=== PATIENT | male | born 1985 | race Caucasian/White ===

== ENCOUNTER 2017-09-03 20:33 | Inpatient (IN) | payer MEDICAID ==
[~2017-09-03] VITALS: Ht 182.9 cm; Wt 83.9 kg
[~2017-09-03 20:33] MED LIST: CARV6.25 PO; LEVO50TA4 PO; WARF-22 PO
[2017-09-03 23:47] VITALS: BP 115/79; PULSE 70; RESP 18; TEMP 98.2; O2SAT 96
--- NOTE | 2017-09-03 23:56 | HHI.HP ---
[facility] No Primary Care Physician Admission Diagnosis Diagnoses: Chief Complaint: chest pain Travel History International Travel<30 Days: No Contact w/Intl Traveler <30 Da: No History of Present Illness 32 y/o male with a history of CHF, AICD, aortic and mitral valve replacement on anticoagulation presented to the ED with chest pain. Patient states his pain is midsternal intermittent, tight, pressure like, 8/10, with no radiation, with associated nausea and shortness of breath, morphine is helping, walking makes it worse. Patient states since he has been nauseated and he has not been eating and drinking well inferiorly that he would vomit. The patient has recently moved back to [place] and is currently in the process of getting set up with a PCP locally. He does state that he has compliant with all his heart meds including Coumadin. He denies any fever or chills at home. Patient states last time he used IV drugs was 5 years ago. Review of Systems Except as stated in HPI: all other systems reviewed are Neg Past Family Social History Past Medical History CHF IVDA quit 5 years ago Hypothyroidism s/p thyroidectomy Endocarditis Past Surgical History AICD AVR 2011 MVR 2016 Cholecystectomy Thyroidectomy. Eye surgery as an infant Reported Medications Reported Meds & Active Scripts Active Reported Coreg (Carvedilol) 6.25 Mg Tab 6.25 Mg PO BID Levothyroxine (Levothyroxine Sodium) 50 Mcg Tab 50 Mcg PO DAILY Warfarin 10 Mg Tab 10 Mg PO HS Allergies: Coded Allergies: gentamicin (Verified Allergy, Severe, Itching, 09/03/17) ketorolac (Verified Allergy, Severe, Hotflash, 09/03/17) linezolid (Verified Allergy, Severe, Itching, 09/03/17) vancomycin (Verified Allergy, Severe, Itching, 09/03/17) Active Ordered Medications Current Medications Medications (Trade) Dose Ordered Sig/Baudilio Route Start Time Stop Time Status Last Admin (NS Flush) 2 ml UNSCH PRN IV FLUSH 09/04/17 00:00 (NS Flush) 2 ml BID IV FLUSH 09/04/17 09:00 (Zofran Inj) 4 mg Q6H PRN IVP 09/04/17 00:00 (Heparin Inj) 5,000 units Q8H SQ 09/04/17 00:00 (Narcan Inj) 0.4 mg UNSCH PRN IV PUSH 09/04/17 00:00 Family History Mom: Liver failure, ETOH Social History Tobacco use: 1/2 PPD Alcohol use: Illicit drug use: Physical Exam Vital Signs Vital Signs Date Time Temp Pulse Resp B/P (MAP) Pulse Ox O2 Delivery O2 Flow Rate FiO2 09/03/17 23:47 98.2 70 18 115/79 (91) 96 Physical Exam GENERAL: This is a well-nourished, well-developed patient, in no apparent distress. SKIN: No rashes, ecchymoses or lesions. Cool and dry. HEAD: Atraumatic. Normocephalic. EYES: Pupils equal round and reactive. Extraocular motions intact. ENT: Nose without bleeding, purulent drainage or septal hematoma. Airway patent. NECK: Trachea midline. No JVD or lymphadenopathy. CARDIOVASCULAR: Regular rate and rhythm. Systolic 3/6 aortic murmer noted. RESPIRATORY: Clear to auscultation. Breath sounds equal bilaterally. No wheezes , rales, or rhonchi. GASTROINTESTINAL: Abdomen soft, non-tender, nondistended. No guarding. MUSCULOSKELETAL: Extremities without clubbing, cyanosis, or edema. No joint tenderness, effusion, or edema noted. No calf tenderness. NEUROLOGICAL: Awake and alert. Motor and sensory grossly within normal limits. Normal speech. Caprini VTE Risk Assessment Caprini VTE Risk Assessment: No/Low Risk (score <= 1) Caprini Risk Assessment Model Point Value = 1 Point Value = 2 Point Value = 3 Point Value = 5 Age 41-60 Minor surgery BMI > 25 kg/m2 Swollen legs Varicose veins or History of unexplained or recurrent spontaneous Oral contraceptives or hormone replacement Sepsis (< 1 month) Serious lung disease, including pneumonia (< 1 month) Abnormal pulmonary function Acute myocardial infarction Congestive heart failure (< 1 month) History of inflammatory bowel disease Medical patient at bed rest Age 61-74 Arthroscopic surgery Major open surgery (> 45 min) Laparoscopic surgery (> 45 min) Malignancy Confined to bed (> 72 hours) Immobilizing plaster cast Central venous access Age >= 75 History of VTE Family history of VTE Factor V Leiden Prothrombin [id number] Lupus anticoagulant Anticardiolipin antibodies Elevated serum homocysteine Heparin-induced thrombocytopenia Other congenital or acquired thrombophilia Stroke (< 1 month) Elective arthroplasty Hip, pelvis, or leg fracture Acute spinal cord injury (< 1 month) Prophylaxis Regimen Total Risk Factor Score Risk Level Prophylaxis Regimen 0-1 Low Early ambulation 2 Moderate Order ONE of the following: *Sequential Compression Device (SCD) *Heparin 5000 units SQ BID 3-4 Higher Order ONE of the following medications: *Heparin 5000 units SQ TID *Enoxaparin/Lovenox 40 mg SQ daily (WT < 150 kg, CrCl > 30 mL/min) *Enoxaparin/Lovenox 30 mg SQ daily (WT < 150 kg, CrCl > 10-29 mL/min) *Enoxaparin/Lovenox 30 mg SQ BID (WT < 150 kg, CrCl > 30 mL/min) AND/OR *Sequential Compression Device (SCD) 5 or more Highest Order ONE of the following medications: *Heparin 5000 units SQ TID (Preferred with Epidurals) *Enoxaparin/Lovenox 40 mg SQ daily (WT < 150 kg, CrCl > 30 mL/min) *Enoxaparin/Lovenox 30 mg SQ daily (WT < 150 kg, CrCl > 10-29 mL/min) *Enoxaparin/Lovenox 30 mg SQ BID (WT < 150 kg, CrCl > 30 mL/min) AND *Sequential Compression Device (SCD) Assessment and Plan Problem List: (1) Chest pain ICD Code: R07.9 - Chest pain, unspecified Status: Acute (2) Subtherapeutic international normalized ratio (INR) ICD Code: R79.1 - Abnormal coagulation profile Status: Acute (3) CHF (congestive heart failure) ICD Code: I50.9 - Heart failure, unspecified Status: Chronic (4) Acute kidney injury ICD Code: N17.9 - Acute kidney failure, unspecified Status: Acute (5) Transaminitis ICD Code: R74.0 - Nonspecific elevation of levels of transaminase and lactic acid dehydrogenase [LDH] Status: Acute Assessment and Plan 32 y/o male with a history of CHF, AICD, aortic and mitral valve replacement on anticoagulation presented to the ED with chest pain. Chest pain atypical rule out ACS Troponin 0.02-->.04, EKG reviewed and shows paced rhythm, d-dimer elevated 3.53 -Serial troponins and EKGs -Monitor telemetry -VQ scan ordered urgent to rule out PE, patient is currently not tachycardic , only short of breath with walking, will hold on heparin drip due to low probability of PE -Blood cultures ordered to rule out endocarditis, since patient has history -Morphine IV for chest pain -2d echo ordered Subtherapeutic INR, INR 1.7 -Lovenox therapeutic dose given, Coumadin restarted -Pharmacy to dose Coumadin -INR in a.m. LASHONDA, creatinine, suspect due to dehydration 1.5 unknown baseline, patient denies kidney disease -NS bolus 500 mL given due to CHF history -Creatinine in a.m. -Avoid nephrotoxins -Consider nephrology consult if creatinine does not improve Transaminitis, suspect due to dehydration, no abdominal pain noted AST 733, ALT 736 -Liver ultrasound ordered -Trend LFTs -Consider gastroenterology consult if LFTs do not improve CHF, chronic, BNP 787 -Watch for fluid overload -Continue home Coreg DVT prophylaxis: Coumadin Discussed Condition With Patient and RN Problem Qualifiers (1) Chest pain: Qualified Codes: R07.1 - Chest pain on breathing (2) CHF (congestive heart failure): Qualified Codes: I50.22 - Chronic systolic (congestive) heart failure Katharina Richardson Sep 03, 2017 23:56
[2017-09-04] VITALS (7 sets, daily range): BP systolic 93–118; BP diastolic 63–90; PULSE 68–72; RESP 16–20; TEMP 97.1–98; O2SAT 95–100
[2017-09-04] MEDS ORDERED: NALOXONE HCL 0.4 MG/ML AMP IV PUSH PRN
[2017-09-04] MEDS ORDERED: HEPARIN SODIUM - SQ 10,000 UNITS/ML VIAL SQ SCH
[2017-09-04] MEDS ORDERED: SODIUM CHLORID 0.9% 500 ML INJ 500 ML IV ONE (00:15)
[2017-09-04] MEDS ORDERED: ENOXAPARIN SODIUM 80 MG/0.8 ML SYRINGE SQ ONE (00:15)
[2017-09-04 01:18] LABS: TROPONIN I 0.04 NG/ML (0.02-0.05)
[2017-09-04] MEDS: MORPHINE SULFATE 2 MG/ML SYRINGE IV PUSH PRN ×6 (01:27→20:55)
[2017-09-04] MEDS: LEVOTHYROXINE SODIUM 50 MCG TAB PO SCH (06:24)
--- NOTE | 2017-09-04 08:02 | HHI.PR ---
Subjective Remarks in no acute distress. still with on and off chest pain. no sob or dizziness. Objective Vitals Vital Signs Date Time Temp Pulse Resp B/P (MAP) Pulse Ox O2 Delivery O2 Flow Rate FiO2 09/04/17 03:37 98.0 68 18 110/70 (83) 95 09/04/17 01:35 21 09/03/17 23:47 98.2 70 18 115/79 (91) 96 Objective Remarks GENERAL: This is a well-nourished, well-developed patient, in no apparent distress. CARDIOVASCULAR: Regular rate and regular rhythm without murmurs, gallops, or rubs. RESPIRATORY: Clear to auscultation. Breath sounds equal bilaterally. No wheezes , rales, or rhonchi. GASTROINTESTINAL: Abdomen soft, non-tender, nondistended. Normal, active bowel sounds MUSCULOSKELETAL: Extremities without clubbing, cyanosis, or edema. NEURO: Alert & Oriented x4 to person, place, time, situation. Moves all ext x4 Medications and IVs Inpatient Medications Carvedilol (Coreg) 6.25 mg BID PO ; Start 09/04/17 at 09:00 Enoxaparin Sodium (Lovenox Inj) 80 mg ONCE ONCE SQ Last administered on at 01:27; Start 09/04/17 at 00:15; Stop 09/04/17 at 00:16; Status DC Heparin Sodium (Porcine) (Heparin Inj) 5,000 units Q8H SQ ; Start 09/04/17 at 00 :00; Stop 09/04/17 at 00:10; Status DC Levothyroxine Sodium (Synthroid) 50 mcg DAILY@0700 PO Last administered on 09/04at 06:24; Start 09/04/17 at 07:00 Morphine Sulfate (Morphine Inj) 2 mg Q3H PRN IV PUSH chest pain Last administered on 09/04/17at 06:25; Start 09/04/17 at 00:00 Naloxone HCl (Narcan Inj) 0.4 mg UNSCH PRN IV PUSH SEE LABEL COMMENTS; Start at 00:00 Ondansetron HCl (Zofran Inj) 4 mg Q6H PRN IVP NAUSEA OR VOMITING; Start at 00:00 Pharmacy Profile Note 0 ml @ 0 mls/hr UNSCH OTHER ; Start 09/04/17 at 01:00 Sodium Chloride 500 ml @ 500 mls/hr BOLUS ONCE IV Last administered on at 01:26; Start 09/04/17 at 00:15; Stop 09/04/17 at 01:14; Status DC Sodium Chloride (NS Flush) 2 ml BID IV FLUSH ; Start 09/04/17 at 09:00 Warfarin Sodium (Coumadin) 10 mg DAILY@1600 PO ; Start 09/04/17 at 16:00 A/P Problem List: (1) Chest pain ICD Code: R07.9 - Chest pain, unspecified Status: Acute (2) Subtherapeutic international normalized ratio (INR) ICD Code: R79.1 - Abnormal coagulation profile Status: Acute (3) CHF (congestive heart failure) ICD Code: I50.9 - Heart failure, unspecified Status: Chronic (4) Acute kidney injury ICD Code: N17.9 - Acute kidney failure, unspecified Status: Acute (5) Transaminitis ICD Code: R74.0 - Nonspecific elevation of levels of transaminase and lactic acid dehydrogenase [LDH] Status: Acute Assessment and Plan A/P Chest pain s/p aortic/mitral valve replacement Troponinnegative, EKG reviewed and shows paced rhythm, d-dimer elevated 3.53 -Monitor telemetry -VQ scan ordered urgent to rule out PE, patient is currently not tachycardic , only short of breath with walking, will hold on heparin drip due to low probability of PE -Blood cultures ordered to rule out endocarditis, since patient has history -Morphine IV for chest pain -2d echo ordered -consult cardiology Subtherapeutic INR, INR 1.7 -Lovenox therapeutic dose given, Coumadin restarted -Pharmacy to dose Coumadin -INR in a.m. renal insufficiency with unknown baseline, patient denies kidney disease -NS bolus 500 mL given due to CHF history -Creatinine in a.m. -Avoid nephrotoxins -Consider nephrology consult if creatinine does not improve Transaminitis, suspect due to dehydration, no abdominal pain noted AST 733, ALT 736 -Liver ultrasound ordered -check hepatitis panel -Trend LFTs -Consider gastroenterology consult if LFTs do not improve CHF, chronic, BNP 787 -Watch for fluid overload -Continue home Coreg DVT prophylaxis: Coumadin Problem Qualifiers (1) Chest pain: Qualified Codes: R07.1 - Chest pain on breathing (2) CHF (congestive heart failure): Qualified Codes: I50.22 - Chronic systolic (congestive) heart failure Tulio Aceves MD Sep 04, 2017 08:02
[2017-09-04] MEDS ORDERED: PNEUMOCOCCAL POLYVALENT INJ 25 MCG/0.5 ML SYR IM ONE (09:00)
[2017-09-04] MEDS ORDERED: INFLUENZA VIRUS VACCINE (QUADRIVALENT) 0.5 ML SYR IM ONE (09:00)
[2017-09-04] MEDS: SODIUM CHLORIDE 0.9% FLUSH 10 ML FLUSH IV FLUSH SCH ×2 (09:01→20:51)
[2017-09-04] MEDS: CARVEDILOL 6.25 MG TAB PO SCH ×2 (09:01→20:54)
[2017-09-04 09:04] LABS: AUTOMATED NEUTROPHIL # 6.5 TH/MM3 (1.8-7.7); BASOPHIL # 0.1 TH/MM3 (0-0.2); BASOPHIL % 0.9 % (0.0-2.0); EOSINOPHIL % 0.1 % (0.0-4.0); HEMATOCRIT 37.1 % (39.0-51.0); HEMOGLOBIN 11.8 GM/DL (13.0-17.0); LYMPH % 11.1 % (9.0-44.0); LYMPHOCYTE # 0.9 TH/MM3 (1.0-4.8); MEAN CELL VOLUME 78.6 FL (80.0-100.0); MEAN CORPUSCULAR HEMOGLOBIN 25.1 PG (27.0-34.0); MEAN CORPUSCULAR HGB CONC 31.9 % (32.0-36.0); MONO % 9.8 % (0.0-8.0); MONOCYTE # 0.8 TH/MM3 (0-0.9); NEUT % 78.1 % (16.0-70.0); PLATELET COUNT 210 TH/MM3 (150-450); RED BLOOD COUNT 4.72 MIL/MM3 (4.50-5.90); RED CELL DISTRIBUTION WIDTH 17.4 % (11.6-17.2); WHITE BLOOD COUNT 8.4 TH/MM3 (4.0-11.0)
[2017-09-04 09:10] LABS: INTERNATIONAL NORMALIZED RATIO 1.6 RATIO; PROTHROMBIN TIME - PATIENT 16.1 SEC (9.8-11.6)
[2017-09-04 09:14] LABS: ALBUMIN 2.7 GM/DL (3.4-5.0); AST (GOT) 508 U/L (15-37); BICARBONATE 27.7 MEQ/L (21.0-32.0); BLOOD UREA NITROGEN 20 MG/DL (7-18); CALCIUM 7.9 MG/DL (8.5-10.1); CHLORIDE 106 MEQ/L (98-107); CREATININE 1.41 MG/DL (0.60-1.30); GLOMERULAR FILTRATION RATE 58 ML/MIN (>89); GLUCOSE,RANDOM 64 MG/DL (74-106); SODIUM (NA) 139 MEQ/L (136-145)
[2017-09-04 09:15] LABS: ALT (GPT) 654 U/L (12-78)
[2017-09-04 09:18] LABS: ALKALINE PHOSPHATASE 108 U/L (45-117); TOTAL BILIRUBIN ADULT 0.7 MG/DL (0.2-1.0); TOTAL PROTEIN 6.3 GM/DL (6.4-8.2)
[2017-09-04 09:20] LABS: TROPONIN I 0.03 NG/ML (0.02-0.05)
--- NOTE | 2017-09-04 10:58 | RADRPT ---
EXAM DATE/TIME: 09/04/2017 09:30 [facility] COMPARISON: CHEST SINGLE AP, September 03, 2017, 19:48. INDICATIONS : Short of breath and chest pain for 1 day. DOSE: 8.1 mCi Tc99m MAA IV 1.1 mCi Tc99m DTPA aerosol MEDICAL HISTORY : Congestive hearrt failure. Smoker. SURGICAL HISTORY : Thyroidectomy. Pacemaker. ENCOUNTER: Initial ACUITY: 1 day PAIN SCALE: 8/10 LOCATION: Bilateral chest TECHNIQUE: Following five minutes of tidal breathing of DTPA aerosol, planar images of the lungs were performed in eight projections. The patient was then injected with MAA, and eight-view perfusion scan was perf ormed. FINDINGS: There is inhomogeneous aerosol deposition. Perfusion is better than ventilation. The there are no defects on the right compared patient defect is present on the left. CONCLUSION: Low probability for pulmonary embolism. Reginald Sharma MD FACR on September 04, 2017 at 10:54 Board Certified Radiologist. This report was verified electronically.
--- NOTE | 2017-09-04 12:04 | RADRPT ---
EXAM DATE/TIME: 09/04/2017 10:57 [facility] COMPARISON: No previous studies available for comparison. INDICATIONS : Increased lab values. MEDICAL HISTORY : Congestive heart failure. Anticoagulant therapy, warfarin. Chest pain. SURGICAL HISTORY : Thyroidectomy. Cholecystectomy. Mitral valve surgery. ENCOUNTER: Initial ACUITY: 2 weeks PAIN SCORE: 4/10 LOCATION: Bilateral upper quadrant MEASUREMENTS: LIVER: 16.0 cm length COMMON DUCT: 3 mm RIGHT KIDNEY: 10.0 x 4.7 x 4.8 cm SPLEEN: 12.6 cm length FINDINGS: LIVER: Normal echotexture without focal lesion or ductal dilatation. COMMON DUCT: No intraluminal mass or stone visualized. GALLBLADDER: Contains no stones, demonstrates no wall thickening or pericholecystic fluid. PANCREAS: The visualized portions are within normal limits. RIGHT KIDNEY: No hydronephrosis, stone or mass. SPLEEN: No focal lesion. Bilateral small pleural effusions. CONCLUSION: 1. Bilateral small pleural effusions. 2. Otherwise negative ultrasound of the liver. Reginald Sharma MD FACR on September 04, 2017 at 12:01 Board Certified Radiologist. This report was verified electronically.
--- NOTE | 2017-09-04 13:19 | HHI.DCPOC ---
Discharge Care Plan Diagnosis: (1) Elevated d-dimer (2) CHF (congestive heart failure) (3) Chest pain Your Health Problems Are: Chest Pain Goals to Promote Your Health * To prevent worsening of your condition and complications * To maintain your health at the optimal level Directions to Meet Your Goals Take your medications as prescribed Follow your dietary instruction Follow activity as directed Keep your appointments as scheduled Take your immunizations and boosters as scheduled If your symptoms worsen call your PCP, if no PCP go to Urgent Care Center or Emergency Room Smoking is Dangerous to Your Health. Avoid second hand smoke Call the 24-hour hour crisis hotline for domestic abuse at Dante Palmer Sep 04, 2017 13:19
--- NOTE | 2017-09-04 13:28 | ECHRPT ---
Indication: CHEST PAIN CONCLUSIONS Moderately dilated left ventricle. Mild concentric left ventricular hypertrophy. The left ventricular systolic function is severely reduced with an estimated ejection fraction less than 20%. Normally functioning mechanical mitral valve prosthesis. The aortic valve prosthesis is normal to two-dimensional, color flow and Doppler interrogation. Multiple mobile densities seen and are most consistent with papillary muscles. Endocarditis can not be excluded. Trivial pulmonary valve regurgitation. BP: / HR: Rhythm: MEASUREMENTS (Male / Female) Normal Values Technical Quality: 2D ECHO LV Diastolic Diameter PLAX 6.6 cm 4.2 - 5.9 / 3.9 - 5.3 cm LV Systolic Diameter PLAX 6.3 cm IVS Diastolic Thickness 1.4 cm 0.6 - 1.0 / 0.6 - 0.9 cm LVPW Diastolic Thickness 1.1 cm 0.6 - 1.0 / 0.6 - 0.9 cm LV Relative Wall Thickness 0.4 RV Internal Dim ED PLAX 2.2 cm LA Systolic Diameter LX 4.2 cm 3.0 - 4.0 / 2.7 - 3.8 cm DOPPLER AV Peak Velocity 284.0 cm/s AV Peak Gradient 32.3 mmHg MV Peak Velocity 171.0 cm/s MV Peak Gradient 11.7 mmHg MV Mean Velocity 91.7 cm/s MV Mean Gradient 4.0 mmHg Mitral E Point Velocity 163.0 cm/s Mitral A Point Velocity 64.2 cm/s Mitral E to A Ratio 2.5 TR Peak Velocity 318.0 cm/s TR Peak Gradient 40.4 mmHg FINDINGS LEFT VENTRICLE Moderately dilated left ventricle. Mild concentric left ventricular hypertrophy. The left ventricular systolic function is severely reduced with an estimated ejection fraction less than 20%. Multiple mobile densities seen and are most consistent with papillary muscles. Endocarditis can not be excluded. RIGHT VENTRICLE Normal right ventricular size and systolic function. LEFT ATRIUM The left atrial size is normal. RIGHT ATRIUM The right atrial size is normal. ATRIAL SEPTUM Normal atrial septal thickness without atrial level shunting by limited color doppler interrogation. AORTA The aortic root and proximal ascending aorta are normal in size on limited imaging. MITRAL VALVE Normally functioning mechanical mitral valve prosthesis. AORTIC VALVE The aortic valve prosthesis is normal to two-dimensional, color flow and Doppler interrogation. The valve appears shggy. TRICUSPID VALVE Structurally normal tricuspid valve. No tricuspid valve stenosis or regurgitation. PULMONARY VALVE Trivial pulmonary valve regurgitation. VESSELS The inferior vena cava is normal in size. PERICARDIUM No pericardial effusion. Liz Scar Noe MD, FACC (Electronically Signed) Final Date:04 September 2017 13:27
--- NOTE | 2017-09-04 14:11 | MB ---
cc: Liz Liu MD DATE: 09/04/2017 REASON FOR CONSULTATION: Chest pain. HISTORY OF PRESENT ILLNESS: Mr. Chapman is a 32-year-old man who does have a history of endocarditis with an aortic valve replacement in 2011 and subsequent mitral valve replacement in 2016. He has a nonischemic cardiomyopathy with an EF of 15-20%, per the patient. He did have subsequent ICD placement. He notes that at his catheterization a couple years ago that there was no significant coronary disease. He reports that last summer, he had good exercise capacity and was able to cut 6 or 7 yards with his father. Now, he has difficulty with prolonged ambulation across the house. He notes that when he gets up to walk a moderate distance that he has cramps essentially all over in his legs, abdomen, and chest in addition to some shortness of breath. He reports that he has moved from [place] and essentially has not had any followup INRs in 3 months. PAST MEDICAL HISTORY: Significant for IV drug use with a subsequent AVR and MVR that are mechanical, CHF, hypothyroidism, endocarditis. PAST SURGICAL HISTORY: Includes the ICD, AVR, MVR, cholecystectomy, thyroidectomy. ALLERGIES: GENTAMICIN, KETOROLAC, , VANCOMYCIN. REPORTED OUTPATIENT MEDICATIONS: Include Coreg 6.25 b.i.d., levothyroxine 50 mcg a day and Coumadin 10 mg a day. FAMILY HISTORY: Positive for alcohol. SOCIAL HISTORY: The patient smokes 1/2 pack a day and denies any drug use in the last several years. PHYSICAL EXAMINATION: VITAL SIGNS: 98.0, 70, 16, 104/74. GENERAL: He is a thin man who is in no apparent distress. NECK: Free from JVD. LUNGS: Bilaterally clear to auscultation. CARDIOVASCULAR: He has a mechanical S2. ABDOMEN: Soft. EXTREMITIES: Free from edema. LABORATORY DATA: Significant for creatinine of 1.4. His AST is 508 and ALT is 654. His serial troponins are 0.04/0.04/0.03. The INR is 1.6 and D-dimer is 3.53. DIAGNOSTIC DATA: V/Q scan was low probability for pulmonary embolism. Liver ultrasound was remarkable only for small bilateral pleural effusions. Echocardiogram shows an EF less than 20%. The LV was fairly dilated and globally hypokinetic. There were mobile densities within the LV that were most consistent with a papillary muscles; however, endocarditis cannot be excluded on the basis of these images. IMPRESSIONS: 1. Chest pain. The patient has ruled out with serial enzymes. He reports a heart catheterization just 2 years or so ago that had normal coronaries. At this point, I do not feel any further ischemia workup is indicated. His description is really more of a global cramping up with mild to moderate activities. I suspect that this is more related to his poor left ventricular function, which is around 15%. Ideally, this young man would be considered for a transplant; however, I do not believe he is realistically a viable candidate at this time as he has had 2 open heart procedures and is essentially noncompliant with his medications. This could be revisited later if he is able to establish with a local senior applications architect. 2. Nonischemic cardiomyopathy - as above. The patient is on a beta bouchra. Angiotensin-converting enzymes inhibitor is felt relatively contraindicated with his elevated creatinine. 3. Elevated liver function tests. It is not clear if this is secondary to hepatic congestion or alcohol versus other. 4. History of heart failure. The patient actually appears really well compensated today. I would continue his present medications. 5. History of endocarditis. I do not see any overt signs of endocarditis. He is afebrile and has a normal white count. It is not unreasonable for him to be discharged home once his INR is therapeutic from a CV perspective. The patient was counseled to quit smoking. MD FILIBERTO Stinson/JOSE EDUARDO , 01:47 PM , 02:10 PM
[2017-09-04] MEDS: ENOXAPARIN SODIUM 80 MG/0.8 ML SYRINGE SQ SCH (14:12)
[2017-09-04] MEDS ORDERED: WARFARIN SOD 10 MG TAB PO SCH (16:00)
--- NOTE | 2017-09-04 16:12 | EKG ---
Date Performed: 09/04/2017 Time Performed: 02:01:45 PTAGE: 32 years EKG: AV paced ABNORMAL RHYTHM ECG Since PREVIOUS TRACING , no significant change noted PREVIOUS TRACIN09/03/2017 19.33.56 DOCTOR: Liz Liu Interpretating Date/Time 09/04/2017 16:11:07
--- NOTE | 2017-09-04 16:12 | EKG ---
Date Performed: 09/04/2017 Time Performed: 06:10:30 PTAGE: 32 years EKG: Ventricular paced ABNORMAL RHYTHM ECG Since PREVIOUS TRACING , no significant change noted PREVIOUS TRACIN09/04/2017 02.01 DOCTOR: Liz Liu Interpretating Date/Time 09/04/2017 16:11:28
[2017-09-05] VITALS (8 sets, daily range): BP systolic 108–125; BP diastolic 65–76; PULSE 56–95; RESP 16–18; TEMP 97.8–99.2; O2SAT 94–100
[2017-09-05] MEDS: MORPHINE SULFATE 2 MG/ML SYRINGE IV PUSH PRN ×6 (00:29→20:30)
[2017-09-05] MEDS: ENOXAPARIN SODIUM 80 MG/0.8 ML SYRINGE SQ SCH (03:42)
[2017-09-05] MEDS: LEVOTHYROXINE SODIUM 50 MCG TAB PO SCH (07:31)
[2017-09-05 07:38] LABS: ALBUMIN 2.5 GM/DL (3.4-5.0); ALT (GPT) 632 U/L (12-78); AST (GOT) 378 U/L (15-37); BICARBONATE 23.9 MEQ/L (21.0-32.0); BLOOD UREA NITROGEN 14 MG/DL (7-18); CALCIUM 7.9 MG/DL (8.5-10.1); CHLORIDE 107 MEQ/L (98-107); CREATININE 1.07 MG/DL (0.60-1.30); GLOMERULAR FILTRATION RATE 80 ML/MIN (>89); GLUCOSE,RANDOM 83 MG/DL (74-106); SODIUM (NA) 138 MEQ/L (136-145)
[2017-09-05 07:39] LABS: ALKALINE PHOSPHATASE 83 U/L (45-117); TOTAL BILIRUBIN ADULT 0.5 MG/DL (0.2-1.0); TOTAL PROTEIN 5.9 GM/DL (6.4-8.2)
[2017-09-05 08:05] LABS: INTERNATIONAL NORMALIZED RATIO 2.4 RATIO; PROTHROMBIN TIME - PATIENT 24.1 SEC (9.8-11.6)
[2017-09-05] MEDS: CARVEDILOL 6.25 MG TAB PO SCH ×2 (09:10→20:24)
[2017-09-05] MEDS: SODIUM CHLORIDE 0.9% FLUSH 10 ML FLUSH IV FLUSH SCH ×2 (09:11→20:24)
--- NOTE | 2017-09-05 13:13 | PD.CONS ---
History of Present Illness Service Infectious disease Consult Requested By Dr Aceves Reason for Consult Evaluate patient with (+) BC Primary Care Physician No Primary Care Physician Diagnoses: History of Present Illness Patient seen and examined. Records reviewed. Patient is a 32-year-old male, presented to the hospital for evaluation of generalized malaise, feeling cold and clammy, and experiencing chest pain, as well as dyspnea on exertion. His history is significant for 2 episodes of endocarditis. One was in 2011, and he underwent aortic valve replacement at that time. During that. He was actively using IV drugs. Then in 2014, while he was in [facility], he was apparently hospitalized in [facility] and was diagnosed to have endocarditis and underwent mitral valve replacement. Patient states that both valves are mechanical valves. Patient states the last time he used IV drug was about 5 years ago. More recently he has been having problem with multiple symptoms. He was having ALMEIDA, and some palpitations and pain. He initially presented at [facility] , and at that time he was also having some fevers. He was told that he had positive blood cultures, but he signed out AGAINST MEDICAL ADVICE for personal reasons. Patient stated that his symptoms got better, but the symptoms started back up again. He has been having more problem with dyspnea on exertion and has been having limitation in his mobility. He really did not document any fever recently, but he was having cold and clammy episodes. Denies any other respiratory complaint as far as cough or congestion. Has not had any GI or any urinary complaints. He initially presented in [facility], and from there he was transferred here at the [facility]. 2 blood cultures done on this admission are now reported as growing gram- positive cocci in pairs and chains. Infectious disease consultation has been requested to evaluate the patient and assist with management. Review of Systems Constitutional: COMPLAINS OF: Chills, Night Sweats Eyes: DENIES: Eye pain Ears, nose, mouth, throat: DENIES: Nasal discharge, Oral lesions, Throat pain, Ear Pain, Sinus Pain Respiratory: COMPLAINS OF: Shortness of breath, DENIES: Cough Cardiovascular: COMPLAINS OF: Chest pain, Dyspnea on Exertion, DENIES: Lower Extremity Edema Gastrointestinal: DENIES: Abdominal pain, Diarrhea, Nausea, Vomiting, Difficulty Swallowing Genitourinary: DENIES: Urgency, Hematuria, Dysuria Musculoskeletal: COMPLAINS OF: Muscle aches, DENIES: Joint pain, Joint Swelling , Back pain Integumentary: DENIES: Pruritus, Rash Hematologic/lymphatic: DENIES: Lymphadenopathy Neurologic: DENIES: Headache, Localized weakness Psychiatric: DENIES: Hallucinations Past Family Social History Allergies: Coded Allergies: gentamicin (Verified Allergy, Severe, Itching, 09/03/17) ketorolac (Verified Allergy, Severe, Hotflash, 09/03/17) linezolid (Verified Allergy, Severe, Itching, 09/03/17) vancomycin (Verified Adverse Reaction, Severe, Itching, 09/05/17) gets hot and itchy, 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 Eye surgery as an infant Active Ordered Medications Current Medications Medications (Trade) Dose Ordered Sig/Baudilio Route Start Time Stop Time Status Last Admin (NS Flush) 2 ml UNSCH PRN IV FLUSH 09/04/17 00:00 (NS Flush) 2 ml BID IV FLUSH 09/04/17 09:00 09/05/17 09:11 (Zofran Inj) 4 mg Q6H PRN IVP 09/04/17 00:00 (Narcan Inj) 0.4 mg UNSCH PRN IV PUSH 09/04/17 00:00 (Morphine Inj) 2 mg Q3H PRN IV PUSH 09/04/17 00:00 09/05/17 11:29 (Coreg) 6.25 mg BID PO 09/04/17 09:00 09/05/17 09:10 (Synthroid) 50 mcg DAILY@0700 PO 09/04/17 07:00 09/05/17 07:31 (Coumadin) 10 mg DAILY@1600 PO 09/04/17 16:00 Future Hold 09/04/17 14:08 Pharmacy Profile Note 0 ml @ 0 mls/hr UNSCH OTHER 09/04/17 01:00 Family History Liver disease and alcoholism Social History Tobacco use: 1/2 PPD Alcohol use: Denies Illicit drug use: History IV drug use, last use was 5 years ago Physical Exam Vital Signs Vital Signs Date Time Temp Pulse Resp B/P (MAP) Pulse Ox O2 Delivery O2 Flow Rate FiO2 09/05/17 11:18 99.0 77 16 108/65 (79) 99 09/05/17 07:48 20 09/05/17 07:08 99.0 78 16 125/75 (92) 100 09/05/17 03:58 98.5 76 18 117/76 (90) 100 09/05/17 01:04 97.8 95 18 120/76 (91) 94 09/04/17 20:55 97.1 72 20 118/90 (99) 97 09/04/17 15:32 97.9 69 16 98/66 (77) 98 Physical Exam GENERAL: Patient is a well-nourished, well-developed male, awake and alert, not in respiratory distress. SKIN: Cool and dry. No generalized rash, no ecchymoses and no evidence of embolic lesions. HEAD: Atraumatic. Normocephalic. No temporal wasting, or tenderness. EYES: [place] conjunctiva. No petechia or hemorrhage. Pupils equal, round and reactive to light. Extraocular movements full and intact. No scleral icterus. No injection or drainage. EARS, NOSE AND THROAT: Nose without bleeding or purulent nasal discharge. No sinus tenderness. Mucous membranes pink and moist. No oral lesions noted. No exudate. No oral thrush. NECK: Trachea midline. Supple and not tender, no meningeal signs CARDIOVASCULAR: Regular rate and rhythm. No murmurs, rubs or gallops heard. (+ ) mechanical valve sound. AICD looks ok RESPIRATORY: Clear to auscultation. Breath sounds equal bilaterally. No rales , wheezing or rhonchi ABDOMEN: Soft, non-tender, nondistended. Bowel sounds present and normoactive. No guarding. No rebound. No organomegaly. EXTREMITIES: No clubbing, cyanosis, or edema. No joint effusion, has good ROM. No calf tenderness. Well perfused and warm. NEUROLOGICAL: Awake and alert. Cranial nerves grossly intact. Motor grossly within normal limits. PSYCHIATRIC: Normal affect, calm and cooperative. LINE: No evidence of infection Laboratory Laboratory Tests Test 09/05/17 06:29 09/05/17 11:52 Prothrombin Time 24.1 Prothromb Time International Ratio 2.4 Blood Urea Nitrogen 14 Creatinine 1.07 Random Glucose 83 Total Protein 5.9 Albumin 2.5 Calcium Level 7.9 Alkaline Phosphatase 83 Aspartate Amino Transf (AST/SGOT) 378 Alanine Aminotransferase (ALT/SGPT) 632 Total Bilirubin 0.5 Sodium Level 138 Potassium Level 4.2 Chloride Level 107 Carbon Dioxide Level 23.9 Anion Gap 7 Estimat Glomerular Filtration Rate 80 Total Creatine Kinase 33 Erythrocyte Sedimentation Rate 14 Date/Time Source Procedure Growth Status 09/04/17 00:20 Blood Peripheral Aerobic Blood Culture - Preliminary Gram Positive Cocci Resulted 09/04/17 00:20 Anaerobic Blood Culture - Preliminary Gram Positive Cocci Resulted Result Diagram: 09/04/17 0831 09/05/17 0629 Imaging RADIOLOGY STUDIES/FILMS REVIEWED Lung Scan-VQ Nuclear Medicine 09/04/17 0000 Signed Impressions: Service Date/Time: Monday, September 04, 2017 09:30 - CONCLUSION: Low probability for pulmonary embolism. Reginald Sharma MD FACR Liver Ultrasound 09/04/17 0000 Signed Impressions: Service Date/Time: Monday, September 04, 2017 10:57 - CONCLUSION: 1. Bilateral small pleural effusions. 2. Otherwise negative ultrasound of the liver. 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
--- NOTE | 2017-09-05 13:26 | HHI.PR ---
Subjective Remarks in no acute distress. has on and off chest pain. afebrile. Objective Vitals Vital Signs Date Time Temp Pulse Resp B/P (MAP) Pulse Ox O2 Delivery O2 Flow Rate FiO2 09/05/17 11:18 99.0 77 16 108/65 (79) 99 09/05/17 07:48 20 09/05/17 07:08 99.0 78 16 125/75 (92) 100 09/05/17 03:58 98.5 76 18 117/76 (90) 100 09/05/17 01:04 97.8 95 18 120/76 (91) 94 09/04/17 20:55 97.1 72 20 118/90 (99) 97 09/04/17 15:32 97.9 69 16 98/66 (77) 98 I/O 09/04/17 09/04/17 09/04/17 09/05/17 09/05/17 09/05/17 06:59 14:59 22:59 06:59 14:59 22:59 Intake Total 500 ml Balance 500 ml Intake IV Total 500 ml Result Diagram: 09/04/17 0831 09/05/17 0629 Imaging Last Impressions Lung Scan-VQ Nuclear Medicine 09/04/17 0000 Signed Impressions: Service Date/Time: Monday, September 04, 2017 09:30 - CONCLUSION: Low probability for pulmonary embolism. Reginald Sharma MD FACR Liver Ultrasound 09/04/17 0000 Signed Impressions: Service Date/Time: Monday, September 04, 2017 10:57 - CONCLUSION: 1. Bilateral small pleural effusions. 2. Otherwise negative ultrasound of the liver. Reginald Sharma MD FACR Objective Remarks GENERAL: This is a well-nourished, well-developed patient, in no apparent distress. CARDIOVASCULAR: Regular rate and regular rhythm without murmurs, gallops, or rubs. RESPIRATORY: Clear to auscultation. Breath sounds equal bilaterally. No wheezes , rales, or rhonchi. GASTROINTESTINAL: Abdomen soft, non-tender, nondistended. Normal, active bowel sounds MUSCULOSKELETAL: Extremities without clubbing, cyanosis, or edema. NEURO: Alert & Oriented x4 to person, place, time, situation. Moves all ext x4 Medications and IVs Inpatient Medications Ampicillin Sodium/ Sulbactam Sodium 3 gm/Sodium Chloride 100 ml @ 200 mls/hr Q6H IV ; Start 09/05/17 at 12:45; Status UNV Carvedilol (Coreg) 6.25 mg BID PO Last administered on 09/05/17at 09:10; Start 09/04/17 at 09:00 Diphenhydramine HCl (Benadryl) 50 mg ONCE ONCE PO ; Start 09/05/17 at 12:45; Stop 09/05/17 at 12:46; Status UNV Enoxaparin Sodium (Lovenox Inj) 80 mg Q12H SQ Last administered on 09/05/17at 03 :42; Start 09/04/17 at 14:00; Stop 09/05/17 at 09:13; Status DC Heparin Sodium (Porcine) (Heparin Inj) 5,000 units Q8H SQ ; Start 09/04/17 at 00 :00; Stop 09/04/17 at 00:10; Status DC Levothyroxine Sodium (Synthroid) 50 mcg DAILY@0700 PO Last administered on 09/05at 07:31; Start 09/04/17 at 07:00 Morphine Sulfate (Morphine Inj) 2 mg Q3H PRN IV PUSH chest pain Last administered on 09/05/17at 11:29; Start 09/04/17 at 00:00 Naloxone HCl (Narcan Inj) 0.4 mg UNSCH PRN IV PUSH SEE LABEL COMMENTS; Start at 00:00 Ondansetron HCl (Zofran Inj) 4 mg Q6H PRN IVP NAUSEA OR VOMITING; Start at 00:00 Pharmacy Profile Note 0 ml @ 0 mls/hr UNSCH OTHER ; Start 09/05/17 at 12:45; Status UNV Sodium Chloride 500 ml @ 500 mls/hr BOLUS ONCE IV Last administered on at 01:26; Start 09/04/17 at 00:15; Stop 09/04/17 at 01:14; Status DC Sodium Chloride (NS Flush) 2 ml BID IV FLUSH Last administered on 09/05/17at 09: 11; Start 09/04/17 at 09:00 Vancomycin HCl 1250 mg/Sodium Chloride 262.5 ml @ 262.5 mls/ hr ONCE ONCE IV ; Start 09/05/17 at 12:45; Stop 09/05/17 at 13:44; Status UNV Warfarin Sodium (Coumadin) 10 mg DAILY@1600 PO Last administered on 09/04/17at 14:08; Start 09/04/17 at 16:00; Status Future Hold A/P Problem List: (1) Chest pain ICD Code: R07.9 - Chest pain, unspecified Status: Acute (2) Subtherapeutic international normalized ratio (INR) ICD Code: R79.1 - Abnormal coagulation profile Status: Acute (3) CHF (congestive heart failure) ICD Code: I50.9 - Heart failure, unspecified Status: Chronic (4) Acute kidney injury ICD Code: N17.9 - Acute kidney failure, unspecified Status: Acute (5) Transaminitis ICD Code: R74.0 - Nonspecific elevation of levels of transaminase and lactic acid dehydrogenase [LDH] Status: Acute Assessment and Plan A/P Chest pain history of endocarditis- s/p aortic/mitral valve replacement cardiomyopathy Troponin negative -Monitor telemetry -VQ scan with low-probability for PE. -Blood cultures with gram-positive cocci -continue with pain control. -echo with EF < 20% -continue Coreg and Coumadin- will dc subq lovenox. -PT/INR monitoring. -will add CARMINE if renal function stable. -cardiology consult appreciated. -started on Vancomycin and Unsayn. - consulted ID. renal insufficiency with unknown baseline, patient denies kidney disease -improved. -Avoid nephrotoxins -will monitor. Transaminitis, suspect due to dehydration, no abdominal pain noted- trending down. Hepatitis C -Liver ultrasound with small bilateral pleural effusions- but otherwise negative. -Trend LFTs DVT prophylaxis: Coumadin. d/w . Problem Qualifiers (1) Chest pain: Qualified Codes: R07.1 - Chest pain on breathing (2) CHF (congestive heart failure): Qualified Codes: I50.22 - Chronic systolic (congestive) heart failure Tulio Aceves MD Sep 05, 2017 13:26
[2017-09-05] MEDS ORDERED: diphenhydrAMINE HCL 50 MG CAP PO SCH (13:30)
[2017-09-05] MEDS ORDERED: Vancomycin Consult Pharmacy 1 EA OTHER SCH (14:30)
[2017-09-05] MEDS: AMPICILLIN-SULBACTAM INJ 3 GM in SODIUM CHLORIDE 0.9% INJ 100 ML IV SCH ×2 (14:52→20:23)
[2017-09-05] MEDS ORDERED: VANCOMYCIN INJ 1,250 MG in SODIUM CHLOR 0.9% 250 ML INJ 250 ML IV SCH (15:00)
[2017-09-05] MEDS: diphenhydrAMINE HCL 50 MG CAP PO PRN (16:46)
[2017-09-05] MEDS: VANCOMYCIN INJ 1,250 MG in SODIUM CHLOR 0.9% 250 ML INJ 250 ML IV SCH (17:28)
[2017-09-06] VITALS (8 sets, daily range): BP systolic 95–120; BP diastolic 67–87; PULSE 70–77; RESP 16–20; TEMP 98–98.5; O2SAT 97–100
[2017-09-06] MEDS: MORPHINE SULFATE 2 MG/ML SYRINGE IV PUSH PRN ×6 (01:27→22:27)
[2017-09-06] MEDS: AMPICILLIN-SULBACTAM INJ 3 GM in SODIUM CHLORIDE 0.9% INJ 100 ML IV SCH ×3 (03:00→15:00)
[2017-09-06] MEDS: diphenhydrAMINE HCL 50 MG CAP PO PRN (03:34)
[2017-09-06] MEDS: VANCOMYCIN INJ 1,250 MG in SODIUM CHLOR 0.9% 250 ML INJ 250 ML IV SCH (04:23)
[2017-09-06] MEDS: LEVOTHYROXINE SODIUM 50 MCG TAB PO SCH (06:34)
[2017-09-06 07:10] LABS: INTERNATIONAL NORMALIZED RATIO 1.8 RATIO; PROTHROMBIN TIME - PATIENT 18.5 SEC (9.8-11.6)
[2017-09-06 07:35] LABS: ALBUMIN 2.5 GM/DL (3.4-5.0); ALT (GPT) 507 U/L (12-78); AST (GOT) 208 U/L (15-37); BICARBONATE 23.6 MEQ/L (21.0-32.0); BLOOD UREA NITROGEN 12 MG/DL (7-18); CALCIUM 8.1 MG/DL (8.5-10.1); CHLORIDE 110 MEQ/L (98-107); CREATININE 1.06 MG/DL (0.60-1.30); GLOMERULAR FILTRATION RATE 80 ML/MIN (>89); GLUCOSE,RANDOM 77 MG/DL (74-106); SODIUM (NA) 141 MEQ/L (136-145)
[2017-09-06 07:38] LABS: ALKALINE PHOSPHATASE 81 U/L (45-117); TOTAL BILIRUBIN ADULT 0.5 MG/DL (0.2-1.0)
[2017-09-06] MEDS: CARVEDILOL 6.25 MG TAB PO SCH (08:56)
[2017-09-06] MEDS: SODIUM CHLORIDE 0.9% FLUSH 10 ML FLUSH IV FLUSH SCH (08:57)
--- NOTE | 2017-09-06 09:18 | HHI.PR ---
Subjective Remarks in no acute distress. chest pain is better. no fever. Objective Vitals Vital Signs Date Time Temp Pulse Resp B/P (MAP) Pulse Ox O2 Delivery O2 Flow Rate FiO2 09/06/17 07:32 98.5 77 16 109/68 (82) 97 09/06/17 03:56 70 18 120/87 (98) 98 09/06/17 01:30 98.5 73 20 112/72 (85) 97 09/05/17 21:47 99.2 84 18 115/74 (88) 99 09/05/17 21:26 85 09/05/17 14:56 98.7 77 18 110/73 (85) 99 09/05/17 14:52 20 09/05/17 11:18 99.0 77 16 108/65 (79) 99 I/O 09/05/17 09/05/17 09/05/17 09/06/17 09/06/17 09/06/17 07:00 15:00 23:00 07:00 15:00 23:00 Output Total 900 ml Balance -900 ml Output Urine Total 900 ml Result Diagram: 09/04/17 0831 09/06/17 0556 Imaging Last Impressions Lung Scan-VQ Nuclear Medicine 09/04/17 0000 Signed Impressions: Service Date/Time: Monday, September 04, 2017 09:30 - CONCLUSION: Low probability for pulmonary embolism. Reginald Sharma MD FACR Liver Ultrasound 09/04/17 0000 Signed Impressions: Service Date/Time: Monday, September 04, 2017 10:57 - CONCLUSION: 1. Bilateral small pleural effusions. 2. Otherwise negative ultrasound of the liver. Reginald Sharma MD FACR Objective Remarks GENERAL: This is a well-nourished, well-developed patient, in no apparent distress. CARDIOVASCULAR: Regular rate and regular rhythm without murmurs, gallops, or rubs. RESPIRATORY: Clear to auscultation. Breath sounds equal bilaterally. No wheezes , rales, or rhonchi. GASTROINTESTINAL: Abdomen soft, non-tender, nondistended. Normal, active bowel sounds MUSCULOSKELETAL: Extremities without clubbing, cyanosis, or edema. NEURO: Alert & Oriented x4 to person, place, time, situation. Moves all ext x4 Medications and IVs Inpatient Medications Ampicillin Sodium/ Sulbactam Sodium 3 gm/Sodium Chloride 100 ml @ 200 mls/hr Q6H IV Last administered on 09/06/17at 08:57; Start 09/05/17 at 15:00 Carvedilol (Coreg) 6.25 mg BID PO Last administered on 09/06/17at 08:56; Start 09/04/17 at 09:00 Diphenhydramine HCl (Benadryl) 50 mg UNSCH PRN PO premedicate IV Vanco Last administered on 09/06/17at 03:34; Start 09/05/17 at 15:30 Enoxaparin Sodium (Lovenox Inj) 80 mg Q12H SQ Last administered on 09/05/17at 03 :42; Start 09/04/17 at 14:00; Stop 09/05/17 at 09:13; Status DC Heparin Sodium (Porcine) (Heparin Inj) 5,000 units Q8H SQ ; Start 09/04/17 at 00 :00; Stop 09/04/17 at 00:10; Status DC Levothyroxine Sodium (Synthroid) 50 mcg DAILY@0700 PO Last administered on 09/06at 06:34; Start 09/04/17 at 07:00 Miscellaneous Information SPECIFIC LAB TO BE DRAWN:VANCO TROUGH DATE TO... ONCE ONCE .XX ; Start 09/07/17 at 03:45; Stop 09/07/17 at 03:46 Morphine Sulfate (Morphine Inj) 2 mg Q3H PRN IV PUSH chest pain Last administered on 09/06/17at 06:34; Start 09/04/17 at 00:00 Naloxone HCl (Narcan Inj) 0.4 mg UNSCH PRN IV PUSH SEE LABEL COMMENTS; Start at 00:00 Ondansetron HCl (Zofran Inj) 4 mg Q6H PRN IVP NAUSEA OR VOMITING; Start at 00:00 Pharmacy Profile Note 0 ml @ 0 mls/hr UNSCH OTHER ; Start 09/05/17 at 14:30 Sodium Chloride 500 ml @ 500 mls/hr BOLUS ONCE IV Last administered on at 01:26; Start 09/04/17 at 00:15; Stop 09/04/17 at 01:14; Status DC Sodium Chloride (NS Flush) 2 ml BID IV FLUSH Last administered on 09/06/17at 08: 57; Start 09/04/17 at 09:00 Vancomycin HCl 1250 mg/Sodium Chloride 262.5 ml @ 131.25 mls/ hr Q12H IV Last administered on 09/06/17at 04:23; Start 09/05/17 at 16:00 Warfarin Sodium (Coumadin) 9 mg DAILY@1600 PO ; Start 09/06/17 at 16:00 A/P Problem List: (1) Chest pain ICD Code: R07.9 - Chest pain, unspecified Status: Acute (2) Subtherapeutic international normalized ratio (INR) ICD Code: R79.1 - Abnormal coagulation profile Status: Acute (3) CHF (congestive heart failure) ICD Code: I50.9 - Heart failure, unspecified Status: Chronic (4) Acute kidney injury ICD Code: N17.9 - Acute kidney failure, unspecified Status: Acute (5) Transaminitis ICD Code: R74.0 - Nonspecific elevation of levels of transaminase and lactic acid dehydrogenase [LDH] Status: Acute Assessment and Plan A/P Chest pain history of endocarditis- s/p aortic/mitral valve replacement cardiomyopathy Troponin negative -Monitor telemetry -VQ scan with low-probability for PE. -initial Blood cultures with gram-positive cocci- will follow the repeated blood cultures. -continue with pain control. -echo with EF < 20% -continue Coreg and Coumadin- will dc subq lovenox. -PT/INR monitoring. -will add CARMINE if renal function stable. -cardiology consult appreciated. -started on Vancomycin and Unsayn. - ID consult appreciated. - will consider EARLEEN renal insufficiency with unknown baseline, patient denies kidney disease -improved. -Avoid nephrotoxins -will monitor. Transaminitis, suspect due to dehydration, no abdominal pain noted- trending down. Hepatitis C -Liver ultrasound with small bilateral pleural effusions- but otherwise negative. -f/u as outpatient DVT prophylaxis: Coumadin. Discharge Planning w/u in progress. not ready for discharge. Problem Qualifiers (1) Chest pain: Qualified Codes: R07.1 - Chest pain on breathing (2) CHF (congestive heart failure): Qualified Codes: I50.22 - Chronic systolic (congestive) heart failure Tulio Aceves MD Sep 06, 2017 09:18
[2017-09-06] MEDS ORDERED: CHLORHEXIDINE GLUCONATE 2 % 1 PACK (2 CLOTHS) TOPICAL PRN (15:00)
[2017-09-06] MEDS ORDERED: POVIDONE IODINE 5% (ANTISEPSIS KIT) 4 APPLICATIONS EACH NARE PRN (15:00)
[2017-09-06] MEDS ORDERED: SODIUM CHLORID 0.9% 500 ML IV PRN (15:00)
[2017-09-06] MEDS ORDERED: INSULIN HUMAN REGULAR 1,000 UNITS/10 ML VIAL SQ PRN (15:00)
[2017-09-06] MEDS ORDERED: LACTATED RINGER'S 1000 ML IV PRN (15:00)
[2017-09-06] MEDS ORDERED: METOPROLOL TARTRATE 25 MG TAB PO PRN (15:00)
--- NOTE | 2017-09-06 15:01 | HHI.IDPN ---
Subjective Subjective Remarks Patient is a 32-year-old male, presented to the hospital for evaluation of generalized malaise, feeling cold and clammy, and experiencing chest pain, as well as dyspnea on exertion. His history is significant for 2 episodes of endocarditis. One was in 2011, and he underwent aortic valve replacement at that time. During that. He was actively using IV drugs. Then in 2014, while he was in intermediate, he was apparently hospitalized in [facility] and was diagnosed to have endocarditis and underwent mitral valve replacement. Patient states that both valves are mechanical valves. Patient states the last time he used IV drug was about 5 years ago. More recently he has been having problem with multiple symptoms. He was having ALMEIDA, and some palpitations and pain. He initially presented at [facility] , and at that time he was also having some fevers. He was told that he had positive blood cultures, but he signed out AGAINST MEDICAL ADVICE for personal reasons. Patient stated that his symptoms got better, but the symptoms started back up again. He has been having more problem with dyspnea on exertion and has been having limitation in his mobility. He really did not document any fever recently, but he was having cold and clammy episodes. Denies any other respiratory complaint as far as cough or congestion. Has not had any GI or any urinary complaints. He initially presented in [facility], and from there he was transferred here at the [facility]. 2 blood cultures done on this admission are now reported as growing gram- positive cocci in pairs and chains. Infectious disease consultation has been requested to evaluate the patient and assist with management. Notes reviewed D/W Dr Ketan Ridley ok Feels better All BC with GPC pairs and chains, 2 ID as Enterococcus faecalis Patient told me he had Enterococcus fro [facility] EARLENE ordered No abdominal pain LFT elevated Liver US ok Antibiotics Vancomycin Unasyn Current Medications Medications (Trade) Dose Ordered Sig/Baudilio Route Start Time Stop Time Status Last Admin (NS Flush) 2 ml UNSCH PRN IV FLUSH 09/04/17 00:00 (NS Flush) 2 ml BID IV FLUSH 09/04/17 09:00 09/06/17 08:57 (Zofran Inj) 4 mg Q6H PRN IVP 09/04/17 00:00 (Narcan Inj) 0.4 mg UNSCH PRN IV PUSH 09/04/17 00:00 (Morphine Inj) 2 mg Q3H PRN IV PUSH 09/04/17 00:00 09/06/17 13:59 (Coreg) 6.25 mg BID PO 09/04/17 09:00 09/06/17 08:56 (Synthroid) 50 mcg DAILY@0700 PO 09/04/17 07:00 09/06/17 06:34 Pharmacy Profile Note 0 ml @ 0 mls/hr UNSCH OTHER 09/05/17 14:30 Ampicillin Sodium/ Sulbactam Sodium 3 gm/Sodium Chloride 100 ml @ 200 mls/hr Q6H IV 09/05/17 15:00 09/06/17 08:57 (Benadryl) 50 mg UNSCH PRN PO 09/05/17 15:30 09/06/17 03:34 Vancomycin HCl 1250 mg/Sodium Chloride 262.5 ml @ 131.25 mls/ hr Q12H IV 09/05/17 16:00 09/06/17 04:23 Miscellaneous Information SPECIFIC LAB TO BE DRAWN:VANCO TROUGH DATE TO... ONCE ONCE .XX 09/07/17 03:45 09/07/17 03:46 (Coumadin) 9 mg DAILY@1600 PO 09/06/17 16:00 Future Hold Pharmacy Profile Note 0 ml @ 0 mls/hr UNSCH OTHER 09/06/17 09:15 Lines Line with no evidence of infection Past Medical History CHF IVDA quit 5 years ago Hypothyroidism s/p thyroidectomy Endocarditis Past Surgical History AICD 2012, nonischemic cardiomyopathy AVR 2012 MVR 2015 Cholecystectomy Thyroidectomy. 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 Vital Signs Date Time Temp Pulse Resp B/P (MAP) Pulse Ox O2 Delivery O2 Flow Rate FiO2 09/06/17 11:26 98.4 75 16 95/67 (76) 97 09/06/17 10:39 20 09/06/17 07:32 98.5 77 16 109/68 (82) 97 09/06/17 03:56 70 18 120/87 (98) 98 09/06/17 01:30 98.5 73 20 112/72 (85) 97 09/05/17 21:47 99.2 84 18 115/74 (88) 99 09/05/17 21:26 85 09/06/17 09/06/17 09/07/17 15:00 23:00 07:00 Output Total 900 ml Balance -900 ml Output Urine Total 900 ml . Laboratory Tests Test 09/05/17 11:52 Erythrocyte Sedimentation Rate 14 mm/hr Laboratory Tests Test 09/05/17 06:29 09/06/17 05:56 Blood Urea Nitrogen 14 MG/DL 12 MG/DL Creatinine 1.07 MG/DL 1.06 MG/DL Random Glucose 83 MG/DL 77 MG/DL Total Protein 5.9 GM/DL 6.0 GM/DL Albumin 2.5 GM/DL 2.5 GM/DL Calcium Level 7.9 MG/DL 8.1 MG/DL Alkaline Phosphatase 83 U/L 81 U/L Aspartate Amino Transf (AST/SGOT) 378 U/L 208 U/L Alanine Aminotransferase (ALT/SGPT) 632 U/L 507 U/L Total Bilirubin 0.5 MG/DL 0.5 MG/DL Sodium Level 138 MEQ/L 141 MEQ/L Potassium Level 4.2 MEQ/L 3.9 MEQ/L Chloride Level 107 MEQ/L 110 MEQ/L Carbon Dioxide Level 23.9 MEQ/L 23.6 MEQ/L Anion Gap 7 MEQ/L 7 MEQ/L Estimat Glomerular Filtration Rate 80 ML/MIN 80 ML/MIN Total Creatine Kinase 33 U/L Microbiology Date/Time Source Procedure Growth Status 09/06/17 05:56 Blood Peripheral Aerobic Blood Culture Pending Received 09/06/17 05:56 Blood Peripheral Anaerobic Blood Culture Pending Received 09/05/17 14:49 Blood Peripheral Aerobic Blood Culture - Preliminary Gram Positive Cocci Resulted 09/05/17 14:49 Anaerobic Blood Culture - Preliminary Gram Positive Cocci Resulted 09/05/17 14:40 Blood Peripheral Aerobic Blood Culture - Preliminary Gram Positive Cocci Resulted 09/05/17 14:40 Anaerobic Blood Culture - Preliminary Gram Positive Cocci Resulted 09/04/17 00:20 Blood Peripheral Aerobic Blood Culture - Final Enterococcus Faecalis Complete 09/04/17 00:20 Anaerobic Blood Culture - Final Enterococcus Faecalis Complete 09/04/17 00:15 Blood Peripheral Aerobic Blood Culture - Preliminary Enterococcus Faecalis Resulted 09/04/17 00:15 Anaerobic Blood Culture - Final Enterococcus Faecalis Resulted Imaging Last Impressions Lung Scan-VQ Nuclear Medicine 09/04/17 0000 Signed Impressions: Service Date/Time: Monday, September 04, 2017 09:30 - CONCLUSION: Low probability for pulmonary embolism. Reginald Sharma MD FACR Liver Ultrasound 09/04/17 0000 Signed Impressions: Service Date/Time: Monday, September 04, 2017 10:57 - CONCLUSION: 1. Bilateral small pleural effusions. 2. Otherwise negative ultrasound of the liver. Reginald Sharma MD FACR Physical Exam GENERAL: awake and alert, not in respiratory distress. SKIN: Cool and dry. No generalized rash, no ecchymoses and no evidence of embolic lesions. HEAD: Atraumatic. Normocephalic. No temporal wasting, or tenderness. EYES: Byers conjunctiva. No petechia or hemorrhage. Pupils equal, round and reactive to light. EOM full and intact. No scleral icterus. No injection or drainage. EARS, NOSE AND THROAT: Nose without bleeding or purulent nasal discharge. No sinus tenderness. Mucous membranes pink and moist. NECK: Trachea midline. Supple and not tender, no meningeal signs CARDIOVASCULAR: Regular rate and rhythm. No murmurs, rubs or gallops heard. (+ ) mechanical valve sound. AICD looks ok RESPIRATORY: Clear to auscultation. Breath sounds equal bilaterally. No rales , wheezing or rhonchi ABDOMEN: Soft, non-tender, nondistended. Bowel sounds present and normoactive. No guarding. No rebound. No organomegaly. EXTREMITIES: No clubbing, cyanosis, or edema. No joint effusion, has good ROM. No calf tenderness. Well perfused and warm. NEUROLOGICAL: Awake and alert. Cranial nerves grossly intact. Motor grossly within normal limits. PSYCHIATRIC: Normal affect, calm and cooperative. LINE: No evidence of infection Assessment & Plan Remarks IMPRESSION (+) BC with Enterococcus, very worrisome for endocarditis - has MVR, AVR, and has AICD - echo with shaggy AV - denies recent IVDU, last use 5 years ago Hx endocarditis one in 2011, S/P MVR (Admitted to IVDU at that time), second on in 2014, [facility], S/P AVR Non-ischemic cardiomyopathy - has ICD, ?pacer placed 2012 Prob red man syndrome reaction to IV Vanco Abnormal LFTs RECOMMENDATION Stop IV Vanco IV Unasyn for now For EARLENE Repeat BC to document clearing Follow LFT Follow BC and adjust Abx Needs to get records from other hospital Monitor progress Very difficult case - he has 2 valves AVR and MVR plus AICD Alejandra Santos MD Sep 06, 2017 15:01
--- NOTE | 2017-09-06 15:52 | MB ---
cc: Bari Montanez MD DATE: 09/06/2017 HISTORY OF PRESENT ILLNESS: This 32-year-old white male with a history of aortic and mitral valve replacement and ICD placement for nonischemic cardiomyopathy, presented for evaluation for fevers, chills, generalized malaise, chest pain and shortness of breath. He has previous history of 2 episodes of endocarditis. He underwent aortic valve replacement using a mechanical valve in 2011. He was using IV drugs. He was in senior living in 2014 and he was hospitalized in [facility] where he was diagnosed with endocarditis and underwent mechanical mitral valve replacement. His 2 blood cultures are positive for gram-positive cocci. PAST MEDICAL HISTORY: Positive for aortic replacement in 2011 for endocarditis, mitral valve replacement in 2014, ICD placement for nonischemic cardiomyopathy in 2012, history of congestive heart failure. IV drug use, the last 5 years ago and hypothyroidism status post thyroidectomy. PAST SURGICAL HISTORY: Cholecystectomy, thyroidectomy, eye surgery. MEDICATIONS: Include: 1. Coreg. 2. Synthroid. 3. Coumadin. ALLERGIES: GENTAMICIN, KETOROLAC, LINEZOLID AND VANCOMYCIN. SOCIAL HISTORY: The patient smokes half pack a day. He does not drink alcohol. He uses cocaine; last IV drug use per patient was 5 years ago. FAMILY HISTORY: Negative for heart disease. REVIEW OF SYSTEMS: Otherwise negative. PHYSICAL EXAMINATION: VITAL SIGNS: Blood pressure 95/67, pulse 75 and regular. HEENT: Negative. NECK: 2+ carotid strokes. No bruits. LUNGS: Clear. HEART: Irregular with a 2/6 systolic murmur. [place]ette aortic and mitral valve clicks and no gallop. ABDOMEN: Soft. No bruits. EXTREMITIES: Without edema. 2+ distal pulses. NEUROLOGIC: Grossly nonfocal. SKIN: With multiple continuous red rash. EKG was reviewed and showed AV pacing. LABORATORY DATA: Hemoglobin 11.8, potassium 3.9, creatinine 1.1. AST 208, ALT 507. Blood cultures positive for Enterococcus faecalis. Echocardiogram showed ejection fraction 20%. Normally functioning mechanical mitral prosthesis. Multiple mobile densities, normally functioning aortic valve prosthesis, mild left ventricular hypertrophy with moderate left ventricular enlargement. DIAGNOSES: 1. Bacteremia (Enterococcus). 2. History of endocarditis. 3. Status post aortic valve replacement, status post mitral valve replacement. 4. Nonischemic cardiomyopathy. 5. History of implantable cardioverter defibrillator placement. 6. Abnormal liver function tests. 7. History of intravenous drug use. 8. Cocaine use. 9. Smoking. DISPOSITION: Mr. Chapman was seen by ID and transesophageal echocardiogram was requested. We will proceed with EARLENE later today. He was started on IV antibiotics. Recommend to continue current program. MD PHILOMENA Rivers/JOSE EDUARDO , 03:18 PM , 03:51 PM MTDMehdi
--- NOTE | 2017-09-06 16:57 | CF ---
cc: Bari Montanez MD, Otakar MD DATE: 09/06/2017 INDICATION: Bacteremia, history of aortic valve replacement, history of mitral valve replacement, history of implantable cardioverter defibrillator placement, cardiomyopathy, evaluation for endocarditis PROCEDURE PERFORMED: Transesophageal echocardiogram. DESCRIPTION OF PROCEDURE: After the patient was sedated by Anesthesia, transesophageal probe was placed without difficulties. Tomographic images were obtained. Left ventricular function was severely decreased with estimated ejection fraction of 20%, severe global hypokinesis. There was evidence of left ventricle enlargement. Aortic valve prosthesis was visualized. There was evidence of multiple mobile vegetations on the aortic valve. There was no evidence of aortic stenosis or regurgitation. The mitral valve prosthesis was visualized. There was no evidence of mitral stenosis or significant regurgitation. There was evidence of mild to moderate tricuspid regurgitation. Right-sided leads were thickened. There were multiple small mobile densities attached to the leads suggestive of vegetations. DIAGNOSES: 1. Prosthetic aortic valve vegetations. 2. Normal function of mitral valve prosthesis. 3. Mild to moderate tricuspid regurgitation. 4. Possible implantable cardioverter defibrillator lead vegetations. 5. No evidence of [id number] shunt. 6. Severe left ventricular systolic dysfunction. IMPRESSION: Aortic valve endocarditis. MD PHILOMENA Rivers/ , 04:39 PM , 04:55 PM MTDMehdi
[2017-09-07] VITALS (11 sets, daily range): BP systolic 98–132; BP diastolic 67–93; PULSE 69–83; RESP 16–20; TEMP 97.5–98.5; O2SAT 97–100
[2017-09-07] MEDS: SODIUM CHLORIDE 0.9% FLUSH 10 ML FLUSH IV FLUSH SCH ×3 (01:21→20:46)
[2017-09-07] MEDS: CARVEDILOL 6.25 MG TAB PO SCH ×3 (01:21→23:04)
--- NOTE | 2017-09-07 01:28 | RADRPT ---
EXAM DATE/TIME: 09/07/2017 01:11 [place] COMPARISON: No previous studies available for comparison. INDICATIONS : Congestion. MEDICAL HISTORY : Congestive heart failure. Smoker SURGICAL HISTORY : Thyroidectomy. Pacemaker, Mitrial valve surgery ENCOUNTER: Subsequent ACUITY: 1 day PAIN SCORE: 0/10 LOCATION: Bilateral chest FINDINGS: Mild consolidation and small effusion developing at the right lung base. No pneumothorax. Left lung r emains reasonably clear. Heart size stable, upper limits of normal. Median sternotomy and valve replacement changes are again noted. There is a cardiac pacer/defibrillator. CONCLUSION: Mild right base consolidation and pleural effusion developing. Vj Momin MD on September 07, 2017 at 1:26 Board Certified Radiologist. This report was verified electronically.
[2017-09-07] MEDS: AMPICILLIN-SULBACTAM INJ 3 GM in SODIUM CHLORIDE 0.9% INJ 100 ML IV SCH ×3 (01:38→12:21)
[2017-09-07] MEDS ORDERED: PHARMACY ORDERED LAB ONE (03:45)
[2017-09-07] MEDS: MORPHINE SULFATE 2 MG/ML SYRINGE IV PUSH PRN ×4 (05:21→20:46)
[2017-09-07 05:35] LABS: INTERNATIONAL NORMALIZED RATIO 1.4 RATIO; PROTHROMBIN TIME - PATIENT 14.2 SEC (9.8-11.6)
[2017-09-07 05:49] LABS: ALBUMIN 2.8 GM/DL (3.4-5.0); DIRECT BILIRUBIN ADULT 0.2 MG/DL (0.0-0.2)
[2017-09-07 05:51] LABS: INDIRECT BILIRUBIN 0.3 MG/DL (0.0-0.8); TOTAL BILIRUBIN ADULT 0.5 MG/DL (0.2-1.0); TOTAL PROTEIN 6.6 GM/DL (6.4-8.2)
[2017-09-07] MEDS: LEVOTHYROXINE SODIUM 50 MCG TAB PO SCH (06:29)
--- NOTE | 2017-09-07 09:05 | HHI.PR ---
Subjective Remarks in no acute distress. has on and off chest pain. has some cough with yellowish sputum. no fever. Objective Vitals Vital Signs Date Time Temp Pulse Resp B/P (MAP) Pulse Ox O2 Delivery O2 Flow Rate FiO2 09/07/17 07:08 98.1 83 18 132/84 (100) 100 09/07/17 05:13 98.1 74 16 118/93 (101) 100 09/07/17 04:06 70 09/07/17 01:03 82 18 109/68 (82) 100 09/07/17 00:59 97.5 72 20 98/68 (78) 100 09/07/17 00:04 69 09/06/17 20:43 70 09/06/17 19:37 98.2 70 18 119/75 (90) 100 09/06/17 17:43 20 09/06/17 17:00 98.0 70 20 115/84 (94) 09/06/17 11:26 98.4 75 16 95/67 (76) 97 I/O 09/06/17 09/06/17 09/06/17 09/07/17 09/07/17 09/07/17 07:00 15:00 23:00 07:00 15:00 23:00 Intake Total 2000 ml Output Total 900 ml 1200 ml Balance -900 ml 2000 ml -1200 ml Intake Oral 800 ml IV Total 1200 ml Output Urine Total 900 ml 1200 ml Result Diagram: 09/04/17 0831 09/06/17 0556 Imaging Last Impressions Chest X-Ray 09/07/17 0000 Signed Impressions: Service Date/Time: Thursday, September 07, 2017 01:11 - CONCLUSION: Mild right base consolidation and pleural effusion developing. Vj Momin MD Lung Scan-V Nuclear Medicine 09/04/17 0000 Signed Impressions: Service Date/Time: Monday, September 04, 2017 09:30 - CONCLUSION: Low probability for pulmonary embolism. Reginald Sharma MD FACR Liver Ultrasound 09/04/17 0000 Signed Impressions: Service Date/Time: Monday, September 04, 2017 10:57 - CONCLUSION: 1. Bilateral small pleural effusions. 2. Otherwise negative ultrasound of the liver. Reginald Sharma MD FACR Objective Remarks GENERAL: This is a well-nourished, well-developed patient, in no apparent distress. CARDIOVASCULAR: Regular rate and regular rhythm without murmurs, gallops, or rubs. RESPIRATORY: Clear to auscultation. Breath sounds equal bilaterally. No wheezes , rales, or rhonchi. GASTROINTESTINAL: Abdomen soft, non-tender, nondistended. Normal, active bowel sounds MUSCULOSKELETAL: Extremities without clubbing, cyanosis, or edema. NEURO: Alert & Oriented x4 to person, place, time, situation. Moves all ext x4 Procedures EARLENE Medications and IVs Inpatient Medications Ampicillin Sodium/ Sulbactam Sodium 3 gm/Sodium Chloride 100 ml @ 200 mls/hr Q6HR IV Last administered on 09/07/17at 06:32; Start 09/07/17 at 01:30 Carvedilol (Coreg) 6.25 mg BID PO Last administered on 09/07/17at 08:38; Start 09/04/17 at 09:00 Chlorhexidine Gluconate (Chlorhexidine 2% Cloth) 3 pack LOCATE TECHNICIAN PRN TOPICAL SEE LABEL COMMENTS; Start 09/06/17 at 15:00; Stop 09/09/17 at 14:59 Diphenhydramine HCl (Benadryl) 50 mg UNSCH PRN PO premedicate IV Vanco Last administered on 09/06/17at 03:34; Start 09/05/17 at 15:30 Enoxaparin Sodium (Lovenox Inj) 80 mg Q12H SQ Last administered on 09/05/17at 03 :42; Start 09/04/17 at 14:00; Stop 09/05/17 at 09:13; Status DC Heparin Sodium (Porcine) (Heparin Inj) 5,000 units Q8H SQ ; Start 09/04/17 at 00 :00; Stop 09/04/17 at 00:10; Status DC Insulin Human Regular (NovoLIN R INJ) See Protocol Table ... LOCATE TECHNICIAN PRN SQ SEE PROTOCOL TABLE; Start 09/06/17 at 15:00; Stop 09/09/17 at 14:59 Lactated Ringer's 1,000 ml @ 30 mls/hr Q24H PRN IV SEE LABEL COMMENTS; Start at 15:00; Stop 09/09/17 at 14:59 Levothyroxine Sodium (Synthroid) 50 mcg DAILY@0700 PO Last administered on 09/07at 06:29; Start 09/04/17 at 07:00 Metoprolol Tartrate (Lopressor) 25 mg LOCATE TECHNICIAN PRN PO SEE LABEL COMMENTS; Start 09/06/17 at 15:00; Stop 09/09/17 at 14:59 Morphine Sulfate (Morphine Inj) 2 mg Q3H PRN IV PUSH chest pain Last administered on 09/07/17at 08:45; Start 09/04/17 at 00:00 Naloxone HCl (Narcan Inj) 0.4 mg UNSCH PRN IV PUSH SEE LABEL COMMENTS; Start at 00:00 Ondansetron HCl (Zofran Inj) 4 mg Q6H PRN IVP NAUSEA OR VOMITING; Start at 00:00 Pharmacy Profile Note 0 ml @ 0 mls/hr UNSCH OTHER ; Start 09/06/17 at 09:15 Povidone Iodine (Betadine 5% Antisepsis Kit) 1 applic LOCATE TECHNICIAN PRN EACH NARE SEE LABEL COMMENTS; Start 09/06/17 at 15:00; Stop 09/09/17 at 14:59 Sodium Chloride 500 ml @ 30 mls/hr [id number] PRN IV SEE LABEL COMMENTS; Start at 15:00; Stop 09/09/17 at 14:59 Sodium Chloride (NS Flush) 2 ml BID IV FLUSH Last administered on 09/07/17at 08: 38; Start 09/04/17 at 09:00 Vancomycin HCl 1250 mg/Sodium Chloride 262.5 ml @ 131.25 mls/ hr Q12H IV Last administered on 09/06/17at 04:23; Start 09/05/17 at 16:00; Stop 09/06/17 at 14:56 ; Status DC Warfarin Sodium (Coumadin) 9 mg DAILY@1600 PO ; Start 09/06/17 at 16:00; Status Future Hold A/P Problem List: (1) Chest pain ICD Code: R07.9 - Chest pain, unspecified Status: Acute (2) Subtherapeutic international normalized ratio (INR) ICD Code: R79.1 - Abnormal coagulation profile Status: Acute (3) CHF (congestive heart failure) ICD Code: I50.9 - Heart failure, unspecified Status: Chronic (4) Acute kidney injury ICD Code: N17.9 - Acute kidney failure, unspecified Status: Acute (5) Transaminitis ICD Code: R74.0 - Nonspecific elevation of levels of transaminase and lactic acid dehydrogenase [LDH] Status: Acute Assessment and Plan A/P Chest pain aortic valve endocarditis cardiomyopathy history of endocarditis- s/p aortic/mitral valve replacement -EARLENE with aortic valve vegetation and Possible implantable cardioverter defibrillator vegetations. -Monitor telemetry -VQ scan with low-probability for PE. -initial Blood cultures with enterococcus faecalis- will follow the repeated blood cultures. -continue with pain control. -echo with EF < 20% -continue Coreg and Coumadin- will restart subq lovenox till INR becomes therapeutic. -PT/INR monitoring. -will add CARMINE if renal function stable. -cardiology consult appreciated. -continue Unsayn. - ID following. renal insufficiency with unknown baseline, patient denies kidney disease -improved. -Avoid nephrotoxins -will monitor. Transaminitis, suspect due to dehydration, no abdominal pain noted- trending down. Hepatitis C -Liver ultrasound with small bilateral pleural effusions- but otherwise negative. -will trend the enzymes. -f/u as outpatient DVT prophylaxis: Coumadin. Discharge Planning w/u in progress. not ready for discharge. Problem Qualifiers (1) Chest pain: Qualified Codes: R07.1 - Chest pain on breathing (2) CHF (congestive heart failure): Qualified Codes: I50.22 - Chronic systolic (congestive) heart failure Tulio Aceves MD Sep 07, 2017 09:05
[2017-09-07] MEDS: ENOXAPARIN SODIUM 80 MG/0.8 ML SYRINGE SQ SCH ×2 (12:21→23:04)
[2017-09-07] MEDS: ACETAMINOPHEN/HYDROcodone 325 MG/7.5 MG TAB PO PRN ×3 (12:31→23:46)
--- NOTE | 2017-09-07 13:53 | HHI.IDPN ---
Subjective Subjective Remarks Patient is a 32-year-old male, presented to the hospital for evaluation of generalized malaise, feeling cold and clammy, and experiencing chest pain, as well as dyspnea on exertion. His history is significant for 2 episodes of endocarditis. One was in 2011, and he underwent aortic valve replacement at that time. During that. He was actively using IV drugs. Then in 2014, while he was in skilled nursing, he was apparently hospitalized in [facility] and was diagnosed to have endocarditis and underwent mitral valve replacement. Patient states that both valves are mechanical valves. Patient states the last time he used IV drug was about 5 years ago. More recently he has been having problem with multiple symptoms. He was having ALMEIDA, and some palpitations and pain. He initially presented at [facility] , and at that time he was also having some fevers. He was told that he had positive blood cultures, but he signed out AGAINST MEDICAL ADVICE for personal reasons. Patient stated that his symptoms got better, but the symptoms started back up again. He has been having more problem with dyspnea on exertion and has been having limitation in his mobility. He really did not document any fever recently, but he was having cold and clammy episodes. Denies any other respiratory complaint as far as cough or congestion. Has not had any GI or any urinary complaints. He initially presented in [facility], and from there he was transferred here at the [facility]. 2 blood cultures done on this admission are now reported as growing gram- positive cocci in pairs and chains. Infectious disease consultation has been requested to evaluate the patient and assist with management. Notes reviewed D/W Dr Ketan cervantes All 09/02-09/06 with Enterococcus faecalis Patient told me he had Enterococcus from Fish EARLENE with veg at AVR and possibly in ICD leads No abdominal pain LFT elevated, improving Liver US ok Antibiotics Unasyn Current Medications Medications (Trade) Dose Ordered Sig/Baudilio Route Start Time Stop Time Status Last Admin (NS Flush) 2 ml UNSCH PRN IV FLUSH 09/04/17 00:00 (NS Flush) 2 ml BID IV FLUSH 09/04/17 09:00 09/07/17 08:38 (Zofran Inj) 4 mg Q6H PRN IVP 09/04/17 00:00 (Narcan Inj) 0.4 mg UNSCH PRN IV PUSH 09/04/17 00:00 (Morphine Inj) 2 mg Q3H PRN IV PUSH 09/04/17 00:00 09/07/17 08:45 (Coreg) 6.25 mg BID PO 09/04/17 09:00 09/07/17 08:38 (Synthroid) 50 mcg DAILY@0700 PO 09/04/17 07:00 09/07/17 06:29 (Benadryl) 50 mg UNSCH PRN PO 09/05/17 15:30 09/06/17 03:34 (Coumadin) 9 mg DAILY@1600 PO 09/06/17 16:00 Future hold Pharmacy Profile Note 0 ml @ 0 mls/hr UNSCH OTHER 09/06/17 09:15 Lactated Ringer's 1,000 ml @ 30 mls/hr Q24H PRN IV 09/06/17 15:00 09/09/17 14:59 Sodium Chloride 500 ml @ 30 mls/hr [id number] PRN IV 09/06/17 15:00 09/09/17 14:59 (Lopressor) 25 mg LCAC RADAR OPERATOR/NAVIGATOR PRN PO 09/06/17 15:00 09/09/17 14:59 (Betadine 5% Antisepsis Kit) 1 applic LCAC RADAR OPERATOR/NAVIGATOR PRN EACH NARE 09/06/17 15:00 09/09/17 14:59 (Chlorhexidine 2% Cloth) 3 pack LCAC RADAR OPERATOR/NAVIGATOR PRN TOPICAL 09/06/17 15:00 09/09/17 14:59 (NovoLIN R INJ) See Protocol Table ... LCAC RADAR OPERATOR/NAVIGATOR PRN SQ 09/06/17 15:00 09/09/17 14:59 (Lovenox Inj) 80 mg Q12H SQ 09/07/17 11:00 09/07/17 12:21 ([place] 7.5-325 Mg) 1 tab Q4H PRN PO 09/07/17 09:15 ([place] 7.5-325 Mg) 2 tab Q4HR PRN PO 09/07/17 09:15 09/07/17 12:31 Penicillin G Potassium [id number] units/Sodium Chloride 100 ml @ 100 mls/hr Q4H IV 09/07/17 14:00 Lines Line with no evidence of infection Past Medical History CHF IVDA quit 5 years ago Hypothyroidism s/p thyroidectomy Endocarditis Past Surgical History AICD 2013, nonischemic cardiomyopathy AVR 2012 MVR 2015 Cholecystectomy Thyroidectomy. 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 Vital Signs Date Time Temp Pulse Resp B/P (MAP) Pulse Ox O2 Delivery O2 Flow Rate FiO2 09/07/17 13:38 18 09/07/17 11:28 70 09/07/17 11:22 98.5 82 18 102/68 (79) 100 09/07/17 09:00 18 09/07/17 07:08 98.1 83 18 132/84 (100) 100 09/07/17 05:13 98.1 74 16 118/93 (101) 100 09/07/17 04:06 70 09/07/17 01:03 82 18 109/68 (82) 100 09/07/17 00:59 97.5 72 20 98/68 (78) 100 09/07/17 00:04 69 09/06/17 20:43 70 09/06/17 19:37 98.2 70 18 119/75 (90) 100 09/06/17 17:00 98.0 70 20 115/84 (94) 09/07/17 09/07/17 09/08/17 14:59 22:59 06:59 Intake Total 110 ml Balance 110 ml Intake Oral 10 ml IV Total 100 ml . Laboratory Tests Test 09/06/17 05:56 09/07/17 04:52 Blood Urea Nitrogen 12 MG/DL Creatinine 1.06 MG/DL Random Glucose 77 MG/DL Total Protein 6.0 GM/DL 6.6 GM/DL Albumin 2.5 GM/DL 2.8 GM/DL Calcium Level 8.1 MG/DL Alkaline Phosphatase 81 U/L 77 U/L Aspartate Amino Transf (AST/SGOT) 208 U/L 140 U/L Alanine Aminotransferase (ALT/SGPT) 507 U/L 438 U/L Total Bilirubin 0.5 MG/DL 0.5 MG/DL Sodium Level 141 MEQ/L Potassium Level 3.9 MEQ/L Chloride Level 110 MEQ/L Carbon Dioxide Level 23.6 MEQ/L Anion Gap 7 MEQ/L Estimat Glomerular Filtration Rate 80 ML/MIN Direct Bilirubin 0.2 MG/DL Indirect Bilirubin 0.3 MG/DL Microbiology Date/Time Source Procedure Growth Status 09/07/17 04:52 Blood Peripheral Aerobic Blood Culture Pending Received 09/07/17 04:52 Blood Peripheral Anaerobic Blood Culture Pending Received 09/06/17 05:56 Blood Peripheral Aerobic Blood Culture - Preliminary Gram Positive Cocci Resulted 09/06/17 05:56 Blood Peripheral Anaerobic Blood Culture - Preliminary NO GROWTH IN 1 DAY Resulted 09/05/17 14:49 Blood Peripheral Aerobic Blood Culture - Final Enterococcus Faecalis Complete 09/05/17 14:49 Anaerobic Blood Culture - Final Enterococcus Faecalis Complete 09/05/17 14:40 Blood Peripheral Aerobic Blood Culture - Final Enterococcus Faecalis Complete 09/05/17 14:40 Anaerobic Blood Culture - Final Enterococcus Faecalis Complete Imaging Last Impressions Lung Scan-V Nuclear Medicine 09/04/17 0000 Signed Impressions: Service Date/Time: Monday, September 04, 2017 09:30 - CONCLUSION: Low probability for pulmonary embolism. Reginald Sharma MD FACR Liver Ultrasound 09/04/17 0000 Signed Impressions: Service Date/Time: Monday, September 04, 2017 10:57 - CONCLUSION: 1. Bilateral small pleural effusions. 2. Otherwise negative ultrasound of the liver. Reginald Sharma MD FACR Physical Exam GENERAL: awake and alert, not in respiratory distress. SKIN: Cool and dry. No generalized rash, no ecchymoses and no evidence of embolic lesions. HEAD: Atraumatic. Normocephalic. No temporal wasting, or tenderness. EYES: [place] conjunctiva. No petechia or hemorrhage. Pupils equal, round and reactive to light. EOM full and intact. No scleral icterus. No injection or drainage. EARS, NOSE AND THROAT: Nose without bleeding or purulent nasal discharge. No sinus tenderness. Mucous membranes pink and moist. NECK: Trachea midline. Supple and not tender, no meningeal signs CARDIOVASCULAR: Regular rate and rhythm. No murmurs, rubs or gallops heard. (+ ) mechanical valve sound. AICD looks ok RESPIRATORY: Clear to auscultation. Breath sounds equal bilaterally. No rales , wheezing or rhonchi ABDOMEN: Soft, non-tender, nondistended. Bowel sounds present and normoactive. No guarding. No rebound. No organomegaly. EXTREMITIES: No clubbing, cyanosis, or edema. No joint effusion, has good ROM. No calf tenderness. Well perfused and warm. NEUROLOGICAL: Awake and alert. Cranial nerves grossly intact. Motor grossly within normal limits. PSYCHIATRIC: Normal affect, calm and cooperative. 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
[2017-09-07] MEDS: PENICILLIN G POTASSIUM INJ 3,000,000 UNITS in SODIUM CHLORIDE 0.9% INJ 100 ML IV SCH ×3 (14:45→23:04)
[2017-09-07] MEDS: WARFARIN SOD 3 MG TAB PO SCH (16:17)
--- NOTE | 2017-09-07 17:27 | PD.CARD.PN ---
Subjective Subjective Remarks No CP or SOB, mild fatigue Objective Medications Current Medications Medications (Trade) Dose Ordered Sig/Baudilio Route Start Time Stop Time Status Last Admin (NS Flush) 2 ml UNSCH PRN IV FLUSH 09/04/17 00:00 (NS Flush) 2 ml BID IV FLUSH 09/04/17 09:00 09/07/17 08:38 (Zofran Inj) 4 mg Q6H PRN IVP 09/04/17 00:00 (Narcan Inj) 0.4 mg UNSCH PRN IV PUSH 09/04/17 00:00 (Morphine Inj) 2 mg Q3H PRN IV PUSH 09/04/17 00:00 09/07/17 14:46 (Coreg) 6.25 mg BID PO 09/04/17 09:00 09/07/17 08:38 (Synthroid) 50 mcg DAILY@0700 PO 09/04/17 07:00 09/07/17 06:29 (Benadryl) 50 mg UNSCH PRN PO 09/05/17 15:30 09/06/17 03:34 (Coumadin) 9 mg DAILY@1600 PO 09/06/17 16:00 Future hold 09/07/17 16:17 Pharmacy Profile Note 0 ml @ 0 mls/hr UNSCH OTHER 09/06/17 09:15 Lactated Ringer's 1,000 ml @ 30 mls/hr Q24H PRN IV 09/06/17 15:00 09/09/17 14:59 Sodium Chloride 500 ml @ 30 mls/hr [id number] PRN IV 09/06/17 15:00 09/09/17 14:59 (Lopressor) 25 mg BATTERY CHARGER TESTER PRN PO 09/06/17 15:00 09/09/17 14:59 (Betadine 5% Antisepsis Kit) 1 applic BATTERY CHARGER TESTER PRN EACH NARE 09/06/17 15:00 09/09/17 14:59 (Chlorhexidine 2% Cloth) 3 pack BATTERY CHARGER TESTER PRN TOPICAL 09/06/17 15:00 09/09/17 14:59 (NovoLIN R INJ) See Protocol Table ... BATTERY CHARGER TESTER PRN SQ 09/06/17 15:00 09/09/17 14:59 (Lovenox Inj) 80 mg Q12H SQ 09/07/17 11:00 09/07/17 12:21 ([place] 7.5-325 Mg) 1 tab Q4H PRN PO 09/07/17 09:15 ([place] 7.5-325 Mg) 2 tab Q4HR PRN PO 09/07/17 09:15 09/07/17 12:31 Penicillin G Potassium [id number] units/Sodium Chloride 100 ml @ 100 mls/hr Q4H IV 09/07/17 14:00 09/07/17 14:45 Vital Signs / I&O Vital Signs Date Time Temp Pulse Resp B/P (MAP) Pulse Ox O2 Delivery O2 Flow Rate FiO2 09/07/17 15:05 70 09/07/17 15:02 18 09/07/17 14:29 98.0 76 18 110/67 (81) 97 09/07/17 13:38 18 09/07/17 11:28 70 09/07/17 11:22 98.5 82 18 102/68 (79) 100 09/07/17 07:08 98.1 83 18 132/84 (100) 100 09/07/17 05:13 98.1 74 16 118/93 (101) 100 09/07/17 04:06 70 09/07/17 01:03 82 18 109/68 (82) 100 09/07/17 00:59 97.5 72 20 98/68 (78) 100 09/07/17 00:04 69 09/06/17 20:43 70 09/06/17 19:37 98.2 70 18 119/75 (90) 100 I/O 09/06/17 09/06/17 09/06/17 09/07/17 09/07/17 09/07/17 07:00 15:00 23:00 07:00 15:00 23:00 Intake Total 2000 ml 110 ml Output Total 900 ml 1200 ml Balance -900 ml 2000 ml -1200 ml 110 ml Intake Oral 800 ml 10 ml IV Total 1200 ml 100 ml Output Urine Total 900 ml 1200 ml Physical Exam GENERAL: In NAD SKIN: Warm and dry. HEAD: Normocephalic. EYES: No scleral icterus. No injection or drainage. NECK: Supple, trachea midline. No JVD or lymphadenopathy. CARDIOVASCULAR: Regular rate and rhythm with 1-2/6 syst murmurs, no gallops or rubs, crisp valve clicks RESPIRATORY: Breath sounds equal bilaterally. No accessory muscle use. GASTROINTESTINAL: Abdomen soft, non-tender, nondistended. MUSCULOSKELETAL: No cyanosis, or edema. Laboratory Laboratory Tests Test 09/07/17 04:52 Prothrombin Time 14.2 SEC Prothromb Time International Ratio 1.4 RATIO Total Bilirubin 0.5 MG/DL Direct Bilirubin 0.2 MG/DL Indirect Bilirubin 0.3 MG/DL Aspartate Amino Transf (AST/SGOT) 140 U/L Alanine Aminotransferase (ALT/SGPT) 438 U/L Alkaline Phosphatase 77 U/L Total Protein 6.6 GM/DL Albumin 2.8 GM/DL Imaging Last 24 hours Impressions Chest X-Ray 09/07/17 0000 Signed Impressions: Service Date/Time: Thursday, September 07, 2017 01:11 - CONCLUSION: Mild right base consolidation and pleural effusion developing. jV Momin MD Assessment and Plan Problem List: (1) Aortic valve endocarditis ICD Codes: I35.8 - Other nonrheumatic aortic valve disorders (2) S/P AVR (aortic valve replacement) ICD Codes: Z95.2 - Presence of prosthetic heart valve (3) S/P MVR (mitral valve replacement) ICD Codes: Z95.2 - Presence of prosthetic heart valve (4) ICD (implantable cardioverter-defibrillator) in place ICD Codes: Z95.810 - Presence of automatic (implantable) cardiac defibrillator Assessment and Plan EARLENE with multiple aortic prosthetic valve vegetations. ICD leads also with suspected vegetations. Continue current program as per ID. Difficult situation. Bari Montanez MD Sep 07, 2017 17:27
[2017-09-08] VITALS (9 sets, daily range): BP systolic 105–122; BP diastolic 72–88; PULSE 69–96; RESP 16–18; TEMP 97.2–97.9; O2SAT 93–100
[2017-09-08] MEDS: PENICILLIN G POTASSIUM INJ 3,000,000 UNITS in SODIUM CHLORIDE 0.9% INJ 100 ML IV SCH ×6 (02:22→22:09)
[2017-09-08] MEDS: MORPHINE SULFATE 2 MG/ML SYRINGE IV PUSH PRN ×5 (02:22→21:30)
[2017-09-08] MEDS: LEVOTHYROXINE SODIUM 50 MCG TAB PO SCH (05:52)
[2017-09-08] MEDS: ACETAMINOPHEN/HYDROcodone 325 MG/7.5 MG TAB PO PRN ×5 (05:53→23:49)
[2017-09-08 09:24] LABS: INTERNATIONAL NORMALIZED RATIO 1.3 RATIO; PROTHROMBIN TIME - PATIENT 12.7 SEC (9.8-11.6)
[2017-09-08] MEDS: CARVEDILOL 6.25 MG TAB PO SCH ×2 (10:00→22:09)
[2017-09-08] MEDS: SODIUM CHLORIDE 0.9% FLUSH 10 ML FLUSH IV FLUSH SCH ×2 (10:00→21:00)
[2017-09-08] MEDS: ENOXAPARIN SODIUM 80 MG/0.8 ML SYRINGE SQ SCH ×2 (11:00→22:09)
--- NOTE | 2017-09-08 11:25 | HHI.PR ---
Subjective Remarks in no acute distress. afebrile. on and off chest pain/ tightness. Objective Vitals Vital Signs Date Time Temp Pulse Resp B/P (MAP) Pulse Ox O2 Delivery O2 Flow Rate FiO2 09/08/17 08:25 97.7 70 18 106/77 (87) 98 09/08/17 04:39 97.6 96 16 117/72 (87) 100 09/08/17 01:33 70 09/07/17 22:54 97.8 71 16 107/82 (90) 100 09/07/17 15:05 70 09/07/17 15:02 18 09/07/17 14:29 98.0 76 18 110/67 (81) 97 09/07/17 13:38 18 09/07/17 11:28 70 I/O 09/07/17 09/07/17 09/07/17 09/08/17 09/08/17 09/08/17 07:00 15:00 23:00 07:00 15:00 23:00 Intake Total 110 ml Output Total 1200 ml Balance -1200 ml 110 ml Intake Oral 10 ml IV Total 100 ml Output Urine Total 1200 ml Result Diagram: 09/04/17 0831 09/06/17 0556 Imaging Last Impressions Chest X-Ray 09/07/17 0000 Signed Impressions: Service Date/Time: Thursday, September 07, 2017 01:11 - CONCLUSION: Mild right base consolidation and pleural effusion developing. Vj Momin MD Lung Scan-V Nuclear Medicine 09/04/17 0000 Signed Impressions: Service Date/Time: Monday, September 04, 2017 09:30 - CONCLUSION: Low probability for pulmonary embolism. Reginald Sharma MD FACR Liver Ultrasound 09/04/17 0000 Signed Impressions: Service Date/Time: Monday, September 04, 2017 10:57 - CONCLUSION: 1. Bilateral small pleural effusions. 2. Otherwise negative ultrasound of the liver. Reginald Sharma MD FACR Objective Remarks GENERAL: This is a well-nourished, well-developed patient, in no apparent distress. CARDIOVASCULAR: Regular rate and regular rhythm without murmurs, gallops, or rubs. RESPIRATORY: Clear to auscultation. Breath sounds equal bilaterally. No wheezes , rales, or rhonchi. GASTROINTESTINAL: Abdomen soft, non-tender, nondistended. Normal, active bowel sounds MUSCULOSKELETAL: Extremities without clubbing, cyanosis, or edema. NEURO: Alert & Oriented x4 to person, place, time, situation. Moves all ext x4 Procedures EARLENE Medications and IVs Inpatient Medications Acetaminophen/ Hydrocodone Bitart ([place] 7.5-325 Mg) 2 tab Q4HR PRN PO PAIN 6- 10 Last administered on 09/08/17at 10:01; Start 09/07/17 at 09:15 Ampicillin Sodium/ Sulbactam Sodium 3 gm/Sodium Chloride 100 ml @ 200 mls/hr Q6HR IV Last administered on 09/07/17at 12:21; Start 09/07/17 at 01:30; Stop at 12:30; Status DC Carvedilol (Coreg) 6.25 mg BID PO Last administered on 09/08/17at 10:00; Start 09/04/17 at 09:00 Chlorhexidine Gluconate (Chlorhexidine 2% Cloth) 3 pack MUSIC WRITER PRN TOPICAL SEE LABEL COMMENTS; Start 09/06/17 at 15:00; Stop 09/09/17 at 14:59 Diphenhydramine HCl (Benadryl) 50 mg UNSCH PRN PO premedicate IV Vanco Last administered on 09/06/17at 03:34; Start 09/05/17 at 15:30 Enoxaparin Sodium (Lovenox Inj) 80 mg Q12H SQ Last administered on 09/07/17at 23 :04; Start 09/07/17 at 11:00 Heparin Sodium (Porcine) (Heparin Inj) 5,000 units Q8H SQ ; Start 09/04/17 at 00 :00; Stop 09/04/17 at 00:10; Status DC Insulin Human Regular (NovoLIN R INJ) See Protocol Table ... MUSIC WRITER PRN SQ SEE PROTOCOL TABLE; Start 09/06/17 at 15:00; Stop 09/09/17 at 14:59 Lactated Ringer's 1,000 ml @ 30 mls/hr Q24H PRN IV SEE LABEL COMMENTS; Start at 15:00; Stop 09/09/17 at 14:59 Levothyroxine Sodium (Synthroid) 50 mcg DAILY@0700 PO Last administered on 09/08at 05:52; Start 09/04/17 at 07:00 Metoprolol Tartrate (Lopressor) 25 mg MUSIC WRITER PRN PO SEE LABEL COMMENTS; Start 09/06/17 at 15:00; Stop 09/09/17 at 14:59 Morphine Sulfate (Morphine Inj) 2 mg Q3H PRN IV PUSH BREAKTHROUGH PAIN Last administered on 09/08/17at 07:50; Start 09/04/17 at 00:00 Naloxone HCl (Narcan Inj) 0.4 mg UNSCH PRN IV PUSH SEE LABEL COMMENTS; Start at 00:00 Ondansetron HCl (Zofran Inj) 4 mg Q6H PRN IVP NAUSEA OR VOMITING; Start at 00:00 Penicillin G Potassium [id number] units/Sodium Chloride 100 ml @ 100 mls/hr Q4H IV Last administered on 09/08/17at 10:01; Start 09/07/17 at 14:00 Pharmacy Profile Note 0 ml @ 0 mls/hr UNSCH OTHER ; Start 09/06/17 at 09:15 Povidone Iodine (Betadine 5% Antisepsis Kit) 1 applic MUSIC WRITER PRN EACH NARE SEE LABEL COMMENTS; Start 09/06/17 at 15:00; Stop 09/09/17 at 14:59 Sodium Chloride 500 ml @ 30 mls/hr [id number] PRN IV SEE LABEL COMMENTS; Start at 15:00; Stop 09/09/17 at 14:59 Sodium Chloride (NS Flush) 2 ml BID IV FLUSH Last administered on 09/08/17at 10: 00; Start 09/04/17 at 09:00 Vancomycin HCl 1250 mg/Sodium Chloride 262.5 ml @ 131.25 mls/ hr Q12H IV Last administered on 09/06/17at 04:23; Start 09/05/17 at 16:00; Stop 09/06/17 at 14:56 ; Status DC Warfarin Sodium (Coumadin) 1 mg ONCE ONCE PO ; Start 09/08/17 at 16:00; Stop at 16:01 A/P Problem List: (1) Chest pain ICD Code: R07.9 - Chest pain, unspecified Status: Acute (2) Subtherapeutic international normalized ratio (INR) ICD Code: R79.1 - Abnormal coagulation profile Status: Acute (3) CHF (congestive heart failure) ICD Code: I50.9 - Heart failure, unspecified Status: Chronic (4) Acute kidney injury ICD Code: N17.9 - Acute kidney failure, unspecified Status: Acute (5) Transaminitis ICD Code: R74.0 - Nonspecific elevation of levels of transaminase and lactic acid dehydrogenase [LDH] Status: Acute Assessment and Plan A/P Chest pain aortic valve endocarditis with possible ICD vegetations cardiomyopathy history of endocarditis- s/p aortic/mitral valve replacement -EARLENE with aortic valve vegetation and Possible implantable cardioverter defibrillator vegetations. -Monitor telemetry -VQ scan with low-probability for PE. -initial Blood cultures with enterococcus faecalis- will follow the repeated blood cultures. -continue with pain control. -echo with EF < 20% -continue Coreg and Coumadin- continue subq lovenox till INR becomes therapeutic. -PT/INR monitoring. -will add CARMINE if renal function stable and BP allows. -started on penicillin G - ID and cardiology following. -CT surgery consulted. renal insufficiency with unknown baseline, patient denies kidney disease -improved. -Avoid nephrotoxins -will monitor. Transaminitis, suspect due to dehydration, no abdominal pain noted- trending down. Hepatitis C -Liver ultrasound with small bilateral pleural effusions- but otherwise negative. -f/u as outpatient DVT prophylaxis: Coumadin/subq Lovenox. Discharge Planning w/u in progress. not ready for discharge. Problem Qualifiers (1) Chest pain: Qualified Codes: R07.1 - Chest pain on breathing (2) CHF (congestive heart failure): Qualified Codes: I50.22 - Chronic systolic (congestive) heart failure Tulio Aceves MD Sep 08, 2017 11:25
--- NOTE | 2017-09-08 12:58 | PD.CARD.PN ---
Subjective Subjective Remarks No CP or SOB, weak Objective Medications Current Medications Medications (Trade) Dose Ordered Sig/Baudilio Route Start Time Stop Time Status Last Admin (NS Flush) 2 ml UNSCH PRN IV FLUSH 09/04/17 00:00 (NS Flush) 2 ml BID IV FLUSH 09/04/17 09:00 09/08/17 10:00 (Zofran Inj) 4 mg Q6H PRN IVP 09/04/17 00:00 (Narcan Inj) 0.4 mg UNSCH PRN IV PUSH 09/04/17 00:00 (Morphine Inj) 2 mg Q3H PRN IV PUSH 09/04/17 00:00 09/08/17 11:32 (Coreg) 6.25 mg BID PO 09/04/17 09:00 09/08/17 10:00 (Synthroid) 50 mcg DAILY@0700 PO 09/04/17 07:00 09/08/17 05:52 (Benadryl) 50 mg UNSCH PRN PO 09/05/17 15:30 09/06/17 03:34 (Coumadin) 9 mg DAILY@1600 PO 09/06/17 16:00 Future hold 09/07/17 16:17 Pharmacy Profile Note 0 ml @ 0 mls/hr UNSCH OTHER 09/06/17 09:15 Lactated Ringer's 1,000 ml @ 30 mls/hr Q24H PRN IV 09/06/17 15:00 09/09/17 14:59 Sodium Chloride 500 ml @ 30 mls/hr [id number] PRN IV 09/06/17 15:00 09/09/17 14:59 (Lopressor) 25 mg ENGINEERING TECHNICAL WRITER PRN PO 09/06/17 15:00 09/09/17 14:59 (Betadine 5% Antisepsis Kit) 1 applic ENGINEERING TECHNICAL WRITER PRN EACH NARE 09/06/17 15:00 09/09/17 14:59 (Chlorhexidine 2% Cloth) 3 pack ENGINEERING TECHNICAL WRITER PRN TOPICAL 09/06/17 15:00 09/09/17 14:59 (NovoLIN R INJ) See Protocol Table ... ENGINEERING TECHNICAL WRITER PRN SQ 09/06/17 15:00 09/09/17 14:59 (Lovenox Inj) 80 mg Q12H SQ 09/07/17 11:00 09/07/17 23:04 ([place] 7.5-325 Mg) 1 tab Q4H PRN PO 09/07/17 09:15 ([place] 7.5-325 Mg) 2 tab Q4HR PRN PO 09/07/17 09:15 09/08/17 10:01 Penicillin G Potassium [id number] units/Sodium Chloride 100 ml @ 100 mls/hr Q4H IV 09/07/17 14:00 09/08/17 10:01 (Coumadin) 1 mg ONCE ONCE PO 09/08/17 16:00 09/08/17 16:01 Vital Signs / I&O Vital Signs Date Time Temp Pulse Resp B/P (MAP) Pulse Ox O2 Delivery O2 Flow Rate FiO2 09/08/17 12:03 97.6 71 16 107/77 (87) 100 09/08/17 09:55 70 09/08/17 08:25 97.7 70 18 106/77 (87) 98 09/08/17 04:39 97.6 96 16 117/72 (87) 100 09/08/17 01:33 70 09/07/17 22:54 97.8 71 16 107/82 (90) 100 09/07/17 15:05 70 09/07/17 15:02 18 09/07/17 14:29 98.0 76 18 110/67 (81) 97 09/07/17 13:38 18 I/O 09/07/17 09/07/17 09/07/17 09/08/17 09/08/17 09/08/17 07:00 15:00 23:00 07:00 15:00 23:00 Intake Total 110 ml Output Total 1200 ml Balance -1200 ml 110 ml Intake Oral 10 ml IV Total 100 ml Output Urine Total 1200 ml Physical Exam GENERAL: In NAD SKIN: Warm and dry. HEAD: Normocephalic. EYES: No scleral icterus. No injection or drainage. NECK: Supple, trachea midline. No JVD or lymphadenopathy. CARDIOVASCULAR: Regular rate and rhythm with 1-2/6 syst murmurs, no gallops or rubs, crisp valve clicks RESPIRATORY: Breath sounds equal bilaterally. No accessory muscle use. GASTROINTESTINAL: Abdomen soft, non-tender, nondistended. MUSCULOSKELETAL: No cyanosis, or edema. Laboratory Laboratory Tests Test 09/08/17 08:52 Prothrombin Time 12.7 SEC Prothromb Time International Ratio 1.3 RATIO Assessment and Plan Problem List: (1) Aortic valve endocarditis ICD Codes: I35.8 - Other nonrheumatic aortic valve disorders (2) S/P AVR (aortic valve replacement) ICD Codes: Z95.2 - Presence of prosthetic heart valve (3) S/P MVR (mitral valve replacement) ICD Codes: Z95.2 - Presence of prosthetic heart valve (4) ICD (implantable cardioverter-defibrillator) in place ICD Codes: Z95.810 - Presence of automatic (implantable) cardiac defibrillator Assessment and Plan Diagnosed with endocarditis of aortic valve mechanical prosthesis and ICD leads. EARLENE with multiple aortic prosthetic valve vegetations. ICD leads also with suspected vegetations. Continue antibiotics. Continue management as per ID. Increase activity, PT. Bari Montanez MD Sep 08, 2017 12:58
--- NOTE | 2017-09-08 14:29 | HHI.IDPN ---
Subjective Subjective Remarks Patient is a 32-year-old male, presented to the hospital for evaluation of generalized malaise, feeling cold and clammy, and experiencing chest pain, as well as dyspnea on exertion. His history is significant for 2 episodes of endocarditis. One was in 2011, and he underwent aortic valve replacement at that time. During that. He was actively using IV drugs. Then in 2014, while he was in [facility], he was apparently hospitalized in [facility] and was diagnosed to have endocarditis and underwent mitral valve replacement. Patient states that both valves are mechanical valves. Patient states the last time he used IV drug was about 5 years ago. More recently he has been having problem with multiple symptoms. He was having ALMEIDA, and some palpitations and pain. He initially presented at [facility] , and at that time he was also having some fevers. He was told that he had positive blood cultures, but he signed out AGAINST MEDICAL ADVICE for personal reasons. Patient stated that his symptoms got better, but the symptoms started back up again. He has been having more problem with dyspnea on exertion and has been having limitation in his mobility. He really did not document any fever recently, but he was having cold and clammy episodes. Denies any other respiratory complaint as far as cough or congestion. Has not had any GI or any urinary complaints. He initially presented in [facility], and from there he was transferred here at the [facility]. 2 blood cultures done on this admission are now reported as growing gram- positive cocci in pairs and chains. Infectious disease consultation has been requested to evaluate the patient and assist with management. Notes reviewed Temps ok Still with chest pain more so at night No new (+) BC All BC 09/02-09/06 with Enterococcus faecalis Patient told me he had Enterococcus from Fish EARLENE with veg at AVR and possibly in ICD leads No abdominal pain LFT elevated, improving Liver US ok Antibiotics Penicillin Current Medications Medications (Trade) Dose Ordered Sig/Baudilio Route Start Time Stop Time Status Last Admin (NS Flush) 2 ml UNSCH PRN IV FLUSH 09/04/17 00:00 (NS Flush) 2 ml BID IV FLUSH 09/04/17 09:00 09/08/17 10:00 (Zofran Inj) 4 mg Q6H PRN IVP 09/04/17 00:00 (Narcan Inj) 0.4 mg UNSCH PRN IV PUSH 09/04/17 00:00 (Morphine Inj) 2 mg Q3H PRN IV PUSH 09/04/17 00:00 09/08/17 11:32 (Coreg) 6.25 mg BID PO 09/04/17 09:00 09/08/17 10:00 (Synthroid) 50 mcg DAILY@0700 PO 09/04/17 07:00 09/08/17 05:52 (Benadryl) 50 mg UNSCH PRN PO 09/05/17 15:30 09/06/17 03:34 (Coumadin) 9 mg DAILY@1600 PO 09/06/17 16:00 Future hold 09/07/17 16:17 Pharmacy Profile Note 0 ml @ 0 mls/hr UNSCH OTHER 09/06/17 09:15 Lactated Ringer's 1,000 ml @ 30 mls/hr Q24H PRN IV 09/06/17 15:00 09/09/17 14:59 Sodium Chloride 500 ml @ 30 mls/hr [id number] PRN IV 09/06/17 15:00 09/09/17 14:59 (Lopressor) 25 mg INSTRUMENT REPAIR SUPERVISOR PRN PO 09/06/17 15:00 09/09/17 14:59 (Betadine 5% Antisepsis Kit) 1 applic INSTRUMENT REPAIR SUPERVISOR PRN EACH NARE 09/06/17 15:00 09/09/17 14:59 (Chlorhexidine 2% Cloth) 3 pack INSTRUMENT REPAIR SUPERVISOR PRN TOPICAL 09/06/17 15:00 09/09/17 14:59 (NovoLIN R INJ) See Protocol Table ... INSTRUMENT REPAIR SUPERVISOR PRN SQ 09/06/17 15:00 09/09/17 14:59 (Lovenox Inj) 80 mg Q12H SQ 09/07/17 11:00 09/07/17 23:04 (Carlton 7.5-325 Mg) 1 tab Q4H PRN PO 09/07/17 09:15 (Carlton 7.5-325 Mg) 2 tab Q4HR PRN PO 09/07/17 09:15 09/08/17 10:01 Penicillin G Potassium [id number] units/Sodium Chloride 100 ml @ 100 mls/hr Q4H IV 09/07/17 14:00 09/08/17 10:01 (Coumadin) 1 mg ONCE ONCE PO 09/08/17 16:00 09/08/17 16:01 Lines Line with no evidence of infection Past Medical History CHF IVDA quit 5 years ago Hypothyroidism s/p thyroidectomy Endocarditis Past Surgical History AICD 2012, nonischemic cardiomyopathy AVR 2012 MVR 2015 Cholecystectomy Thyroidectomy. 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 Vital Signs Date Time Temp Pulse Resp B/P (MAP) Pulse Ox O2 Delivery O2 Flow Rate FiO2 09/08/17 12:03 97.6 71 16 107/77 (87) 100 09/08/17 09:55 70 09/08/17 08:25 97.7 70 18 106/77 (87) 98 09/08/17 04:39 97.6 96 16 117/72 (87) 100 09/08/17 01:33 70 09/07/17 22:54 97.8 71 16 107/82 (90) 100 09/07/17 15:05 70 09/07/17 15:02 18 09/07/17 14:29 98.0 76 18 110/67 (81) 97 . Laboratory Tests Test 09/07/17 04:52 Total Bilirubin 0.5 MG/DL Direct Bilirubin 0.2 MG/DL Indirect Bilirubin 0.3 MG/DL Aspartate Amino Transf (AST/SGOT) 140 U/L Alanine Aminotransferase (ALT/SGPT) 438 U/L Alkaline Phosphatase 77 U/L Total Protein 6.6 GM/DL Albumin 2.8 GM/DL Microbiology Date/Time Source Procedure Growth Status 09/07/17 04:52 Blood Peripheral Aerobic Blood Culture - Preliminary NO GROWTH IN 1 DAY Resulted 09/07/17 04:52 Blood Peripheral Anaerobic Blood Culture - Preliminary NO GROWTH IN 1 DAY Resulted 09/06/17 05:56 Blood Peripheral Aerobic Blood Culture - Final Enterococcus Faecalis Resulted 09/06/17 05:56 Blood Peripheral Anaerobic Blood Culture - Preliminary NO GROWTH IN 2 DAYS Resulted 09/05/17 14:49 Blood Peripheral Aerobic Blood Culture - Final Enterococcus Faecalis Complete 09/05/17 14:49 Anaerobic Blood Culture - Final Enterococcus Faecalis Complete 09/05/17 14:40 Blood Peripheral Aerobic Blood Culture - Final Enterococcus Faecalis Complete 09/05/17 14:40 Anaerobic Blood Culture - Final Enterococcus Faecalis Complete Imaging Last Impressions Lung Scan-VQ Nuclear Medicine 09/04/17 0000 Signed Impressions: Service Date/Time: Monday, September 04, 2017 09:30 - CONCLUSION: Low probability for pulmonary embolism. Reginald Sharma MD FACR Liver Ultrasound 09/04/17 0000 Signed Impressions: Service Date/Time: Monday, September 04, 2017 10:57 - CONCLUSION: 1. Bilateral small pleural effusions. 2. Otherwise negative ultrasound of the liver. Reginald Sharma MD FACR Physical Exam GENERAL: awake and alert, not in respiratory distress. SKIN: Cool and dry. No generalized rash, no ecchymoses and no evidence of embolic lesions. HEAD: Atraumatic. Normocephalic. No temporal wasting, or tenderness. EYES: Tol[place] conjunctiva. No petechia or hemorrhage. Pupils equal, round and reactive to light. EOM full and intact. No scleral icterus. No injection or drainage. EARS, NOSE AND THROAT: Nose without bleeding or purulent nasal discharge. No sinus tenderness. Mucous membranes pink and moist. NECK: Trachea midline. Supple and not tender, no meningeal signs CARDIOVASCULAR: Regular rate and rhythm. No murmurs, rubs or gallops heard. (+ ) mechanical valve sound. AICD looks ok RESPIRATORY: Clear to auscultation. Breath sounds equal bilaterally. No rales , wheezing or rhonchi ABDOMEN: Soft, non-tender, nondistended. Bowel sounds present and normoactive. No guarding. No rebound. No organomegaly. EXTREMITIES: No clubbing, cyanosis, or edema. No joint effusion, has good ROM. No calf tenderness. Well perfused and warm. NEUROLOGICAL: Awake and alert. Cranial nerves grossly intact. Motor grossly within normal limits. PSYCHIATRIC: Normal affect, calm and cooperative. LINE: No evidence of infection Assessment & Plan Remarks IMPRESSION (+) BC with Enterococcus, has vegetation in AVR and possibly in ICD leads - has MVR, AVR, and has AICD - denies recent IVDU, last use 5 years ago Hx endocarditis one in 2011, S/P MVR (Admitted to IVDU at that time), second on in 2014, he was in assisted at that time, S/P AVR Non-ischemic cardiomyopathy - has ICD, ?pacer placed 2012 Prob red man syndrome reaction to IV Vanco Abnormal LFTs RECOMMENDATION IV PCN Repeat BC to document clearing Follow LFT Await cardiothoracic surgery Monitor progress Very difficult case - he has 2 valves AVR and MVR plus AICD Explained plan to the patient Alejandra Santos MD Sep 08, 2017 14:29
[2017-09-08] MEDS ORDERED: WARFARIN SOD 1 MG TAB PO ONE (16:00)
--- NOTE | 2017-09-08 17:16 | MB ---
cc: Joan Barbosa DATE: 09/08/2017 HISTORY OF PRESENT ILLNESS: A 32-year-old male transferred from [facility] with shortness of breath, lower extremity edema, history of nonischemic cardiomyopathy with EF of 15-20%. Per the patient; however, he underwent an echo on the , which showed an EF of 20%. He has history of aortic and mitral valve replacement. The aortic valve prosthesis was normal. The mitral valve had a normally functioning mechanical mitral valve prosthetic; however, in the left ventricle, there was some mobile density seen and most consistent with papillary muscles. The patient also has a history of an AICD, which has not been checked for quite some time. He has also been on Coumadin, but has not had an INR recently as an outpatient. He just recently moved in with his ex- and children and was scheduled to followup with [facility] in the [place] area. We were consulted due to endocarditis. Per EARLENE, there was some prosthetic aortic valve vegetation, normal functioning of the mitral valve prosthesis, mild to moderate tricuspid regurgitation, possible implantable cardioverter-defibrillator vegetation. PAST MEDICAL HISTORY: History of IV drug use. He states the last time was about 5 years ago. Hypothyroidism. Ischemic cardiomyopathy. PAST SURGICAL HISTORY: Include AICD, aortic valve replacement in 2011 at [facility] secondary to endocarditis, mitral valve replacement secondary to endocarditis again. This was in [facility] at that time he was incarcerated. ALLERGIES: INCLUDE GENTAMICIN, TORADOL, ZYVOX, VANCOMYCIN. HOME MEDICATIONS: Include: 1. Coumadin. 2. Coreg. 3. Levothyroxine. FAMILY HISTORY: Noncontributory. SOCIAL HISTORY: Smokes half a pack per day. Denies any recent drug use in the last 3-5 years. REVIEW OF SYSTEMS: As above in HPI. Other 12 systems unremarkable. PHYSICAL EXAMINATION: VITAL SIGNS: Blood pressure 110/70, heart rate of 70, afebrile. GENERAL: The patient is awake, alert, somewhat ill-appearing. HEENT: Pupils equal and reactive. Oral mucosa is slightly dry. NECK: Supple. No JVD. CARDIOVASCULAR: Sounds S1, mechanical S2. LUNGS: Diminished in the bases, otherwise clear to auscultation. EXTREMITIES: No cyanosis, clubbing or edema. SKIN: He has multiple tattoos to his chest. His median sternotomy is well healed and well approximated. DIAGNOSTIC STUDIES: Lab work shows hemoglobin of 11, hematocrit of 37, white cell count of 8.4, platelet count of 210. Sodium 141, potassium 3.9, BUN of 12, creatinine 1.06, AST 140, ALT 438. INR of 1.3. Hepatitis C is positive. Micro shows positive blood cultures of Enterococcus faecalis aerobic and anaerobic bottles. The aerobic still continues to be positive from 09/06/2017. The 09/07 anaerobic and aerobic is negative. IMPRESSION: The patient admitted with shortness of breath, fatigue, history of nonischemic cardiomyopathy, status post aortic valve replacement, mitral valve replacement secondary to endocarditis and now transesophageal echocardiogram has vegetation in aortic valve replacement, possible implantable cardioverter-defibrillator leads noted to recent drug use. I spoke with Dr. Montanez and at this time, would recommend continuation of his antibiotic therapy. No surgical intervention at present. Further plan per Dr. Nicole. Joan Barbosa [facility] MD KAILASH Hernandez/STEPHANIE , 04:38 PM , 05:15 PM GEOFF
[2017-09-08] MEDS: WARFARIN SOD 3 MG TAB PO SCH (17:40)
[2017-09-09] VITALS (10 sets, daily range): BP systolic 107–147; BP diastolic 61–70; PULSE 70–81; RESP 17–18; TEMP 97.2–97.8; O2SAT 98–100
[2017-09-09] MEDS: MORPHINE SULFATE 2 MG/ML SYRINGE IV PUSH PRN ×6 (01:35→22:00)
[2017-09-09] MEDS: PENICILLIN G POTASSIUM INJ 3,000,000 UNITS in SODIUM CHLORIDE 0.9% INJ 100 ML IV SCH ×3 (02:05→10:11)
[2017-09-09] MEDS: ACETAMINOPHEN/HYDROcodone 325 MG/7.5 MG TAB PO PRN ×3 (03:27→17:48)
[2017-09-09] MEDS: LEVOTHYROXINE SODIUM 50 MCG TAB PO SCH (06:18)
[2017-09-09] MEDS: CARVEDILOL 6.25 MG TAB PO SCH ×2 (08:20→22:01)
[2017-09-09] MEDS: SODIUM CHLORIDE 0.9% FLUSH 10 ML FLUSH IV FLUSH SCH ×2 (08:20→22:01)
--- NOTE | 2017-09-09 08:46 | HHI.PR ---
Subjective Remarks This is a pleasant 32 y/o Male who hurd two episodes of Endocarditis, status post Aortic Valve replacement, this in 2011 when He was actively using IV drugs. Then in 2014, while he was in assisted, he was apparently hospitalized in [facility] and was diagnosed to have endocarditis and underwent mitral valve replacement. Patient states that both valves are mechanical valves. Patient states the last time he used IV drug was about 5 years ago. More recently he has been having problem with multiple symptoms. He was having ALMEIDA, and some palpitations and pain. He initially presented at [facility], and at that time he was also having some fevers. He was told that he had positive blood cultures, but he signed out AGAINST MEDICAL ADVICE for personal reasons. 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 no nausea, vomit or diarrhea. Objective Vital Signs Date Time Temp Pulse Resp B/P (MAP) Pulse Ox O2 Delivery O2 Flow Rate FiO2 09/09/17 04:09 81 09/09/17 04:00 97.4 70 18 121/67 (85) 98 09/09/17 00:05 70 09/08/17 23:23 97.2 75 18 122/88 (99) 100 09/08/17 22:14 18 09/08/17 22:14 18 09/08/17 20:14 97.9 69 16 110/76 (87) 93 09/08/17 15:38 97.8 71 18 105/72 (83) 100 09/08/17 15:10 70 09/08/17 12:03 97.6 71 16 107/77 (87) 100 09/08/17 09:55 70 I/O 09/08/17 09/08/17 09/08/17 09/09/17 09/09/17 09/09/17 07:00 15:00 23:00 07:00 15:00 23:00 Intake Total 200 ml 120 ml Balance 200 ml 120 ml Intake Oral 200 ml 120 ml # Voids 2 # Bowel Movements 0 Result Diagram: 09/06/17 0556 Imaging Last Impressions Chest X-Ray 09/07/17 0000 Signed Impressions: Service Date/Time: Thursday, September 07, 2017 01:11 - CONCLUSION: Mild right base consolidation and pleural effusion developing. Vj Momin MD Lung Scan-V Nuclear Medicine 09/04/17 0000 Signed Impressions: Service Date/Time: Monday, September 04, 2017 09:30 - CONCLUSION: Low probability for pulmonary embolism. Reginald Sharma MD FACR Liver Ultrasound 09/04/17 0000 Signed Impressions: Service Date/Time: Monday, September 04, 2017 10:57 - CONCLUSION: 1. Bilateral small pleural effusions. 2. Otherwise negative ultrasound of the liver. Reginald Sharma MD FACR Procedures EARLENE Other Results Laboratory Tests Test 09/04/17 08:31 09/04/17 11:09 09/05/17 06:29 09/05/17 11:52 White Blood Count 8.4 TH/MM3 Red Blood Count 4.72 MIL/MM3 Hemoglobin 11.8 GM/DL Hematocrit 37.1 % Mean Corpuscular Volume 78.6 FL Mean Corpuscular Hemoglobin 25.1 PG Mean Corpuscular Hemoglobin Concent 31.9 % Red Cell Distribution Width 17.4 % Platelet Count 210 TH/MM3 Mean Platelet Volume 8.0 FL Neutrophils (%) (Auto) 78.1 % Lymphocytes (%) (Auto) 11.1 % Monocytes (%) (Auto) 9.8 % Eosinophils (%) (Auto) 0.1 % Basophils (%) (Auto) 0.9 % Neutrophils # (Auto) 6.5 TH/MM3 Lymphocytes # (Auto) 0.9 TH/MM3 Monocytes # (Auto) 0.8 TH/MM3 Eosinophils # (Auto) 0.0 TH/MM3 Basophils # (Auto) 0.1 TH/MM3 CBC Comment DIFF FINAL Differential Comment Troponin I 0.03 NG/ML Hepatitis A IgM Antibody NONREACTIVE Hepatitis B Surface Antigen NONREACTIVE Hepatitis B Core IgM Antibody NONREACTIVE Hepatitis C IgG Antibody REACTIVE Total Creatine Kinase 33 U/L Erythrocyte Sedimentation Rate 14 mm/hr Test 09/06/17 05:56 09/07/17 04:52 09/08/17 08:52 Blood Urea Nitrogen 12 MG/DL Creatinine 1.06 MG/DL Random Glucose 77 MG/DL Total Protein 6.0 GM/DL 6.6 GM/DL Albumin 2.5 GM/DL 2.8 GM/DL Calcium Level 8.1 MG/DL Alkaline Phosphatase 81 U/L 77 U/L Aspartate Amino Transf (AST/SGOT) 208 U/L 140 U/L Alanine Aminotransferase (ALT/SGPT) 507 U/L 438 U/L Total Bilirubin 0.5 MG/DL 0.5 MG/DL Sodium Level 141 MEQ/L Potassium Level 3.9 MEQ/L Chloride Level 110 MEQ/L Carbon Dioxide Level 23.6 MEQ/L Anion Gap 7 MEQ/L Estimat Glomerular Filtration Rate 80 ML/MIN Direct Bilirubin 0.2 MG/DL Indirect Bilirubin 0.3 MG/DL Prothrombin Time 12.7 SEC Prothromb Time International Ratio 1.3 RATIO Objective Remarks GENERAL: This is a well-nourished, well-developed patient, in no apparent distress. CARDIOVASCULAR: Regular rate and regular rhythm without murmurs, gallops, or rubs. RESPIRATORY: Clear to auscultation. Breath sounds equal bilaterally. No wheezes , rales, or rhonchi. GASTROINTESTINAL: Abdomen soft, non-tender, nondistended. Normal, active bowel sounds MUSCULOSKELETAL: Extremities without clubbing, cyanosis, or edema. NEURO: Alert & Oriented x4 to person, place, time, situation. Moves all ext x4 Medications and IVs Current Medications Medications (Trade) Dose Ordered Sig/Baudilio Route Start Time Stop Time Status Last Admin (NS Flush) 2 ml UNSCH PRN IV FLUSH 09/04/17 00:00 (NS Flush) 2 ml BID IV FLUSH 09/04/17 09:00 09/09/17 08:20 (Zofran Inj) 4 mg Q6H PRN IVP 09/04/17 00:00 (Narcan Inj) 0.4 mg UNSCH PRN IV PUSH 09/04/17 00:00 (Morphine Inj) 2 mg Q3H PRN IV PUSH 09/04/17 00:00 09/09/17 08:20 (Coreg) 6.25 mg BID PO 09/04/17 09:00 09/09/17 08:20 (Synthroid) 50 mcg DAILY@0700 PO 09/04/17 07:00 09/09/17 06:18 (Benadryl) 50 mg UNSCH PRN PO 09/05/17 15:30 09/06/17 03:34 (Coumadin) 9 mg DAILY@1600 PO 09/06/17 16:00 Future hold 09/08/17 17:40 Pharmacy Profile Note 0 ml @ 0 mls/hr UNSCH OTHER 09/06/17 09:15 Lactated Ringer's 1,000 ml @ 30 mls/hr Q24H PRN IV 09/06/17 15:00 09/09/17 14:59 Sodium Chloride 500 ml @ 30 mls/hr [id number] PRN IV 09/06/17 15:00 09/09/17 14:59 (Lopressor) 25 mg EMPLOYEE BENEFITS INSURANCE AGENT PRN PO 09/06/17 15:00 09/09/17 14:59 (Betadine 5% Antisepsis Kit) 1 applic EMPLOYEE BENEFITS INSURANCE AGENT PRN EACH NARE 09/06/17 15:00 09/09/17 14:59 (Chlorhexidine 2% Cloth) 3 pack EMPLOYEE BENEFITS INSURANCE AGENT PRN TOPICAL 09/06/17 15:00 09/09/17 14:59 (NovoLIN R INJ) See Protocol Table ... EMPLOYEE BENEFITS INSURANCE AGENT PRN SQ 09/06/17 15:00 09/09/17 14:59 (Lovenox Inj) 80 mg Q12H SQ 09/07/17 11:00 09/08/17 22:09 (Buckeye 7.5-325 Mg) 1 tab Q4H PRN PO 09/07/17 09:15 (B[place]key[place] 7.5-325 Mg) 2 tab Q4HR PRN PO 09/07/17 09:15 09/09/17 03:27 Penicillin G Potassium [id number] units/Sodium Chloride 100 ml @ 100 mls/hr Q4H IV 09/07/17 14:00 09/09/17 06:18 A/P Assessment and Plan (1) Chest pain ICD Code: R07.9 - Chest pain, unspecified Status: Acute (2) Subtherapeutic international normalized ratio (INR) ICD Code: R79.1 - Abnormal coagulation profile Status: Acute (3) CHF (congestive heart failure) ICD Code: I50.9 - Heart failure, unspecified Status: Chronic (4) Acute kidney injury ICD Code: N17.9 - Acute kidney failure, unspecified Status: Acute (5) Transaminitis ICD Code: R74.0 - Nonspecific elevation of levels of transaminase and lactic acid dehydrogenase [LDH] Status: Acute Chest pain aortic valve endocarditis with possible ICD vegetations on Ceftriaxone and Ampicillin IV as per ID specialist. cardiomyopathy history of endocarditis- s/p aortic/mitral valve replacement -EARLENE with aortic valve vegetation and Possible implantable cardioverter defibrillator vegetations. -Monitor telemetry -VQ scan with low-probability for PE. -initial Blood cultures with enterococcus faecalis- will follow the repeated blood cultures. -continue with pain control. -echo with EF < 20% -continue Coreg and Coumadin- continue subq lovenox till INR becomes therapeutic. -PT/INR monitoring. -will add CARMINE if renal function stable and BP allows. -started on penicillin G - ID and cardiology following. -CT surgery no surgical intervantion. renal insufficiency with unknown baseline, patient denies kidney disease -improved. Transaminitis, suspect due to dehydration, no abdominal pain noted- trending down. Hepatitis C -Liver ultrasound with small bilateral pleural effusions- but otherwise negative. -f/u as outpatient DVT prophylaxis: Coumadin/subq Lovenox. Discharge Planning Once cleared by specialists. Peter Madrid MD Sep 09, 2017 08:46
[2017-09-09] MEDS: ONDANSETRON HCL 4 MG/2 ML VIAL IVP PRN (09:04)
[2017-09-09] MEDS: ENOXAPARIN SODIUM 80 MG/0.8 ML SYRINGE SQ SCH ×2 (10:11→22:23)
[2017-09-09 10:19] LABS: AUTOMATED NEUTROPHIL # 6.6 TH/MM3 (1.8-7.7); BASOPHIL % 0.5 % (0.0-2.0); EOSINOPHIL % 0.3 % (0.0-4.0); HEMATOCRIT 34.7 % (39.0-51.0); HEMOGLOBIN 10.8 GM/DL (13.0-17.0); LYMPH % 11.6 % (9.0-44.0); LYMPHOCYTE # 0.9 TH/MM3 (1.0-4.8); MEAN CORPUSCULAR HEMOGLOBIN 24.7 PG (27.0-34.0); MEAN CORPUSCULAR HGB CONC 31.2 % (32.0-36.0); MEAN PLATELET VOLUME 7.9 FL (7.0-11.0); MONO % 5.3 % (0.0-8.0); MONOCYTE # 0.4 TH/MM3 (0-0.9); NEUT % 82.3 % (16.0-70.0); PLATELET COUNT 241 TH/MM3 (150-450); RED BLOOD COUNT 4.39 MIL/MM3 (4.50-5.90)
[2017-09-09 10:25] LABS: INTERNATIONAL NORMALIZED RATIO 1.7 RATIO; PROTHROMBIN TIME - PATIENT 17.2 SEC (9.8-11.6)
[2017-09-09 10:50] LABS: ALKALINE PHOSPHATASE 78 U/L (45-117); ALT (GPT) 317 U/L (12-78); AST (GOT) 94 U/L (15-37); BICARBONATE 31.5 MEQ/L (21.0-32.0); BLOOD UREA NITROGEN 17 MG/DL (7-18); CALCIUM 8.8 MG/DL (8.5-10.1); CHLORIDE 102 MEQ/L (98-107); CREATININE 1.35 MG/DL (0.60-1.30); GLOMERULAR FILTRATION RATE 61 ML/MIN (>89); GLUCOSE,RANDOM 89 MG/DL (74-106); SODIUM (NA) 136 MEQ/L (136-145); TOTAL BILIRUBIN ADULT 0.3 MG/DL (0.2-1.0); TOTAL PROTEIN 7.2 GM/DL (6.4-8.2)
--- NOTE | 2017-09-09 13:57 | HHI.IDPN ---
Subjective Subjective Remarks Patient is a 32-year-old male, presented to the hospital for evaluation of generalized malaise, feeling cold and clammy, and experiencing chest pain, as well as dyspnea on exertion. His history is significant for 2 episodes of endocarditis. One was in 2011, and he underwent aortic valve replacement at that time. During that. He was actively using IV drugs. Then in 2014, while he was in longterm, he was apparently hospitalized in [facility] and was diagnosed to have endocarditis and underwent mitral valve replacement. Patient states that both valves are mechanical valves. Patient states the last time he used IV drug was about 5 years ago. More recently he has been having problem with multiple symptoms. He was having ALMEIDA, and some palpitations and pain. He initially presented at [facility] , and at that time he was also having some fevers. He was told that he had positive blood cultures, but he signed out AGAINST MEDICAL ADVICE for personal reasons. Patient stated that his symptoms got better, but the symptoms started back up again. He has been having more problem with dyspnea on exertion and has been having limitation in his mobility. He really did not document any fever recently, but he was having cold and clammy episodes. Denies any other respiratory complaint as far as cough or congestion. Has not had any GI or any urinary complaints. He initially presented in [facility], and from there he was transferred here at the [facility] hospital. 2 blood cultures done on this admission are now reported as growing gram- positive cocci in pairs and chains. Infectious disease consultation has been requested to evaluate the patient and assist with management. Notes reviewed Temps ok No new complaints Still with chest pain more so at night No new (+) BC All BC 09/02-09/06 with Enterococcus faecalis BC 09/07 and 09/08 negative EARLENE with veg at AVR and possibly in ICD leads No abdominal pain LFT improving Liver US ok Records from [facility] not available Records from [facility] reviewed: Patient had bioprosthesis AVR 2011. Per records he was incarcerated soon after discharge and was still incarcerated and admitted at [facility] Jul- July. He underwent re-do AVR and MVR with mechanical valves July 25, 2014 Antibiotics Penicillin Current Medications Medications (Trade) Dose Ordered Sig/Baudilio Route Start Time Stop Time Status Last Admin (NS Flush) 2 ml UNSCH PRN IV FLUSH 4/15/18 00:00 (NS Flush) 2 ml BID IV FLUSH 09/04/17 09:00 09/09/17 08:20 (Zofran Inj) 4 mg Q6H PRN IVP 09/04/17 00:00 09/09/17 09:04 (Narcan Inj) 0.4 mg UNSCH PRN IV PUSH 09/04/17 00:00 (Morphine Inj) 2 mg Q3H PRN IV PUSH 09/04/17 00:00 09/09/17 12:13 (Coreg) 6.25 mg BID PO 09/04/17 09:00 09/09/17 08:20 (Synthroid) 50 mcg DAILY@0700 PO 09/04/17 07:00 09/09/17 06:18 (Benadryl) 50 mg UNSCH PRN PO 09/05/17 15:30 09/06/17 03:34 (Coumadin) 9 mg DAILY@1600 PO 09/06/17 16:00 Future hold 09/08/17 17:40 Pharmacy Profile Note 0 ml @ 0 mls/hr UNSCH OTHER 09/06/17 09:15 Lactated Ringer's 1,000 ml @ 30 mls/hr Q24H PRN IV 09/06/17 15:00 09/09/17 14:59 Sodium Chloride 500 ml @ 30 mls/hr [id number] PRN IV 09/06/17 15:00 09/09/17 14:59 (Lopressor) 25 mg CLIENT CUSTOMER MANAGER PRN PO 09/06/17 15:00 09/09/17 14:59 (Betadine 5% Antisepsis Kit) 1 applic CLIENT CUSTOMER MANAGER PRN EACH NARE 09/06/17 15:00 09/09/17 14:59 (Chlorhexidine 2% Cloth) 3 pack CLIENT CUSTOMER MANAGER PRN TOPICAL 09/06/17 15:00 09/09/17 14:59 (NovoLIN R INJ) See Protocol Table ... CLIENT CUSTOMER MANAGER PRN SQ 09/06/17 15:00 09/09/17 14:59 (Lovenox Inj) 80 mg Q12H SQ 09/07/17 11:00 09/09/17 10:11 ([place] 7.5-325 Mg) 1 tab Q4H PRN PO 09/07/17 09:15 ([place] 7.5-325 Mg) 2 tab Q4HR PRN PO 09/07/17 09:15 09/09/17 10:11 Penicillin G Potassium [id number] units/Sodium Chloride 100 ml @ 100 mls/hr Q4H IV 09/07/17 14:00 09/09/17 10:11 Lines Line with no evidence of infection Past Medical History CHF IVDA quit 5 years ago Hypothyroidism s/p thyroidectomy Endocarditis Past Surgical History AICD 2013, nonischemic cardiomyopathy AVR 2012 MVR 2015 Cholecystectomy Thyroidectomy. 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 Vital Signs Date Time Temp Pulse Resp B/P (MAP) Pulse Ox O2 Delivery O2 Flow Rate FiO2 09/09/17 12:09 97.6 79 18 107/70 (82) 98 09/09/17 08:09 97.8 71 17 116/61 (79) 100 09/09/17 08:00 70 09/09/17 04:09 81 09/09/17 04:00 97.4 70 18 121/67 (85) 98 09/09/17 00:05 70 09/08/17 23:23 97.2 75 18 122/88 (99) 100 09/08/17 22:14 18 09/08/17 22:14 18 09/08/17 20:14 97.9 69 16 110/76 (87) 93 09/08/17 15:38 97.8 71 18 105/72 (83) 100 09/08/17 15:10 70 . Laboratory Tests Test 09/09/17 10:00 White Blood Count 8.0 TH/MM3 Red Blood Count 4.39 MIL/MM3 Hemoglobin 10.8 GM/DL Hematocrit 34.7 % Mean Corpuscular Volume 79.0 FL Mean Corpuscular Hemoglobin 24.7 PG Mean Corpuscular Hemoglobin Concent 31.2 % Red Cell Distribution Width 17.0 % Platelet Count 241 TH/MM3 Mean Platelet Volume 7.9 FL Neutrophils (%) (Auto) 82.3 % Lymphocytes (%) (Auto) 11.6 % Monocytes (%) (Auto) 5.3 % Eosinophils (%) (Auto) 0.3 % Basophils (%) (Auto) 0.5 % Neutrophils # (Auto) 6.6 TH/MM3 Lymphocytes # (Auto) 0.9 TH/MM3 Monocytes # (Auto) 0.4 TH/MM3 Eosinophils # (Auto) 0.0 TH/MM3 Basophils # (Auto) 0.0 TH/MM3 CBC Comment DIFF FINAL Differential Comment Laboratory Tests Test 09/09/17 10:00 Blood Urea Nitrogen 17 MG/DL Creatinine 1.35 MG/DL Random Glucose 89 MG/DL Total Protein 7.2 GM/DL Albumin 3.0 GM/DL Calcium Level 8.8 MG/DL Alkaline Phosphatase 78 U/L Aspartate Amino Transf (AST/SGOT) 94 U/L Alanine Aminotransferase (ALT/SGPT) 317 U/L Total Bilirubin 0.3 MG/DL Sodium Level 136 MEQ/L Potassium Level 5.2 MEQ/L Chloride Level 102 MEQ/L Carbon Dioxide Level 31.5 MEQ/L Anion Gap 3 MEQ/L Estimat Glomerular Filtration Rate 61 ML/MIN Microbiology Date/Time Source Procedure Growth Status 09/08/17 14:36 Blood Peripheral Aerobic Blood Culture - Preliminary NO GROWTH IN 1 DAY Resulted 09/08/17 14:36 Blood Peripheral Anaerobic Blood Culture - Preliminary NO GROWTH IN 1 DAY Resulted 09/07/17 04:52 Blood Peripheral Aerobic Blood Culture - Preliminary NO GROWTH IN 2 DAYS Resulted 09/07/17 04:52 Blood Peripheral Anaerobic Blood Culture - Preliminary NO GROWTH IN 2 DAYS Resulted Imaging Chest X-Ray 09/07/17 0000 Signed Impressions: Service Date/Time: Thursday, September 07, 2017 01:11 - CONCLUSION: Mild right base consolidation and pleural effusion developing. Vj Momin MD Lung Scan-V Nuclear Medicine 09/04/17 0000 Signed Impressions: Service Date/Time: Monday, September 04, 2017 09:30 - CONCLUSION: Low probability for pulmonary embolism. Reginald Sharma MD FACR Liver Ultrasound 09/04/17 0000 Signed Impressions: Service Date/Time: Monday, September 04, 2017 10:57 - CONCLUSION: 1. Bilateral small pleural effusions. 2. Otherwise negative ultrasound of the liver. Reginald Sharma MD FACR Physical Exam GENERAL: awake and alert, not in respiratory distress. SKIN: Cool and dry. No generalized rash, no ecchymoses and no evidence of embolic lesions. HEAD: Atraumatic. Normocephalic. No temporal wasting, or tenderness. EYES: [place] conjunctiva. No petechia or hemorrhage. Pupils equal, round and reactive to light. EOM full and intact. No scleral icterus. No injection or drainage. EARS, NOSE AND THROAT: Nose without bleeding or purulent nasal discharge. No sinus tenderness. Mucous membranes pink and moist. NECK: Trachea midline. Supple and not tender, no meningeal signs CARDIOVASCULAR: Regular rate and rhythm. No murmurs, rubs or gallops heard. (+ ) mechanical valve sound. AICD looks ok RESPIRATORY: Clear to auscultation. Breath sounds equal bilaterally. No rales , wheezing or rhonchi ABDOMEN: Soft, non-tender, nondistended. Bowel sounds present and normoactive. No guarding. No rebound. No organomegaly. EXTREMITIES: No clubbing, cyanosis, or edema. No joint effusion, has good ROM. No calf tenderness. Well perfused and warm. NEUROLOGICAL: Grossly non-focal PSYCHIATRIC: Normal affect, calm and cooperative. LINE: No evidence of infection Assessment & Plan Remarks IMPRESSION (+) BC with Enterococcus faecalis, has vegetation in AVR and possibly in ICD leads - has MVR, AVR, and has AICD - denies recent IVDU, last use 5 years ago Hx endocarditis one in 2011, S/P MVR (Admitted to IVDU at that time), second on in 2014, he was in shelter at that time, S/P AVR Non-ischemic cardiomyopathy - has ICD, ?pacer placed 2012 Prob red man syndrome reaction to IV Vanco Abnormal LFTs RECOMMENDATION IV Amp and Rocephin - has synergy Repeat BC to document clearing Follow LFT CTS evaluation noted - no surgical intervention at this time Success for curing this infection very low with medical treatment alone and if no surgical intervention done - will D/W CTS Monitor progress Very difficult case - he has 2 valves AVR and MVR plus AICD Alejandra Santos MD Sep 09, 2017 13:57
[2017-09-09] MEDS: AMPICILLIN INJ 2,000 MG in SODIUM CHLORIDE 0.9% INJ 100 ML IV SCH ×3 (15:50→22:01)
[2017-09-09] MEDS: WARFARIN SOD 3 MG TAB PO SCH (15:51)
--- NOTE | 2017-09-09 16:02 | PD.CARD.PN ---
Subjective Subjective Remarks No CP or SOB, weak and tired Objective Medications Current Medications Medications (Trade) Dose Ordered Sig/Baudilio Route Start Time Stop Time Status Last Admin (NS Flush) 2 ml UNSCH PRN IV FLUSH 09/04/17 00:00 (NS Flush) 2 ml BID IV FLUSH 09/04/17 09:00 09/09/17 08:20 (Zofran Inj) 4 mg Q6H PRN IVP 09/04/17 00:00 09/09/17 09:04 (Narcan Inj) 0.4 mg UNSCH PRN IV PUSH 09/04/17 00:00 (Morphine Inj) 2 mg Q3H PRN IV PUSH 09/04/17 00:00 09/09/17 15:51 (Coreg) 6.25 mg BID PO 09/04/17 09:00 09/09/17 08:20 (Synthroid) 50 mcg DAILY@0700 PO 09/04/17 07:00 09/09/17 06:18 (Benadryl) 50 mg UNSCH PRN PO 09/05/17 15:30 09/06/17 03:34 (Coumadin) 9 mg DAILY@1600 PO 09/06/17 16:00 Future hold 09/09/17 15:51 Pharmacy Profile Note 0 ml @ 0 mls/hr UNSCH OTHER 09/06/17 09:15 (Lovenox Inj) 80 mg Q12H SQ 09/07/17 11:00 09/09/17 10:11 ([place] 7.5-325 Mg) 1 tab Q4H PRN PO 09/07/17 09:15 ([place] 7.5-325 Mg) 2 tab Q4HR PRN PO 09/07/17 09:15 09/09/17 10:11 Ampicillin Sodium 2000 mg/Sodium Chloride 100 ml @ 400 mls/hr Q4H IV 09/09/17 14:00 09/09/17 15:50 Ceftriaxone Sodium 2000 mg/ Sodium Chloride 100 ml @ 200 mls/hr Q24H IV 09/09/17 15:00 Vital Signs / I&O Vital Signs Date Time Temp Pulse Resp B/P (MAP) Pulse Ox O2 Delivery O2 Flow Rate FiO2 09/09/17 12:09 97.6 79 18 107/70 (82) 98 09/09/17 08:09 97.8 71 17 116/61 (79) 100 09/09/17 08:00 70 09/09/17 04:09 81 09/09/17 04:00 97.4 70 18 121/67 (85) 98 09/09/17 00:05 70 09/08/17 23:23 97.2 75 18 122/88 (99) 100 09/08/17 22:14 18 09/08/17 22:14 18 09/08/17 20:14 97.9 69 16 110/76 (87) 93 I/O 09/08/17 09/08/17 09/08/17 09/09/17 09/09/17 09/09/17 07:00 15:00 23:00 07:00 15:00 23:00 Intake Total 200 ml 120 ml Balance 200 ml 120 ml Intake Oral 200 ml 120 ml # Voids 2 # Bowel Movements 0 Physical Exam GENERAL: In NAD SKIN: Warm and dry. HEAD: Normocephalic. EYES: No scleral icterus. No injection or drainage. NECK: Supple, trachea midline. No JVD or lymphadenopathy. CARDIOVASCULAR: Regular rate and rhythm with 1-2/6 syst murmurs, no gallops or rubs, crisp valve clicks RESPIRATORY: Breath sounds equal bilaterally. No accessory muscle use. GASTROINTESTINAL: Abdomen soft, non-tender, nondistended. MUSCULOSKELETAL: No cyanosis, or edema. Laboratory Laboratory Tests Test 09/09/17 10:00 White Blood Count 8.0 TH/MM3 Red Blood Count 4.39 MIL/MM3 Hemoglobin 10.8 GM/DL Hematocrit 34.7 % Mean Corpuscular Volume 79.0 FL Mean Corpuscular Hemoglobin 24.7 PG Mean Corpuscular Hemoglobin Concent 31.2 % Red Cell Distribution Width 17.0 % Platelet Count 241 TH/MM3 Mean Platelet Volume 7.9 FL Neutrophils (%) (Auto) 82.3 % Lymphocytes (%) (Auto) 11.6 % Monocytes (%) (Auto) 5.3 % Eosinophils (%) (Auto) 0.3 % Basophils (%) (Auto) 0.5 % Neutrophils # (Auto) 6.6 TH/MM3 Lymphocytes # (Auto) 0.9 TH/MM3 Monocytes # (Auto) 0.4 TH/MM3 Eosinophils # (Auto) 0.0 TH/MM3 Basophils # (Auto) 0.0 TH/MM3 CBC Comment DIFF FINAL Differential Comment Prothrombin Time 17.2 SEC Prothromb Time International Ratio 1.7 RATIO Blood Urea Nitrogen 17 MG/DL Creatinine 1.35 MG/DL Random Glucose 89 MG/DL Total Protein 7.2 GM/DL Albumin 3.0 GM/DL Calcium Level 8.8 MG/DL Alkaline Phosphatase 78 U/L Aspartate Amino Transf (AST/SGOT) 94 U/L Alanine Aminotransferase (ALT/SGPT) 317 U/L Total Bilirubin 0.3 MG/DL Sodium Level 136 MEQ/L Potassium Level 5.2 MEQ/L Chloride Level 102 MEQ/L Carbon Dioxide Level 31.5 MEQ/L Anion Gap 3 MEQ/L Estimat Glomerular Filtration Rate 61 ML/MIN Assessment and Plan Problem List: (1) Aortic valve endocarditis ICD Codes: I35.8 - Other nonrheumatic aortic valve disorders (2) S/P AVR (aortic valve replacement) ICD Codes: Z95.2 - Presence of prosthetic heart valve (3) S/P MVR (mitral valve replacement) ICD Codes: Z95.2 - Presence of prosthetic heart valve (4) ICD (implantable cardioverter-defibrillator) in place ICD Codes: Z95.810 - Presence of automatic (implantable) cardiac defibrillator Assessment and Plan No new cardiac tissues. Diagnosed with endocarditis of aortic valve mechanical prosthesis and ICD leads; EARLENE showed multiple vegetations. Continue prolonged course of antibiotics as per ID. Increase activity, PT. Bari Montanez MD Sep 09, 2017 16:02
[2017-09-09] MEDS: cefTRIAXone INJ 2,000 MG in SODIUM CHLORIDE 0.9% INJ 100 ML IV SCH (16:28)
[2017-09-10] VITALS (8 sets, daily range): BP systolic 104–119; BP diastolic 55–70; PULSE 69–74; RESP 16–20; TEMP 97.2–98.7; O2SAT 100
[2017-09-10] MEDS: ACETAMINOPHEN/HYDROcodone 325 MG/7.5 MG TAB PO PRN ×5 (01:42→22:36)
[2017-09-10] MEDS: AMPICILLIN INJ 2,000 MG in SODIUM CHLORIDE 0.9% INJ 100 ML IV SCH ×6 (01:42→20:32)
[2017-09-10] MEDS: MORPHINE SULFATE 2 MG/ML SYRINGE IV PUSH PRN ×5 (02:44→20:33)
[2017-09-10] MEDS: LEVOTHYROXINE SODIUM 50 MCG TAB PO SCH (06:27)
[2017-09-10] MEDS: CARVEDILOL 6.25 MG TAB PO SCH ×2 (08:49→20:32)
[2017-09-10] MEDS: SODIUM CHLORIDE 0.9% FLUSH 10 ML FLUSH IV FLUSH SCH ×2 (08:51→20:33)
[2017-09-10] MEDS: ONDANSETRON HCL 4 MG/2 ML VIAL IVP PRN ×2 (09:34→17:41)
[2017-09-10 09:50] LABS: INTERNATIONAL NORMALIZED RATIO 2.5 RATIO; PROTHROMBIN TIME - PATIENT 25.4 SEC (9.8-11.6)
--- NOTE | 2017-09-10 10:15 | HHI.PR ---
Subjective Remarks This is a pleasant 32 y/o Male who hurd two episodes of Endocarditis, status post Aortic Valve replacement, this in 2011 when He was actively using IV drugs. Then in 2014, while he was in [facility], he was apparently hospitalized in [facility] and was diagnosed to have endocarditis and underwent mitral valve replacement. Patient states that both valves are mechanical valves. Patient states the last time he used IV drug was about 5 years ago. More recently he has been having problem with multiple symptoms. He was having ALMEIDA, and some palpitations and pain. He initially presented at [facility], and at that time he was also having some fevers. He was told that he had positive blood cultures, but he signed out AGAINST MEDICAL ADVICE for personal reasons. 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 09/10: Stable no nausea, vomit or diarrhea, asking for Narcotics for pain medicine, he is walking in the aisle, no other complaint. Objective Vital Signs Date Time Temp Pulse Resp B/P (MAP) Pulse Ox O2 Delivery O2 Flow Rate FiO2 09/10/17 08:00 70 09/10/17 04:00 97.6 74 16 104/59 (74) 100 09/10/17 04:00 70 09/10/17 00:00 97.2 72 16 113/70 (84) 100 09/10/17 00:00 70 09/09/17 20:30 72 09/09/17 20:00 97.2 70 17 147/68 (94) 100 09/09/17 16:09 97.6 70 18 110/66 (81) 100 09/09/17 16:00 70 09/09/17 12:09 97.6 79 18 107/70 (82) 98 I/O 09/09/17 09/09/17 09/09/17 09/10/17 09/10/17 09/10/17 07:00 15:00 23:00 07:00 15:00 23:00 Intake Total 120 ml 600 ml 1800 ml Balance 120 ml 600 ml 1800 ml Intake Oral 120 ml 600 ml 1800 ml # Voids 2 5 6 # Bowel Movements 0 2 1 Result Diagram: 09/09/17 1000 09/09/17 1000 Imaging Last Impressions Chest X-Ray 09/07/17 0000 Signed Impressions: Service Date/Time: Thursday, September 07, 2017 01:11 - CONCLUSION: Mild right base consolidation and pleural effusion developing. Vj Momin MD Lung Scan-VQ Nuclear Medicine 09/04/17 0000 Signed Impressions: Service Date/Time: Monday, September 04, 2017 09:30 - CONCLUSION: Low probability for pulmonary embolism. Reginald Sharma MD FACR Liver Ultrasound 09/04/17 0000 Signed Impressions: Service Date/Time: Monday, September 04, 2017 10:57 - CONCLUSION: 1. Bilateral small pleural effusions. 2. Otherwise negative ultrasound of the liver. Reginald Sharma MD FACR Procedures EARLENE Other Results Laboratory Tests Test 09/04/17 08:31 09/04/17 11:09 09/05/17 06:29 09/05/17 11:52 Troponin I 0.03 NG/ML Hepatitis A IgM Antibody NONREACTIVE Hepatitis B Surface Antigen NONREACTIVE Hepatitis B Core IgM Antibody NONREACTIVE Hepatitis C IgG Antibody REACTIVE Total Creatine Kinase 33 U/L Erythrocyte Sedimentation Rate 14 mm/hr Test 09/07/17 04:52 09/09/17 10:00 09/10/17 08:51 Direct Bilirubin 0.2 MG/DL Indirect Bilirubin 0.3 MG/DL White Blood Count 8.0 TH/MM3 Red Blood Count 4.39 MIL/MM3 Hemoglobin 10.8 GM/DL Hematocrit 34.7 % Mean Corpuscular Volume 79.0 FL Mean Corpuscular Hemoglobin 24.7 PG Mean Corpuscular Hemoglobin Concent 31.2 % Red Cell Distribution Width 17.0 % Platelet Count 241 TH/MM3 Mean Platelet Volume 7.9 FL Neutrophils (%) (Auto) 82.3 % Lymphocytes (%) (Auto) 11.6 % Monocytes (%) (Auto) 5.3 % Eosinophils (%) (Auto) 0.3 % Basophils (%) (Auto) 0.5 % Neutrophils # (Auto) 6.6 TH/MM3 Lymphocytes # (Auto) 0.9 TH/MM3 Monocytes # (Auto) 0.4 TH/MM3 Eosinophils # (Auto) 0.0 TH/MM3 Basophils # (Auto) 0.0 TH/MM3 CBC Comment DIFF FINAL Differential Comment Blood Urea Nitrogen 17 MG/DL Creatinine 1.35 MG/DL Random Glucose 89 MG/DL Total Protein 7.2 GM/DL Albumin 3.0 GM/DL Calcium Level 8.8 MG/DL Alkaline Phosphatase 78 U/L Aspartate Amino Transf (AST/SGOT) 94 U/L Alanine Aminotransferase (ALT/SGPT) 317 U/L Total Bilirubin 0.3 MG/DL Sodium Level 136 MEQ/L Potassium Level 5.2 MEQ/L Chloride Level 102 MEQ/L Carbon Dioxide Level 31.5 MEQ/L Anion Gap 3 MEQ/L Estimat Glomerular Filtration Rate 61 ML/MIN Prothrombin Time 25.4 SEC Prothromb Time International Ratio 2.5 RATIO Objective Remarks GENERAL: This is a well-nourished, well-developed patient, in no apparent distress. CARDIOVASCULAR: Regular rate and regular rhythm without murmurs, gallops, or rubs. RESPIRATORY: Clear to auscultation. Breath sounds equal bilaterally. No wheezes , rales, or rhonchi. GASTROINTESTINAL: Abdomen soft, non-tender, nondistended. Normal, active bowel sounds MUSCULOSKELETAL: Extremities without clubbing, cyanosis, or edema. NEURO: Alert & Oriented x4 to person, place, time, situation. Moves all ext x4 Medications and IVs Current Medications Medications (Trade) Dose Ordered Sig/Baudilio Route Start Time Stop Time Status Last Admin (NS Flush) 2 ml UNSCH PRN IV FLUSH 09/04/17 00:00 (NS Flush) 2 ml BID IV FLUSH 09/04/17 09:00 09/10/17 08:51 (Zofran Inj) 4 mg Q6H PRN IVP 09/04/17 00:00 09/10/17 09:34 (Narcan Inj) 0.4 mg UNSCH PRN IV PUSH 09/04/17 00:00 (Morphine Inj) 2 mg Q3H PRN IV PUSH 09/04/17 00:00 09/10/17 08:51 (Coreg) 6.25 mg BID PO 09/04/17 09:00 09/10/17 08:49 (Synthroid) 50 mcg DAILY@0700 PO 09/04/17 07:00 09/10/17 06:27 (Benadryl) 50 mg UNSCH PRN PO 09/05/17 15:30 09/06/17 03:34 (Coumadin) 9 mg DAILY@1600 PO 09/06/17 16:00 Future hold 09/09/17 15:51 Pharmacy Profile Note 0 ml @ 0 mls/hr UNSCH OTHER 09/06/17 09:15 (Lovenox Inj) 80 mg Q12H SQ 09/07/17 11:00 09/09/17 22:23 ([place] 7.5-325 Mg) 1 tab Q4H PRN PO 09/07/17 09:15 ([place] 7.5-325 Mg) 2 tab Q4HR PRN PO 09/07/17 09:15 09/10/17 06:26 Ampicillin Sodium 2000 mg/Sodium Chloride 100 ml @ 400 mls/hr Q4H IV 09/09/17 14:00 09/10/17 08:53 Ceftriaxone Sodium 2000 mg/ Sodium Chloride 100 ml @ 200 mls/hr Q24H IV 09/09/17 15:00 09/09/17 16:28 A/P Assessment and Plan (1) Chest pain ICD Code: R07.9 - Chest pain, unspecified Status: Acute (2) Subtherapeutic international normalized ratio (INR) ICD Code: R79.1 - Abnormal coagulation profile Status: Acute (3) CHF (congestive heart failure) ICD Code: I50.9 - Heart failure, unspecified Status: Chronic (4) Acute kidney injury ICD Code: N17.9 - Acute kidney failure, unspecified Status: Acute (5) Transaminitis ICD Code: R74.0 - Nonspecific elevation of levels of transaminase and lactic acid dehydrogenase [LDH] Status: Acute Chest pain aortic valve endocarditis with possible ICD vegetations on Ceftriaxone and Ampicillin IV as per ID specialist. cardiomyopathy history of endocarditis- s/p aortic/mitral valve replacement -EARLENE with aortic valve vegetation and Possible implantable cardioverter defibrillator vegetations. -Monitor telemetry -VQ scan with low-probability for PE. -initial Blood cultures with enterococcus faecalis- will follow the repeated blood cultures. -continue with pain control. -echo with EF < 20% -continue Coreg and Coumadin- continue subq lovenox till INR becomes therapeutic. -PT/INR monitoring. -will add CARMINE if renal function stable and BP allows. -started on penicillin G - ID and cardiology following. -CT surgery no surgical intervantion. renal insufficiency with unknown baseline, patient denies kidney disease -improved. Transaminitis, suspect due to dehydration, no abdominal pain noted- trending down. Hepatitis C -Liver ultrasound with small bilateral pleural effusions- but otherwise negative. -f/u as outpatient DVT prophylaxis: Coumadin/subq Lovenox. Seen in his bedroom and discussed with nurse Miss Farley. Discussed with patient. Discharge Planning Once cleared by specialists. Peter Madrid MD Sep 10, 2017 10:15
[2017-09-10] MEDS: ENOXAPARIN SODIUM 80 MG/0.8 ML SYRINGE SQ SCH ×2 (11:15→22:37)
[2017-09-10] MEDS: cefTRIAXone INJ 2,000 MG in SODIUM CHLORIDE 0.9% INJ 100 ML IV SCH (14:01)
[2017-09-10] MEDS ORDERED: WARFARIN SOD 7.5 MG TAB PO SCH (16:00)
[2017-09-11] VITALS (9 sets, daily range): BP systolic 100–137; BP diastolic 57–86; PULSE 70–105; RESP 15–20; TEMP 97.1–98.8; O2SAT 96–100
[2017-09-11] MEDS: MORPHINE SULFATE 2 MG/ML SYRINGE IV PUSH PRN ×6 (00:47→22:20)
[2017-09-11] MEDS: SODIUM CHLORIDE 0.9% FLUSH 10 ML FLUSH IV FLUSH PRN ×3 (00:48→22:21)
[2017-09-11] MEDS: ACETAMINOPHEN/HYDROcodone 325 MG/7.5 MG TAB PO PRN ×6 (02:37→19:59)
[2017-09-11] MEDS: AMPICILLIN INJ 2,000 MG in SODIUM CHLORIDE 0.9% INJ 100 ML IV SCH ×6 (02:38→22:21)
[2017-09-11] MEDS: LEVOTHYROXINE SODIUM 50 MCG TAB PO SCH (06:38)
[2017-09-11 07:24] LABS: PROTHROMBIN TIME - PATIENT 40.1 SEC (9.8-11.6)
[2017-09-11] MEDS: SODIUM CHLORIDE 0.9% FLUSH 10 ML FLUSH IV FLUSH SCH ×2 (08:04→19:57)
[2017-09-11] MEDS: CARVEDILOL 6.25 MG TAB PO SCH ×2 (08:04→22:21)
--- NOTE | 2017-09-11 08:54 | HHI.PR ---
Subjective Remarks This is a pleasant 32 y/o Male who hurd two episodes of Endocarditis, status post Aortic Valve replacement, this in 2011 when He was actively using IV drugs. Then in 2014, while he was in retirement, he was apparently hospitalized in [facility] and was diagnosed to have endocarditis and underwent mitral valve replacement. Patient states that both valves are mechanical valves. Patient states the last time he used IV drug was about 5 years ago. More recently he has been having problem with multiple symptoms. He was having ALMEIDA, and some palpitations and pain. He initially presented at [facility], and at that time he was also having some fevers. He was told that he had positive blood cultures, but he signed out AGAINST MEDICAL ADVICE for personal reasons. 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 09/10: Stable asking for Narcotics for pain medicine, he is walking in the aisle , no other complaint. 09/11: No changes to anterior assessment, No nausea, vomit or diarrhea. Objective Vital Signs Date Time Temp Pulse Resp B/P (MAP) Pulse Ox O2 Delivery O2 Flow Rate FiO2 09/11/17 04:00 97.7 71 20 128/86 (100) 96 09/11/17 03:42 70 09/11/17 00:00 98.0 70 20 102/67 (79) 97 09/10/17 23:42 70 09/10/17 20:00 98.7 70 20 107/63 (78) 100 09/10/17 19:42 72 09/10/17 16:00 70 09/10/17 16:00 98.0 72 17 112/67 (82) 100 09/10/17 12:00 98.1 69 18 107/68 (81) 100 09/10/17 12:00 70 I/O 09/10/17 09/10/17 09/10/17 09/11/17 09/11/17 09/11/17 06:59 14:59 22:59 06:59 14:59 22:59 Intake Total 1800 ml 240 ml 580 ml Balance 1800 ml 240 ml 580 ml Intake Oral 1800 ml 240 ml 580 ml # Voids 6 1 3 # Bowel Movements 1 Result Diagram: 09/09/17 1000 09/11/17 0642 Imaging Last Impressions Chest X-Ray 09/07/17 0000 Signed Impressions: Service Date/Time: Thursday, September 07, 2017 01:11 - CONCLUSION: Mild right base consolidation and pleural effusion developing. Vj Momin MD Lung Scan-V Nuclear Medicine 09/04/17 0000 Signed Impressions: Service Date/Time: Monday, September 04, 2017 09:30 - CONCLUSION: Low probability for pulmonary embolism. Reginald Sharma MD FACR Liver Ultrasound 09/04/17 0000 Signed Impressions: Service Date/Time: Monday, September 04, 2017 10:57 - CONCLUSION: 1. Bilateral small pleural effusions. 2. Otherwise negative ultrasound of the liver. Reginald Sharma MD FACR Procedures EARLENE Other Results Laboratory Tests Test 09/04/17 08:31 09/04/17 11:09 09/05/17 06:29 09/05/17 11:52 Troponin I 0.03 NG/ML Hepatitis A IgM Antibody NONREACTIVE Hepatitis B Surface Antigen NONREACTIVE Hepatitis B Core IgM Antibody NONREACTIVE Hepatitis C IgG Antibody REACTIVE Total Creatine Kinase 33 U/L Erythrocyte Sedimentation Rate 14 mm/hr Test 09/07/17 04:52 09/09/17 10:00 09/11/17 06:42 Direct Bilirubin 0.2 MG/DL Indirect Bilirubin 0.3 MG/DL White Blood Count 8.0 TH/MM3 Red Blood Count 4.39 MIL/MM3 Hemoglobin 10.8 GM/DL Hematocrit 34.7 % Mean Corpuscular Volume 79.0 FL Mean Corpuscular Hemoglobin 24.7 PG Mean Corpuscular Hemoglobin Concent 31.2 % Red Cell Distribution Width 17.0 % Platelet Count 241 TH/MM3 Mean Platelet Volume 7.9 FL Neutrophils (%) (Auto) 82.3 % Lymphocytes (%) (Auto) 11.6 % Monocytes (%) (Auto) 5.3 % Eosinophils (%) (Auto) 0.3 % Basophils (%) (Auto) 0.5 % Neutrophils # (Auto) 6.6 TH/MM3 Lymphocytes # (Auto) 0.9 TH/MM3 Monocytes # (Auto) 0.4 TH/MM3 Eosinophils # (Auto) 0.0 TH/MM3 Basophils # (Auto) 0.0 TH/MM3 CBC Comment DIFF FINAL Differential Comment Blood Urea Nitrogen 17 MG/DL Creatinine 1.35 MG/DL Random Glucose 89 MG/DL Total Protein 7.2 GM/DL Albumin 3.0 GM/DL Calcium Level 8.8 MG/DL Alkaline Phosphatase 78 U/L Aspartate Amino Transf (AST/SGOT) 94 U/L Alanine Aminotransferase (ALT/SGPT) 317 U/L Total Bilirubin 0.3 MG/DL Sodium Level 136 MEQ/L Potassium Level 5.2 MEQ/L 4.3 MEQ/L Chloride Level 102 MEQ/L Carbon Dioxide Level 31.5 MEQ/L Anion Gap 3 MEQ/L Estimat Glomerular Filtration Rate 61 ML/MIN Prothrombin Time 40.1 SEC Prothromb Time International Ratio 4.0 RATIO Objective Remarks GENERAL: This is a well-nourished, well-developed patient, in no apparent distress. CARDIOVASCULAR: Regular rate and regular rhythm without murmurs, gallops, or rubs. RESPIRATORY: Clear to auscultation. Breath sounds equal bilaterally. No wheezes , rales, or rhonchi. GASTROINTESTINAL: Abdomen soft, non-tender, nondistended. Normal, active bowel sounds MUSCULOSKELETAL: Extremities without clubbing, cyanosis, or edema. NEURO: Alert & Oriented x4 to person, place, time, situation. Moves all ext x4 Medications and IVs Current Medications Medications (Trade) Dose Ordered Sig/Baudilio Route Start Time Stop Time Status Last Admin (NS Flush) 2 ml UNSCH PRN IV FLUSH 09/04/17 00:00 09/11/17 04:53 (NS Flush) 2 ml BID IV FLUSH 09/04/17 09:00 09/11/17 08:04 (Zofran Inj) 4 mg Q6H PRN IVP 09/04/17 00:00 09/10/17 17:41 (Narcan Inj) 0.4 mg UNSCH PRN IV PUSH 09/04/17 00:00 (Morphine Inj) 2 mg Q3H PRN IV PUSH 09/04/17 00:00 09/11/17 08:44 (Coreg) 6.25 mg BID PO 09/04/17 09:00 09/11/17 08:04 (Synthroid) 50 mcg DAILY@0700 PO 09/04/17 07:00 09/11/17 06:38 (Benadryl) 50 mg UNSCH PRN PO 09/05/17 15:30 09/06/17 03:34 Pharmacy Profile Note 0 ml @ 0 mls/hr UNSCH OTHER 09/06/17 09:15 (Lovenox Inj) 80 mg Q12H SQ 09/07/17 11:00 09/10/17 22:37 ([place] 7.5-325 Mg) 1 tab Q4H PRN PO 09/07/17 09:15 09/10/17 11:14 ([place] 7.5-325 Mg) 2 tab Q4HR PRN PO 09/07/17 09:15 09/11/17 06:39 Ampicillin Sodium 2000 mg/Sodium Chloride 100 ml @ 400 mls/hr Q4H IV 09/09/17 14:00 09/11/17 06:40 Ceftriaxone Sodium 2000 mg/ Sodium Chloride 100 ml @ 200 mls/hr Q24H IV 09/09/17 15:00 09/10/17 14:01 (Coumadin) 7.5 mg DAILY@1600 PO 09/10/17 16:00 Future Hold 09/10/17 15:49 A/P Assessment and Plan (1) Chest pain ICD Code: R07.9 - Chest pain, unspecified Status: Acute (2) Subtherapeutic international normalized ratio (INR) ICD Code: R79.1 - Abnormal coagulation profile Status: Acute (3) CHF (congestive heart failure) ICD Code: I50.9 - Heart failure, unspecified Status: Chronic (4) Acute kidney injury ICD Code: N17.9 - Acute kidney failure, unspecified Status: Acute (5) Transaminitis ICD Code: R74.0 - Nonspecific elevation of levels of transaminase and lactic acid dehydrogenase [LDH] Status: Acute Chest pain aortic valve endocarditis with possible ICD vegetations on Ceftriaxone and Ampicillin IV as per ID specialist. cardiomyopathy history of endocarditis- s/p aortic/mitral valve replacement -EARLENE with aortic valve vegetation and Possible implantable cardioverter defibrillator vegetations. -Monitor telemetry -VQ scan with low-probability for PE. -initial Blood cultures with enterococcus faecalis- will follow the repeated blood cultures. -continue with pain control. -echo with EF < 20% -continue Coreg and Coumadin- continue subq lovenox till INR becomes therapeutic. -PT/INR monitoring. -will add CARMINE if renal function stable and BP allows. -started on penicillin G - ID and cardiology following. -CT surgery no surgical intervention. renal insufficiency with unknown baseline, patient denies kidney disease -improved. Transaminitis, suspect due to dehydration, no abdominal pain noted- trending down. Hepatitis C -Liver ultrasound with small bilateral pleural effusions- but otherwise negative. -f/u as outpatient DVT prophylaxis: Coumadin/subq Lovenox. Seen in his bedroom and discussed with nurse Miss Farley. Discussed with patient. Discharge Planning Once cleared by specialists. Peter Madrid MD Sep 11, 2017 08:54
[2017-09-11] MEDS: ENOXAPARIN SODIUM 80 MG/0.8 ML SYRINGE SQ SCH ×2 (10:21→22:20)
[2017-09-11] MEDS: ONDANSETRON HCL 4 MG/2 ML VIAL IVP PRN (12:46)
[2017-09-11] MEDS: cefTRIAXone INJ 2,000 MG in SODIUM CHLORIDE 0.9% INJ 100 ML IV SCH (14:28)
[2017-09-11] MEDS ORDERED: LACTULOSE SYRUP 20 GM/30 ML CUP PO PRN (15:30)
[2017-09-11] MEDS: DOCUSATE SODIUM 50 MG/SENNA 8.6 MG TAB PO PRN (17:03)
[2017-09-12] VITALS (11 sets, daily range): BP systolic 104–125; BP diastolic 62–96; PULSE 69–102; RESP 16–20; TEMP 97.3–97.9; O2SAT 99–100
[2017-09-12] MEDS: ACETAMINOPHEN/HYDROcodone 325 MG/7.5 MG TAB PO PRN ×5 (00:10→18:24)
[2017-09-12] MEDS: MORPHINE SULFATE 2 MG/ML SYRINGE IV PUSH PRN ×5 (02:16→21:32)
[2017-09-12] MEDS: AMPICILLIN INJ 2,000 MG in SODIUM CHLORIDE 0.9% INJ 100 ML IV SCH ×6 (02:16→21:33)
[2017-09-12] MEDS: SODIUM CHLORIDE 0.9% FLUSH 10 ML FLUSH IV FLUSH PRN (02:17)
[2017-09-12] MEDS: LEVOTHYROXINE SODIUM 50 MCG TAB PO SCH (06:15)
[2017-09-12 07:23] LABS: PROTHROMBIN TIME - PATIENT 40.5 SEC (9.8-11.6)
[2017-09-12 07:42] LABS: ALBUMIN 2.8 GM/DL (3.4-5.0); DIRECT BILIRUBIN ADULT 0.1 MG/DL (0.0-0.2)
[2017-09-12 07:44] LABS: INDIRECT BILIRUBIN 0.1 MG/DL (0.0-0.8); TOTAL BILIRUBIN ADULT 0.2 MG/DL (0.2-1.0); TOTAL PROTEIN 6.7 GM/DL (6.4-8.2)
[2017-09-12] MEDS: CARVEDILOL 6.25 MG TAB PO SCH ×2 (08:48→21:32)
[2017-09-12] MEDS: SODIUM CHLORIDE 0.9% FLUSH 10 ML FLUSH IV FLUSH SCH ×2 (08:57→21:32)
[2017-09-12] MEDS: ENOXAPARIN SODIUM 80 MG/0.8 ML SYRINGE SQ SCH (10:18)
--- NOTE | 2017-09-12 11:27 | HHI.PR ---
Subjective Remarks This is a pleasant 32 y/o Male who hurd two episodes of Endocarditis, status post Aortic Valve replacement, this in 2011 when He was actively using IV drugs. 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 Patient states that both valves are mechanical valves. Patient states the last time he used IV drug was about 5 years ago. More recently he has been having problem with multiple symptoms. He was having ALMEIDA, and some palpitations and pain. He initially presented at [facility], and at that time he was also having some fevers. He was told that he had positive blood cultures, but he signed out AGAINST MEDICAL ADVICE for personal reasons. 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 09/10: Stable asking for Narcotics for pain medicine, he is walking in the aisle , no other complaint. 09/11: No changes to anterior assessment. No complaint. 09/12: Stable in his bedroom, eating his breakfast asking for medicine for his GERD, start PPIs. no nausea, vomit or diarrhea. Objective Vital Signs Date Time Temp Pulse Resp B/P (MAP) Pulse Ox O2 Delivery O2 Flow Rate FiO2 09/12/17 08:09 97.7 70 18 118/84 (95) 100 09/12/17 04:00 97.9 73 20 125/62 (83) 99 09/12/17 03:41 70 09/12/17 00:00 97.8 70 20 112/69 (83) 100 09/11/17 23:42 70 09/11/17 20:00 98.8 78 20 121/65 (83) 100 09/11/17 19:43 73 09/11/17 16:00 70 09/11/17 16:00 97.1 70 15 100/76 (84) 100 09/11/17 12:00 97.5 70 16 111/63 (79) 100 09/11/17 12:00 70 I/O 4/2209/11/17 09/11/17 09/12/17 09/12/17 09/12/17 07:00 15:00 23:00 07:00 15:00 23:00 Intake Total 580 ml 300 ml 1500 ml 800 ml 100 ml Balance 580 ml 300 ml 1500 ml 800 ml 100 ml Intake Oral 580 ml 1400 ml 800 ml IV Total 300 ml 100 ml 100 ml # Voids 3 5 4 # Bowel Movements 2 Result Diagram: 09/09/17 1000 09/11/17 0642 Imaging Last Impressions Chest X-Ray 09/07/17 0000 Signed Impressions: Service Date/Time: Thursday, September 07, 2017 01:11 - CONCLUSION: Mild right base consolidation and pleural effusion developing. Vj Momin MD Lung Scan-V Nuclear Medicine 09/04/17 0000 Signed Impressions: Service Date/Time: Monday, September 04, 2017 09:30 - CONCLUSION: Low probability for pulmonary embolism. Reignald Sharma MD FACR Liver Ultrasound 09/04/17 0000 Signed Impressions: Service Date/Time: Monday, September 04, 2017 10:57 - CONCLUSION: 1. Bilateral small pleural effusions. 2. Otherwise negative ultrasound of the liver. Reginald Sharma MD FACR Procedures EARLENE Other Results Laboratory Tests Test 09/04/17 08:31 09/04/17 11:09 09/05/17 06:29 09/05/17 11:52 Troponin I 0.03 NG/ML Hepatitis A IgM Antibody NONREACTIVE Hepatitis B Surface Antigen NONREACTIVE Hepatitis B Core IgM Antibody NONREACTIVE Hepatitis C IgG Antibody REACTIVE Total Creatine Kinase 33 U/L Erythrocyte Sedimentation Rate 14 mm/hr Test 09/09/17 10:00 09/11/17 06:42 09/12/17 06:00 White Blood Count 8.0 TH/MM3 Red Blood Count 4.39 MIL/MM3 Hemoglobin 10.8 GM/DL Hematocrit 34.7 % Mean Corpuscular Volume 79.0 FL Mean Corpuscular Hemoglobin 24.7 PG Mean Corpuscular Hemoglobin Concent 31.2 % Red Cell Distribution Width 17.0 % Platelet Count 241 TH/MM3 Mean Platelet Volume 7.9 FL Neutrophils (%) (Auto) 82.3 % Lymphocytes (%) (Auto) 11.6 % Monocytes (%) (Auto) 5.3 % Eosinophils (%) (Auto) 0.3 % Basophils (%) (Auto) 0.5 % Neutrophils # (Auto) 6.6 TH/MM3 Lymphocytes # (Auto) 0.9 TH/MM3 Monocytes # (Auto) 0.4 TH/MM3 Eosinophils # (Auto) 0.0 TH/MM3 Basophils # (Auto) 0.0 TH/MM3 CBC Comment DIFF FINAL Differential Comment Blood Urea Nitrogen 17 MG/DL Creatinine 1.35 MG/DL Random Glucose 89 MG/DL Total Protein 7.2 GM/DL 6.7 GM/DL Albumin 3.0 GM/DL 2.8 GM/DL Calcium Level 8.8 MG/DL Alkaline Phosphatase 78 U/L 71 U/L Aspartate Amino Transf (AST/SGOT) 94 U/L 65 U/L Alanine Aminotransferase (ALT/SGPT) 317 U/L 180 U/L Total Bilirubin 0.3 MG/DL 0.2 MG/DL Sodium Level 136 MEQ/L Potassium Level 5.2 MEQ/L 4.3 MEQ/L Chloride Level 102 MEQ/L Carbon Dioxide Level 31.5 MEQ/L Anion Gap 3 MEQ/L Estimat Glomerular Filtration Rate 61 ML/MIN Prothrombin Time 40.5 SEC Prothromb Time International Ratio 4.0 RATIO Direct Bilirubin 0.1 MG/DL Indirect Bilirubin 0.1 MG/DL Objective Remarks GENERAL: This is a well-nourished, well-developed patient, in no apparent distress. CARDIOVASCULAR: Regular rate and regular rhythm without murmurs, gallops, or rubs. RESPIRATORY: Clear to auscultation. Breath sounds equal bilaterally. No wheezes , rales, or rhonchi. GASTROINTESTINAL: Abdomen soft, non-tender, nondistended. Normal, active bowel sounds MUSCULOSKELETAL: Extremities without clubbing, cyanosis, or edema. NEURO: Alert & Oriented x4 to person, place, time, situation. Moves all ext x4 Medications and IVs Current Medications Medications (Trade) Dose Ordered Sig/Baudilio Route Start Time Stop Time Status Last Admin (NS Flush) 2 ml UNSCH PRN IV FLUSH 09/04/17 00:00 09/12/17 02:17 (NS Flush) 2 ml BID IV FLUSH 09/04/17 09:00 09/12/17 08:57 (Zofran Inj) 4 mg Q6H PRN IVP 09/04/17 00:00 09/11/17 12:46 (Narcan Inj) 0.4 mg UNSCH PRN IV PUSH 09/04/17 00:00 (Morphine Inj) 2 mg Q3H PRN IV PUSH 09/04/17 00:00 09/12/17 10:52 (Coreg) 6.25 mg BID PO 09/04/17 09:00 09/12/17 08:48 (Synthroid) 50 mcg DAILY@0700 PO 09/04/17 07:00 09/12/17 06:15 (Benadryl) 50 mg UNSCH PRN PO 09/05/17 15:30 09/06/17 03:34 Pharmacy Profile Note 0 ml @ 0 mls/hr UNSCH OTHER 09/06/17 09:15 (Lovenox Inj) 80 mg Q12H SQ 09/07/17 11:00 09/11/17 22:20 ([place] 7.5-325 Mg) 1 tab Q4H PRN PO 09/07/17 09:15 09/11/17 10:30 ([place] 7.5-325 Mg) 2 tab Q4HR PRN PO 09/07/17 09:15 09/12/17 08:48 Ampicillin Sodium 2000 mg/Sodium Chloride 100 ml @ 400 mls/hr Q4H IV 09/09/17 14:00 09/12/17 10:15 Ceftriaxone Sodium 2000 mg/ Sodium Chloride 100 ml @ 200 mls/hr Q24H IV 09/09/17 15:00 09/11/17 14:28 (Coumadin) 7.5 mg DAILY@1600 PO 09/10/17 16:00 Future Hold 09/10/17 15:49 (Lactulose Liq) 30 ml DAILY PRN PO 09/11/17 15:30 (Noemy-Colace) 2 tab Q12H PRN PO 09/11/17 15:30 09/11/17 17:03 A/P Assessment and Plan (1) Chest pain ICD Code: R07.9 - Chest pain, unspecified Status: Acute (2) Subtherapeutic international normalized ratio (INR) ICD Code: R79.1 - Abnormal coagulation profile Status: Acute (3) CHF (congestive heart failure) ICD Code: I50.9 - Heart failure, unspecified Status: Chronic (4) Acute kidney injury ICD Code: N17.9 - Acute kidney failure, unspecified Status: Acute (5) Transaminitis ICD Code: R74.0 - Nonspecific elevation of levels of transaminase and lactic acid dehydrogenase [LDH] Status: Acute Chest pain aortic valve endocarditis with possible ICD vegetations on Ceftriaxone and Ampicillin IV as per ID specialist. cardiomyopathy history of endocarditis- s/p aortic/mitral valve replacement -EARLENE with aortic valve vegetation and Possible implantable cardioverter defibrillator vegetations. -Monitor telemetry -VQ scan with low-probability for PE. -initial Blood cultures with enterococcus faecalis- will follow the repeated blood cultures. -continue with pain control. -echo with EF < 20% -continue Coreg and Coumadin- continue subcutaneous Lovenox till INR becomes therapeutic. today discussed with facilities specialist, He has INR in 4 for the last two days and called my attention about Lovenox was discontinued appreciated. -PT/INR monitoring. -will add CARMINE if renal function stable and BP allows. -started on penicillin G - ID and cardiology following. -CT surgery no surgical intervention. renal insufficiency with unknown baseline, patient denies kidney disease -improved. Transaminitis, suspect due to dehydration, no abdominal pain noted- trending down. Hepatitis C -Liver ultrasound with small bilateral pleural effusions- but otherwise negative. -f/u as outpatient GERD started on PPIs. DVT prophylaxis: Coumadin/subq Lovenox. Seen in his bedroom and discussed with nurse Miss De Souza. Discharge Planning Once cleared by specialists. Peter Madrid MD Sep 12, 2017 11:27
[2017-09-12] MEDS: PANTOPRAZOLE SOD 40 MG DELAYED RELEASE TAB PO SCH (14:23)
--- NOTE | 2017-09-12 15:29 | HHI.IDPN ---
Subjective Subjective Remarks Patient is a 32-year-old male, presented to the hospital for evaluation of generalized malaise, feeling cold and clammy, and experiencing chest pain, as well as dyspnea on exertion. His history is significant for 2 episodes of endocarditis. One was in 2011, and he underwent aortic valve replacement at that time. During that. He was actively using IV drugs. Then in 2014, while he was in residential, he was apparently hospitalized in [facility] and was diagnosed to have endocarditis and underwent mitral valve replacement. Patient states that both valves are mechanical valves. Patient states the last time he used IV drug was about 5 years ago. More recently he has been having problem with multiple symptoms. He was having ALMEIDA, and some palpitations and pain. He initially presented at [facility] , and at that time he was also having some fevers. He was told that he had positive blood cultures, but he signed out AGAINST MEDICAL ADVICE for personal reasons. Patient stated that his symptoms got better, but the symptoms started back up again. He has been having more problem with dyspnea on exertion and has been having limitation in his mobility. He really did not document any fever recently, but he was having cold and clammy episodes. Denies any other respiratory complaint as far as cough or congestion. Has not had any GI or any urinary complaints. He initially presented in [facility], and from there he was transferred here at the [facility]. 2 blood cultures done on this admission are now reported as growing gram- positive cocci in pairs and chains. Infectious disease consultation has been requested to evaluate the patient and assist with management. Records from [facility] still not available Records from [facility] reviewed: Patient had bioprosthesis AVR 2011. Per records he was incarcerated soon after discharge and was still incarcerated and admitted at [facility] Jul- July. He underwent re-do AVR and MVR with mechanical valves July 25, 2014 Notes reviewed Temps ok No new complaints No new (+) BC All BC 09/02-09/06 with Enterococcus faecalis BC 09/07 and 09/08 negative EARLENE with veg at AVR and possibly in ICD leads Last BMP creat 1.35 Antibiotics Ampicillin Rocephin Current Medications Medications (Trade) Dose Ordered Sig/Baudilio Route Start Time Stop Time Status Last Admin (NS Flush) 2 ml UNSCH PRN IV FLUSH 09/04/17 00:00 (NS Flush) 2 ml BID IV FLUSH 09/04/17 09:00 09/09/17 08:20 (Zofran Inj) 4 mg Q6H PRN IVP 09/04/17 00:00 09/09/17 09:04 (Narcan Inj) 0.4 mg UNSCH PRN IV PUSH 09/04/17 00:00 (Morphine Inj) 2 mg Q3H PRN IV PUSH 09/04/17 00:00 09/09/17 12:13 (Coreg) 6.25 mg BID PO 09/04/17 09:00 09/09/17 08:20 (Synthroid) 50 mcg DAILY@0700 PO 09/04/17 07:00 09/09/17 06:18 (Benadryl) 50 mg UNSCH PRN PO 09/05/17 15:30 09/06/17 03:34 (Coumadin) 9 mg DAILY@1600 PO 09/06/17 16:00 Future hold 09/08/17 17:40 Pharmacy Profile Note 0 ml @ 0 mls/hr UNSCH OTHER 09/06/17 09:15 Lactated Ringer's 1,000 ml @ 30 mls/hr Q24H PRN IV 09/06/17 15:00 09/09/17 14:59 Sodium Chloride 500 ml @ 30 mls/hr [id number] PRN IV 09/06/17 15:00 09/09/17 14:59 (Lopressor) 25 mg [place]ER PRN PO 09/06/17 15:00 09/09/17 14:59 (Betadine 5% Antisepsis Kit) 1 applic [place]ER PRN EACH NARE 09/06/17 15:00 09/09/17 14:59 (Chlorhexidine 2% Cloth) 3 pack [place] PRN TOPICAL 09/06/17 15:00 09/09/17 14:59 (NovoLIN R INJ) See Protocol Table ... [place]ER PRN SQ 09/06/17 15:00 09/09/17 14:59 (Lovenox Inj) 80 mg Q12H SQ 09/07/17 11:00 09/09/17 10:11 ([place] 7.5-325 Mg) 1 tab Q4H PRN PO 09/07/17 09:15 ([place] 7.5-325 Mg) 2 tab Q4HR PRN PO 09/07/17 09:15 09/09/17 10:11 Penicillin G Potassium [id number] units/Sodium Chloride 100 ml @ 100 mls/hr Q4H IV 09/07/17 14:00 09/09/17 10:11 Lines Line with no evidence of infection Past Medical History CHF IVDA quit 5 years ago Hypothyroidism s/p thyroidectomy Endocarditis Past Surgical History AICD 2012, nonischemic cardiomyopathy AVR 2012 MVR 2015 Cholecystectomy Thyroidectomy. 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 Vital Signs Date Time Temp Pulse Resp B/P (MAP) Pulse Ox O2 Delivery O2 Flow Rate FiO2 09/12/17 12:23 97.3 71 17 123/69 (87) 100 09/12/17 08:13 70 09/12/17 08:09 97.7 70 18 118/84 (95) 100 09/12/17 04:00 97.9 73 20 125/62 (83) 99 09/12/17 03:41 70 09/12/17 00:00 97.8 70 20 112/69 (83) 100 09/11/17 23:42 70 09/11/17 20:00 98.8 78 20 121/65 (83) 100 09/11/17 19:43 73 09/11/17 16:00 70 09/11/17 16:00 97.1 70 15 100/76 (84) 100 09/12/17 09/12/17 09/13/17 14:59 22:59 06:59 Intake Total 100 ml Balance 100 ml IV Total 100 ml . Laboratory Tests Test 09/11/17 06:42 09/12/17 06:00 Potassium Level 4.3 MEQ/L Total Bilirubin 0.2 MG/DL Direct Bilirubin 0.1 MG/DL Indirect Bilirubin 0.1 MG/DL Aspartate Amino Transf (AST/SGOT) 65 U/L Alanine Aminotransferase (ALT/SGPT) 180 U/L Alkaline Phosphatase 71 U/L Total Protein 6.7 GM/DL Albumin 2.8 GM/DL Imaging Chest X-Ray 09/07/17 0000 Signed Impressions: Service Date/Time: Thursday, September 07, 2017 01:11 - CONCLUSION: Mild right base consolidation and pleural effusion developing. Vj Momin MD Lung Scan-VQ Nuclear Medicine 09/04/17 0000 Signed Impressions: Service Date/Time: Monday, September 04, 2017 09:30 - CONCLUSION: Low probability for pulmonary embolism. Reginald Sharma MD FACR Liver Ultrasound 09/04/17 0000 Signed Impressions: Service Date/Time: Monday, September 04, 2017 10:57 - CONCLUSION: 1. Bilateral small pleural effusions. 2. Otherwise negative ultrasound of the liver. Reginald Sharma MD FACR Physical Exam GENERAL: awake and alert, not in respiratory distress. SKIN: Cool and dry. No generalized rash, no ecchymoses and no evidence of embolic lesions. HEAD: Atraumatic. Normocephalic. No temporal wasting, or tenderness. EYES: [place] conjunctiva. No petechia or hemorrhage. Pupils equal, round and reactive to light. EOM full and intact. No scleral icterus. No injection or drainage. EARS, NOSE AND THROAT: Nose without bleeding or purulent nasal discharge. No sinus tenderness. Mucous membranes pink and moist. NECK: Trachea midline. Supple and not tender, no meningeal signs CARDIOVASCULAR: Regular rate and rhythm. No murmurs, rubs or gallops heard. (+ ) mechanical valve sound. AICD looks ok RESPIRATORY: Clear to auscultation. Breath sounds equal bilaterally. No rales , wheezing or rhonchi ABDOMEN: Soft, non-tender, nondistended. Bowel sounds present and normoactive. No guarding. No rebound. No organomegaly. EXTREMITIES: No clubbing, cyanosis, or edema. No joint effusion, has good ROM. No calf tenderness. Well perfused and warm. NEUROLOGICAL: Grossly non-focal PSYCHIATRIC: Normal affect, calm and cooperative. 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 If surgery can not be done here, ?transfer to another facility His redo-AVR and MVR done at [facility] in 2014 Monitor progress Success for curing this infection very low with medical treatment alone and if no surgical intervention done Very difficult case - he has 2 valves AVR and MVR plus AICD ADDENDUM: D/W CTS Dr Jason Nicole Patient has had 2 open heart surgery and his EF is only 20% He is a very poor surgical candidate per CTS and cardiology Will Rx medically and he will need chronic suppression Abx Explained to patient Alejandra Santos MD Sep 12, 2017 15:29
[2017-09-12] MEDS: cefTRIAXone INJ 2,000 MG in SODIUM CHLORIDE 0.9% INJ 100 ML IV SCH (15:44)
[2017-09-12 16:01] LABS: CALCIUM 8.3 MG/DL (8.5-10.1); CREATININE 1.17 MG/DL (0.60-1.30)
[2017-09-13] VITALS (7 sets, daily range): BP systolic 103–121; BP diastolic 57–88; PULSE 70–76; RESP 16–20; TEMP 97.3–98.1; O2SAT 92–100
[2017-09-13] MEDS: ACETAMINOPHEN/HYDROcodone 325 MG/7.5 MG TAB PO PRN ×5 (00:24→22:52)
[2017-09-13] MEDS: AMPICILLIN INJ 2,000 MG in SODIUM CHLORIDE 0.9% INJ 100 ML IV SCH ×6 (00:25→20:31)
[2017-09-13 02:29] LABS: INTERNATIONAL NORMALIZED RATIO 2.4 RATIO; PROTHROMBIN TIME - PATIENT 24.4 SEC (9.8-11.6)
[2017-09-13] MEDS: MORPHINE SULFATE 2 MG/ML SYRINGE IV PUSH PRN ×5 (03:15→20:31)
[2017-09-13] MEDS: LEVOTHYROXINE SODIUM 50 MCG TAB PO SCH (06:39)
[2017-09-13] MEDS: PANTOPRAZOLE SOD 40 MG DELAYED RELEASE TAB PO SCH (08:59)
[2017-09-13] MEDS: CARVEDILOL 6.25 MG TAB PO SCH ×2 (08:59→20:31)
[2017-09-13] MEDS: SODIUM CHLORIDE 0.9% FLUSH 10 ML FLUSH IV FLUSH SCH ×2 (09:00→20:31)
--- NOTE | 2017-09-13 12:52 | HHI.PR ---
Subjective Remarks denies any chest pain, no diarrhea "slight" short of breath Objective Vitals Vital Signs Date Time Temp Pulse Resp B/P (MAP) Pulse Ox O2 Delivery O2 Flow Rate FiO2 09/13/17 08:00 97.4 71 20 121/88 (99) 100 09/13/17 08:00 Nasal Cannula 2.00 09/13/17 04:00 Room Air 09/13/17 04:00 70 09/13/17 03:55 97.9 76 16 103/57 (72) 96 09/13/17 01:30 96 Nasal Cannula 1.00 09/13/17 00:00 Room Air 09/13/17 00:00 70 09/12/17 23:30 97.3 102 16 118/96 (103) 100 09/12/17 20:10 97.8 81 16 104/64 (77) 100 09/12/17 20:00 70 09/12/17 20:00 Room Air 09/12/17 16:09 97.5 69 17 117/70 (86) 100 09/12/17 15:43 79 I/O 09/12/17 09/12/17 09/12/17 09/13/17 09/13/17 09/13/17 07:00 15:00 23:00 07:00 15:00 23:00 Intake Total 800 ml 200 ml 1020 ml 580 ml Balance 800 ml 200 ml 1020 ml 580 ml Intake Oral 800 ml 720 ml 480 ml IV Total 200 ml 300 ml 100 ml # Voids 4 3 4 # Bowel Movements 0 0 Result Diagram: 09/09/17 1000 09/12/17 0600 Imaging Last Impressions Chest X-Ray 09/07/17 0000 Signed Impressions: Service Date/Time: Thursday, September 07, 2017 01:11 - CONCLUSION: Mild right base consolidation and pleural effusion developing. Vj Momin MD Lung Scan-V Nuclear Medicine 09/04/17 0000 Signed Impressions: Service Date/Time: Monday, September 04, 2017 09:30 - CONCLUSION: Low probability for pulmonary embolism. Reginald Sharma MD FACR Liver Ultrasound 09/04/17 0000 Signed Impressions: Service Date/Time: Monday, September 04, 2017 10:57 - CONCLUSION: 1. Bilateral small pleural effusions. 2. Otherwise negative ultrasound of the liver. Reginald Sharma MD FACR Objective Remarks awake and alert, anicteric no wheezes, decreased breath sounds,few basal rales regular rhythm abdomen sof,t nontender extremities no edema Procedures EARLENE A/P Problem List: (1) Chest pain ICD Code: R07.9 - Chest pain, unspecified Status: Acute (2) Subtherapeutic international normalized ratio (INR) ICD Code: R79.1 - Abnormal coagulation profile Status: Acute (3) CHF (congestive heart failure) ICD Code: I50.9 - Heart failure, unspecified Status: Chronic (4) Acute kidney injury ICD Code: N17.9 - Acute kidney failure, unspecified Status: Acute (5) Transaminitis ICD Code: R74.0 - Nonspecific elevation of levels of transaminase and lactic acid dehydrogenase [LDH] Status: Acute Assessment and Plan 32 years old male Chest pain aortic valve endocarditis with possible ICD vegetations on Ceftriaxone and Ampicillin IV as per ID specialist. Severe cardiomyopathy EF < 20% - in mild CHF history of endocarditis- s/p aortic/mitral valve replacement -EARLENE with aortic valve vegetation and Possible implantable cardioverter defibrillator vegetations. -Monitor telemetry -VQ scan with low-probability for PE. -initial Blood cultures with enterococcus faecalis- will follow the repeated blood cultures. -continue with pain control. -echo with EF < 20% -continue Coreg and Coumadin- INR in am -PT/INR monitoring. -will add CARMINE if renal function stable and BP allows. - ID and cardiology following. -CT surgery no surgical intervention. Lasix 20 mg IV daily renal insufficiency with unknown baseline, patient denies kidney disease -improved. monitor - started on diuretics Lasix Transaminitis, suspect due to dehydration, no abdominal pain noted- trending down. Hepatitis C -Liver ultrasound with small bilateral pleural effusions- but otherwise negative. -f/u as outpatient GERD started on PPIs. DVT prophylaxis:on coumadin Problem Qualifiers (1) Chest pain: Qualified Codes: R07.1 - Chest pain on breathing (2) CHF (congestive heart failure): Qualified Codes: I50.22 - Chronic systolic (congestive) heart failure Toy Cerna MD Sep 13, 2017 12:52
[2017-09-13] MEDS: FUROSEMIDE 20 MG/2 ML VIAL IV PUSH SCH (13:32)
[2017-09-13] MEDS: cefTRIAXone INJ 2,000 MG in SODIUM CHLORIDE 0.9% INJ 100 ML IV SCH (16:00)
[2017-09-13] MEDS: WARFARIN SOD 6 MG TAB PO SCH (16:01)
[2017-09-14] VITALS (7 sets, daily range): BP systolic 114–125; BP diastolic 60–73; PULSE 69–90; RESP 18–20; TEMP 97.3–98.1; O2SAT 98–100
[2017-09-14] MEDS: AMPICILLIN INJ 2,000 MG in SODIUM CHLORIDE 0.9% INJ 100 ML IV SCH ×6 (01:44→22:01)
[2017-09-14] MEDS: MORPHINE SULFATE 2 MG/ML SYRINGE IV PUSH PRN ×4 (01:45→18:15)
[2017-09-14] MEDS: ACETAMINOPHEN/HYDROcodone 325 MG/7.5 MG TAB PO PRN ×4 (04:49→22:02)
[2017-09-14] MEDS: DOCUSATE SODIUM 50 MG/SENNA 8.6 MG TAB PO PRN ×2 (04:53→09:11)
[2017-09-14] MEDS: LEVOTHYROXINE SODIUM 50 MCG TAB PO SCH (05:30)
[2017-09-14 08:01] LABS: INTERNATIONAL NORMALIZED RATIO 1.8 RATIO
[2017-09-14 08:21] LABS: BICARBONATE 25.9 MEQ/L (21.0-32.0); CALCIUM 8.5 MG/DL (8.5-10.1); CREATININE 1.16 MG/DL (0.60-1.30)
[2017-09-14] MEDS: FUROSEMIDE 20 MG/2 ML VIAL IV PUSH SCH (09:11)
[2017-09-14] MEDS: PANTOPRAZOLE SOD 40 MG DELAYED RELEASE TAB PO SCH (09:11)
[2017-09-14] MEDS: CARVEDILOL 6.25 MG TAB PO SCH ×2 (09:11→22:02)
[2017-09-14] MEDS: SODIUM CHLORIDE 0.9% FLUSH 10 ML FLUSH IV FLUSH SCH ×2 (09:11→22:01)
--- NOTE | 2017-09-14 13:50 | HHI.PR ---
Subjective Remarks looks more comfortable, now up and ambulating on exam still with basal rales leg swelling - decreased Objective Vitals Vital Signs Date Time Temp Pulse Resp B/P (MAP) Pulse Ox O2 Delivery O2 Flow Rate FiO2 09/14/17 08:00 97.9 70 20 117/73 (88) 100 09/14/17 08:00 74 09/14/17 07:47 Room Air 09/14/17 04:00 97.4 70 18 125/70 (88) 100 09/14/17 04:00 Room Air 09/14/17 04:00 70 09/14/17 00:00 97.3 71 18 118/69 (85) 100 09/14/17 00:00 Room Air 09/14/17 00:00 70 09/13/17 20:00 70 09/13/17 20:00 Room Air 09/13/17 20:00 97.7 70 18 117/81 (93) 100 09/13/17 16:00 97.3 70 20 104/69 (81) 100 09/13/17 16:00 70 I/O 09/13/17 09/13/17 09/13/17 09/14/17 09/14/17 09/14/17 07:00 15:00 23:00 07:00 15:00 23:00 Intake Total 580 ml 940 ml 340 ml Balance 580 ml 940 ml 340 ml Intake Oral 480 ml 840 ml 240 ml IV Total 100 ml 100 ml 100 ml # Voids 4 7 3 # Bowel Movements 0 2 1 Result Diagram: 09/14/17 0635 Imaging Last Impressions Chest X-Ray 09/07/17 0000 Signed Impressions: Service Date/Time: Thursday, September 07, 2017 01:11 - CONCLUSION: Mild right base consolidation and pleural effusion developing. Vj Momin MD Lung Scan-V Nuclear Medicine 09/04/17 0000 Signed Impressions: Service Date/Time: Monday, September 04, 2017 09:30 - CONCLUSION: Low probability for pulmonary embolism. Reginald Sharma MD FACR Liver Ultrasound 09/04/17 0000 Signed Impressions: Service Date/Time: Monday, September 04, 2017 10:57 - CONCLUSION: 1. Bilateral small pleural effusions. 2. Otherwise negative ultrasound of the liver. Reginald Sharma MD FACR Objective Remarks awake and alert, anicteric no wheezes, decreased breath sounds,+ few basal rales regular rhythm abdomen sof,t nontender extremities - trace pretibial edema Procedures EARLENE A/P Problem List: (1) Chest pain ICD Code: R07.9 - Chest pain, unspecified Status: Acute (2) Subtherapeutic international normalized ratio (INR) ICD Code: R79.1 - Abnormal coagulation profile Status: Acute (3) CHF (congestive heart failure) ICD Code: I50.9 - Heart failure, unspecified Status: Chronic (4) Acute kidney injury ICD Code: N17.9 - Acute kidney failure, unspecified Status: Acute (5) Transaminitis ICD Code: R74.0 - Nonspecific elevation of levels of transaminase and lactic acid dehydrogenase [LDH] Status: Acute Assessment and Plan 32 years old male Chest pain aortic valve endocarditis with possible ICD vegetations on Ceftriaxone and Ampicillin IV as per ID specialist. Severe cardiomyopathy EF < 20% - in mild CHF history of endocarditis- s/p aortic/mitral valve replacement -EARLENE with aortic valve vegetation and Possible implantable cardioverter defibrillator vegetations. -Monitor telemetry -VQ scan with low-probability for PE. -initial Blood cultures with enterococcus faecalis- will follow the repeated blood cultures. -continue with pain control. -echo with EF < 20% -continue Coreg and Coumadin- INR in am -PT/INR monitoring. -will add CARMINE if renal function stable and BP allows. - ID and cardiology following. -CT surgery no surgical intervention. Lasix 20 mg change to po 20 mg bid -add Lisinopril 2.5 mg po daily renal insufficiency with unknown baseline, patient denies kidney disease -improved. monitor - started on diuretics Lasix monitor on Lasix + addition of CARMINE Transaminitis, suspect due to dehydration, no abdominal pain noted- trending down. Hepatitis C -Liver ultrasound with small bilateral pleural effusions- but otherwise negative. -f/u as outpatient GERD started on PPIs. DVT prophylaxis:on coumadin Problem Qualifiers (1) Chest pain: Qualified Codes: R07.1 - Chest pain on breathing (2) CHF (congestive heart failure): Qualified Codes: I50.22 - Chronic systolic (congestive) heart failure Toy Cerna MD Sep 14, 2017 13:50
[2017-09-14] MEDS: WARFARIN SOD 6 MG TAB PO SCH (15:08)
[2017-09-14] MEDS: cefTRIAXone INJ 2,000 MG in SODIUM CHLORIDE 0.9% INJ 100 ML IV SCH (15:52)
[2017-09-14] MEDS ORDERED: WARFARIN SOD 2 MG TAB PO ONE (16:00)
[2017-09-14] MEDS: ONDANSETRON HCL 4 MG/2 ML VIAL IVP PRN (18:15)
[2017-09-14] MEDS: FUROSEMIDE 20 MG TAB PO SCH (18:15)
[2017-09-15] VITALS (9 sets, daily range): BP systolic 98–122; BP diastolic 56–69; PULSE 68–75; RESP 16–18; TEMP 97.3–97.9; O2SAT 96–100
[2017-09-15] MEDS: MORPHINE SULFATE 2 MG/ML SYRINGE IV PUSH PRN ×5 (00:17→21:12)
[2017-09-15] MEDS: DOCUSATE SODIUM 50 MG/SENNA 8.6 MG TAB PO PRN (00:17)
[2017-09-15] MEDS: ACETAMINOPHEN/HYDROcodone 325 MG/7.5 MG TAB PO PRN ×5 (02:46→23:25)
[2017-09-15] MEDS: AMPICILLIN INJ 2,000 MG in SODIUM CHLORIDE 0.9% INJ 100 ML IV SCH ×6 (02:47→21:12)
[2017-09-15 06:07] LABS: INTERNATIONAL NORMALIZED RATIO 1.9 RATIO; PROTHROMBIN TIME - PATIENT 19.6 SEC (9.8-11.6)
[2017-09-15] MEDS: LEVOTHYROXINE SODIUM 50 MCG TAB PO SCH (06:52)
[2017-09-15] MEDS: SODIUM CHLORIDE 0.9% FLUSH 10 ML FLUSH IV FLUSH SCH ×2 (09:00→21:13)
--- NOTE | 2017-09-15 09:32 | HHI.PR ---
Subjective Remarks afebrile stil subjectively feels short of breath with ambulation some ankel swelling Objective Vitals Vital Signs Date Time Temp Pulse Resp B/P (MAP) Pulse Ox O2 Delivery O2 Flow Rate FiO2 09/15/17 04:00 97.6 70 18 122/67 (85) 96 09/15/17 04:00 70 09/15/17 00:22 18 09/15/17 00:00 70 09/15/17 00:00 97.8 70 18 98/63 (75) 100 09/14/17 23:02 18 09/14/17 20:22 90 09/14/17 20:00 98.1 70 18 114/67 (83) 100 09/14/17 16:00 70 09/14/17 16:00 98.0 72 20 114/60 (78) 98 09/14/17 12:00 70 09/14/17 12:00 98.0 69 20 118/73 (88) 100 I/O 09/14/17 09/14/17 09/14/17 09/15/17 09/15/17 09/15/17 07:00 15:00 23:00 07:00 15:00 23:00 Intake Total 340 ml 720 ml Balance 340 ml 720 ml Intake Oral 240 ml 720 ml IV Total 100 ml # Voids 3 7 # Bowel Movements 1 2 Result Diagram: 09/14/17 0635 Imaging Last Impressions Chest X-Ray 09/07/17 0000 Signed Impressions: Service Date/Time: Thursday, September 07, 2017 01:11 - CONCLUSION: Mild right base consolidation and pleural effusion developing. Vj Momin MD Lung Scan- Nuclear Medicine 09/04/17 0000 Signed Impressions: Service Date/Time: Monday, September 04, 2017 09:30 - CONCLUSION: Low probability for pulmonary embolism. Reginald Sharma MD FACR Liver Ultrasound 09/04/17 0000 Signed Impressions: Service Date/Time: Monday, September 04, 2017 10:57 - CONCLUSION: 1. Bilateral small pleural effusions. 2. Otherwise negative ultrasound of the liver. Reginald Sharma MD FACR Objective Remarks awake and alert, anicteric no wheezes, decreased breath sounds,+ few basal rales regular rhythm abdomen soft nontender extremities -- no calf swelling or tenderness, + bilateral ankle swelling Procedures EARLENE A/P Problem List: (1) Chest pain ICD Code: R07.9 - Chest pain, unspecified Status: Acute (2) Subtherapeutic international normalized ratio (INR) ICD Code: R79.1 - Abnormal coagulation profile Status: Acute (3) CHF (congestive heart failure) ICD Code: I50.9 - Heart failure, unspecified Status: Chronic (4) Acute kidney injury ICD Code: N17.9 - Acute kidney failure, unspecified Status: Acute (5) Transaminitis ICD Code: R74.0 - Nonspecific elevation of levels of transaminase and lactic acid dehydrogenase [LDH] Status: Acute Assessment and Plan 32 years old male Chest pain aortic valve endocarditis with possible ICD vegetations on Ceftriaxone and Ampicillin IV as per ID specialist. Severe cardiomyopathy EF < 20% - in mild CHF history of endocarditis- s/p aortic/mitral valve replacement -EARLENE with aortic valve vegetation and Possible implantable cardioverter defibrillator vegetations. -Monitor telemetry -VQ scan with low-probability for PE. -initial Blood cultures with enterococcus faecalis- - repeat blood cultures negative -continue with pain control. -echo with EF < 20% -continue Coreg and Coumadin- INR in am -PT/INR monitoring. Lisinopril 2. 5 mg daily -started 09/14- BP tolerating - ID and cardiology following. -CT surgery no surgical intervention. Lasix 20 mg change to po 20 mg bid on aldactone renal insufficiency with unknown baseline, patient denies kidney disease -improved. monitor on Lasix + addition of CARMINE Transaminitis, suspect due to dehydration, no abdominal pain noted- trending down. Hepatitis C -Liver ultrasound with small bilateral pleural effusions- but otherwise negative. -f/u as outpatient GERD started on PPIs. DVT prophylaxis:on coumadin Problem Qualifiers (1) Chest pain: Qualified Codes: R07.1 - Chest pain on breathing (2) CHF (congestive heart failure): Qualified Codes: I50.22 - Chronic systolic (congestive) heart failure Toy Cerna MD Sep 15, 2017 09:32
[2017-09-15] MEDS: ENALAPRIL MALEATE 2.5 MG TAB PO SCH (09:39)
[2017-09-15] MEDS: CARVEDILOL 6.25 MG TAB PO SCH ×2 (09:40→21:12)
[2017-09-15] MEDS: PANTOPRAZOLE SOD 40 MG DELAYED RELEASE TAB PO SCH (09:40)
[2017-09-15] MEDS: FUROSEMIDE 20 MG TAB PO SCH ×2 (09:40→17:22)
[2017-09-15] MEDS: ONDANSETRON HCL 4 MG/2 ML VIAL IVP PRN (09:42)
--- NOTE | 2017-09-15 12:08 | HHI.FF ---
cc: Zahraa King MD, Dr Infusion Therapy Location of Infusion Therapy: Home [facility] IV Infusion Order Patient Information Patient Weight 86.1 kg Diagnosis: Diagnosis Endocarditis AVR and ICD leads, Enterococcus faecalis Coded Allergies: gentamicin (Verified Allergy, Severe, Itching, 09/03/17) ketorolac (Verified Allergy, Severe, Hotflash, 09/03/17) linezolid (Verified Allergy, Severe, Itching, 09/03/17) vancomycin (Verified Adverse Reaction, Severe, Itching, 09/05/17) gets hot and itchy, likely sterling syndrome Administer Medication Penicillin G Potassium 20 million units IV q 24 hours Stop Treatment: October 18, 2017 Administer Medication Ceftriaxone 2 grams IV q 24 hours Stop Treatment: October 18, 2017 Administer Medication PCN VK 500 po TID to start October 19, 2017, indefinitely Additional Information Venous access: PICC Line Additional Instructions [x] Peripheral flush and dressing changes per protocol [x] Implanted port and central online education manager: * Implanted port: 10 ml Normal Saline followed by 5 ml Heparin 100 units/ml Heparin flush after each use and monthly to maintain. [] May leave port accessed during therapy. [] May leave peripheral site accessed for duration of therapy. [x] If patient has SOB or respiratory distress, check oxygen saturation. If less than 90% or clinical signs of respiratory distress, administer oxygen at 2 L/min. via nasal cannula and notify physician. [x] Anaphylaxis/Reaction orders: * Stop infusion. * Keep IV line open with saline flush. * Notify physician. * Monitor vital signs every 15 minutes until symptoms resolve. * Check Oxygen saturation; Oxygen at 2 L/min. via nasal cannula if less than 90% or clinical signs of respiratory distress. * Administer diphenhydramine (Benadryl) 25 mg IV STAT, (unless patient has received as pre-med). May repeat once, if necessary. * Solu-Cortef 250 mg IVP over 30-60 seconds, use 100 mg vials for each dissolution. * Epinephrine (1mg/1 ml) 0.3 mg subcutaneously or IVP now with any signs of respiratory distress. * Check with physician for new additional pre-med orders if patient is re- challenged or re-treated. [x] May remove PICC line when treatment complete, after confirming with Physician. [x] If the patient is admitted to the hospital, the ED, or transferred via [facility] , complete transfer form including medication reconciliation order sheet. Laboratory Tests Weekly Labs: CBC w/diff, Creatinine, LFT's (Hepatic function test) (Labs every Tuesday - copy to me and to Dr King) Additional Information Please refer patient to Dr King for ID follow-up Alejandra Santos MD Sep 15, 2017 12:08
--- NOTE | 2017-09-15 12:13 | HHI.IDPN ---
Subjective Subjective Remarks Patient is a 32-year-old male, presented to the hospital for evaluation of generalized malaise, feeling cold and clammy, and experiencing chest pain, as well as dyspnea on exertion. His history is significant for 2 episodes of endocarditis. One was in 2011, and he underwent aortic valve replacement at that time. During that. He was actively using IV drugs. Then in 2014, while he was in custodial, he was apparently hospitalized in [facility] and was diagnosed to have endocarditis and underwent mitral valve replacement. Patient states that both valves are mechanical valves. Patient states the last time he used IV drug was about 5 years ago. More recently he has been having problem with multiple symptoms. He was having ALMEIDA, and some palpitations and pain. He initially presented at [facility] , and at that time he was also having some fevers. He was told that he had positive blood cultures, but he signed out AGAINST MEDICAL ADVICE for personal reasons. Patient stated that his symptoms got better, but the symptoms started back up again. He has been having more problem with dyspnea on exertion and has been having limitation in his mobility. He really did not document any fever recently, but he was having cold and clammy episodes. Denies any other respiratory complaint as far as cough or congestion. Has not had any GI or any urinary complaints. He initially presented in [facility], and from there he was transferred here at the [facility]. 2 blood cultures done on this admission are now reported as growing gram- positive cocci in pairs and chains. Infectious disease consultation has been requested to evaluate the patient and assist with management. Records from [facility] still not available Records from [facility] reviewed: Patient had bioprosthesis AVR 2011. Per records he was incarcerated soon after discharge and was still incarcerated and admitted at [facility] Jul- July. He underwent re-do AVR and MVR with mechanical valves July 25, 2014 Notes reviewed Temps ok No new complaints Still with SOB No new (+) BC All BC 09/02-09/06 with Enterococcus faecalis BC 09/07 and 09/08 negative EARLENE with veg at AVR and possibly in ICD leads Last BMP creat 1.35 Antibiotics Ampicillin Rocephin Current Medications Medications (Trade) Dose Ordered Sig/Baudilio Route Start Time Stop Time Status Last Admin (NS Flush) 2 ml UNSCH PRN IV FLUSH 09/04/17 00:00 09/12/17 02:17 (NS Flush) 2 ml BID IV FLUSH 09/04/17 09:00 09/15/17 09:00 (Zofran Inj) 4 mg Q6H PRN IVP 09/04/17 00:00 09/15/17 09:42 (Narcan Inj) 0.4 mg UNSCH PRN IV PUSH 09/04/17 00:00 (Morphine Inj) 2 mg Q3H PRN IV PUSH 09/04/17 00:00 09/15/17 09:39 (Coreg) 6.25 mg BID PO 09/04/17 09:00 09/15/17 09:40 (Synthroid) 50 mcg DAILY@0700 PO 09/04/17 07:00 09/15/17 06:52 (Benadryl) 50 mg UNSCH PRN PO 09/05/17 15:30 09/06/17 03:34 Pharmacy Profile Note 0 ml @ 0 mls/hr UNSCH OTHER 09/06/17 09:15 ([place] 7.5-325 Mg) 1 tab Q4H PRN PO 09/07/17 09:15 09/11/17 10:30 ([place] 7.5-325 Mg) 2 tab Q4HR PRN PO 09/07/17 09:15 09/15/17 06:53 Ampicillin Sodium 2000 mg/Sodium Chloride 100 ml @ 400 mls/hr Q4H IV 09/09/17 14:00 09/15/17 09:40 Ceftriaxone Sodium 2000 mg/ Sodium Chloride 100 ml @ 200 mls/hr Q24H IV 09/09/17 15:00 09/14/17 15:52 (Lactulose Liq) 30 ml DAILY PRN PO 09/11/17 15:30 (Noemy-Colace) 2 tab Q12H PRN PO 09/11/17 15:30 09/15/17 00:17 (Protonix) 40 mg DAILY PO 09/12/17 11:30 09/15/17 09:40 (Coumadin) 6 mg DAILY@1600 PO 09/13/17 16:00 09/14/17 15:08 (Lasix) 20 mg BID@,18 PO 09/14/17 18:00 09/15/17 09:40 (Vasotec) 2.5 mg DAILY PO 09/15/17 09:00 09/15/17 09:39 (Coumadin) 2 mg ONCE@1600 ONCE PO 09/15/17 16:00 09/15/17 16:01 Lines Line with no evidence of infection Past Medical History CHF IVDA quit 5 years ago Hypothyroidism s/p thyroidectomy Endocarditis Past Surgical History AICD 2012, nonischemic cardiomyopathy AVR 2012 MVR 2015 Cholecystectomy Thyroidectomy. 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 Vital Signs Date Time Temp Pulse Resp B/P (MAP) Pulse Ox O2 Delivery O2 Flow Rate FiO2 09/15/17 08:00 97.9 70 18 112/56 (74) 96 09/15/17 08:00 70 09/15/17 04:00 97.6 70 18 122/67 (85) 96 09/15/17 04:00 70 09/15/17 00:22 18 09/15/17 00:00 70 09/15/17 00:00 97.8 70 18 98/63 (75) 100 09/14/17 23:02 18 09/14/17 20:22 90 09/14/17 20:00 98.1 70 18 114/67 (83) 100 09/14/17 16:00 70 09/14/17 16:00 98.0 72 20 114/60 (78) 98 . Laboratory Tests Test 09/14/17 06:35 Blood Urea Nitrogen 19 MG/DL Creatinine 1.16 MG/DL Random Glucose 68 MG/DL Calcium Level 8.5 MG/DL Sodium Level 140 MEQ/L Potassium Level 4.2 MEQ/L Chloride Level 106 MEQ/L Carbon Dioxide Level 25.9 MEQ/L Anion Gap 8 MEQ/L Estimat Glomerular Filtration Rate 73 ML/MIN Microbiology Date/Time Source Procedure Growth Status 09/13/17 01:30 Sputum Expectorated Sputum Gram Stain - Final Complete 09/13/17 01:30 Sputum Expectorated Sputum Sputum Culture - Final MODERATE GROWTH NORMAL RESPIRATORY BABATUNDE Complete Imaging Chest X-Ray 09/07/17 Signed Impressions: Service Date/Time: Thursday, September 07, 2017 01:11 - CONCLUSION: Mild right base consolidation and pleural effusion developing. Vj Momin MD Lung Scan-VQ Nuclear Medicine 09/04/17 Signed Impressions: Service Date/Time: Monday, September 04, 2017 09:30 - CONCLUSION: Low probability for pulmonary embolism. Reginald Sharma MD FACR Liver Ultrasound 09/04/17 Signed Impressions: Service Date/Time: Monday, September 04, 2017 10:57 - CONCLUSION: 1. Bilateral small pleural effusions. 2. Otherwise negative ultrasound of the liver. Reginald Sharma MD FACR Physical Exam GENERAL: awake and alert, not in respiratory distress. SKIN: Cool and dry. No generalized rash, no ecchymoses and no evidence of embolic lesions. HEAD: Atraumatic. Normocephalic. No temporal wasting, or tenderness. EYES: [place] conjunctiva. No petechia or hemorrhage. Pupils equal, round and reactive to light. EOM full and intact. No scleral icterus. No injection or drainage. EARS, NOSE AND THROAT: Nose without bleeding or purulent nasal discharge. No sinus tenderness. Mucous membranes pink and moist. NECK: Trachea midline. Supple and not tender, no meningeal signs CARDIOVASCULAR: Regular rate and rhythm. No murmurs, rubs or gallops heard. (+ ) mechanical valve sound. AICD looks ok RESPIRATORY: Clear to auscultation. Breath sounds equal bilaterally. No rales , wheezing or rhonchi ABDOMEN: Soft, non-tender, nondistended. Bowel sounds present and normoactive. No guarding. No rebound. No organomegaly. EXTREMITIES: No clubbing, cyanosis, or edema. No joint effusion, has good ROM. No calf tenderness. Well perfused and warm. NEUROLOGICAL: Grossly non-focal PSYCHIATRIC: Normal affect, calm and cooperative. 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 to IV Vanco Abnormal LFTs RECOMMENDATION IV Amp and Rocephin - plan 6 weeks IV Abx - then chronic oral suppression Monitor progress Success for curing this infection very low with medical treatment alone and if no surgical intervention done Very difficult case - he has 2 valves AVR and MVR plus AICD PICC CM to arrange for home IV Abx I have filled out the Abx form D/C home ok from ID standpoint when arrangements made Please refer patient to Dr King for ID followup When patient gets D/C he will get IV PCN 20 million units continuous infusion over 24 hours instead of Ampicillin since Ampicillin not stable at room temp for more than 8 hours Alejandra Santos MD Sep 15, 2017 12:12
[2017-09-15] MEDS ORDERED: SODIUM CHLORIDE 0.9% FLUSH 10 ML FLUSH IV FLUSH PRN (15:45)
[2017-09-15] MEDS ORDERED: WARFARIN SOD 2 MG TAB PO ONE (16:00)
[2017-09-15] MEDS: cefTRIAXone INJ 2,000 MG in SODIUM CHLORIDE 0.9% INJ 100 ML IV SCH (16:30)
[2017-09-15] MEDS: WARFARIN SOD 6 MG TAB PO SCH (16:30)
[2017-09-16] VITALS (9 sets, daily range): BP systolic 96–112; BP diastolic 60–70; PULSE 69–79; RESP 16–18; TEMP 97.3–98.2; O2SAT 99–100
[2017-09-16] MEDS: MORPHINE SULFATE 2 MG/ML SYRINGE IV PUSH PRN ×5 (00:22→20:46)
[2017-09-16] MEDS: AMPICILLIN INJ 2,000 MG in SODIUM CHLORIDE 0.9% INJ 100 ML IV SCH ×6 (01:34→22:38)
[2017-09-16] MEDS: ACETAMINOPHEN/HYDROcodone 325 MG/7.5 MG TAB PO PRN ×5 (03:35→22:36)
[2017-09-16] MEDS: LEVOTHYROXINE SODIUM 50 MCG TAB PO SCH (06:12)
[2017-09-16] MEDS: SODIUM CHLORIDE 0.9% FLUSH 10 ML FLUSH IV FLUSH SCH ×3 (09:00→20:46)
[2017-09-16] MEDS: ENALAPRIL MALEATE 2.5 MG TAB PO SCH (09:02)
[2017-09-16] MEDS: CARVEDILOL 6.25 MG TAB PO SCH ×2 (09:02→20:43)
[2017-09-16] MEDS: PANTOPRAZOLE SOD 40 MG DELAYED RELEASE TAB PO SCH (09:02)
[2017-09-16] MEDS: FUROSEMIDE 20 MG TAB PO SCH ×2 (09:02→17:58)
--- NOTE | 2017-09-16 09:37 | HHI.PR ---
Subjective Remarks taking good po no nausea or vomitng + BM weight stable Objective Vitals Vital Signs Date Time Temp Pulse Resp B/P (MAP) Pulse Ox O2 Delivery O2 Flow Rate FiO2 09/16/17 03:43 97.3 69 16 98/68 (78) 99 09/16/17 03:42 70 09/15/17 23:43 74 09/15/17 23:40 97.6 75 16 112/60 (77) 100 09/15/17 21:03 97.8 70 16 103/57 (72) 100 09/15/17 19:47 70 09/15/17 19:30 Room Air 09/15/17 16:00 70 09/15/17 16:00 97.3 68 18 102/69 (80) 100 09/15/17 12:00 70 09/15/17 12:00 97.3 70 18 113/68 (83) 99 I/O 09/15/17 09/15/17 09/15/17 09/16/17 09/16/17 09/16/17 07:00 15:00 23:00 07:00 15:00 23:00 Intake Total 820 ml 1140 ml Balance 820 ml 1140 ml Intake Oral 720 ml 940 ml IV Total 100 ml 200 ml # Voids 6 6 # Bowel Movements 2 1 Result Diagram: 09/14/17 0635 Imaging Last Impressions Chest X-Ray 09/07/17 0000 Signed Impressions: Service Date/Time: Thursday, September 07, 2017 01:11 - CONCLUSION: Mild right base consolidation and pleural effusion developing. Vj Momin MD Lung Scan- Nuclear Medicine 09/04/17 0000 Signed Impressions: Service Date/Time: Monday, September 04, 2017 09:30 - CONCLUSION: Low probability for pulmonary embolism. Reginald Sharma MD FACR Liver Ultrasound 09/04/17 0000 Signed Impressions: Service Date/Time: Monday, September 04, 2017 10:57 - CONCLUSION: 1. Bilateral small pleural effusions. 2. Otherwise negative ultrasound of the liver. Reginald Sharma MD FACR Objective Remarks awake and alert, anicteric no wheezes, decreased breath sounds,+ few basal rales regular rhythm abdomen soft nontender, good bowel sounds, extremities -- no calf swelling or tenderness, + mild bilateral ankle swelling Procedures EARLENE A/P Problem List: (1) Chest pain ICD Code: R07.9 - Chest pain, unspecified Status: Acute (2) Subtherapeutic international normalized ratio (INR) ICD Code: R79.1 - Abnormal coagulation profile Status: Acute (3) CHF (congestive heart failure) ICD Code: I50.9 - Heart failure, unspecified Status: Chronic (4) Acute kidney injury ICD Code: N17.9 - Acute kidney failure, unspecified Status: Acute (5) Transaminitis ICD Code: R74.0 - Nonspecific elevation of levels of transaminase and lactic acid dehydrogenase [LDH] Status: Acute Assessment and Plan 32 years old male Chest pain aortic valve endocarditis with possible ICD vegetations on Ceftriaxone and Ampicillin IV as per ID specialist. Severe cardiomyopathy EF < 20% - history of endocarditis- s/p aortic/mitral valve replacement - on Ceftriaxone and Ampicillin -EARLENE with aortic valve vegetation and Possible implantable cardioverter defibrillator vegetations. -Monitor telemetry -VQ scan with low-probability for PE. -initial Blood cultures with enterococcus faecalis- - repeat blood cultures negative -continue with pain control. -echo with EF < 20% -continue Coreg and Coumadin- -PT/INR monitoring.- therapeutic today Lisinopril 2. 5 mg daily -started 09/14- BP tolerating - ID and cardiology following. -CT surgery no surgical intervention. Lasix 20 mg mg bid renal insufficiency with unknown baseline, patient denies kidney disease -improved. monitor on Lasix + addition of CARMINE Transaminitis, suspect due to dehydration, no abdominal pain noted- trending down. Hepatitis C -Liver ultrasound with small bilateral pleural effusions- but otherwise negative. -f/u as outpatient GERD started on PPIs. DVT prophylaxis:on coumadin Problem Qualifiers (1) Chest pain: Qualified Codes: R07.1 - Chest pain on breathing (2) CHF (congestive heart failure): Qualified Codes: I50.22 - Chronic systolic (congestive) heart failure Toy Cerna MD Sep 16, 2017 09:37
[2017-09-16 09:51] LABS: INTERNATIONAL NORMALIZED RATIO 2.8 RATIO
[2017-09-16] MEDS: ONDANSETRON HCL 4 MG/2 ML VIAL IVP PRN (15:12)
[2017-09-16] MEDS: cefTRIAXone INJ 2,000 MG in SODIUM CHLORIDE 0.9% INJ 100 ML IV SCH (15:13)
[2017-09-17] VITALS (10 sets, daily range): BP systolic 104–108; BP diastolic 56–83; PULSE 67–80; RESP 16–18; TEMP 97.2–98; O2SAT 100
[2017-09-17] MEDS: MORPHINE SULFATE 2 MG/ML SYRINGE IV PUSH PRN ×4 (01:34→19:00)
[2017-09-17] MEDS: AMPICILLIN INJ 2,000 MG in SODIUM CHLORIDE 0.9% INJ 100 ML IV SCH ×6 (01:54→21:31)
[2017-09-17] MEDS: ACETAMINOPHEN/HYDROcodone 325 MG/7.5 MG TAB PO PRN ×2 (04:00→08:47)
[2017-09-17] MEDS: LEVOTHYROXINE SODIUM 50 MCG TAB PO SCH (05:51)
[2017-09-17 07:06] LABS: BICARBONATE 31.4 MEQ/L (21.0-32.0); CALCIUM 8.8 MG/DL (8.5-10.1); CREATININE 1.41 MG/DL (0.60-1.30)
[2017-09-17 07:10] LABS: PROTHROMBIN TIME - PATIENT 30.5 SEC (9.8-11.6)
[2017-09-17] MEDS: PANTOPRAZOLE SOD 40 MG DELAYED RELEASE TAB PO SCH (08:47)
[2017-09-17] MEDS: FUROSEMIDE 20 MG TAB PO SCH ×2 (08:47→17:14)
[2017-09-17] MEDS: ENALAPRIL MALEATE 2.5 MG TAB PO SCH (08:47)
[2017-09-17] MEDS: CARVEDILOL 6.25 MG TAB PO SCH ×2 (08:47→21:31)
[2017-09-17] MEDS: SODIUM CHLORIDE 0.9% FLUSH 10 ML FLUSH IV FLUSH SCH ×3 (08:48→21:31)
[2017-09-17] MEDS ORDERED: ENAL2.5T PO (09:50)
--- NOTE | 2017-09-17 10:03 | HHI.PR ---
Subjective Remarks awake and alert, baseline orthopneic patient up and ambulating mroe around the room- appears comfortable Objective Vitals Vital Signs Date Time Temp Pulse Resp B/P (MAP) Pulse Ox O2 Delivery O2 Flow Rate FiO2 09/17/17 06:02 97.8 70 18 108/58 (75) 100 09/17/17 04:00 Room Air 09/17/17 04:00 80 09/17/17 00:00 70 09/17/17 00:00 Nasal Cannula 2.00 09/16/17 20:40 Nasal Cannula 2.00 09/16/17 20:00 97.5 70 18 103/60 (74) 100 09/16/17 20:00 79 09/16/17 16:09 97.8 72 18 110/66 (81) 100 09/16/17 16:00 70 09/16/17 16:00 Room Air 09/16/17 12:09 97.5 70 18 96/63 (74) 100 09/16/17 12:00 Room Air 09/16/17 12:00 70 I/O 09/16/17 09/16/17 09/16/17 09/17/17 09/17/17 09/17/17 07:00 15:00 23:00 07:00 15:00 23:00 Intake Total 1140 ml 420 ml 420 ml Output Total 600 ml Balance 1140 ml -180 ml 420 ml Intake Oral 940 ml 420 ml 420 ml IV Total 200 ml Output Urine Total 600 ml # Voids 6 3 # Bowel Movements 1 1 Result Diagram: 09/17/17 0555 Imaging Last Impressions Chest X-Ray 09/07/17 0000 Signed Impressions: Service Date/Time: Thursday, September 07, 2017 01:11 - CONCLUSION: Mild right base consolidation and pleural effusion developing. Vj Momin MD Lung Scan-V Nuclear Medicine 09/04/17 0000 Signed Impressions: Service Date/Time: Monday, September 04, 2017 09:30 - CONCLUSION: Low probability for pulmonary embolism. Reginald Sharma MD FACR Liver Ultrasound 09/04/17 0000 Signed Impressions: Service Date/Time: Monday, September 04, 2017 10:57 - CONCLUSION: 1. Bilateral small pleural effusions. 2. Otherwise negative ultrasound of the liver. Reginald Sharma MD FACR Objective Remarks awake and alert, anicteric no wheezes, decreased breath sounds,no rales regular rhythm abdomen soft nontender, good bowel sounds, extremities -- no calf swelling or tenderness, + mild bilateral ankle swelling - improved Procedures EARLENE PICC A/P Problem List: (1) Chest pain ICD Code: R07.9 - Chest pain, unspecified Status: Acute (2) Subtherapeutic international normalized ratio (INR) ICD Code: R79.1 - Abnormal coagulation profile Status: Acute (3) CHF (congestive heart failure) ICD Code: I50.9 - Heart failure, unspecified Status: Chronic (4) Acute kidney injury ICD Code: N17.9 - Acute kidney failure, unspecified Status: Acute (5) Transaminitis ICD Code: R74.0 - Nonspecific elevation of levels of transaminase and lactic acid dehydrogenase [LDH] Status: Acute Assessment and Plan 32 years old male Chest pain aortic valve endocarditis with possible ICD vegetations on Ceftriaxone and Ampicillin IV as per ID specialist. Severe cardiomyopathy EF < 20% - history of endocarditis- s/p aortic/mitral valve replacement - on Ceftriaxone and Ampicillin -EARLENE with aortic valve vegetation and Possible implantable cardioverter defibrillator vegetations. -Monitor telemetry -VQ scan with low-probability for PE. -initial Blood cultures with enterococcus faecalis- - repeat blood cultures negative -continue with pain control. -echo with EF < 20% -continue Coreg and Coumadin- -PT/INR monitoring.- therapeutic today Lisinopril 2. 5 mg daily -started 09/14- BP tolerating - ID and cardiology following. -CT surgery no surgical intervention. Lasix 20 mg mg bid ff INR- on antibiotics renal insufficiency with unknown baseline- non oliguric -improved. monitor on Lasix + addition of CARMINE Transaminitis, suspect due to dehydration, no abdominal pain noted- trending down. Hepatitis C -Liver ultrasound with small bilateral pleural effusions- but otherwise negative. -f/u as outpatient decrease dose of pain meds- d/w him ff LFts in am GERD on PPIs. DVT prophylaxis:on coumadin= [facility] assisting INR 3.0 coumadin dosing per Pharmacy needs to monitor closely Problem Qualifiers (1) Chest pain: Qualified Codes: R07.1 - Chest pain on breathing (2) CHF (congestive heart failure): Qualified Codes: I50.22 - Chronic systolic (congestive) heart failure Toy Cerna MD Sep 17, 2017 10:03
[2017-09-17] MEDS: DOCUSATE SODIUM 50 MG/SENNA 8.6 MG TAB PO PRN (11:15)
[2017-09-17] MEDS ORDERED: ACETAMINOPHEN/HYDROcodone 325 MG/7.5 MG TAB PO PRN (12:00)
[2017-09-17] MEDS: cefTRIAXone INJ 2,000 MG in SODIUM CHLORIDE 0.9% INJ 100 ML IV SCH (14:19)
[2017-09-17] MEDS: ACETAMINOPHEN/HYDROcodone 325 MG/5 MG TAB PO PRN ×2 (15:47→21:31)
[2017-09-18] VITALS: BP 104/56; PULSE 69; PULSE 71; RESP 18; TEMP 97.8; O2SAT 100
[2017-09-18] MEDS: MORPHINE SULFATE 2 MG/ML SYRINGE IV PUSH PRN ×4 (01:13→19:41)
[2017-09-18] MEDS: AMPICILLIN INJ 2,000 MG in SODIUM CHLORIDE 0.9% INJ 100 ML IV SCH ×6 (01:13→21:53)
[2017-09-18] MEDS: ACETAMINOPHEN/HYDROcodone 325 MG/5 MG TAB PO PRN ×4 (03:29→22:12)
[2017-09-18 04:00] VITALS: BP 114/67; PULSE 70; RESP 18; TEMP 97.4; O2SAT 98
[2017-09-18] MEDS: SODIUM CHLORIDE 0.9% FLUSH 10 ML FLUSH IV FLUSH PRN (05:18)
[2017-09-18] MEDS: LEVOTHYROXINE SODIUM 50 MCG TAB PO SCH (05:18)
[2017-09-18 06:41] LABS: AST (GOT) 36 U/L (15-37); BICARBONATE 29.3 MEQ/L (21.0-32.0); BLOOD UREA NITROGEN 19 MG/DL (7-18); CALCIUM 8.5 MG/DL (8.5-10.1); CHLORIDE 104 MEQ/L (98-107); CREATININE 1.35 MG/DL (0.60-1.30); GLOMERULAR FILTRATION RATE 61 ML/MIN (>89); GLUCOSE,RANDOM 88 MG/DL (74-106); SODIUM (NA) 141 MEQ/L (136-145)
[2017-09-18 06:43] LABS: ALT (GPT) 83 U/L (12-78)
[2017-09-18 06:45] LABS: ALKALINE PHOSPHATASE 65 U/L (45-117); TOTAL BILIRUBIN ADULT 0.2 MG/DL (0.2-1.0); TOTAL PROTEIN 6.6 GM/DL (6.4-8.2)
[2017-09-18 06:48] LABS: INTERNATIONAL NORMALIZED RATIO 2.1 RATIO; PROTHROMBIN TIME - PATIENT 21.6 SEC (9.8-11.6)
[2017-09-18 08:00] VITALS: BP 107/64; PULSE 70; PULSE 74; RESP 20; TEMP 97.7; O2SAT 100
[2017-09-18] MEDS: ENALAPRIL MALEATE 2.5 MG TAB PO SCH (08:13)
[2017-09-18] MEDS: PANTOPRAZOLE SOD 40 MG DELAYED RELEASE TAB PO SCH (08:13)
[2017-09-18] MEDS: CARVEDILOL 6.25 MG TAB PO SCH ×2 (08:13→21:53)
[2017-09-18] MEDS: SODIUM CHLORIDE 0.9% FLUSH 10 ML FLUSH IV FLUSH SCH ×3 (08:13→19:42)
[2017-09-18] MEDS: FUROSEMIDE 20 MG TAB PO SCH ×2 (08:13→17:41)
[2017-09-18] MEDS: DOCUSATE SODIUM 50 MG/SENNA 8.6 MG TAB PO PRN (09:26)
--- NOTE | 2017-09-18 09:39 | HHI.PR ---
Subjective Remarks no fever or chills no complains of pain good po, good BM up and ambulating no shortness of breath as tolerated Objective Vitals Vital Signs Date Time Temp Pulse Resp B/P (MAP) Pulse Ox O2 Delivery O2 Flow Rate FiO2 09/18/17 08:00 97.7 70 20 107/64 (78) 100 09/18/17 04:00 97.4 70 18 114/67 (83) 98 09/18/17 04:00 70 09/18/17 04:00 Room Air 09/18/17 00:00 71 09/18/17 00:00 97.8 69 18 104/56 (72) 100 09/18/17 00:00 Room Air 09/17/17 21:30 Room Air 09/17/17 20:00 98.0 67 18 107/56 (73) 100 09/17/17 20:00 75 09/17/17 16:14 Room Air 09/17/17 16:09 97.2 70 16 108/80 (89) 100 09/17/17 16:00 70 09/17/17 12:09 97.3 69 16 107/83 (91) 100 09/17/17 12:00 70 I/O 09/17/17 09/17/17 09/17/17 09/18/17 09/18/17 09/18/17 07:00 15:00 23:00 07:00 15:00 23:00 Intake Total 420 ml 380 ml 680 ml Output Total 600 ml Balance 420 ml -220 ml 680 ml Intake Oral 420 ml 280 ml 480 ml IV Total 100 ml 200 ml Output Urine Total 600 ml # Voids 3 2 # Bowel Movements 1 0 Result Diagram: 09/18/17 0520 Imaging Last Impressions Chest X-Ray 09/07/17 0000 Signed Impressions: Service Date/Time: Thursday, September 07, 2017 01:11 - CONCLUSION: Mild right base consolidation and pleural effusion developing. Vj Momin MD Lung Scan- Nuclear Medicine 09/04/17 0000 Signed Impressions: Service Date/Time: Monday, September 04, 2017 09:30 - CONCLUSION: Low probability for pulmonary embolism. Reginald Sharma MD FACR Liver Ultrasound 09/04/17 0000 Signed Impressions: Service Date/Time: Monday, September 04, 2017 10:57 - CONCLUSION: 1. Bilateral small pleural effusions. 2. Otherwise negative ultrasound of the liver. Reginald Sharma MD FACR Objective Remarks awake and alert, anicteric no wheezes no rales regular rhythm abdomen soft nontender, good bowel sounds, extremities -- no calf swelling or tenderness, trace ankle swelling PICC site- no signs infection Procedures EARLENE PICC A/P Problem List: (1) Chest pain ICD Code: R07.9 - Chest pain, unspecified Status: Acute (2) Subtherapeutic international normalized ratio (INR) ICD Code: R79.1 - Abnormal coagulation profile Status: Acute (3) CHF (congestive heart failure) ICD Code: I50.9 - Heart failure, unspecified Status: Chronic (4) Acute kidney injury ICD Code: N17.9 - Acute kidney failure, unspecified Status: Acute (5) Transaminitis ICD Code: R74.0 - Nonspecific elevation of levels of transaminase and lactic acid dehydrogenase [LDH] Status: Acute Assessment and Plan 32 years old male Chest pain Aortic valve endocarditis with possible ICD vegetations on Ceftriaxone and Ampicillin IV as per ID specialist. Severe cardiomyopathy EF < 20% - history of endocarditis- s/p aortic/mitral valve replacement - on Ceftriaxone and Ampicillin -EARLENE with aortic valve vegetation and Possible implantable cardioverter defibrillator vegetations. -VQ scan with low-probability for PE. -initial Blood cultures with enterococcus faecalis- - repeat blood cultures negative -continue Coreg and Coumadin- -PT/INR monitoring.- therapeutic Lisinopril 2. 5 mg daily -started 09/14- BP tolerating - ID and cardiology following. -CT surgery no surgical intervention. Lasix 20 mg mg bid renal insufficiency with unknown baseline- non oliguric -improved. monitor on Lasix + addition of CARMINE Transaminitis, suspect due to dehydration, no abdominal pain noted- trending down. Hepatitis C -Liver ultrasound with small bilateral pleural effusions- but otherwise negative. -f/u as outpatient decrease dose of pain meds- d/w him ff LFts- trended down- markedly improved GERD on PPIs. DVT prophylaxis:on coumadin= [facility] assisting INR 3.0 coumadin dosing per Pharmacy needs to monitor closely DC planning- per patient- Dad is willing to take him home- in [place]- needs to verify with dad regarding taking him to OP in infusion clinic Problem Qualifiers (1) Chest pain: Qualified Codes: R07.1 - Chest pain on breathing (2) CHF (congestive heart failure): Qualified Codes: I50.22 - Chronic systolic (congestive) heart failure Toy Cerna MD Sep 18, 2017 09:39
[2017-09-18] MEDS: ONDANSETRON HCL 4 MG/2 ML VIAL IVP PRN ×2 (10:31→19:41)
[2017-09-18 12:00] VITALS: BP 93/52; PULSE 70; PULSE 74; RESP 20; TEMP 97.5; O2SAT 100
[2017-09-18] MEDS: cefTRIAXone INJ 2,000 MG in SODIUM CHLORIDE 0.9% INJ 100 ML IV SCH (14:44)
[2017-09-18] MEDS: WARFARIN SOD 5 MG TAB PO SCH (15:05)
[2017-09-18 16:00] VITALS: BP 105/59; PULSE 70; PULSE 83; RESP 20; TEMP 97.8; O2SAT 100
[2017-09-18 20:00] VITALS: BP 111/69; PULSE 70; PULSE 71; RESP 19; TEMP 97.5; O2SAT 96
[2017-09-19] VITALS (9 sets, daily range): BP systolic 98–127; BP diastolic 64–73; PULSE 69–93; RESP 16–19; TEMP 97.6–98.8; O2SAT 97–100
[2017-09-19] MEDS: MORPHINE SULFATE 2 MG/ML SYRINGE IV PUSH PRN ×3 (01:46→13:56)
[2017-09-19] MEDS: AMPICILLIN INJ 2,000 MG in SODIUM CHLORIDE 0.9% INJ 100 ML IV SCH ×6 (01:46→20:55)
[2017-09-19] MEDS: ACETAMINOPHEN/HYDROcodone 325 MG/5 MG TAB PO PRN ×4 (03:59→22:44)
[2017-09-19] MEDS: LEVOTHYROXINE SODIUM 50 MCG TAB PO SCH (05:38)
[2017-09-19] MEDS: SODIUM CHLORIDE 0.9% FLUSH 10 ML FLUSH IV FLUSH PRN (05:39)
[2017-09-19 06:54] LABS: PROTHROMBIN TIME - PATIENT 19.9 SEC (9.8-11.6)
[2017-09-19] MEDS: CARVEDILOL 6.25 MG TAB PO SCH ×2 (07:56→20:55)
[2017-09-19] MEDS: SODIUM CHLORIDE 0.9% FLUSH 10 ML FLUSH IV FLUSH SCH ×3 (07:56→20:57)
[2017-09-19] MEDS: ENALAPRIL MALEATE 2.5 MG TAB PO SCH (07:57)
[2017-09-19] MEDS: PANTOPRAZOLE SOD 40 MG DELAYED RELEASE TAB PO SCH (07:57)
[2017-09-19] MEDS: FUROSEMIDE 20 MG TAB PO SCH ×2 (07:57→16:59)
[2017-09-19] MEDS ORDERED: FURO20TA PO (09:15)
[2017-09-19] MEDS ORDERED: COUM5TAB PO (09:15)
--- NOTE | 2017-09-19 09:23 | HHI.PR ---
Subjective Remarks states feels tired- did not sleep well last night no diarrhea no abdominal pain Objective Vitals Vital Signs Date Time Temp Pulse Resp B/P (MAP) Pulse Ox O2 Delivery O2 Flow Rate FiO2 09/19/17 09:07 Room Air 09/19/17 08:09 97.9 71 17 122/70 (87) 97 09/19/17 04:00 69 09/19/17 04:00 Room Air 09/19/17 04:00 98.8 93 19 113/73 (86) 100 09/19/17 00:00 70 09/19/17 00:00 98.1 72 18 98/64 (75) 100 09/19/17 00:00 Room Air 09/18/17 20:00 97.5 71 19 111/69 (83) 96 09/18/17 20:00 70 09/18/17 19:40 Room Air 09/18/17 16:00 70 09/18/17 16:00 97.8 83 20 105/59 (74) 100 09/18/17 15:08 Room Air 09/18/17 12:00 70 09/18/17 12:00 97.5 74 20 93/52 (66) 100 I/O 09/18/17 09/18/17 09/18/17 09/19/17 09/19/17 09/19/17 07:00 15:00 23:00 07:00 15:00 23:00 Intake Total 680 ml 420 ml Balance 680 ml 420 ml Intake Oral 480 ml 420 ml IV Total 200 ml # Voids 2 4 # Bowel Movements 0 2 Result Diagram: 09/18/17 0520 Imaging Last Impressions Chest X-Ray 09/07/17 0000 Signed Impressions: Service Date/Time: Thursday, September 07, 2017 01:11 - CONCLUSION: Mild right base consolidation and pleural effusion developing. Vj Momin MD Lung Scan-V Nuclear Medicine 09/04/17 0000 Signed Impressions: Service Date/Time: Monday, September 04, 2017 09:30 - CONCLUSION: Low probability for pulmonary embolism. Reginald Sharma MD FACR Liver Ultrasound 09/04/17 0000 Signed Impressions: Service Date/Time: Monday, September 04, 2017 10:57 - CONCLUSION: 1. Bilateral small pleural effusions. 2. Otherwise negative ultrasound of the liver. Reginald Sharma MD FACR Objective Remarks awake and alert, anicteric no wheezes no rales regular rhythm abdomen soft nontender, good bowel sounds, extremities -- no calf swelling or tenderness, no edema PICC site- no signs infection Procedures EARLENE PICC A/P Problem List: (1) Chest pain ICD Code: R07.9 - Chest pain, unspecified Status: Acute (2) Subtherapeutic international normalized ratio (INR) ICD Code: R79.1 - Abnormal coagulation profile Status: Acute (3) CHF (congestive heart failure) ICD Code: I50.9 - Heart failure, unspecified Status: Chronic (4) Acute kidney injury ICD Code: N17.9 - Acute kidney failure, unspecified Status: Acute (5) Transaminitis ICD Code: R74.0 - Nonspecific elevation of levels of transaminase and lactic acid dehydrogenase [LDH] Status: Acute Assessment and Plan 32 years old male Chest pain Aortic valve endocarditis with possible ICD vegetations on Ceftriaxone and Ampicillin IV as per ID specialist. Severe cardiomyopathy EF < 20% - history of endocarditis- s/p aortic/mitral valve replacement - on Ceftriaxone and Ampicillin -EARLENE with aortic valve vegetation and Possible implantable cardioverter defibrillator vegetations. -VQ scan with low-probability for PE. -initial Blood cultures with enterococcus faecalis- - repeat blood cultures negative -continue Coreg and Coumadin- -PT/INR monitoring.- therapeutic Lisinopril 2. 5 mg daily -started 09/14- BP tolerating - ID and cardiology following. -CT surgery no surgical intervention. Lasix 20 mg mg bid renal insufficiency with unknown baseline- non oliguric -improved. monitor on Lasix + addition of CARMINE Transaminitis, suspect due to dehydration, no abdominal pain noted- trending down. Hepatitis C -Liver ultrasound with small bilateral pleural effusions- but otherwise negative. -f/u as outpatient decrease dose of pain meds- d/w him ff LFts- trended down- markedly improved GERD on PPIs. DVT prophylaxis:on coumadin coumadin dosing per Pharmacy needs to monitor closely DC planning- per patient- Dad is willing to take him home- in [place]- needs to verify with dad regarding taking him to OP in infusion clinic 09/19- patient now states and conformed that his dad can't take off work to take him to infusion clinic Problem Qualifiers (1) Chest pain: Qualified Codes: R07.1 - Chest pain on breathing (2) CHF (congestive heart failure): Qualified Codes: I50.22 - Chronic systolic (congestive) heart failure Toy Cerna MD Sep 19, 2017 09:23
[2017-09-19] MEDS: WARFARIN SOD 5 MG TAB PO SCH (15:34)
[2017-09-19] MEDS: cefTRIAXone INJ 2,000 MG in SODIUM CHLORIDE 0.9% INJ 100 ML IV SCH (15:34)
[2017-09-19] MEDS: ONDANSETRON HCL 4 MG/2 ML VIAL IVP PRN (17:20)
[2017-09-19] MEDS: MORPHINE SULFATE 4 MG/ML INJ IV PUSH PRN (20:56)
[2017-09-20] VITALS: BP 93/55; PULSE 80; RESP 16; TEMP 97.8; O2SAT 100
[2017-09-20] MEDS: AMPICILLIN INJ 2,000 MG in SODIUM CHLORIDE 0.9% INJ 100 ML IV SCH ×3 (02:19→08:33)
[2017-09-20] MEDS: MORPHINE SULFATE 4 MG/ML INJ IV PUSH PRN ×2 (02:19→09:05)
[2017-09-20 03:46] VITALS: PULSE 73
[2017-09-20 04:53] VITALS: BP 98/54; PULSE 69; RESP 16; TEMP 97.1; O2SAT 96
[2017-09-20] MEDS: ACETAMINOPHEN/HYDROcodone 325 MG/5 MG TAB PO PRN ×2 (05:00→11:01)
[2017-09-20] MEDS: LEVOTHYROXINE SODIUM 50 MCG TAB PO SCH (05:00)
[2017-09-20 06:40] LABS: PROTHROMBIN TIME - PATIENT 19.8 SEC (9.8-11.6)
[2017-09-20 08:00] VITALS: PULSE 70
[2017-09-20 08:09] VITALS: BP 104/66; PULSE 70; RESP 17; TEMP 97.4; O2SAT 99
[2017-09-20] MEDS: ONDANSETRON HCL 4 MG/2 ML VIAL IVP PRN (08:31)
[2017-09-20] MEDS: SODIUM CHLORIDE 0.9% FLUSH 10 ML FLUSH IV FLUSH SCH ×2 (08:32)
[2017-09-20] MEDS: ENALAPRIL MALEATE 2.5 MG TAB PO SCH (08:33)
[2017-09-20] MEDS: FUROSEMIDE 20 MG TAB PO SCH (08:33)
[2017-09-20] MEDS: CARVEDILOL 6.25 MG TAB PO SCH (08:33)
[2017-09-20] MEDS: PANTOPRAZOLE SOD 40 MG DELAYED RELEASE TAB PO SCH (08:33)
[2017-09-20] MEDS ORDERED: CARV6.25 PO (11:49)
[2017-09-20] MEDS ORDERED: LEVO50TA4 PO (11:49)
--- NOTE | 2017-09-20 11:58 | HHI.DS ---
Discharge Summary Admission Date Sep 05, 2017 at 10:32 Discharge Date: September 20, 2017 Admitting Diagnosis Chest pain (1) Chest pain ICD Code: R07.9 - Chest pain, unspecified Status: Acute (2) Subtherapeutic international normalized ratio (INR) ICD Code: R79.1 - Abnormal coagulation profile Status: Acute (3) CHF (congestive heart failure) ICD Code: I50.9 - Heart failure, unspecified Status: Chronic (4) Acute kidney injury ICD Code: N17.9 - Acute kidney failure, unspecified Status: Acute (5) Transaminitis ICD Code: R74.0 - Nonspecific elevation of levels of transaminase and lactic acid dehydrogenase [LDH] Status: Acute (6) ICD (implantable cardioverter-defibrillator) in place ICD Code: Z95.810 - Presence of automatic (implantable) cardiac defibrillator (7) Aortic valve endocarditis ICD Code: I35.8 - Other nonrheumatic aortic valve disorders Procedures EARLENE PICC Brief History - From Admission 32 y/o male with a history of CHF, AICD, aortic and mitral valve replacement on anticoagulation presented to the ED with chest pain. Patient states his pain is midsternal intermittent, tight, pressure like, 8/10, with no radiation, with associated nausea and shortness of breath, morphine is helping, walking makes it worse. Patient states since he has been nauseated and he has not been eating and drinking well inferiorly that he would vomit. The patient has recently moved back to [place] and is currently in the process of getting set up with a PCP locally. He does state that he has compliant with all his heart meds including Coumadin. He denies any fever or chills at home. Patient states last time he used IV drugs was 5 years ago. CBC/BMP: 09/18/17 0520 Significant Findings Laboratory Tests Test 09/18/17 05:20 09/19/17 05:45 09/20/17 05:50 Prothrombin Time 21.6 SEC (9.8-11.6) 19.9 SEC (9.8-11.6) 19.8 SEC (9.8-11.6) Blood Urea Nitrogen 19 MG/DL (7-18) Creatinine 1.35 MG/DL (0.60-1.30) Albumin 3.0 GM/DL (3.4-5.0) Alanine Aminotransferase (ALT/SGPT) 83 U/L (12-78) Estimat Glomerular Filtration Rate 61 ML/MIN (>89) Imaging Last Impressions Chest X-Ray 09/07/17 0000 Signed Impressions: Service Date/Time: Thursday, September 07, 2017 01:11 - CONCLUSION: Mild right base consolidation and pleural effusion developing. Vj Momin MD Lung Scan-VQ Nuclear Medicine 09/04/17 0000 Signed Impressions: Service Date/Time: Monday, September 04, 2017 09:30 - CONCLUSION: Low probability for pulmonary embolism. Reginald Sharma MD FACR Liver Ultrasound 09/04/17 0000 Signed Impressions: Service Date/Time: Monday, September 04, 2017 10:57 - CONCLUSION: 1. Bilateral small pleural effusions. 2. Otherwise negative ultrasound of the liver. Reginald Sharma MD FACR PE at Discharge awake and alert, anicteric no wheezes no rales regular rhythm abdomen soft nontender, good bowel sounds, extremities -- no calf swelling or tenderness, no edema PICC site- no signs infection Pt update on day of discharge No complaints at this time. States that he has made arrangements to be able to get his antibiotics as outpatient. Wants to go home today. Mild nausea this morning. Hospital Course The patient was admitted for evaluation of chest pain, transaminitis. Echocardiogram showed ejection fraction less than 20%. Cardiology was consulted. Infectious disease consulted for possible endocarditis. Continued on IV antibiotics. Transesophageal echocardiogram showed prosthetic aortic valve vegetations. Cardiothoracic surgery was consulted. Nonoperative treatment was recommended. Recommendations were made by infectious disease for outpatient IV antibiotics. There was difficulty arranging the antibiotics due to transportation issues. Case management assisted with discharge planning and arrangements were made. The patient was felt to be stable for discharge home. He was advised to follow-up with a PCP and cardiology for monitoring of INR. Pt Condition on Discharge: Stable Discharge Disposition: Discharge Home Discharge Time: <= 30 minutes Discharge Instructions DIET: Follow Instructions for: As Tolerated, No Restrictions Activities you can perform: Regular-No Restrictions Follow up Referrals: Cardiology - 2 Weeks with Bari Montanez MD PCP Follow-up - 2-3 Days New Medications: Enalapril (Enalapril) 2.5 Mg Tab 2.5 MG PO DAILY for CMP for 30 Days, #30 TAB Furosemide (Furosemide) 20 Mg Tab 20 MG PO BID@09,18 for CMP for 30 Days, TAB Warfarin (Coumadin) 5 Mg Tab 5 MG PO DAILY@1600 for CMP for 30 Days, TAB Continued Medications: Carvedilol (Coreg) 6.25 Mg Tab 6.25 MG PO BID for Heart, #60 TAB 0 Refills (This prescription has been renewed) Levothyroxine (Levothyroxine) 50 Mcg Tab 50 MCG PO DAILY for Thyroid, #30 TAB 0 Refills (This prescription has been renewed) Discontinued Medications: Warfarin (Warfarin) 10 Mg Tab 10 MG PO HS for Blood Clot Prevention, #30 TAB 0 Refills Leroy Iqbal MD September 20, 2017 11:58
== END 2017-09-20 12:41 | disposition home or self-care (01) | DRG 314 ==
LOC: NEDDLT 22:37 → NEPFCDU 22:47 → OBSVTOIN 09-05 10:32 → NEPFCDU 09-07 09:53 → N04A 09-08 23:25
PROVIDERS: ADMIT Family Medicine; ATTEND Family Medicine
PROC: B24BZZ4 Ultrasonography of Heart with Aorta, Transesophageal (ICD-10-PCS; principal; 2017-09-06)
PROC: 02HV33Z Insertion of Infusion Device into Superior Vena Cava, Percutaneous Approach (ICD-10-PCS; 2017-09-15)
DX: T82.6XXA Infection and inflammatory reaction due to cardiac valve prosthesis, initial encounter (principal); I33.0 Acute and subacute infective endocarditis; N17.9 Acute kidney failure, unspecified; I42.8 Other cardiomyopathies; I50.22 Chronic systolic (congestive) heart failure; B95.2 Enterococcus as the cause of diseases classified elsewhere; E86.0 Dehydration; R79.1 Abnormal coagulation profile; R74.0 Nonspecific elevation of levels of transaminase and lactic acid dehydrogenase [LDH]; E89.0 Postprocedural hypothyroidism; B19.20 Unspecified viral hepatitis C without hepatic coma; I07.1 Rheumatic tricuspid insufficiency; R00.2 Palpitations; F14.90 Cocaine use, unspecified, uncomplicated; F17.210 Nicotine dependence, cigarettes, uncomplicated; L25.3 Unspecified contact dermatitis due to other chemical products; T36.8X5A Adverse effect of other systemic antibiotics, initial encounter; K21.9 Gastro-esophageal reflux disease without esophagitis; R06.09 Other forms of dyspnea; M79.89 Other specified soft tissue disorders; Z95.810 Presence of automatic (implantable) cardiac defibrillator; Z95.2 Presence of prosthetic heart valve; Z79.01 Long term (current) use of anticoagulants; Z90.49 Acquired absence of other specified parts of digestive tract; Z91.14 Patient's other noncompliance with medication regimen
CPT/HCPCS: 36569; 71045; 76705; 76937; 78582; 80048; 80053; 80074; 80076; 82550; 83690; 83735; 83880; 84132; 84484; 85025; 85379; 85610; 85652; 85730; 87040; 87070; 87205; 93005; 93306; 93312; 93320; 93325; 96374; A9540; A9567; J0290; J0295; J0696; J1642; J1650; J1940; J2270; J2405; J2540; J3370; J7040; J7050; Q0163

== ENCOUNTER 2017-10-09 12:38 | Inpatient (IN) | payer MEDICAID ==
[~2017-10-09] VITALS: Ht 182.9 cm; Wt 85.1 kg
[~2017-10-09 12:38] MED LIST changes: +COUM5TAB PO; +ENAL2.5T PO; +FURO20TA PO; -WARF-22 PO
[2017-10-09] MEDS ORDERED: SODIUM CHLORIDE 0.9% FLUSH 10 ML FLUSH IV FLUSH PRN (16:15)
[2017-10-09] MEDS ORDERED: WARFARIN SOD 5 MG TAB PO SCH (17:00)
[2017-10-09] MEDS ORDERED: FUROSEMIDE 20 MG/2 ML VIAL IV PUSH SCH (18:00)
[2017-10-09] MEDS ORDERED: ENOXAPARIN SODIUM 80 MG/0.8 ML SYRINGE SQ SCH (18:00)
[2017-10-09 18:15] VITALS: O2SAT 90
[2017-10-09] MEDS: FUROSEMIDE 20 MG/2 ML VIAL IV PUSH SCH (18:38)
[2017-10-09] MEDS: WARFARIN SOD 5 MG TAB PO SCH (18:39)
[2017-10-09] MEDS: ENOXAPARIN SODIUM 80 MG/0.8 ML SYRINGE SQ SCH (18:39)
[2017-10-09] MEDS ORDERED: LORazepam 2 MG/ML VIAL IV ONE (19:00)
[2017-10-09 20:00] VITALS: BP 101/62; PULSE 74; RESP 16; TEMP 97.4; O2SAT 100
--- NOTE | 2017-10-09 20:58 | EKG ---
Date Performed: 10/09/2017 Time Performed: 20:18:22 PTAGE: 32 years EKG: ELECTRONIC VENTRICULAR PACEMAKER ABNORMAL RHYTHM ECG PREVIOUS TRACING : 09/04/2017 06.10 Compared to previous tracing, atrial pacing is now evident. DOCTOR: Scooter Bundy Interpretating Date/Time 10/09/2017 20:56:34
[2017-10-09] MEDS: CEFEPIME INJ 2,000 MG in SODIUM CHLORIDE 0.9% INJ 100 ML IV SCH (21:39)
[2017-10-09] MEDS: SODIUM CHLORIDE 0.9% FLUSH 10 ML FLUSH IV FLUSH SCH (21:40)
[2017-10-09 21:55] VITALS: PULSE 74
--- NOTE | 2017-10-09 23:01 | HHI.HP ---
HPI Service [facility] Hospitalists . Primary Care Physician Unknown Admission Diagnosis Right lower lobe pneumonia, CHF . Diagnoses: (1) Pneumonia (2) CHF (congestive heart failure) (3) Sepsis (4) Chest pain (5) Acute on chronic renal failure Chief Complaint: shortness of breath, cough, fever Travel History International Travel<30 Days: No Contact w/Intl Traveler <30 Da: No Sepsis Criteria SIRS Criteria (2 or more): RR > 20 or PaCO2 < 32, WBC > 06188, < 4000 or > 10 % bands Sepsis Criteria (SIRS+source): Infect source susp/known Severe Sepsis (+one): Lactate >2 History of Present Illness Mr. Chapman is a 32 y/o former IV drug abuser, endocarditis s/p MVR and AVR with possible ICD lead vegetations, cardiomyopathy with AICD and permanent pacemaker who presented to the emergency room and [facility] complaining of progressive shortness of breath, coughing, and fever. A chest x-ray done in the emergency department in [place] showed slightly worse right lower lobe infiltrate and the patient had been given Lasix 80 mg by EMS for bilateral crackles as well as Solu-Medrol 125 mg and CPAP. CHF was not noted on chest x- ray but his BNP was noted to be elevated above baseline at 1400. He was transferred to [facility] under the hospitalist service for medical management of pneumonia, congestive heart failure, and sepsis. Admission lactic acid was 3.5. The patient is seen in his hospital room. He reports SOB, cough, fever for the past 2 - 3 days with moderate chest tightness, midsternal, radiating to left neck. He reports chills and nausea over the past few days. His symptoms have not been relieved by anything. He reports feeling anxious and having muscle spasms all over. 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 Eye surgery as an infant . Reported Medications Reported Meds & Active Scripts Active Coreg (Carvedilol) 6.25 Mg Tab 6.25 Mg PO BID Levothyroxine (Levothyroxine Sodium) 50 Mcg Tab 50 Mcg PO DAILY Furosemide 20 Mg Tab 20 Mg PO BID@09,18 30 Days Coumadin (Warfarin) 5 Mg Tab 5 Mg PO DAILY@1600 30 Days Enalapril (Enalapril Maleate) 2.5 Mg Tab 2.5 Mg PO DAILY 30 Days . 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 Social History Tobacco use: occasional social smoker for 1 year Alcohol use: 1 - 2 drinks per month Illicit drug use: cocaine 10 days ago, p.o. opiates last week, denies IVDA x 1 year . Physical Exam Vital Signs Vital Signs Date Time Temp Pulse Resp B/P (MAP) Pulse Ox O2 Delivery O2 Flow Rate FiO2 10/09/17 20:00 97.4 74 16 101/62 (75) 100 10/09/17 18:15 90 Venturi Mask 6.00 40 Physical Exam GENERAL: This is a chronically ill-appearing patient, in no apparent distress. SKIN: No rashes. Cool and dry. HEAD: Atraumatic. Normocephalic. EYES: No scleral icterus. No injection or drainage. ENT: Nose without bleeding, purulent drainage. NECK: Trachea midline. No JVD or lymphadenopathy. CARDIOVASCULAR: Regular rate and rhythm without murmurs + s3 gallops. Bilateral ankle edema +1, pitting. RESPIRATORY: Diminished breath sounds right base. No wheezes, rales, or rhonchi. GASTROINTESTINAL: Abdomen soft, non-tender, nondistended. No guarding. MUSCULOSKELETAL: Extremities without clubbing, cyanosis, or edema. No calf tenderness. NEUROLOGICAL: Awake and alert. Motor and sensory grossly within normal limits. Normal speech. . Laboratory Laboratory Tests Test 10/09/17 12:40 10/09/17 13:25 10/09/17 15:38 White Blood Count 14.4 TH/MM3 Red Blood Count 4.70 MIL/MM3 Hemoglobin 11.7 GM/DL Hematocrit 38.7 % Mean Corpuscular Volume 82.3 FL Mean Corpuscular Hemoglobin 24.9 PG Mean Corpuscular Hemoglobin Concent 30.2 % Red Cell Distribution Width 17.5 % Platelet Count 195 TH/MM3 Mean Platelet Volume 11.0 FL Immature Granulocyte % (Auto) 0.4 % Neutrophils (%) (Auto) 89.0 % Lymphocytes (%) (Auto) 5.6 % Monocytes (%) (Auto) 4.0 % Eosinophils (%) (Auto) 0.6 % Basophils (%) (Auto) 0.4 % Immature Granulocyte # (Auto) 0.1 TH/MM3 Neutrophils # (Auto) 12.8 TH/MM3 Lymphocytes # (Auto) 0.8 TH/MM3 Monocytes # (Auto) 0.6 TH/MM3 Eosinophils # (Auto) 0.1 TH/MM3 Basophils # (Auto) 0.1 TH/MM3 CBC Comment DIFF FINAL Differential Comment Prothrombin Time 13.3 SEC Prothromb Time International Ratio 1.3 RATIO Activated Partial Thromboplast Time 23.7 SEC Blood Urea Nitrogen 30 MG/DL Creatinine 1.60 MG/DL Random Glucose 111 MG/DL Total Protein 7.3 GM/DL Albumin 3.4 GM/DL Calcium Level 8.3 MG/DL Alkaline Phosphatase 150 U/L Aspartate Amino Transf (AST/SGOT) 214 U/L Alanine Aminotransferase (ALT/SGPT) 371 U/L Total Bilirubin 0.9 MG/DL Sodium Level 140 MEQ/L Potassium Level 4.4 MEQ/L Chloride Level 105 MEQ/L Carbon Dioxide Level 28.0 MEQ/L Anion Gap 7 MEQ/L Estimat Glomerular Filtration Rate 50 ML/MIN Lactic Acid Level 3.5 mmol/L Troponin I 0.05 NG/ML B-Type Natriuretic Peptide 1400 PG/ML Urine Color STRAW Urine Turbidity CLEAR Urine pH 6.5 Urine Specific [place] LESS/EQUAL 1.005 Urine Protein NEG mg/dL Urine Glucose (UA) NEG mg/dL Urine Ketones NEG mg/dL Urine Occult Blood NEG Urine Nitrite NEG Urine Bilirubin NEG Urine Urobilinogen 0.2 MG/DL Urine Leukocyte Esterase NEG Microscopic Urinalysis Comment CULT NOT INDICATED Imaging Last 24 hours Impressions Chest X-Ray 10/09/17 1241 Signed Impressions: Service Date/Time: Monday, October 09, 2017 12:40 - CONCLUSION: Persistent and slightly enlarged infiltrate lower lateral right lung. MD Bridgette Morales VTE Risk Assessment Bridgette VTE Risk Assessment: Mod/High Risk (score >= 2) Caprini Risk Assessment Model Point Value = 1 Point Value = 2 Point Value = 3 Point Value = 5 Age 41-60 Minor surgery BMI > 25 kg/m2 Swollen legs Varicose veins or History of unexplained or recurrent spontaneous Oral contraceptives or hormone replacement Sepsis (< 1 month) Serious lung disease, including pneumonia (< 1 month) Abnormal pulmonary function Acute myocardial infarction Congestive heart failure (< 1 month) History of inflammatory bowel disease Medical patient at bed rest Age 61-74 Arthroscopic surgery Major open surgery (> 45 min) Laparoscopic surgery (> 45 min) Malignancy Confined to bed (> 72 hours) Immobilizing plaster cast Central venous access Age >= 75 History of VTE Family history of VTE Factor V Leiden Prothrombin [id number] Lupus anticoagulant Anticardiolipin antibodies Elevated serum homocysteine Heparin-induced thrombocytopenia Other congenital or acquired thrombophilia Stroke (< 1 month) Elective arthroplasty Hip, pelvis, or leg fracture Acute spinal cord injury (< 1 month) Prophylaxis Regimen Total Risk Factor Score Risk Level Prophylaxis Regimen 0-1 Low Early ambulation 2 Moderate Order ONE of the following: *Sequential Compression Device (SCD) *Heparin 5000 units SQ BID 3-4 Higher Order ONE of the following medications: *Heparin 5000 units SQ TID *Enoxaparin/Lovenox 40 mg SQ daily (WT < 150 kg, CrCl > 30 mL/min) *Enoxaparin/Lovenox 30 mg SQ daily (WT < 150 kg, CrCl > 10-29 mL/min) *Enoxaparin/Lovenox 30 mg SQ BID (WT < 150 kg, CrCl > 30 mL/min) AND/OR *Sequential Compression Device (SCD) 5 or more Highest Order ONE of the following medications: *Heparin 5000 units SQ TID (Preferred with Epidurals) *Enoxaparin/Lovenox 40 mg SQ daily (WT < 150 kg, CrCl > 30 mL/min) *Enoxaparin/Lovenox 30 mg SQ daily (WT < 150 kg, CrCl > 10-29 mL/min) *Enoxaparin/Lovenox 30 mg SQ BID (WT < 150 kg, CrCl > 30 mL/min) AND *Sequential Compression Device (SCD) Assessment and Plan Assessment and Plan Mr. Chapman is a 32 y/o former IV drug abuser, endocarditis s/p MVR and AVR, cardiomyopathy with AICD and permanent pacemaker who presented to the emergency room and [facility] complaining of progressive shortness of breath, coughing, and fever. A chest x-ray done in the emergency department in [place] showed slightly worse right lower lobe infiltrate and the patient had been given Lasix 80 mg by EMS for bilateral crackles as well as Solu-Medrol 125 mg and CPAP. CHF was not noted on chest x-ray but his BNP was noted to be elevated above baseline at 1400. He was transferred to [facility] under the hospitalist service for medical management of pneumonia, congestive heart failure, and sepsis. Admission lactic acid was 3.5. Pneumonia -Chest x-ray shows persistent and slightly enlarging right lateral lower lobe infiltrate -Antibiotics: Cefepime and azithromycin IV -Supplemental oxygen titrated to maintain oxygen saturation greater than 92% -consult infectious disease - hx of valvular vegetations and poss ICD lead vegetations on EARLENE during august 2017 admission Congestive heart failure -Patient received Lasix 80 mg IV by EMS, BNP was elevated above baseline at 1400 on admission -Lasix 20 mg IV push twice daily with supplemental potassium daily -Consult cardiology -appreciate assistance -Check serial cardiac enzymes and EKGs to rule out ACS -Continuous cardiac telemetry to monitor for arrhythmia -Heart healthy diet Sepsis - WBC elevated at 14.4 wity significant neutrophilia - Lactic acid 3.5 on admission and 1.9 on repeat - continue antibiotics - IVF inadvisable given CHF - will continue to monitor Acute on chronic renal failure -BUN 30, creatinine 1.60, estimated GFR 50 -stable since previous labs 10/06 but all in all worse since labs drawn in August -Monitor BMP -Avoid nephrotoxins DVT prophylaxis -Patient is being given therapeutic Lovenox as well as Coumadin -INR was only 1.3 on admission Discussed Condition With Patient, RN, and Dr. Gaviria Physician Certification 2 Midnight Certification Type: Admission for Inpatient Services Order for Inpatient Services The services are ordered in accordance with Medicare regulations or non- Medicare payer requirements, as applicable. In the case of services not specified as inpatient-only, they are appropriately provided as inpatient services in accordance with the 2-midnight benchmark. Estimated LOS (days): 7 days is the estimated time the patient will need to remain in the hospital, assuming treatment plan goals are met and no additional complications. Post-Hospital Plan: Home Problem Qualifiers (1) CHF (congestive heart failure): (2) Sepsis: Qualified Codes: A40.8 - Other streptococcal sepsis Candi So October 09, 2017 23:01
[2017-10-09 23:07] LABS: TROPONIN I 0.05 NG/ML (0.02-0.05)
[2017-10-10] VITALS (9 sets, daily range): BP systolic 99–125; BP diastolic 60–76; PULSE 70–78; RESP 17–19; TEMP 97.2–98.3; O2SAT 96–99
[2017-10-10] MEDS ORDERED: LORazepam 2 MG/ML VIAL IV PUSH ONE (01:15)
[2017-10-10] MEDS: LEVOTHYROXINE SODIUM 50 MCG TAB PO SCH (05:45)
[2017-10-10] MEDS: ENOXAPARIN SODIUM 80 MG/0.8 ML SYRINGE SQ SCH ×2 (05:45→18:14)
[2017-10-10] MEDS: CEFEPIME INJ 2,000 MG in SODIUM CHLORIDE 0.9% INJ 100 ML IV SCH (05:46)
[2017-10-10 05:50] LABS: TROPONIN I 0.09 NG/ML (0.02-0.05)
--- NOTE | 2017-10-10 09:19 | PD.CONS ---
HPI Service cardiology Consult Requested By Reason for Consult chest pain. CHF Primary Care Physician Unknown History of Present Illness This is a 32 yo WM with history of mechanical AVR, cardiomyopathy (EF 20% based on EARLENE in 09/07) AICD/PPM in place, CKD, former IVDU diagnosed with endocarditis last month and lost to follow up who presents with productive cough, chest pain and SOB x 3 days. He describes feeling L-sided chest pain felt "5/10" at rest that increases with exertion to "7-8/10" with radiation to L jaw. Also with associated dyspnea on exertion. He lives in [place] and had an appointment with his PCP to follow up on recent diagnosis of endocarditis but never made it to that appointment. Upon current admission he was found to be septic with RLL infiltrate present. EKG does not demonstrate concerning ST segment or T wave changes. Troponin elevated 0.05-->0.09. (Raven Leos) Review of Systems Consitutional: DENIES: Fever, Chills, Weight gain, Weight loss Respiratory: DENIES: Cough, Snoring, Wheezing Cardiovascular: DENIES: Palpitations, Syncope, Tachycardia Gastrointestinal: DENIES: Nausea, Vomiting, Change in bowel habits, Reflux, Bloody stools, Melena (Raven Leos) Past Family Social History Allergies: Coded Allergies: gentamicin (Verified Allergy, Severe, Itching, 09/03/17) ketorolac (Verified Allergy, Severe, Hotflash, 09/03/17) linezolid (Verified Allergy, Severe, Itching, 09/03/17) vancomycin (Verified Adverse Reaction, Severe, Itching, 09/05/17) gets hot and itchy, 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 Past Surgical History AICD AVR 2011 MVR 2016 Cholecystectomy Thyroidectomy. Eye surgery as an . Reported Medications Reported Meds & Active Scripts Active Coreg (Carvedilol) 6.25 Mg Tab 6.25 Mg PO BID Levothyroxine (Levothyroxine Sodium) 50 Mcg Tab 50 Mcg PO DAILY Furosemide 20 Mg Tab 20 Mg PO BID@,18 30 Days Coumadin (Warfarin) 5 Mg Tab 5 Mg PO DAILY@1600 30 Days Enalapril (Enalapril Maleate) 2.5 Mg Tab 2.5 Mg PO DAILY 30 Days Active Ordered Medications Current Medications Medications (Trade) Dose Ordered Sig/Baudilio Route Start Time Stop Time Status Last Admin (NS Flush) 2 ml BID IV FLUSH 10/09/17 21:00 10/09/17 21:40 (NS Flush) 2 ml UNSCH PRN IV FLUSH 10/09/17 16:15 (KCl) 20 meq DAILY PO 10/10/17 09:00 Azithromycin 500 mg/Sodium Chloride 250 ml @ 250 mls/hr Q24H IV 10/10/17 13:00 Cefepime HCl 2000 mg/Sodium Chloride 100 ml @ 200 mls/hr Q8H IV 10/09/17 21:00 10/10/17 05:46 (Ecotrin Ec) 81 mg DAILY PO 10/10/17 09:00 (Lasix Inj) 20 mg BID@0900,1800 IV PUSH 10/09/17 18:32 10/09/17 18:38 (Coumadin) 5 mg DAILY@1600 PO 10/09/17 18:33 10/09/17 18:39 (Lovenox Inj) 80 mg Q12H SQ 10/09/17 18:45 10/10/17 05:45 (Coreg) 6.25 mg BID PO 10/10/17 09:00 (Vasotec) 2.5 mg DAILY PO 10/10/17 09:00 (Synthroid) 50 mcg DAILY@0600 PO 10/10/17 06:00 10/10/17 05:45 Family History Paternal grandfather with heart condition Mother with ETOH abuse, from liver failure . 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 opiates last week, denies IVDA x 1 year . (Raven Leos) Physical Exam Vital Signs Vital Signs Date Time Temp Pulse Resp B/P (MAP) Pulse Ox O2 Delivery O2 Flow Rate FiO2 10/10/17 05:53 98 Room Air 10/10/17 04:00 97.3 76 17 103/67 (79) 99 10/10/17 04:00 70 10/10/17 00:00 70 10/10/17 00:00 97.2 78 17 99/60 (73) 99 10/09/17 21:55 74 10/09/17 20:00 97.4 74 16 101/62 (75) 100 10/09/17 19:35 Venturi Mask 6.00 40 10/09/17 18:15 90 Venturi Mask 6.00 40 Physical Exam GENERAL: SKIN: Warm and dry. HEAD: Atraumatic. Normocephalic. EYES: Pupils equal and round. No scleral icterus. No injection or drainage. ENT: No nasal bleeding or discharge. Mucous membranes pink and moist. NECK: Trachea midline. No JVD. CARDIOVASCULAR: Regular rate and rhythm. +systolic murmur II/ LUSB RESPIRATORY: No accessory muscle use. Clear to auscultation. Breath sounds equal bilaterally. GASTROINTESTINAL: Abdomen soft, non-tender, nondistended. MUSCULOSKELETAL: Extremities without clubbing, cyanosis, or edema. No obvious deformities. NEUROLOGICAL: Awake and alert. No obvious cranial nerve deficits.. Normal speech. PSYCHIATRIC: Appropriate mood and affect; insight and judgment normal. Laboratory Laboratory Tests Test 10/09/17 22:24 10/10/17 04:38 Total Creatine Kinase 267 208 Creatine Kinase MB 8.0 6.3 Troponin I 0.05 0.09 (Raven Leos) Assessment and Plan Problem List: (1) CHF (congestive heart failure) ICD Codes: I50.9 - Heart failure, unspecified Status: Chronic (2) Chest pain ICD Codes: R07.9 - Chest pain, unspecified Status: Acute Assessment and Plan 32 yo WM with history of mechanical AVR, cardiomyopathy (EF 20% based on EARLENE in 09/07) AICD/PPM in place, CKD, former IVDU diagnosed with endocarditis last month and lost to follow up who presents with productive cough, chest pain and SOB x 3 days. He describes feeling L-sided chest pain felt "5/10" at rest that increases with exertion to "7-8/10" with radiation to L jaw. Also with associated dyspnea on exertion. He lives in [place] and had an appointment with his PCP to follow up on recent diagnosis of endocarditis but never made it to that appointment. Upon current admission he was found to be septic with RLL infiltrate present. EKG does not demonstrate concerning ST segment or T wave changes. Troponin elevated 0.05-->0.09. CHF- appears well compensated, cont lasix IV, monitor creatinine and I's/O's cont ACEi, bb AVR- mechanical, INR subtherapeutic 1.3, cont lovenox endocarditis- diagnosed 08/2017 of aortic prosthesis and ICD, lost to follow up. cont antibiotics chest pain- monitor troponin trend, consider ischemic workup (Raven Leos) Assessment and Plan --------- FU 2d echo will need to decide ischemic workup given age, less likely obstructive CAD no plans for LHC given risk of embolization plan for lexiscan in am (Naeem Altman MD) Problem Qualifiers (1) CHF (congestive heart failure): Raven Leos October 10, 2017 09:19 Naeem Altman MD October 10, 2017 14:21
[2017-10-10] MEDS: CARVEDILOL 6.25 MG TAB PO SCH ×3 (09:43→21:38)
[2017-10-10] MEDS: ASPIRIN EC 81 MG TABEC PO SCH (09:43)
[2017-10-10] MEDS: FUROSEMIDE 20 MG/2 ML VIAL IV PUSH SCH ×2 (09:43→18:14)
[2017-10-10] MEDS: POTASSIUM CHLORIDE 20 MEQ CONTROLLED RELEASE TAB PO SCH (09:43)
[2017-10-10] MEDS: SODIUM CHLORIDE 0.9% FLUSH 10 ML FLUSH IV FLUSH SCH ×2 (09:44→21:26)
--- NOTE | 2017-10-10 10:19 | HHI.PR ---
Subjective Remarks in no acute distress. has some productive cough. no fever. Objective Vitals Vital Signs Date Time Temp Pulse Resp B/P (MAP) Pulse Ox O2 Delivery O2 Flow Rate FiO2 10/10/17 08:03 98.2 72 18 103/71 (82) 96 10/10/17 05:53 98 Room Air 10/10/17 04:00 97.3 76 17 103/67 (79) 99 10/10/17 04:00 70 10/10/17 00:00 70 10/10/17 00:00 97.2 78 17 99/60 (73) 99 10/09/17 21:55 74 10/09/17 20:00 97.4 74 16 101/62 (75) 100 10/09/17 19:35 Venturi Mask 6.00 40 10/09/17 18:15 90 Venturi Mask 6.00 40 I/O 10/09/17 10/09/17 10/09/17 10/10/17 10/10/17 10/10/17 06:59 14:59 22:59 06:59 14:59 22:59 Intake Total 100 ml 600 ml Output Total 700 ml 2300 ml Balance -600 ml -1700 ml Intake Oral 600 ml IV Total 100 ml Output Urine Total 700 ml 2300 ml # Bowel Movements 0 Objective Remarks GENERAL: This is a well-nourished, well-developed patient, in no apparent distress. CARDIOVASCULAR: Regular rate and regular rhythm with clicky sound in LSB. RESPIRATORY: Clear to auscultation. Breath sounds equal bilaterally. No wheezes , rales, or rhonchi. GASTROINTESTINAL: Abdomen soft, non-tender, nondistended. Normal, active bowel sounds MUSCULOSKELETAL: Extremities without clubbing, cyanosis, or edema. NEURO: Alert & Oriented x4 to person, place, time, situation. Moves all ext x4 Medications and IVs Inpatient Medications Aspirin (Ecotrin Ec) 81 mg DAILY PO Last administered on 10/10/17at 09:43; Start 10/10/17 at 09:00 Azithromycin 500 mg/Sodium Chloride 250 ml @ 250 mls/hr Q24H IV ; Start at 13:00 Carvedilol (Coreg) 6.25 mg BID PO Last administered on 10/10/17at 09:43; Start 10/10/17 at 09:00 Cefepime HCl 2000 mg/Sodium Chloride 100 ml @ 200 mls/hr Q8H IV Last administered on 10/10/17at 05:46; Start 10/09/17 at 21:00 Enalapril Maleate (Vasotec) 2.5 mg DAILY PO ; Start 10/10/17 at 09:00 Enoxaparin Sodium (Lovenox Inj) 80 mg Q12H SQ Last administered on 10/10/17at 05 :45; Start 10/09/17 at 18:45 Furosemide (Lasix Inj) 20 mg BID@0900,1800 IV PUSH Last administered on at 09:43; Start 10/09/17 at 18:32 Levothyroxine Sodium (Synthroid) 50 mcg DAILY@0600 PO Last administered on 10/10at 05:45; Start 10/10/17 at 06:00 Lorazepam (Ativan Inj) 0.5 mg ONCE ONCE IV PUSH Last administered on at 01:25; Start 10/10/17 at 01:15; Stop 10/10/17 at 01:16; Status DC Patient Medication Teaching (Coumadin Booklet) 1 ONCE ONCE OTHER Last administered on 10/09/17at 18:36; Start 10/09/17 at 17:00; Stop 10/09/17 at 17:01 ; Status DC Potassium Chloride (KCl) 20 meq DAILY PO Last administered on 10/10/17at 09:43; Start 10/10/17 at 09:00 Sodium Chloride (NS Flush) 2 ml UNSCH PRN IV FLUSH FLUSH AFTER USING IV ACCESS ; Start 10/09/17 at 16:15 Warfarin Sodium (Coumadin) 5 mg DAILY@1600 PO Last administered on 10/09/17at 18 :39; Start 10/09/17 at 18:33 A/P Problem List: (1) Pneumonia ICD Code: J18.9 - Pneumonia, unspecified organism (2) CHF (congestive heart failure) ICD Code: I50.9 - Heart failure, unspecified Status: Chronic (3) Sepsis ICD Code: A41.9 - Sepsis, unspecified organism (4) Chest pain ICD Code: R07.9 - Chest pain, unspecified Status: Acute (5) Acute on chronic renal failure ICD Code: N17.9 - Acute kidney failure, unspecified; N18.9 - Chronic kidney disease, unspecified Assessment and Plan A/P Pneumonia -Chest x-ray shows persistent and slightly enlarging right lateral lower lobe infiltrate -Antibiotics: Cefepime and azithromycin IV -Supplemental oxygen titrated to maintain oxygen saturation greater than 92% -consulted infectious disease - hx of valvular vegetations and poss ICD lead vegetations on EARLENE during august 2017 admission Congestive heart failure s/p aortic/mitral valve replacement recent admission because of BC with Enterococcus faecalis, has vegetation in AVR and possibly in ICD leads- was discharged on Penicillin G but he says that he wasn't able to get the antibiotics after discharge. -Patient received Lasix 80 mg IV by EMS, BNP was elevated above baseline at 1400 on admission -Lasix 20 mg IV push twice daily with supplemental potassium daily -Consulted cardiology -appreciate assistance -Continuous cardiac telemetry to monitor for arrhythmia -continue Lovenox and Coumadin till INR is therapeutic. -ID consult as noted above. Sepsis - WBC elevated at 14.4 wityh significant neutrophilia - Lactic acid 3.5 on admission and 1.9 on repeat - continue antibiotics - - will continue to monitor Acute on chronic renal failure -BUN 30, creatinine 1.60, estimated GFR 50 -stable since previous labs 10/06 but all in all worse since labs drawn in August -Monitor BMP -Avoid nephrotoxins DVT prophylaxis -Patient is being given therapeutic Lovenox as well as Coumadin -continue to monitor INR Problem Qualifiers (1) CHF (congestive heart failure): (2) Sepsis: Qualified Codes: A40.8 - Other streptococcal sepsis Tulio Aceves MD October 10, 2017 10:19
--- NOTE | 2017-10-10 11:05 | PD.CONS ---
History of Present Illness Service Infectious Disease Consult Requested By Dr Aceves Reason for Consult Evaluate patient with endocarditis Primary Care Physician Unknown Diagnoses: History of Present Illness Patient seen and examined. Records reviewed. 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 Patient was in the hospital from September 05 - September 20, and he was discharged and was set up to get IV antibiotics in the infusion clinic. Patient never showed up for any of his treatment, and apparently his PICC line fell out. He presented this time again with symptoms of shortness of breath, some chest pain, cough and fever in [facility] and from there he was transferred to the main hospital for further management. His chest x-ray showed worsening of his right lower lobe infiltrate. He reports SOB, cough, fever for the past 2 - 3 days with moderate chest tightness, midsternal, radiating to left neck. He reports chills and nausea over the past few days. He denies any vomiting. No abdominal pain or any urinary complaint. His WBC was 14,000. Creatinine 1.6. Infectious disease consultation has been requested to evaluate the patient. Review of Systems Constitutional: COMPLAINS OF: Fever, Chills Eyes: DENIES: Eye pain Ears, nose, mouth, throat: DENIES: Nasal discharge, Oral lesions, Throat pain, Ear Pain, Sinus Pain Respiratory: COMPLAINS OF: Shortness of breath, DENIES: Cough Cardiovascular: COMPLAINS OF: Chest pain, Dyspnea on Exertion, DENIES: Syncope , Lower Extremity Edema Gastrointestinal: COMPLAINS OF: Nausea, DENIES: Abdominal pain, Diarrhea, Vomiting, Difficulty Swallowing Genitourinary: DENIES: Hematuria, Dysuria Musculoskeletal: DENIES: Joint pain, Joint Swelling Integumentary: DENIES: Pruritus, Rash Hematologic/lymphatic: DENIES: Lymphadenopathy Immunologic/allergic: DENIES: Urticaria Neurologic: DENIES: Headache Psychiatric: DENIES: Hallucinations Past Family Social History Allergies: Coded Allergies: gentamicin (Verified Allergy, Severe, Itching, 09/03/17) ketorolac (Verified Allergy, Severe, Hotflash, 09/03/17) linezolid (Verified Allergy, Severe, Itching, 09/03/17) vancomycin (Verified Adverse Reaction, Severe, Itching, 09/05/17) gets hot and itchy, 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 Eye surgery as an Active Ordered Medications Current Medications Medications (Trade) Dose Ordered Sig/Baudilio Route Start Time Stop Time Status Last Admin (NS Flush) 2 ml BID IV FLUSH 10/09/17 21:00 10/10/17 09:44 (NS Flush) 2 ml UNSCH PRN IV FLUSH 10/09/17 16:15 (KCl) 20 meq DAILY PO 10/10/17 09:00 10/10/17 09:43 Azithromycin 500 mg/Sodium Chloride 250 ml @ 250 mls/hr Q24H IV 10/10/17 13:00 Cefepime HCl 2000 mg/Sodium Chloride 100 ml @ 200 mls/hr Q8H IV 10/09/17 21:00 10/10/17 05:46 (Ecotrin Ec) 81 mg DAILY PO 10/10/17 09:00 10/10/17 09:43 (Lasix Inj) 20 mg BID@0900,1800 IV PUSH 10/09/17 18:32 10/10/17 09:43 (Coumadin) 5 mg DAILY@1600 PO 10/09/17 18:33 10/09/17 18:39 (Lovenox Inj) 80 mg Q12H SQ 10/09/17 18:45 10/10/17 05:45 (Coreg) 6.25 mg BID PO 10/10/17 09:00 10/10/17 09:43 (Vasotec) 2.5 mg DAILY PO 10/10/17 09:00 (Synthroid) 50 mcg DAILY@0600 PO 10/10/17 06:00 10/10/17 05:45 Pharmacy Profile Note 0 ml @ 0 mls/hr UNSCH OTHER 10/10/17 10:30 UNV Family History Non-contributory Social History Tobacco use: 1/2 PPD Alcohol use: Denies Illicit drug use: History IV drug use, last use was 5 years ago Physical Exam Vital Signs Vital Signs Date Time Temp Pulse Resp B/P (MAP) Pulse Ox O2 Delivery O2 Flow Rate FiO2 10/10/17 08:03 98.2 72 18 103/71 (82) 96 10/10/17 05:53 98 Room Air 10/10/17 04:00 97.3 76 17 103/67 (79) 99 10/10/17 04:00 70 10/10/17 00:00 70 10/10/17 00:00 97.2 78 17 99/60 (73) 99 10/09/17 21:55 74 10/09/17 20:00 97.4 74 16 101/62 (75) 100 10/09/17 19:35 Venturi Mask 6.00 40 10/09/17 19:35 Venturi Mask 6.00 40 10/09/17 18:15 90 Venturi Mask 6.00 40 10/09/17 18:15 90 Venturi Mask 6.00 40 Physical Exam GENERAL: Patient is a well-nourished, well-developed patient, awake and alert , not in respiratory distress. Hisa cheeks are flushed SKIN: Warm and dry. No generalized rash, no ecchymoses and no evidence of embolic lesions. HEAD: Atraumatic. Normocephalic. No temporal wasting, or tenderness. EYES: Ramsay conjunctiva. No petechia or hemorrhage. Pupils equal, round and reactive to light. Extraocular movements full and intact. No scleral icterus. No injection or drainage. EARS, NOSE AND THROAT: Nose without bleeding or purulent nasal discharge. No sinus tenderness. Mucous membranes pink and moist. No oral lesions noted. No exudate. No oral thrush. NECK: Trachea midline. Supple and not tender, no meningeal signs CARDIOVASCULAR: Regular rate and rhythm. No murmurs, rubs or gallops heard. (+ ) mechanical valve sound. AICH looks unremarkable with no evidence of infection. RESPIRATORY: Clear to auscultation. Breath sounds equal bilaterally. Has some scattered coarse rales. ABDOMEN: Soft, non-tender, nondistended. Bowel sounds present and normoactive. No guarding. No rebound. No organomegaly. EXTREMITIES: No clubbing, cyanosis, or edema.No joint effusion, has good ROM. No calf tenderness. Well perfused and warm. NEUROLOGICAL: Awake and alert. Cranial nerves grossly intact. Motor grossly within normal limits. PSYCHIATRIC: Normal affect, calm and cooperative. LINE: No evidence of infection Laboratory Laboratory Tests Test 10/09/17 22:24 10/10/17 04:38 Total Creatine Kinase 267 208 Creatine Kinase MB 8.0 6.3 Troponin I 0.05 0.09 Imaging Assessment and Plan Assessment and Plan IMPRESSION Enterococcal IE, PVE S/P AVR and veg in ICD lead Known cardiomyopathy, EF 20% S/P AVR and MVR Previous IVDU, states last use 5 years ago, continues to use drugs (Snorts cocaine) Renal insufficiency RECOMMENDATION IV PCN and Rocephin Repeat 2 BC Follow creatinine Patient has been evaluated by CTS - not a good surgical candidate, has had 2 prior open heart surgery, and has low ejection fraction Monitor progress Difficult treatment plan because of his poor compliance to medical treatment I will follow along with you Thank you for this consultation Discussed Condition With D/W Alejnadra Martins MD October 10, 2017 11:05
[2017-10-10 11:21] LABS: INTERNATIONAL NORMALIZED RATIO 1.6 RATIO; PROTHROMBIN TIME - PATIENT 15.7 SEC (9.8-11.6)
[2017-10-10] MEDS: AZITHROMYCIN 250 MG TAB PO SCH (11:45)
[2017-10-10] MEDS: cefTRIAXone INJ 2,000 MG in SODIUM CHLORIDE 0.9% INJ 100 ML IV SCH (11:45)
[2017-10-10] MEDS: ENALAPRIL MALEATE 2.5 MG TAB PO SCH (11:46)
[2017-10-10] MEDS ORDERED: AZITHROMYCIN INJ 500 MG in SODIUM CHLOR 0.9% 250 ML INJ 250 ML IV SCH (13:00)
[2017-10-10] MEDS ORDERED: PENICILLIN G POTASSIUM INJ 3,000,000 UNITS in SODIUM CHLORIDE 0.9% INJ 100 ML IV SCH (14:00)
[2017-10-10] MEDS: WARFARIN SOD 5 MG TAB PO SCH (15:54)
[2017-10-10] MEDS: LORazepam 0.5 MG TAB PO PRN (15:54)
[2017-10-10] MEDS: PENICILLIN G POTASSIUM INJ 3,000,000 UNITS in SODIUM CHLORIDE 0.9% INJ 100 ML IV SCH (21:26)
[2017-10-11] VITALS: BP 105/69; PULSE 75; PULSE 83; RESP 17; TEMP 97.5; O2SAT 97
[2017-10-11] MEDS: PENICILLIN G POTASSIUM INJ 3,000,000 UNITS in SODIUM CHLORIDE 0.9% INJ 100 ML IV SCH ×6 (00:13→21:32)
[2017-10-11] MEDS: LORazepam 0.5 MG TAB PO PRN ×3 (00:13→19:13)
[2017-10-11 04:00] VITALS: BP 109/68; PULSE 78; PULSE 83; RESP 16; TEMP 97.6; O2SAT 95
[2017-10-11] MEDS: LEVOTHYROXINE SODIUM 50 MCG TAB PO SCH (05:19)
[2017-10-11] MEDS: ENOXAPARIN SODIUM 80 MG/0.8 ML SYRINGE SQ SCH ×2 (05:19→17:39)
[2017-10-11 08:00] VITALS: BP 122/74; PULSE 77; PULSE 90; RESP 16; TEMP 97.4; O2SAT 97
[2017-10-11 08:02] LABS: INTERNATIONAL NORMALIZED RATIO 1.9 RATIO; PROTHROMBIN TIME - PATIENT 19.6 SEC (9.8-11.6)
--- NOTE | 2017-10-11 08:23 | PD.CARD.PN ---
Subjective Subjective Remarks chest discomfort improved somewhat and is felt intermittently; has had productive cough overnight. Objective Medications Current Medications Medications (Trade) Dose Ordered Sig/Baudilio Route Start Time Stop Time Status Last Admin (NS Flush) 2 ml BID IV FLUSH 10/09/17 21:00 10/10/17 21:26 (NS Flush) 2 ml UNSCH PRN IV FLUSH 10/09/17 16:15 (KCl) 20 meq DAILY PO 10/10/17 09:00 10/10/17 09:43 (Ecotrin Ec) 81 mg DAILY PO 10/10/17 09:00 10/10/17 09:43 (Lasix Inj) 20 mg BID@0900,1800 IV PUSH 10/09/17 18:32 10/10/17 18:14 (Coumadin) 5 mg DAILY@1600 PO 10/09/17 18:33 10/10/17 15:54 (Lovenox Inj) 80 mg Q12H SQ 10/09/17 18:45 10/11/17 05:19 (Coreg) 6.25 mg BID PO 10/10/17 09:00 10/10/17 21:38 (Vasotec) 2.5 mg DAILY PO 10/10/17 09:00 10/10/17 11:46 (Synthroid) 50 mcg DAILY@0600 PO 10/10/17 06:00 10/11/17 05:19 Pharmacy Profile Note 0 ml @ 0 mls/hr UNSCH OTHER 10/10/17 10:30 Ceftriaxone Sodium 2000 mg/ Sodium Chloride 100 ml @ 200 mls/hr Q24H IV 10/10/17 12:00 10/10/17 11:45 (Zithromax) 500 mg DAILY@1200 PO 10/10/17 12:00 10/10/17 11:45 (Roxicodone) 5 mg Q4H PRN PO 10/10/17 11:15 (Roxicodone) 10 mg Q4H PRN PO 10/10/17 11:15 10/11/17 03:38 (Ativan) 0.5 mg Q8HR PRN PO 10/10/17 15:00 10/11/17 00:13 Penicillin G Potassium [id number] units/Sodium Chloride 100 ml @ 100 mls/hr Q4H IV 10/10/17 20:00 10/11/17 03:38 Vital Signs / I&O Vital Signs Date Time Temp Pulse Resp B/P (MAP) Pulse Ox O2 Delivery O2 Flow Rate FiO2 10/11/17 04:01 Room Air 10/11/17 04:00 83 10/11/17 04:00 97.6 78 16 109/68 (82) 95 10/11/17 00:00 Room Air 10/11/17 00:00 83 10/11/17 00:00 97.5 75 17 105/69 (81) 97 10/10/17 20:00 72 10/10/17 20:00 97.8 76 19 106/76 (86) 98 10/10/17 20:00 Room Air 10/10/17 17:38 98 21 10/10/17 17:00 18 10/10/17 16:03 97.3 78 18 125/68 (87) 98 10/10/17 14:00 70 10/10/17 12:03 98.3 75 18 101/64 (76) 99 10/10/17 11:19 98 I/O 10/10/17 10/10/17 10/10/17 10/11/17 10/11/17 10/11/17 07:00 15:00 23:00 07:00 15:00 23:00 Intake Total 600 ml 940 ml 860 ml Output Total 2300 ml 2600 ml 5 ml Balance -1700 ml -1660 ml 855 ml Intake Oral 600 ml 640 ml 660 ml IV Total 300 ml 200 ml Output Urine Total 2300 ml 2600 ml 5 ml # Bowel Movements 0 1 1 Physical Exam GENERAL: SKIN: Warm and dry. HEAD: Atraumatic. Normocephalic. EYES: Pupils equal and round. No scleral icterus. ENT: No nasal bleeding or discharge. NECK: Trachea midline. No JVD. CARDIOVASCULAR: Regular rate and rhythm. +systolic murmur II/ RESPIRATORY: No accessory muscle use. Bilateral expiratory rhonchi. GASTROINTESTINAL: Abdomen soft, non-tender, nondistended. MUSCULOSKELETAL: Extremities without clubbing, cyanosis, or edema. No obvious deformities. NEUROLOGICAL: Awake and alert. No obvious cranial nerve deficits. Normal speech. PSYCHIATRIC: Appropriate mood and affect; insight and judgment normal. Laboratory Laboratory Tests Test 10/10/17 10:37 10/11/17 06:30 Prothrombin Time 15.7 SEC 19.6 SEC Prothromb Time International Ratio 1.6 RATIO 1.9 RATIO Troponin I 0.08 NG/ML Assessment and Plan Problem List: (1) CHF (congestive heart failure) ICD Codes: I50.9 - Heart failure, unspecified Status: Chronic (2) Chest pain ICD Codes: R07.9 - Chest pain, unspecified Status: Acute Assessment and Plan 32 yo WM with history of mechanical AVR, cardiomyopathy (EF 20% based on EARLENE in 09/07) AICD/PPM in place, CKD, former IVDU diagnosed with endocarditis last month and lost to follow up who presents with productive cough, chest pain and SOB x 3 days. Upon current admission he was found to be septic with RLL infiltrate present. EKG does not demonstrate concerning ST segment or T wave changes. Troponin elevated 0.05-->0.09. CHF- appears well compensated, cont lasix IV, monitor creatinine and I's/O's cont ACEi, bb AVR- mechanical, INR subtherapeutic 1.9, cont lovenox and warfarin endocarditis- diagnosed 08/2017 of aortic prosthesis and ICD, lost to follow up. cont antibiotics chest pain- plan for lexiscan this morning, keep npo Problem Qualifiers (1) CHF (congestive heart failure): Raven Leos October 11, 2017 08:22
[2017-10-11] MEDS: SODIUM CHLORIDE 0.9% FLUSH 10 ML FLUSH IV FLUSH SCH ×2 (09:15→21:33)
[2017-10-11] MEDS: POTASSIUM CHLORIDE 20 MEQ CONTROLLED RELEASE TAB PO SCH (09:15)
[2017-10-11] MEDS: FUROSEMIDE 20 MG/2 ML VIAL IV PUSH SCH ×2 (09:15→17:39)
[2017-10-11] MEDS: CARVEDILOL 6.25 MG TAB PO SCH ×2 (09:16→21:32)
[2017-10-11] MEDS: ASPIRIN EC 81 MG TABEC PO SCH (09:16)
[2017-10-11] MEDS: ENALAPRIL MALEATE 2.5 MG TAB PO SCH (09:16)
[2017-10-11 10:11] LABS: AUTOMATED NEUTROPHIL # 8.8 TH/MM3 (1.8-7.7); BASOPHIL # 0.1 TH/MM3 (0-0.2); BASOPHIL % 0.9 % (0.0-2.0); EOSINOPHIL # 0.2 TH/MM3 (0-0.4); EOSINOPHIL % 1.7 % (0.0-4.0); HEMATOCRIT 34.3 % (39.0-51.0); HEMOGLOBIN 10.8 GM/DL (13.0-17.0); LYMPHOCYTE # 0.9 TH/MM3 (1.0-4.8); MEAN CELL VOLUME 78.3 FL (80.0-100.0); MEAN CORPUSCULAR HEMOGLOBIN 24.7 PG (27.0-34.0); MEAN CORPUSCULAR HGB CONC 31.6 % (32.0-36.0); MONO % 4.4 % (0.0-8.0); MONOCYTE # 0.5 TH/MM3 (0-0.9); PLATELET COUNT 148 TH/MM3 (150-450); RED BLOOD COUNT 4.38 MIL/MM3 (4.50-5.90); RED CELL DISTRIBUTION WIDTH 19.7 % (11.6-17.2); WHITE BLOOD COUNT 10.5 TH/MM3 (4.0-11.0)
[2017-10-11 10:57] LABS: BICARBONATE 27.9 MEQ/L (21.0-32.0); CALCIUM 8.4 MG/DL (8.5-10.1); CREATININE 1.23 MG/DL (0.60-1.30)
--- NOTE | 2017-10-11 11:32 | HHI.PR ---
Subjective Remarks in no acute distress. has on and off chest pain but overall looks more comfortable today. no fever. Objective Vitals Vital Signs Date Time Temp Pulse Resp B/P (MAP) Pulse Ox O2 Delivery O2 Flow Rate FiO2 10/11/17 11:06 21 10/11/17 09:35 Room Air 10/11/17 08:00 97.4 90 16 122/74 (90) 97 10/11/17 08:00 77 10/11/17 04:01 Room Air 10/11/17 04:00 83 10/11/17 04:00 97.6 78 16 109/68 (82) 95 10/11/17 00:00 Room Air 10/11/17 00:00 83 10/11/17 00:00 97.5 75 17 105/69 (81) 97 10/10/17 20:00 72 10/10/17 20:00 97.8 76 19 106/76 (86) 98 10/10/17 20:00 Room Air 10/10/17 17:38 98 21 10/10/17 17:00 18 10/10/17 16:03 97.3 78 18 125/68 (87) 98 10/10/17 14:00 70 10/10/17 12:03 98.3 75 18 101/64 (76) 99 I/O 10/10/17 10/10/17 10/10/17 10/11/17 10/11/17 10/11/17 07:00 15:00 23:00 07:00 15:00 23:00 Intake Total 600 ml 940 ml 860 ml Output Total 2300 ml 2600 ml 5 ml Balance -1700 ml -1660 ml 855 ml Intake Oral 600 ml 640 ml 660 ml IV Total 300 ml 200 ml Output Urine Total 2300 ml 2600 ml 5 ml # Bowel Movements 0 1 1 Result Diagram: 10/11/17 0630 10/11/17 0630 Objective Remarks GENERAL: This is a well-nourished, well-developed patient, in no apparent distress. CARDIOVASCULAR: Regular rate and regular rhythm with clicky sound in LSB. RESPIRATORY: Clear to auscultation. Breath sounds equal bilaterally. No wheezes , rales, or rhonchi. GASTROINTESTINAL: Abdomen soft, non-tender, nondistended. Normal, active bowel sounds MUSCULOSKELETAL: Extremities without clubbing, cyanosis, or edema. NEURO: Alert & Oriented x4 to person, place, time, situation. Moves all ext x4 Medications and IVs Inpatient Medications Aspirin (Ecotrin Ec) 81 mg DAILY PO Last administered on 10/11/17 09:16; Start 10/10/17 at 09:00 Azithromycin (Zithromax) 500 mg DAILY@1200 PO Last administered on 10/10/17at 11 :45; Start 10/10/17 at 12:00 Azithromycin 500 mg/Sodium Chloride 250 ml @ 250 mls/hr Q24H IV ; Start at 13:00; Stop 10/10/17 at 13:00; Status DC Carvedilol (Coreg) 6.25 mg BID PO Last administered on 10/11/17at 09:16; Start 10/10/17 at 09:00 Cefepime HCl 2000 mg/Sodium Chloride 100 ml @ 200 mls/hr Q8H IV Last administered on 10/10/17at 05:46; Start 10/09/17 at 21:00; Stop 10/10/17 at 11:08 ; Status DC Ceftriaxone Sodium 2000 mg/ Sodium Chloride 100 ml @ 200 mls/hr Q24H IV Last administered on 10/10/17at 11:45; Start 10/10/17 at 12:00 Enalapril Maleate (Vasotec) 2.5 mg DAILY PO Last administered on 10/11/17at 09: 16; Start 10/10/17 at 09:00 Enoxaparin Sodium (Lovenox Inj) 80 mg Q12H SQ Last administered on 10/11/17 05 :19; Start 10/09/17 at 18:45 Furosemide (Lasix Inj) 20 mg BID@0900,1800 IV PUSH Last administered on at 09:15; Start 10/09/17 at 18:32 Levothyroxine Sodium (Synthroid) 50 mcg DAILY@0600 PO Last administered on 10/11 05:19; Start 10/10/17 at 06:00 Lorazepam (Ativan Inj) 0.5 mg ONCE ONCE IV PUSH Last administered on at 01:25; Start 10/10/17 at 01:15; Stop 10/10/17 at 01:16; Status DC Lorazepam (Ativan) 0.5 mg Q8HR PRN PO ANXIETY Last administered on 10/11/17at 00 :13; Start 10/10/17 at 15:00 Oxycodone HCl (Roxicodone) 10 mg Q4H PRN PO PAIN SCALE 8 TO 10 Last administered on 10/11/17at 09:16; Start 10/10/17 at 11:15 Patient Medication Teaching (Coumadin Booklet) 1 ONCE ONCE OTHER Last administered on 10/09/17at 18:36; Start 10/09/17 at 17:00; Stop 10/09/17 at 17:01 ; Status DC Penicillin G Potassium [id number] units/Sodium Chloride 100 ml @ 100 mls/hr Q4H IV Last administered on 10/11/17at 09:15; Start 10/10/17 at 20:00 Pharmacy Profile Note 0 ml @ 0 mls/hr UNSCH OTHER ; Start 10/10/17 at 10:30 Potassium Chloride (KCl) 20 meq DAILY PO Last administered on 10/11/17at 09:15; Start 10/10/17 at 09:00 Sodium Chloride (NS Flush) 2 ml UNSCH PRN IV FLUSH FLUSH AFTER USING IV ACCESS ; Start 10/09/17 at 16:15 Warfarin Sodium (Coumadin) 5 mg DAILY@1600 PO Last administered on 10/10/17at 15 :54; Start 10/09/17 at 18:33 A/P Problem List: (1) Pneumonia ICD Code: J18.9 - Pneumonia, unspecified organism (2) CHF (congestive heart failure) ICD Code: I50.9 - Heart failure, unspecified Status: Chronic (3) Sepsis ICD Code: A41.9 - Sepsis, unspecified organism (4) Chest pain ICD Code: R07.9 - Chest pain, unspecified Status: Acute (5) Acute on chronic renal failure ICD Code: N17.9 - Acute kidney failure, unspecified; N18.9 - Chronic kidney disease, unspecified Assessment and Plan A/P Pneumonia -Chest x-ray shows persistent and slightly enlarging right lateral lower lobe infiltrate -Antibiotics:Penicillin G and Rocephin/zithromax- per ID. -Supplemental oxygen titrated to maintain oxygen saturation greater than 92% -consulted infectious disease - hx of valvular vegetations and poss ICD lead vegetations on EARLENE during august 2017 admission Congestive heart failure s/p aortic/mitral valve replacement recent admission because of BC with Enterococcus faecalis, has vegetation in AVR and possibly in ICD leads- was discharged on Penicillin G but he says that he wasn't able to get the antibiotics after discharge. -Patient received Lasix 80 mg IV by EMS, BNP was elevated above baseline at 1400 on admission -Lasix 20 mg IV push twice daily with supplemental potassium daily -Consulted cardiology -appreciate assistance -for stress test today. -Continuous cardiac telemetry to monitor for arrhythmia -continue Lovenox and Coumadin till INR is therapeutic. -ID consult as noted above. Sepsis - WBC elevated at 14.4 wityh significant neutrophilia - Lactic acid 3.5 on admission and 1.9 on repeat - continue antibiotics - - will continue to monitor Acute on chronic renal failure -BUN 30, creatinine 1.60, estimated GFR 50 -stable since previous labs 10/06 but all in all worse since labs drawn in August -Monitor BMP -Avoid nephrotoxins DVT prophylaxis -Patient is being given therapeutic Lovenox as well as Coumadin -continue to monitor INR Problem Qualifiers (1) CHF (congestive heart failure): (2) Sepsis: Qualified Codes: A40.8 - Other streptococcal sepsis Tulio Aceves MD October 11, 2017 11:32
[2017-10-11] MEDS ORDERED: REGADENOSON INJ 0.4 MG/5 ML SYR ONE (14:42)
[2017-10-11 16:35] VITALS: BP 148/81; PULSE 77; RESP 18; TEMP 97.9; O2SAT 94
[2017-10-11] MEDS: AZITHROMYCIN 250 MG TAB PO SCH (16:38)
[2017-10-11] MEDS: WARFARIN SOD 5 MG TAB PO SCH (16:38)
[2017-10-11] MEDS: cefTRIAXone INJ 2,000 MG in SODIUM CHLORIDE 0.9% INJ 100 ML IV SCH (16:38)
--- NOTE | 2017-10-11 16:56 | RADRPT ---
EXAM DATE: 10/11/2017 4:50 PM EDT AGE/SEX: 32 years / Male INDICATIONS:Angina. . Left chest pain with dyspnea. CLINICAL DATA: This is the patient's initial encounter. Patient reports that signs and symptoms have been present for 3 days and indicates a pain score of 7/10. MEDICAL/SURGICAL HISTORY: Congestive heart failure. Myocardial infarction. Smoker. Pacemaker. Cholecystectomy. COMPARISON: No prior [facility] exams available for comparison. DOSE: 26.2 mCi Tc 99m Myoview at stress 8.5 mCi [id number] at rest 0.4 mg Lexiscan STRESS SYMPTOMS: Head estes. EJECTION FRACTION: 8% % TECHNIQUE: The patient underwent pharmacologic stress with infusion of prescribed dose. Continuous ECG tracing was monitored during stress. Gated SPECT imaging was performed after stress and conventi onal SPECT imaging was performed at rest. The examination was performed on a SPECT/CT scanner, both attenuation and non-corrected datasets were reviewed. FINDINGS: Distribution: The maximum perfused segment at stress is in the septal wall. Perfusion Study: The pattern of perfusion at stress is within normal limits. Gated Study: There is prominent global hypokinesis of the entire ventricle. The ejection fraction i s calculated at 8%%. RISK CATEGORY: Low (<1% Annual Motality Rate) CONCLUSION: 1. No evidence to suggest ischemic myocardial changes. 2. Prominent global hypokinesis of the entire left ventricle. 3. Significantly diminished cardiac ejection fraction 8%. 4. The left ventricle appears to be dilated. Electronically signed by: Rey Johnson MD 10/11/2017 4:55 PM EDT
--- NOTE | 2017-10-11 17:03 | EKG ---
Date Performed: 10/10/2017 Time Performed: 04:17:32 PTAGE: 32 years EKG: A-V sequential pacemaker Pacemaker rhythm - no further analysis Abnormal ECG PREVIOUS TRACING : 10/09/2017 20.18 Since the previous tracing, no significant change noted DOCTOR: Wild Arias Interpretating Date/Time 10/11/2017 17:02:53
[2017-10-11 20:00] VITALS: BP 101/75; PULSE 84; RESP 17; TEMP 98.3; O2SAT 99
[2017-10-11 20:04] VITALS: PULSE 77
[2017-10-12] VITALS (11 sets, daily range): BP systolic 103–123; BP diastolic 61–71; PULSE 74–91; RESP 16–18; TEMP 97.3–98.3; O2SAT 96–100
[2017-10-12] MEDS: PENICILLIN G POTASSIUM INJ 3,000,000 UNITS in SODIUM CHLORIDE 0.9% INJ 100 ML IV SCH ×6 (00:53→21:40)
[2017-10-12] MEDS: LORazepam 0.5 MG TAB PO PRN ×3 (04:01→21:39)
[2017-10-12] MEDS: LEVOTHYROXINE SODIUM 50 MCG TAB PO SCH (06:14)
[2017-10-12] MEDS: ENOXAPARIN SODIUM 80 MG/0.8 ML SYRINGE SQ SCH ×2 (06:15→17:35)
[2017-10-12 07:55] LABS: INTERNATIONAL NORMALIZED RATIO 1.7 RATIO; PROTHROMBIN TIME - PATIENT 16.9 SEC (9.8-11.6)
--- NOTE | 2017-10-12 08:00 | PD.CARD.PN ---
Subjective Subjective Remarks chest discomfort improved; continued productive cough. (Raven Leos) Objective Medications Current Medications Medications (Trade) Dose Ordered Sig/Baudilio Route Start Time Stop Time Status Last Admin (NS Flush) 2 ml BID IV FLUSH 10/09/17 21:00 10/11/17 21:33 (NS Flush) 2 ml UNSCH PRN IV FLUSH 10/09/17 16:15 (KCl) 20 meq DAILY PO 10/10/17 09:00 10/11/17 09:15 (Ecotrin Ec) 81 mg DAILY PO 10/10/17 09:00 10/11/17 09:16 (Lasix Inj) 20 mg BID@0900,1800 IV PUSH 10/09/17 18:32 10/11/17 17:39 (Coumadin) 5 mg DAILY@1600 PO 10/09/17 18:33 10/11/17 16:38 (Lovenox Inj) 80 mg Q12H SQ 10/09/17 18:45 10/12/17 06:15 (Coreg) 6.25 mg BID PO 10/10/17 09:00 10/11/17 21:32 (Vasotec) 2.5 mg DAILY PO 10/10/17 09:00 10/11/17 09:16 (Synthroid) 50 mcg DAILY@0600 PO 10/10/17 06:00 10/12/17 06:14 Pharmacy Profile Note 0 ml @ 0 mls/hr UNSCH OTHER 10/10/17 10:30 Ceftriaxone Sodium 2000 mg/ Sodium Chloride 100 ml @ 200 mls/hr Q24H IV 10/10/17 12:00 10/11/17 16:38 (Zithromax) 500 mg DAILY@1200 PO 10/10/17 12:00 10/11/17 16:38 (Roxicodone) 5 mg Q4H PRN PO 10/10/17 11:15 (Roxicodone) 10 mg Q4H PRN PO 10/10/17 11:15 10/12/17 06:14 (Ativan) 0.5 mg Q8HR PRN PO 10/10/17 15:00 10/12/17 04:01 Penicillin G Potassium 6763239 units/Sodium Chloride 100 ml @ 100 mls/hr Q4H IV 10/10/17 20:00 10/12/17 04:01 Vital Signs / I&O Vital Signs Date Time Temp Pulse Resp B/P (MAP) Pulse Ox O2 Delivery O2 Flow Rate FiO2 10/12/17 07:19 18 10/12/17 04:06 75 10/12/17 04:00 98.3 86 18 106/70 (82) 98 10/12/17 00:28 77 10/12/17 00:00 98.0 91 16 105/61 (76) 96 10/11/17 20:04 77 10/11/17 20:00 98.3 84 17 101/75 (84) 99 10/11/17 19:45 Room Air 10/11/17 16:42 Nasal Cannula 2.00 10/11/17 16:35 97.9 77 18 148/81 (103) 94 10/11/17 13:18 94 Nasal Cannula 2.00 10/11/17 11:06 21 10/11/17 09:35 Room Air 10/11/17 08:00 97.4 90 16 122/74 (90) 97 10/11/17 08:00 77 I/O 10/11/17 10/11/17 10/11/17 10/12/17 10/12/17 10/12/17 07:00 15:00 23:00 07:00 15:00 23:00 Intake Total 860 ml 480 ml 420 ml Output Total 5 ml Balance 855 ml 480 ml 420 ml Intake Oral 660 ml 480 ml 420 ml IV Total 200 ml Output Urine Total 5 ml # Voids 3 4 # Bowel Movements 1 1 1 Physical Exam GENERAL: SKIN: Warm and dry. HEAD: Atraumatic. Normocephalic. EYES: Pupils equal and round. No scleral icterus. ENT: No nasal bleeding or discharge. NECK: Trachea midline. No JVD. CARDIOVASCULAR: Regular rate and rhythm. +systolic murmur II/ RESPIRATORY: No accessory muscle use. Bilateral expiratory rhonchi. GASTROINTESTINAL: Abdomen soft, non-tender, nondistended. MUSCULOSKELETAL: Extremities without clubbing, cyanosis, or edema. No obvious deformities. NEUROLOGICAL: Awake and alert. No obvious cranial nerve deficits. Normal speech. PSYCHIATRIC: Appropriate mood and affect; insight and judgment normal. Laboratory Laboratory Tests Test 10/12/17 05:30 Prothrombin Time 16.9 SEC Prothromb Time International Ratio 1.7 RATIO (Raven Leos) Assessment and Plan Problem List: (1) CHF (congestive heart failure) ICD Codes: I50.9 - Heart failure, unspecified Status: Chronic (2) Chest pain ICD Codes: R07.9 - Chest pain, unspecified Status: Acute Assessment and Plan 32 yo WM with history of mechanical AVR, cardiomyopathy (EF 20% based on EARLENE in 09/07) AICD/PPM in place, CKD, former IVDU diagnosed with endocarditis last month and lost to follow up who presents with productive cough, chest pain and SOB. Upon current admission he was found to be septic with RLL infiltrate present. CHF- appears well compensated, cont lasix IV, monitor creatinine and I's/O's cont ACEi, bb AVR- mechanical, INR subtherapeutic 1.9, cont lovenox and warfarin endocarditis- diagnosed 08/2017 of aortic prosthesis and ICD, lost to follow up. cont antibiotics chest pain- lexiscan did not show ischemia, symptoms improving. patient mentions he has not had his ICD/PPM device interrogated or battery life checked in >1 year; will need device checked before discharge. (Raven Leos) Assessment and Plan convert to PO lasix continue guideline directed medical mgt IV antibiotics lexiscan negative will sign off call with questions (Naeem Altman MD) Problem Qualifiers (1) CHF (congestive heart failure): Raven Leos October 12, 2017 08:00 Naeem Altman MD October 12, 2017 13:33
[2017-10-12] MEDS: ASPIRIN EC 81 MG TABEC PO SCH (08:14)
[2017-10-12] MEDS: FUROSEMIDE 20 MG/2 ML VIAL IV PUSH SCH ×2 (08:14→17:35)
[2017-10-12] MEDS: SODIUM CHLORIDE 0.9% FLUSH 10 ML FLUSH IV FLUSH SCH ×2 (08:14→21:40)
[2017-10-12] MEDS: POTASSIUM CHLORIDE 20 MEQ CONTROLLED RELEASE TAB PO SCH (08:15)
[2017-10-12] MEDS: ENALAPRIL MALEATE 2.5 MG TAB PO SCH (08:15)
[2017-10-12] MEDS: CARVEDILOL 6.25 MG TAB PO SCH ×2 (08:15→21:39)
--- NOTE | 2017-10-12 09:17 | HHI.PR ---
Subjective Remarks in no acute distress. however with some exertional dyspnea and on ad off chest pain. no fever. Objective Vitals Vital Signs Date Time Temp Pulse Resp B/P (MAP) Pulse Ox O2 Delivery O2 Flow Rate FiO2 10/12/17 08:34 98 Nasal Cannula 2.00 10/12/17 08:00 97.7 83 18 103/62 (76) 100 10/12/17 07:19 18 10/12/17 04:06 75 10/12/17 04:00 98.3 86 18 106/70 (82) 98 10/12/17 00:28 77 10/12/17 00:00 98.0 91 16 105/61 (76) 96 10/11/17 20:04 77 10/11/17 20:00 98.3 84 17 101/75 (84) 99 10/11/17 19:45 Room Air 10/11/17 16:42 Nasal Cannula 2.00 10/11/17 16:35 97.9 77 18 148/81 (103) 94 10/11/17 13:18 94 Nasal Cannula 2.00 10/11/17 11:06 21 10/11/17 09:35 Room Air I/O 10/11/17 10/11/17 10/11/17 10/12/17 10/12/17 10/12/17 07:00 15:00 23:00 07:00 15:00 23:00 Intake Total 860 ml 480 ml 420 ml Output Total 5 ml Balance 855 ml 480 ml 420 ml Intake Oral 660 ml 480 ml 420 ml IV Total 200 ml Output Urine Total 5 ml # Voids 3 4 # Bowel Movements 1 1 1 Result Diagram: 10/11/17 0630 10/11/17 0630 Imaging Objective Remarks GENERAL: This is a well-nourished, well-developed patient, in no apparent distress. CARDIOVASCULAR: Regular rate and regular rhythm with clicky sound in LSB. RESPIRATORY: Clear to auscultation. Breath sounds equal bilaterally. No wheezes , rales, or rhonchi. GASTROINTESTINAL: Abdomen soft, non-tender, nondistended. Normal, active bowel sounds MUSCULOSKELETAL: Extremities without clubbing, cyanosis, or edema. NEURO: Alert & Oriented x4 to person, place, time, situation. Moves all ext x4 Medications and IVs Inpatient Medications Aspirin (Ecotrin Ec) 81 mg DAILY PO Last administered on 10/12/17 08:14; Start 10/10/17 at 09:00 Azithromycin (Zithromax) 500 mg DAILY@1200 PO Last administered on 10/11/17 16 :38; Start 10/10/17 at 12:00 Azithromycin 500 mg/Sodium Chloride 250 ml @ 250 mls/hr Q24H IV ; Start at 13:00; Stop 10/10/17 at 13:00; Status DC Carvedilol (Coreg) 6.25 mg BID PO Last administered on 10/12/17 08:15; Start 10/10/17 at 09:00 Cefepime HCl 2000 mg/Sodium Chloride 100 ml @ 200 mls/hr Q8H IV Last administered on 10/10/17at 05:46; Start 10/09/17 at 21:00; Stop 10/10/17 at 11:08 ; Status DC Ceftriaxone Sodium 2000 mg/ Sodium Chloride 100 ml @ 200 mls/hr Q24H IV Last administered on 10/11/17at 16:38; Start 10/10/17 at 12:00 Enalapril Maleate (Vasotec) 2.5 mg DAILY PO Last administered on 10/12/17 08: 15; Start 10/10/17 at 09:00 Enoxaparin Sodium (Lovenox Inj) 80 mg Q12H SQ Last administered on 10/12/17 06 :15; Start 10/09/17 at 18:45 Furosemide (Lasix Inj) 20 mg BID@0900,1800 IV PUSH Last administered on 08:14; Start 10/09/17 at 18:32 Levothyroxine Sodium (Synthroid) 50 mcg DAILY@0600 PO Last administered on 10/12 06:14; Start 10/10/17 at 06:00 Lorazepam (Ativan Inj) 0.5 mg ONCE ONCE IV PUSH Last administered on at 01:25; Start 10/10/17 at 01:15; Stop 10/10/17 at 01:16; Status DC Lorazepam (Ativan) 0.5 mg Q8HR PRN PO ANXIETY Last administered on 10/12/17 04 :01; Start 10/10/17 at 15:00 Oxycodone HCl (Roxicodone) 10 mg Q4H PRN PO PAIN SCALE 8 TO 10 Last administered on 10/12/17at 06:14; Start 10/10/17 at 11:15 Patient Medication Teaching (Coumadin Booklet) 1 ONCE ONCE OTHER Last administered on 10/09/17at 18:36; Start 10/09/17 at 17:00; Stop 10/09/17 at 17:01 ; Status DC Penicillin G Potassium [id number] units/Sodium Chloride 100 ml @ 100 mls/hr Q4H IV Last administered on 10/12/17at 08:14; Start 10/10/17 at 20:00 Pharmacy Profile Note 0 ml @ 0 mls/hr UNSCH OTHER ; Start 10/10/17 at 10:30 Potassium Chloride (KCl) 20 meq DAILY PO Last administered on 10/12/17at 08:15; Start 10/10/17 at 09:00 Sodium Chloride (NS Flush) 2 ml UNSCH PRN IV FLUSH FLUSH AFTER USING IV ACCESS ; Start 10/09/17 at 16:15 Warfarin Sodium (Coumadin) 1 mg ONCE@1600 ONCE PO ; Start 10/12/17 at 16:00; Stop 10/12/17 at 16:01 A/P Problem List: (1) Pneumonia ICD Code: J18.9 - Pneumonia, unspecified organism (2) CHF (congestive heart failure) ICD Code: I50.9 - Heart failure, unspecified Status: Chronic (3) Sepsis ICD Code: A41.9 - Sepsis, unspecified organism (4) Chest pain ICD Code: R07.9 - Chest pain, unspecified Status: Acute (5) Acute on chronic renal failure ICD Code: N17.9 - Acute kidney failure, unspecified; N18.9 - Chronic kidney disease, unspecified Assessment and Plan A/P Pneumonia -Chest x-ray shows persistent and slightly enlarging right lateral lower lobe infiltrate -AntibioticsRocephin/zithromax- per ID. -Supplemental oxygen titrated to maintain oxygen saturation greater than 92% -neb treatment -ID consulted. Congestive heart failure s/p aortic/mitral valve replacement recent admission because of BC with Enterococcus faecalis, has vegetation in AVR and possibly in ICD leads- was discharged on Penicillin G but he says that he wasn't able to get the antibiotics after discharge. -started back on penicillin G- per ID. -Lasix 20 mg IV push twice daily with supplemental potassium daily -stress test with no evidence of ischemia -cardiology following. -Continuous cardiac telemetry to monitor for arrhythmia -continue Lovenox and Coumadin till INR is therapeutic. Sepsis - WBC elevated at 14.4 wityh significant neutrophilia - Lactic acid 3.5 on admission and 1.9 on repeat - continue antibiotics - - will continue to monitor Acute on chronic renal failure -BUN 30, creatinine 1.60, estimated GFR 50 -stable since previous labs 10/06 but all in all worse since labs drawn in August -Monitor BMP -Avoid nephrotoxins DVT prophylaxis -Patient is being given therapeutic Lovenox as well as Coumadin -continue to monitor INR Discharge Planning not ready for discharge. Problem Qualifiers (1) CHF (congestive heart failure): (2) Sepsis: Qualified Codes: A40.8 - Other streptococcal sepsis Tulio Aceves MD October 12, 2017 09:17
[2017-10-12] MEDS: RESP: ALBUTEROL 2.5 MG/IPRATROPIUM 0.5 MG NEB (SCH) NEB ×4 (10:00→20:00)
[2017-10-12] MEDS: cefTRIAXone INJ 2,000 MG in SODIUM CHLORIDE 0.9% INJ 100 ML IV SCH (11:26)
[2017-10-12] MEDS: AZITHROMYCIN 250 MG TAB PO SCH (11:26)
[2017-10-12] MEDS: WARFARIN SOD 5 MG TAB PO SCH (15:56)
[2017-10-12] MEDS ORDERED: WARFARIN SOD 1 MG TAB PO ONE (16:00)
[2017-10-12] MEDS: RESP: IPRATROPIUM 0.5 MG/2.5 ML NEB NEB PRN (22:35)
[2017-10-13] VITALS (13 sets, daily range): BP systolic 98–150; BP diastolic 65–74; PULSE 69–82; RESP 16–20; TEMP 97.6–98.3; O2SAT 98–100
[2017-10-13] MEDS: PENICILLIN G POTASSIUM INJ 3,000,000 UNITS in SODIUM CHLORIDE 0.9% INJ 100 ML IV SCH ×6 (01:25→21:34)
[2017-10-13] MEDS: LEVOTHYROXINE SODIUM 50 MCG TAB PO SCH (05:45)
[2017-10-13] MEDS: ENOXAPARIN SODIUM 80 MG/0.8 ML SYRINGE SQ SCH ×2 (05:49→18:51)
[2017-10-13 06:54] LABS: INTERNATIONAL NORMALIZED RATIO 1.7 RATIO; PROTHROMBIN TIME - PATIENT 17.7 SEC (9.8-11.6)
[2017-10-13] MEDS: CARVEDILOL 6.25 MG TAB PO SCH ×2 (08:11→21:33)
[2017-10-13] MEDS: SODIUM CHLORIDE 0.9% FLUSH 10 ML FLUSH IV FLUSH SCH ×2 (08:11→21:34)
[2017-10-13] MEDS: ENALAPRIL MALEATE 2.5 MG TAB PO SCH (08:11)
[2017-10-13] MEDS: POTASSIUM CHLORIDE 20 MEQ CONTROLLED RELEASE TAB PO SCH (08:11)
[2017-10-13] MEDS: FUROSEMIDE 20 MG/2 ML VIAL IV PUSH SCH ×2 (08:11→18:50)
[2017-10-13] MEDS: ASPIRIN EC 81 MG TABEC PO SCH (08:11)
--- NOTE | 2017-10-13 10:37 | HHI.PR ---
Subjective Remarks in no acute distress but still with exertional dyspnea. has some occasional cough. no fever. Objective Vitals Vital Signs Date Time Temp Pulse Resp B/P (MAP) Pulse Ox O2 Delivery O2 Flow Rate FiO2 10/13/17 09:55 Nasal Cannula 2.00 10/13/17 08:00 73 10/13/17 04:07 72 10/13/17 04:00 98.3 75 20 115/68 (84) 100 10/13/17 00:01 82 10/13/17 00:00 98.3 82 18 114/66 (82) 100 10/12/17 20:05 99 10/12/17 20:00 98.2 85 18 116/62 (80) 100 10/12/17 20:00 78 10/12/17 20:00 Nasal Cannula 2.00 10/12/17 17:15 16 10/12/17 16:00 97.3 79 17 103/71 (82) 100 10/12/17 16:00 84 10/12/17 14:33 83 10/12/17 12:00 97.6 74 18 123/67 (85) 100 10/12/17 10:54 16 I/O 10/12/17 10/12/17 10/12/17 10/13/17 10/13/17 10/13/17 07:00 15:00 23:00 07:00 15:00 23:00 Intake Total 420 ml 1200 ml 1200 ml Output Total 2000 ml Balance 420 ml 1200 ml -800 ml Intake Oral 420 ml 1200 ml 1200 ml Output Urine Total 2000 ml # Voids 4 5 # Bowel Movements 1 1 2 Result Diagram: 10/11/17 0630 10/11/17 0630 Imaging Last Impressions Myocardial Perfusion Scan Nuc [facility] 10/11/17 0000 Signed Impressions: CONCLUSION: 1. No evidence to suggest ischemic myocardial changes. 2. Prominent global hypokinesis of the entire left ventricle. 3. Significantly diminished cardiac ejection fraction 8%. 4. The left ventricle appears to be dilated. Objective Remarks GENERAL: This is a well-nourished, well-developed patient, in no apparent distress. CARDIOVASCULAR: Regular rate and regular rhythm with clicky sound in LSB. RESPIRATORY: Clear to auscultation. Breath sounds equal bilaterally. No wheezes , rales, or rhonchi. GASTROINTESTINAL: Abdomen soft, non-tender, nondistended. Normal, active bowel sounds MUSCULOSKELETAL: Extremities without clubbing, cyanosis, or edema. NEURO: Alert & Oriented x4 to person, place, time, situation. Moves all ext x4 Medications and IVs Inpatient Medications Albuterol/ Ipratropium (Duoneb Neb) 1 ampule Q4HR NEB NEB ; Start 10/12/17 at 10:00; Stop 10/12/17 at 20:00; Status DC Aspirin (Ecotrin Ec) 81 mg DAILY PO Last administered on 10/13/17 08:11; Start 10/10/17 at 09:00 Azithromycin (Zithromax) 500 mg DAILY@1200 PO Last administered on 10/12/17 11 :26; Start 10/10/17 at 12:00 Azithromycin 500 mg/Sodium Chloride 250 ml @ 250 mls/hr Q24H IV ; Start at 13:00; Stop 10/10/17 at 13:00; Status DC Carvedilol (Coreg) 6.25 mg BID PO Last administered on 10/13/17at 08:11; Start 10/10/17 at 09:00 Cefepime HCl 2000 mg/Sodium Chloride 100 ml @ 200 mls/hr Q8H IV Last administered on 10/10/17at 05:46; Start 10/09/17 at 21:00; Stop 10/10/17 at 11:08 ; Status DC Ceftriaxone Sodium 2000 mg/ Sodium Chloride 100 ml @ 200 mls/hr Q24H IV Last administered on 10/12/17 11:26; Start 10/10/17 at 12:00 Enalapril Maleate (Vasotec) 2.5 mg DAILY PO Last administered on 10/13/17at 08: 11; Start 10/10/17 at 09:00 Enoxaparin Sodium (Lovenox Inj) 80 mg Q12H SQ Last administered on 10/13/17 05 :49; Start 10/09/17 at 18:45 Furosemide (Lasix Inj) 20 mg BID@0900,1800 IV PUSH Last administered on 08:11; Start 10/09/17 at 18:32 Ipratropium [place] (Atrovent Neb) 0.5 mg Q2HR NEB PRN NEB SHORTNESS OF BREATH Last administered on 10/12/17at 22:35; Start 10/12/17 at 09:15 Levothyroxine Sodium (Synthroid) 50 mcg DAILY@0600 PO Last administered on 10/13at 05:45; Start 10/10/17 at 06:00 Lorazepam (Ativan Inj) 0.5 mg ONCE ONCE IV PUSH Last administered on at 01:25; Start 10/10/17 at 01:15; Stop 10/10/17 at 01:16; Status DC Lorazepam (Ativan) 0.5 mg HS PRN PO INSOMNIA Last administered on 10/12/17at 21: 39; Start 10/12/17 at 18:00 Oxycodone HCl (Roxicodone) 10 mg Q4H PRN PO PAIN SCALE 8 TO 10 Last administered on 10/12/17at 09:54; Start 10/10/17 at 11:15; Status Future Hold Patient Medication Teaching (Coumadin Booklet) 1 ONCE ONCE OTHER Last administered on 10/09/17at 18:36; Start 10/09/17 at 17:00; Stop 10/09/17 at 17:01 ; Status DC Penicillin G Potassium [id number] units/Sodium Chloride 100 ml @ 100 mls/hr Q4H IV Last administered on 10/13/17at 08:12; Start 10/10/17 at 20:00 Pharmacy Profile Note 0 ml @ 0 mls/hr UNSCH OTHER ; Start 10/10/17 at 10:30 Potassium Chloride (KCl) 20 meq DAILY PO Last administered on 10/13/17at 08:11; Start 10/10/17 at 09:00 Sodium Chloride (NS Flush) 2 ml UNSCH PRN IV FLUSH FLUSH AFTER USING IV ACCESS ; Start 10/09/17 at 16:15 Warfarin Sodium (Coumadin) 6 mg DAILY@1600 PO ; Start 10/13/17 at 16:00 A/P Problem List: (1) Pneumonia ICD Code: J18.9 - Pneumonia, unspecified organism (2) CHF (congestive heart failure) ICD Code: I50.9 - Heart failure, unspecified Status: Chronic (3) Sepsis ICD Code: A41.9 - Sepsis, unspecified organism (4) Chest pain ICD Code: R07.9 - Chest pain, unspecified Status: Acute (5) Acute on chronic renal failure ICD Code: N17.9 - Acute kidney failure, unspecified; N18.9 - Chronic kidney disease, unspecified Assessment and Plan A/P Pneumonia -Chest x-ray shows persistent and slightly enlarging right lateral lower lobe infiltrate -Antibiotics;Pencillin G- Rocephin/zithromax- per ID. -Supplemental oxygen titrated to maintain oxygen saturation greater than 92% -neb treatment -ID following. Congestive heart failure s/p aortic/mitral valve replacement recent admission because of BC with Enterococcus faecalis, has vegetation in AVR and possibly in ICD leads- was discharged on Penicillin G but he says that he wasn't able to get the antibiotics after discharge. -started back on penicillin G- per ID. -Lasix 20 mg IV push twice daily with supplemental potassium daily; will switch to po tomorrow. -stress test with no evidence of ischemia -cardiology evaluated and signed off. -Continuous cardiac telemetry to monitor for arrhythmia -continue Lovenox and Coumadin till INR is therapeutic. Sepsis - WBC elevated at 14.4 wityh significant neutrophilia - Lactic acid 3.5 on admission and 1.9 on repeat - continue antibiotics - - will continue to monitor Acute on chronic renal failure -BUN 30, creatinine 1.60, estimated GFR 50 -stable since previous labs 10/06 but all in all worse since labs drawn in August -Monitor BMP -Avoid nephrotoxins DVT prophylaxis -Patient is being given therapeutic Lovenox as well as Coumadin -continue to monitor INR Discharge Planning on IV antibiotics- not ready for discharge. Problem Qualifiers (1) CHF (congestive heart failure): (2) Sepsis: Qualified Codes: A40.8 - Other streptococcal sepsis Tulio Aceves MD October 13, 2017 10:37
[2017-10-13] MEDS: AZITHROMYCIN 250 MG TAB PO SCH (11:30)
--- NOTE | 2017-10-13 11:30 | ECHRPT ---
Indication: sepsis poss. endocarditis CONCLUSIONS The left ventricular systolic function is severely reduced with an estimated ejection fraction less than 20%. Severely dilated left ventricle. Wall thickness is normal. There is global left ventricular dysfunction. A pacemaker wire is noted. No obvious vegetations noted. The right ventriclar size is upper limits of normal. The left atrial size is mildly dilated. There is a pacemaker wire present in the right atrial cavity. The interatrial septum not well visualized. The aortic root and proximal ascending aorta are not well visualized. Normally functioning mechanical mitral valve prosthesis. No obvious vegetationsNormally functioning mechnical mitral valve prosthesis (appears to be slightly undersized although no transvalvular gradient is noted). No obvious vegetations noted. There is moderate tricuspid valve regurgitation. The estimated pulmonary arterial pressure is 50.2 mmHg. Mild pulmonary valve regurgitation. BP: 103 / 62 HR: 83 Rhythm: Sinus MEASUREMENTS (Male / Female) Normal Values Technical Quality:Good 2D ECHO LV Diastolic Diameter PLAX 6.3 cm 4.2 - 5.9 / 3.9 - 5.3 cm LV Systolic Diameter PLAX 6.1 cm IVS Diastolic Thickness 1.1 cm 0.6 - 1.0 / 0.6 - 0.9 cm LVPW Diastolic Thickness 1.1 cm 0.6 - 1.0 / 0.6 - 0.9 cm LV Relative Wall Thickness 0.4 RV Internal Dim ED PLAX 3.2 cm LVOT Diameter 2.0 cm LV Ejection Fraction MOD 4C 7.3 % LV Cardiac Index MOD 4C 727.5 cm/minm LV Ejection Fraction 4C AL 9.8 % LV Cardiac Index 4C AL 1017.9 cm/minm M-MODE Aortic Root Diameter MM 1.9 cm AV Cusp Separation MM 1.8 cm DOPPLER AV Peak Velocity 236.5 cm/s AV Peak Gradient 22.4 mmHg AV Mean Gradient 13.5 mmHg AV Velocity Time Integral 38.3 cm LVOT Peak Velocity 129.0 cm/s LVOT Peak Gradient 6.7 mmHg LVOT Velocity Time Integral 22.9 cm LVOT Cardiac Index 2907.7 cm/minm AV Area Cont Eq vti 1.9 cm AV Area Cont Eq pk 1.7 cm MV Peak Velocity 174.0 cm/s MV Peak Gradient 12.1 mmHg MV Mean Velocity 70.2 cm/s MV Mean Gradient 3.0 mmHg MV Area PHT 4.9 cm Mitral E Point Velocity 132.0 cm/s Mitral A Point Velocity 55.8 cm/s Mitral E to A Ratio 2.4 TR Peak Velocity 317.0 cm/s TR Peak Gradient 40.2 mmHg Right Atrial Pressure 10.0 mmHg Pulmonary Artery Systolic Pressu 50.2 mmHg Right Ventricular Systolic Press 50.2 mmHg PV Peak Velocity 61.1 cm/s PV Peak Gradient 1.5 mmHg FINDINGS LEFT VENTRICLE The left ventricular systolic function is severely reduced with an estimated ejection fraction less than 20%. Severely dilated left ventricle. Wall thickness is normal. There is global left ventricular dysfunction. RIGHT VENTRICLE A pacemaker wire is noted. No obvious vegetations noted. The right ventriclar size is upper limits of normal. LEFT ATRIUM The left atrial size is mildly dilated. RIGHT ATRIUM There is a pacemaker wire present in the right atrial cavity. ATRIAL SEPTUM The interatrial septum not well visualized. Normal atrial septal thickness without atrial level shunting by limited color doppler interrogation. AORTA The aortic root and proximal ascending aorta are not well visualized. The aortic root and proximal ascending aorta are normal in size on limited imaging. MITRAL VALVE Normally functioning mechanical mitral valve prosthesis. No obvious vegetations AORTIC VALVE Normally functioning mechnical mitral valve prosthesis (appears to be slightly undersized although n o transvalvular gradient is noted). No obvious vegetations noted. TRICUSPID VALVE Structurally normal tricuspid valve. There is moderate tricuspid valve regurgitation. The estimated pulmonary arterial pressure is 50.2 mmHg. PULMONARY VALVE Mild pulmonary valve regurgitation. VESSELS The inferior vena cava is normal in size. PERICARDIUM No pericardial effusion. Naeem Altman MD, FACC (Electronically Signed) Final Date:13 Oct 2017 11:29
[2017-10-13] MEDS: cefTRIAXone INJ 2,000 MG in SODIUM CHLORIDE 0.9% INJ 100 ML IV SCH (11:31)
[2017-10-13] MEDS: RESP: IPRATROPIUM 0.5 MG/2.5 ML NEB NEB PRN (13:23)
[2017-10-13] MEDS: WARFARIN SOD 6 MG TAB PO SCH (16:15)
[2017-10-13] MEDS: LORazepam 0.5 MG TAB PO PRN (21:33)
[2017-10-14] VITALS (11 sets, daily range): BP systolic 98–117; BP diastolic 57–80; PULSE 70–100; RESP 16–22; TEMP 97.2–98.4; O2SAT 98–100
[2017-10-14] MEDS: PENICILLIN G POTASSIUM INJ 3,000,000 UNITS in SODIUM CHLORIDE 0.9% INJ 100 ML IV SCH ×8 (04:18→23:48)
[2017-10-14] MEDS: ENOXAPARIN SODIUM 80 MG/0.8 ML SYRINGE SQ SCH ×2 (05:59→16:58)
[2017-10-14] MEDS: LEVOTHYROXINE SODIUM 50 MCG TAB PO SCH (05:59)
[2017-10-14] MEDS: SODIUM CHLORIDE 0.9% FLUSH 10 ML FLUSH IV FLUSH SCH ×2 (08:24→23:50)
[2017-10-14] MEDS: FUROSEMIDE 20 MG/2 ML VIAL IV PUSH SCH ×2 (08:24→16:58)
[2017-10-14] MEDS: CARVEDILOL 6.25 MG TAB PO SCH ×2 (08:24→23:51)
[2017-10-14] MEDS: POTASSIUM CHLORIDE 20 MEQ CONTROLLED RELEASE TAB PO SCH (08:24)
[2017-10-14] MEDS: ENALAPRIL MALEATE 2.5 MG TAB PO SCH (08:24)
[2017-10-14] MEDS: ASPIRIN EC 81 MG TABEC PO SCH (08:25)
--- NOTE | 2017-10-14 08:44 | HHI.PR ---
Subjective Remarks in no acute distress. feels weak. pain seems to be fairly controlled. Objective Vitals Vital Signs Date Time Temp Pulse Resp B/P (MAP) Pulse Ox O2 Delivery O2 Flow Rate FiO2 10/14/17 04:00 98.2 71 16 116/74 (88) 98 10/14/17 03:41 70 10/14/17 00:00 Nasal Cannula 2.00 10/14/17 00:00 97.8 75 22 98/61 (73) 100 10/13/17 23:51 76 10/13/17 20:00 97.8 74 20 150/65 (93) 100 10/13/17 20:00 Nasal Cannula 2.00 10/13/17 19:45 75 10/13/17 16:17 98.0 70 16 98/68 (78) 100 10/13/17 16:00 70 10/13/17 13:20 98 Nasal Cannula 3.00 10/13/17 12:09 97.6 69 17 108/74 (85) 99 10/13/17 12:00 70 10/13/17 09:55 Nasal Cannula 2.00 I/O 10/13/17 10/13/17 10/13/17 10/14/17 10/14/17 10/14/17 07:00 15:00 23:00 07:00 15:00 23:00 Intake Total 1200 ml 720 ml 960 ml Output Total 2000 ml 600 ml Balance -800 ml 120 ml 960 ml Intake Oral 1200 ml 720 ml 960 ml Output Urine Total 2000 ml 600 ml # Voids 2 2 # Bowel Movements 2 2 Result Diagram: 10/11/17 0630 10/11/17 0630 Imaging Last Impressions Myocardial Perfusion Scan Nuc [facility] 10/11/17 0000 Signed Impressions: CONCLUSION: 1. No evidence to suggest ischemic myocardial changes. 2. Prominent global hypokinesis of the entire left ventricle. 3. Significantly diminished cardiac ejection fraction 8%. 4. The left ventricle appears to be dilated. Objective Remarks GENERAL: This is a well-nourished, well-developed patient, in no apparent distress. CARDIOVASCULAR: Regular rate and regular rhythm with clicky sound in LSB. RESPIRATORY: Clear to auscultation. Breath sounds equal bilaterally. No wheezes , rales, or rhonchi. GASTROINTESTINAL: Abdomen soft, non-tender, nondistended. Normal, active bowel sounds MUSCULOSKELETAL: Extremities without clubbing, cyanosis, or edema. NEURO: Alert & Oriented x4 to person, place, time, situation. Moves all ext x4 Medications and IVs Inpatient Medications Albuterol/ Ipratropium (Duoneb Neb) 1 ampule Q4HR NEB NEB ; Start 10/12/17 at 10:00; Stop 10/12/17 at 20:00; Status DC Aspirin (Ecotrin Ec) 81 mg DAILY PO Last administered on 10/14/17at 08:25; Start 10/10/17 at 09:00 Azithromycin (Zithromax) 500 mg DAILY@1200 PO Last administered on 10/13/17 11 :30; Start 10/10/17 at 12:00 Azithromycin 500 mg/Sodium Chloride 250 ml @ 250 mls/hr Q24H IV ; Start at 13:00; Stop 10/10/17 at 13:00; Status DC Carvedilol (Coreg) 6.25 mg BID PO Last administered on 10/14/17at 08:24; Start 10/10/17 at 09:00 Cefepime HCl 2000 mg/Sodium Chloride 100 ml @ 200 mls/hr Q8H IV Last administered on 10/10/17at 05:46; Start 10/09/17 at 21:00; Stop 10/10/17 at 11:08 ; Status DC Ceftriaxone Sodium 2000 mg/ Sodium Chloride 100 ml @ 200 mls/hr Q24H IV Last administered on 10/13/17at 11:31; Start 10/10/17 at 12:00 Enalapril Maleate (Vasotec) 2.5 mg DAILY PO Last administered on 10/14/17at 08: 24; Start 10/10/17 at 09:00 Enoxaparin Sodium (Lovenox Inj) 80 mg Q12H SQ Last administered on 10/14/17at 05 :59; Start 10/09/17 at 18:45 Furosemide (Lasix Inj) 20 mg BID@0900,1800 IV PUSH Last administered on at 08:24; Start 10/09/17 at 18:32 Ipratropium [place] (Atrovent Neb) 0.5 mg Q2HR NEB PRN NEB SHORTNESS OF BREATH Last administered on 10/13/17at 13:23; Start 10/12/17 at 09:15 Levothyroxine Sodium (Synthroid) 50 mcg DAILY@0600 PO Last administered on 10/14at 05:59; Start 10/10/17 at 06:00 Lorazepam (Ativan Inj) 0.5 mg ONCE ONCE IV PUSH Last administered on at 01:25; Start 10/10/17 at 01:15; Stop 10/10/17 at 01:16; Status DC Lorazepam (Ativan) 0.5 mg HS PRN PO INSOMNIA Last administered on 10/13/17at 21: 33; Start 10/12/17 at 18:00 Oxycodone HCl (Roxicodone) 10 mg Q4H PRN PO PAIN SCALE 8 TO 10 Last administered on 10/12/17at 09:54; Start 10/10/17 at 11:15; Status Future Hold Patient Medication Teaching (Coumadin Booklet) 1 ONCE ONCE OTHER Last administered on 10/09/17at 18:36; Start 10/09/17 at 17:00; Stop 10/09/17 at 17:01 ; Status DC Penicillin G Potassium 0161274 units/Sodium Chloride 100 ml @ 100 mls/hr Q4H IV Last administered on 10/14/17at 08:25; Start 10/10/17 at 20:00 Pharmacy Profile Note 0 ml @ 0 mls/hr UNSCH OTHER ; Start 10/10/17 at 10:30 Potassium Chloride (KCl) 20 meq DAILY PO Last administered on 10/14/17at 08:24; Start 10/10/17 at 09:00 Sodium Chloride (NS Flush) 2 ml UNSCH PRN IV FLUSH FLUSH AFTER USING IV ACCESS Last administered on 10/14/17at 04:20; Start 10/09/17 at 16:15 Warfarin Sodium (Coumadin) 6 mg DAILY@1600 PO Last administered on 10/13/17at 16 :15; Start 10/13/17 at 16:00 A/P Problem List: (1) Pneumonia ICD Code: J18.9 - Pneumonia, unspecified organism (2) CHF (congestive heart failure) ICD Code: I50.9 - Heart failure, unspecified Status: Chronic (3) Sepsis ICD Code: A41.9 - Sepsis, unspecified organism (4) Chest pain ICD Code: R07.9 - Chest pain, unspecified Status: Acute (5) Acute on chronic renal failure ICD Code: N17.9 - Acute kidney failure, unspecified; N18.9 - Chronic kidney disease, unspecified Assessment and Plan A/P Pneumonia -Chest x-ray shows persistent and slightly enlarging right lateral lower lobe infiltrate -Antibiotics;Pencillin G- Rocephin/zithromax- per ID. -Supplemental oxygen titrated to maintain oxygen saturation greater than 92% -neb treatment -ID following. Congestive heart failure s/p aortic/mitral valve replacement recent admission because of BC with Enterococcus faecalis, has vegetation in AVR and possibly in ICD leads- was discharged on Penicillin G but he says that he wasn't able to get the antibiotics after discharge. -started back on penicillin G- per ID. -Lasix 20 mg IV push twice daily with supplemental potassium daily; will give one more day of IV and will switch to po tomorrow. -stress test with no evidence of ischemia -cardiology evaluated and signed off. -Continuous cardiac telemetry to monitor for arrhythmia -continue Lovenox and Coumadin till INR is therapeutic. Sepsis - WBC elevated at 14.4 wityh significant neutrophilia - Lactic acid 3.5 on admission and 1.9 on repeat - continue antibiotics - - will continue to monitor CKD -Monitor BMP -Avoid nephrotoxins DVT prophylaxis -Patient is being given therapeutic Lovenox as well as Coumadin -continue to monitor INR poor prognosis- will consult palliative care. d/w . Discharge Planning on IV antibiotics- not ready for discharge. Problem Qualifiers (1) CHF (congestive heart failure): (2) Sepsis: Qualified Codes: A40.8 - Other streptococcal sepsis Tulio Aceves MD October 14, 2017 08:44
[2017-10-14 10:15] LABS: INTERNATIONAL NORMALIZED RATIO 1.7 RATIO; PROTHROMBIN TIME - PATIENT 17.1 SEC (9.8-11.6)
--- NOTE | 2017-10-14 10:39 | HHI.IDPN ---
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 Patient was in the hospital from September 05 - September 20, and he was discharged and was set up to get IV antibiotics in the infusion clinic. Patient never showed up for any of his treatment, and apparently his PICC line fell out. He presented this time again with symptoms of shortness of breath, some chest pain, cough and fever in [facility] and from there he was transferred to the main hospital for further management. His chest x-ray showed worsening of his right lower lobe infiltrate. He reports SOB, cough, fever for the past 2 - 3 days with moderate chest tightness, midsternal, radiating to left neck. He reports chills and nausea over the past few days. He denies any vomiting. No abdominal pain or any urinary complaint. His WBC was 14,000. Creatinine 1.6. Infectious disease consultation has been requested to evaluate the patient. Notes reviewed D/W Dr Aceves Symptoms same No fever BC are negative Creatinine has improved Patient previously evaluated by CTS - not a surgical candidate; has had 2 previous open heart surgery and valve surgery and has very low EF Continues to do drugs, but not IVDU He seems to be maximized on his cardiac meds Patient also was set up for outpatient IV Abx Rx, and never showed up even one time for his Rx Antibiotics PCN Rocephin Current Medications Medications (Trade) Dose Ordered Sig/Baudilio Route Start Time Stop Time Status Last Admin (NS Flush) 2 ml BID IV FLUSH 10/09/17 21:00 10/14/17 08:24 (NS Flush) 2 ml UNSCH PRN IV FLUSH 10/09/17 16:15 10/14/17 04:20 (KCl) 20 meq DAILY PO 10/10/17 09:00 10/14/17 08:24 (Ecotrin Ec) 81 mg DAILY PO 10/10/17 09:00 10/14/17 08:25 (Lasix Inj) 20 mg BID@0900,1800 IV PUSH 10/09/17 18:32 10/14/17 08:24 (Lovenox Inj) 80 mg Q12H SQ 10/09/17 18:45 10/14/17 05:59 (Coreg) 6.25 mg BID PO 10/10/17 09:00 10/14/17 08:24 (Vasotec) 2.5 mg DAILY PO 10/10/17 09:00 10/14/17 08:24 (Synthroid) 50 mcg DAILY@0600 PO 10/10/17 06:00 10/14/17 05:59 Pharmacy Profile Note 0 ml @ 0 mls/hr UNSCH OTHER 10/10/17 10:30 Ceftriaxone Sodium 2000 mg/ Sodium Chloride 100 ml @ 200 mls/hr Q24H IV 10/10/17 12:00 10/13/17 11:31 (Zithromax) 500 mg DAILY@1200 PO 10/10/17 12:00 10/13/17 11:30 (Roxicodone) 5 mg Q4H PRN PO 10/10/17 11:15 10/14/17 04:18 (Roxicodone) 10 mg Q4H PRN PO 10/10/17 11:15 Future Hold 10/12/17 09:54 (Ativan) 0.5 mg Q8HR PRN PO 10/10/17 15:00 Future Hold 10/12/17 11:26 Penicillin G Potassium 1531125 units/Sodium Chloride 100 ml @ 100 mls/hr Q4H IV 10/10/17 20:00 10/14/17 08:25 (Atrovent Neb) 0.5 mg Q2HR NEB PRN NEB 10/12/17 09:15 10/13/17 13:23 (Ativan) 0.5 mg HS PRN PO 10/12/17 18:00 10/13/17 21:33 (Coumadin) 6 mg DAILY@1600 PO 10/13/17 16:00 10/13/17 16:15 Lines PIV Past Medical History CHF Hx IVDU, none in the last 5 years Hypothyroidism Endocarditis Cardiomyopathy Past Surgical History AICD 2012, nonischemic cardiomyopathy AVR 2011 MVR 2015 Cholecystectomy Thyroidectomy. 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 Vital Signs Date Time Temp Pulse Resp B/P (MAP) Pulse Ox O2 Delivery O2 Flow Rate FiO2 10/14/17 09:40 Nasal Cannula 2.00 10/14/17 08:09 97.9 72 17 117/80 (92) 100 10/14/17 08:00 70 10/14/17 04:00 98.2 71 16 116/74 (88) 98 10/14/17 03:41 70 10/14/17 00:00 Nasal Cannula 2.00 10/14/17 00:00 97.8 75 22 98/61 (73) 100 10/13/17 23:51 76 10/13/17 20:00 97.8 74 20 150/65 (93) 100 10/13/17 20:00 Nasal Cannula 2.00 10/13/17 19:45 75 10/13/17 16:17 98.0 70 16 98/68 (78) 100 10/13/17 16:00 70 10/13/17 13:20 98 Nasal Cannula 3.00 10/13/17 12:09 97.6 69 17 108/74 (85) 99 10/13/17 12:00 70 Imaging Last Impressions Myocardial Perfusion Scan Nuc [facility] 10/11/17 0000 Signed Impressions: CONCLUSION: 1. No evidence to suggest ischemic myocardial changes. 2. Prominent global hypokinesis of the entire left ventricle. 3. Significantly diminished cardiac ejection fraction 8%. 4. The left ventricle appears to be dilated. Physical Exam GENERAL: awake and alert, not in respiratory distress. SKIN: Warm and dry. No generalized rash, no ecchymoses and no evidence of embolic lesions. HEAD: Atraumatic. Normocephalic. No temporal wasting, or tenderness. EYES: [place] conjunctiva. No petechia or hemorrhage. Pupils equal, round and reactive to light. Extraocular movements full and intact. No scleral icterus. No injection or drainage. EARS, NOSE AND THROAT: Nose without bleeding or purulent nasal discharge. No sinus tenderness. Mucous membranes pink and moist. No oral lesions noted. NECK: Trachea midline. Supple and not tender, no meningeal signs CARDIOVASCULAR: Regular rate and rhythm. No murmurs, rubs or gallops heard. (+ ) mechanical valve sound. AICH looks unremarkable with no evidence of infection. RESPIRATORY: Clear to auscultation. Breath sounds equal bilaterally. Has some scattered coarse rales. ABDOMEN: Soft, non-tender, nondistended. Bowel sounds present and normoactive. No guarding. No rebound. No organomegaly. EXTREMITIES: No clubbing, cyanosis, or edema.No joint effusion, has good ROM. No calf tenderness. Well perfused and warm. NEUROLOGICAL: Non-focal PSYCHIATRIC: Normal affect, calm and cooperative. LINE: No evidence of infection Assessment & Plan Remarks IMPRESSION Enterococcal IE, PVE S/P AVR and veg in ICD lead Known cardiomyopathy, EF 20% S/P AVR and MVR Previous IVDU, states last use 5 years ago, continues to use drugs (Snorts cocaine) Renal insufficiency RECOMMENDATION IV PCN and Rocephin Patient has been evaluated by CTS - not a good surgical candidate, has had 2 prior open heart surgery, and has low ejection fraction Also his cardiac Rx maximized and he is still symptomatic His prognosis is very poor D/W Dr Aceves - palliative medicine consult Alejandra Santos MD October 14, 2017 10:38
[2017-10-14] MEDS: cefTRIAXone INJ 2,000 MG in SODIUM CHLORIDE 0.9% INJ 100 ML IV SCH (11:19)
[2017-10-14] MEDS: AZITHROMYCIN 250 MG TAB PO SCH (11:19)
--- NOTE | 2017-10-14 14:40 | PD.CONS ---
Consult Service Palliative Care Consult Requested By Dr. Aceves . Primary Care Physician Unknown Reason for Consultation a. To assist with evaluation and management of symptoms including: Pain, shortness of breath, generalized weakness, b. To assist medical decision maker(s) with: better understanding of current medical conditions; weighing benefits/burdens of medical treatment options; making medical treatment decisions. HPI History of Present Illness Mr. 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 Patient was brought to [facility] emergency room via EMS on 10/09/17 complaining of progressive shortness of breath, fever and coughing for 2 days prior to presenting to the ER. En route to the ER, 80 mg furosemide IV push, Solu-Medrol 125 mg IV push and nitroglycerin was administered by EMS due to concern for pulmonary edema. Patient was also put put on CPAP. Patient was diagnosed with endocarditis in August 2017 and was supposed to continue with penicillin G antibiotic therapy of which he did not comply with. ER course: * Vital signs: Temperature 98.1, pulse 89, respirations 18, blood pressure 94/63 , O2 saturation 100% on FIO2 40% on Venturi mask * Laboratory workup revealed WBC 14.4, hemoglobin 11.7, hematocrit 38.7, platelet count 195, potassium 4.4, BUN/creatinine 30/1.60, calcium 8.3, AST 214 , ALT 371, BNP 1400, lactic acid 3.5, total protein 7.3, albumin 3.4 * Blood cultures collected 10/09/17 collected * Chest x-ray done in [place] ER revealed persistent and slightly enlarged infiltrate lower lateral right lung. * EKG showed ventricular paced rhythm at a rate of 82 bpm with no signs of acute ST changes. * Patient was given nitroglycerin again in the ER and aspirin for chest pain * Patient was transferred to [facility] for further evaluation and treatment under the [facility] hospitalist Cardiology Dr. Altman consulted on 10/10/17 for evaluation and management of chest pain and CHF. Myocardial perfusion scan on 10/11/17 showed no evidence of ischemia, prominent global hypokinesis of entire left ventricle, and significantly diminished cardiac ejection fraction 8%. Cardiology recommended to continue guideline directed medical management and IV antibiotics. Infectious disease Dr. Santos consulted for evaluation and management of endocarditis. Palliative care consulted to assist with symptom management and establishing goals of care. Laboratory workup today revealed PT 17.1, INR 1.7. Vital signs stable. Patient seen and examined in his room. Patient is in bed . Patient complaining of chest discomfort especially when he sneezes and nausea. Bedside RN in room medicating patient with Zofran IVP. Patient is alert, oriented to self, place and situation. Patient appears to understand the severity of his illness. Obtained past medical history, psychosocial history and events leading to this hospitalization. Discussed his last hospitalization when he was treated for endocarditis. Patient mentioned that he was not able to follow up with treatment because he has not been able to get a PCP who accepts his medical insurance. Regarding social life, patient admits to a history of IVD use that he quit 5 years ago and occasional cocaine snorting especially when he misses his mother. Last use being around mother`s day time. Discussed concern regarding his medical condition, lifestyle choices and that if he is not compliant with treatment he will from further complications. Patient understands that with his medical condition he has to follow up with a physician. Patient has never completed advance directives but would like to complete a Health care surrogate (HCS) form today. Patient has designated his ex - Tejal Esquivel as his HCS and his father Prudencio Chapman as his alternate HCS. Addressed code status, discussed CPR limitations, complications and benefits given his medical condition. Patient elected full code and all measures possible to keep him alive including intubation if needed. Patient would like assistance with finding a physician to follow up with after discharge from the hospital. Function/Cognitive Trajectory Patient`s last hospitalization was in August, and was seen at [facility] ER October 06, 2017 for chest pain. Patient is independent of all his ADLs at home. He complains of dyspnea with exertion. . Review of Systems Constitutional: COMPLAINS OF: Fever, DENIES: Weight loss, Change in appetite Eyes: DENIES: Eye inflammation Ears, nose, mouth, throat: DENIES: Hearing loss, Nasal discharge Respiratory: COMPLAINS OF: Cough, Wheezing, Shortness of breath Cardiovascular: COMPLAINS OF: Chest pain, Dyspnea on Exertion, DENIES: Palpitations, Lower Extremity Edema Gastrointestinal: COMPLAINS OF: Nausea, DENIES: Abdominal pain, Constipation, Vomiting, Dyspepsia or heartburn, Vomiting blood Genitourinary: DENIES: Urinary incontinence Hematologic/Lymphatics: DENIES: Bruising Neurologic: DENIES: Headache, Localized weakness Psychiatric: DENIES: Confusion, Hallucinations, Agitation Past Family Social History Coded Allergies: gentamicin (Verified Allergy, Severe, Itching, 09/03/17) ketorolac (Verified Allergy, Severe, Hotflash, 09/03/17) linezolid (Verified Allergy, Severe, Itching, 09/03/17) vancomycin (Verified Adverse Reaction, Severe, Itching, 09/05/17) gets hot and itchy, 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 Eye surgery as an infant . Reported Medications Coreg (Carvedilol) 6.25 Mg Tab 6.25 Mg PO BID Levothyroxine (Levothyroxine Sodium) 50 Mcg Tab 50 Mcg PO DAILY Furosemide 20 Mg Tab 20 Mg PO BID@09,18 30 Days Coumadin (Warfarin) 5 Mg Tab 5 Mg PO DAILY@1600 30 Days Enalapril (Enalapril Maleate) 2.5 Mg Tab 2.5 Mg PO DAILY 30 Days . Current Medications Medications (Trade) Dose Ordered Sig/Baudilio Route Start Time Stop Time Status Last Admin (NS Flush) 2 ml BID IV FLUSH 10/09/17 21:00 10/14/17 08:24 (NS Flush) 2 ml UNSCH PRN IV FLUSH 10/09/17 16:15 10/14/17 04:20 (KCl) 20 meq DAILY PO 10/10/17 09:00 10/14/17 08:24 (Ecotrin Ec) 81 mg DAILY PO 10/10/17 09:00 10/14/17 08:25 (Lasix Inj) 20 mg BID@0900,1800 IV PUSH 10/09/17 18:32 10/14/17 08:24 (Lovenox Inj) 80 mg Q12H SQ 10/09/17 18:45 10/14/17 05:59 (Coreg) 6.25 mg BID PO 10/10/17 09:00 10/14/17 08:24 (Vasotec) 2.5 mg DAILY PO 10/10/17 09:00 10/14/17 08:24 (Synthroid) 50 mcg DAILY@0600 PO 10/10/17 06:00 10/14/17 05:59 Pharmacy Profile Note 0 ml @ 0 mls/hr UNSCH OTHER 10/10/17 10:30 Ceftriaxone Sodium 2000 mg/ Sodium Chloride 100 ml @ 200 mls/hr Q24H IV 10/10/17 12:00 10/14/17 11:19 (Zithromax) 500 mg DAILY@1200 PO 10/10/17 12:00 10/14/17 11:19 (Roxicodone) 5 mg Q4H PRN PO 10/10/17 11:15 10/14/17 11:19 (Roxicodone) 10 mg Q4H PRN PO 10/10/17 11:15 Future Hold 10/12/17 09:54 (Ativan) 0.5 mg Q8HR PRN PO 10/10/17 15:00 Future Hold 10/12/17 11:26 Penicillin G Potassium 0020036 units/Sodium Chloride 100 ml @ 100 mls/hr Q4H IV 10/10/17 20:00 10/14/17 11:19 (Atrovent Neb) 0.5 mg Q2HR NEB PRN NEB 10/12/17 09:15 10/13/17 13:23 (Ativan) 0.5 mg HS PRN PO 10/12/17 18:00 10/13/17 21:33 (Coumadin) 6 mg DAILY@1600 PO 10/13/17 16:00 10/13/17 16:15 (Coumadin) 1 mg ONCE ONCE PO 10/14/17 16:00 10/14/17 16:01 Family History Mother from liver failure. History of EtOH abuse Paternal grandfather has had condition . Substance Use Tobacco: Smokes half a pack per day Alcohol:Occasionally drinks beer Prescription med abuse:Denies Illicits: History of IV drug abuse, states last use 5 years ago. Continues to use drugs(snorts cocaine). . Psychosocial History Patient was born in [place], [place]. Patient was once and . He has 2 minor daughters 10 and 13 years old. He recently relocated to [place] and currently lives with his ex- Tejal Banks. 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 He stopped working about 2-3 years ago due to medical problems. Patient`s mother when he was 23 years old. . Spiritual/Cultural Factors No hoahaoism affiliation. . Living Will: Never completed Health Care Surrogate: Copy in medical record Durable Power of Domestic Laundry Worker: Never completed Date completed: 10/14/2017 . Health Care Surrogate(s): Ex-- [facility]- Darren Toure- [phone] Father- Alternate [facility]- Mukund Chapmanr - [phone] . Today's verbally stated goals: Patient hopeful that he gets antibiotic therapy and will be able to be discharged home. . Ethical and Legal Issues None identified at this time . Physical Exam Vital Signs Date Time Temp Pulse Resp B/P (MAP) Pulse Ox O2 Delivery O2 Flow Rate FiO2 10/14/17 12:20 98.4 70 17 106/57 (73) 100 10/14/17 12:00 70 10/14/17 09:40 Nasal Cannula 2.00 10/14/17 08:09 97.9 72 17 117/80 (92) 100 10/14/17 08:00 70 10/14/17 04:00 98.2 71 16 116/74 (88) 98 10/14/17 03:41 70 10/14/17 00:00 Nasal Cannula 2.00 10/14/17 00:00 97.8 75 22 98/61 (73) 100 10/13/17 23:51 76 10/13/17 20:00 97.8 74 20 150/65 (93) 100 10/13/17 20:00 Nasal Cannula 2.00 10/13/17 19:45 75 10/13/17 16:17 98.0 70 16 98/68 (78) 100 10/13/17 16:00 70 Exam CONSTITUTIONAL/GENERAL: This is an adequately nourished patient, in no acute distress. TUBES/LINES/DRAINS:PIV SKIN: No jaundice, rashes, or lesions. Ecchymoses on upper extremities. No wounds seen anteriorly. Skin temperature appropriate. Not diaphoretic. HEAD: Atraumatic. Normocephalic. EYES: Pupils equal and round and reactive. Extraocular motions intact. No scleral icterus. No injection or drainage. Fundi not examined. ENT: Hearing grossly normal. Nose without bleeding or purulent drainage. Throat without visible erythema, exudates, masses, or lesions. NECK: Trachea midline. Supple, nontender. CARDIOVASCULAR: Regular rate and rhythm without murmurs, gallops, or rubs. No JVD. Peripheral pulses symmetric. RESPIRATORY/CHEST: Symmetric, unlabored respirations. Scattered rhonchi to auscultation, no wheezing GASTROINTESTINAL: Abdomen soft, non-tender, nondistended.Bowel sounds present. GENITOURINARY: Without palpable bladder distension. MUSCULOSKELETAL: Extremities without clubbing, cyanosis, or edema. No joint tenderness or effusion noted. No calf tenderness. No mottling or clubbing. NEUROLOGICAL: Awake and alert. Motor and sensory grossly within normal limits. Follows commands. Moves all extremities. PSYCHIATRIC: No obvious anxiety/depression. no apparent hallucinations or other psychotic thought process. Diagnostic Tests Laboratory Laboratory Tests Test 10/12/17 05:30 10/13/17 06:25 10/14/17 08:47 Prothrombin Time 16.9 SEC (9.8-11.6) 17.7 SEC (9.8-11.6) 17.1 SEC (9.8-11.6) Prothromb Time International Ratio 1.7 RATIO 1.7 RATIO 1.7 RATIO Result Diagram: 10/11/17 0630 10/11/17 0630 Imaging Last Impressions Myocardial Perfusion Scan Nuc Med 10/11/17 0000 Signed Impressions: CONCLUSION: 1. No evidence to suggest ischemic myocardial changes. 2. Prominent global hypokinesis of the entire left ventricle. 3. Significantly diminished cardiac ejection fraction 8%. 4. The left ventricle appears to be dilated. Patient/Family Conference Family Conference Location: Bedside Issues Discussed: * Palliative care role, purpose, approach * Additional medical, psychosocial, and spiritual history * Patients general health, functional status, and cognitive changes in the months leading up to the current hospitalization * Patient/family understanding of the current medical problems * Patient/family understanding of prognosis * Patients goals of care as best understood from advance directives and/or conversations and/or values * Current medical treatment options and benefits/burdens of those options * Likely scenarios comparing ongoing aggressive care with a transition to comfort measures only * Questions answered to the best of my ability * Palliative care contact information provided Assessment and Plan Disease Oriented Problem List: (1) Endocarditis (2) Pneumonia (3) Acute on chronic renal failure (4) CHF (congestive heart failure) Symptom Scale: (1) Pain (2) Shortness of breath (3) Generalized weakness Pertinent Non-Medical Issues Psychosocial:Patient was born in [place], [place]. Patient was once and . He has 2 minor daughters 10 and 13 years old. He recently relocated to [place] and currently lives with his ex- Tejal Banks. Patient used to work for a [employer]. He stopped working about 2-3 years ago due to medical problems. Patient`s mother when he was 23 years old. Spiritual:No hoahaoism affiliation. Legal:Completed and signed HCS form today Ethical issues impacting care: None identified at this time. . Important Contacts Ex-- HCS- Darren Toure- [phone] Father- Alternate HCS- Prudencio Chapman - [phone] . Prognosis Mr. 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 Patient was brought to [facility] emergency room via EMS on 10/09/17 complaining of progressive shortness of breath, fever and coughing for 2 days prior to presenting to the ER. Patient was diagnosed with endocarditis in August 2017 and was supposed to continue with penicillin antibiotic therapy for which he did not comply with. Given prior to open heart surgeries, a low ejection fraction and other ongoing multiple comorbidities, patient remains at very high risk for further complications, deterioration and decline especially if he cannot comply with treatment. . Code Status: Full Code Plan PLAN: Legal decision maker:Patient is able to participate in medical decision making. In the event that he is incapacitated , he has designated his ex- Tejal Esquivel as his HCS and his father Prudencio Chapman 89 as his alternate HCS. Goals: Aggressive- Addressed code status, discussed CPR limitations, complications and benefits given his medical condition. Patient elected full code and all measures possible to keep him alive including intubation if needed. Patient would like assistance with finding a physician to follow up with after discharge from the hospital. CODE STATUS: Full Code SYMPTOMS: * Pain: Patient complaining of chest pain and generalized pain. Managed with Roxicodone 5-10 mg q 4 hrs prn. Reports chest discomfort with cough or activity otherwise currently denies pain. No recommendations. * Shortness of breath: Patient has history of CHF. Chest x-ray showed persistent and slightly enlarging right lateral lower lobe infiltrate. On furosemide. Patient on antibiotics for pneumonia and on supplemental oxygen. Duo nebs available as needed.No recommendations. * Generalized weakness: Progressive. Patient has history of CHF and he has an ejection fraction of 20%. Recommending consulting physical therapy. Palliative care will continue to follow the patient during hospital course as condition evolves, to assist patient/decision-maker with understanding of their medical conditions, weighing benefits/burdens of treatment options, for clarification of goals of treatment. Additionally will assist with any symptoms of palliative concern Thank you for the opportunity to participate in the care of Mr. Chapman. Attestation To help prompt me to consider important information that might be impacting today's encounter and assessment, information from prior notes written by myself or my colleagues may have been "brought forward" into today's note. My signature on this note, however, is an attestation that I personally performed the exam, history, and/or decision-making noted today, and, unless otherwise indicated, the interactions with patient, family, and staff as well as the review of records all occurred today. I also attest that the listed assessment and stated plan reflect my best clinical judgment today based on the combination of historical information, prior notes, and today's exam/ interactions. When time spent is documented, it refers only to time spent today by the signer, or if indicated, combined time spent today by collaborating physician/nurse practitioner. Umang Pedraza October 14, 2017 14:40
[2017-10-14] MEDS: WARFARIN SOD 6 MG TAB PO SCH (15:14)
[2017-10-14] MEDS: ONDANSETRON ODT 4 MG TAB PO PRN (15:14)
[2017-10-14] MEDS ORDERED: WARFARIN SOD 1 MG TAB PO ONE (16:00)
[2017-10-14] MEDS: LORazepam 0.5 MG TAB PO PRN (19:10)
[2017-10-15] VITALS (9 sets, daily range): BP systolic 97–118; BP diastolic 64–82; PULSE 70–103; RESP 17–20; TEMP 97.6–98; O2SAT 96–100
[2017-10-15] MEDS: PENICILLIN G POTASSIUM INJ 3,000,000 UNITS in SODIUM CHLORIDE 0.9% INJ 100 ML IV SCH ×6 (03:55→23:13)
[2017-10-15 05:38] LABS: INTERNATIONAL NORMALIZED RATIO 1.6 RATIO; PROTHROMBIN TIME - PATIENT 16.2 SEC (9.8-11.6)
[2017-10-15] MEDS: LEVOTHYROXINE SODIUM 50 MCG TAB PO SCH (06:52)
[2017-10-15] MEDS: ENOXAPARIN SODIUM 80 MG/0.8 ML SYRINGE SQ SCH ×3 (06:53→19:24)
[2017-10-15] MEDS: POTASSIUM CHLORIDE 20 MEQ CONTROLLED RELEASE TAB PO SCH ×2 (08:31→10:20)
[2017-10-15] MEDS: LORazepam 0.5 MG TAB PO PRN ×2 (08:31→23:14)
[2017-10-15] MEDS: ASPIRIN EC 81 MG TABEC PO SCH (08:34)
[2017-10-15] MEDS: SODIUM CHLORIDE 0.9% FLUSH 10 ML FLUSH IV FLUSH SCH ×2 (08:48→21:38)
--- NOTE | 2017-10-15 10:00 | HHI.PR ---
Subjective Remarks in no acute distress. still with some sob. no fever. Objective Vitals Vital Signs Date Time Temp Pulse Resp B/P (MAP) Pulse Ox O2 Delivery O2 Flow Rate FiO2 10/15/17 09:24 98 Nasal Cannula 2.00 10/15/17 04:00 97.6 88 20 113/72 (86) 98 10/15/17 04:00 70 10/15/17 00:00 75 10/15/17 00:00 98.0 74 20 118/82 (94) 97 10/14/17 20:00 74 10/14/17 20:00 98.2 100 20 100/76 (84) 98 10/14/17 20:00 Nasal Cannula 2.00 10/14/17 17:44 100 Nasal Cannula 2.00 10/14/17 16:09 97.2 73 17 104/67 (79) 100 10/14/17 16:00 71 10/14/17 12:20 98.4 70 17 106/57 (73) 100 10/14/17 12:00 70 I/O 10/14/17 10/14/17 10/14/17 10/15/17 10/15/17 10/15/17 07:00 15:00 23:00 07:00 15:00 23:00 Intake Total 960 ml 840 ml Balance 960 ml 840 ml Intake Oral 960 ml 840 ml # Voids 2 4 # Bowel Movements 0 Result Diagram: 10/11/17 0630 10/11/17 0630 Imaging Last Impressions Myocardial Perfusion Scan Nuc Med 10/11/17 0000 Signed Impressions: CONCLUSION: 1. No evidence to suggest ischemic myocardial changes. 2. Prominent global hypokinesis of the entire left ventricle. 3. Significantly diminished cardiac ejection fraction 8%. 4. The left ventricle appears to be dilated. Objective Remarks GENERAL: This is a well-nourished, well-developed patient, in no apparent distress. CARDIOVASCULAR: Regular rate and regular rhythm with clicky sound in LSB. RESPIRATORY: Clear to auscultation. Breath sounds equal bilaterally. No wheezes , rales, or rhonchi. GASTROINTESTINAL: Abdomen soft, non-tender, nondistended. Normal, active bowel sounds MUSCULOSKELETAL: Extremities without clubbing, cyanosis, or edema. NEURO: Alert & Oriented x4 to person, place, time, situation. Moves all ext x4 Medications and IVs Inpatient Medications Albuterol/ Ipratropium (Duoneb Neb) 1 ampule Q4HR NEB NEB ; Start 10/12/17 at 10:00; Stop 10/12/17 at 20:00; Status DC Aspirin (Ecotrin Ec) 81 mg DAILY PO Last administered on 10/15/17at 08:34; Start 10/10/17 at 09:00 Azithromycin (Zithromax) 500 mg DAILY@1200 PO Last administered on 10/14/17at 11 :19; Start 10/10/17 at 12:00 Azithromycin 500 mg/Sodium Chloride 250 ml @ 250 mls/hr Q24H IV ; Start at 13:00; Stop 10/10/17 at 13:00; Status DC Carvedilol (Coreg) 6.25 mg BID PO Last administered on 10/14/17at 23:51; Start 10/10/17 at 09:00 Cefepime HCl 2000 mg/Sodium Chloride 100 ml @ 200 mls/hr Q8H IV Last administered on 10/10/17at 05:46; Start 10/09/17 at 21:00; Stop 10/10/17 at 11:08 ; Status DC Ceftriaxone Sodium 2000 mg/ Sodium Chloride 100 ml @ 200 mls/hr Q24H IV Last administered on 10/14/17at 11:19; Start 10/10/17 at 12:00 Enalapril Maleate (Vasotec) 2.5 mg DAILY PO Last administered on 10/14/17at 08: 24; Start 10/10/17 at 09:00 Enoxaparin Sodium (Lovenox Inj) 80 mg Q12H SQ Last administered on 10/15/17at 06 :53; Start 10/09/17 at 18:45 Furosemide (Lasix Inj) 20 mg BID@0900,1800 IV PUSH Last administered on at 16:58; Start 10/09/17 at 18:32 Ipratropium Page (Atrovent Neb) 0.5 mg Q2HR NEB PRN NEB SHORTNESS OF BREATH Last administered on 10/13/17at 13:23; Start 10/12/17 at 09:15 Levothyroxine Sodium (Synthroid) 50 mcg DAILY@0600 PO Last administered on 10/15at 06:52; Start 10/10/17 at 06:00 Lorazepam (Ativan Inj) 0.5 mg ONCE ONCE IV PUSH Last administered on 01:25; Start 10/10/17 at 01:15; Stop 10/10/17 at 01:16; Status DC Lorazepam (Ativan) 0.5 mg Q12HR PRN PO ANXIETY Last administered on 10/15/17 08:31; Start 10/14/17 at 19:00 Ondansetron HCl (Zofran Odt) 4 mg Q8HR PRN PO NAUSEA Last administered on 10/14 15:14; Start 10/14/17 at 14:45 Oxycodone HCl (Roxicodone) 10 mg Q4H PRN PO PAIN 8-10 Last administered on 10/15 08:32; Start 10/14/17 at 16:00 Patient Medication Teaching (Coumadin Booklet) 1 ONCE ONCE OTHER Last administered on 10/09/17 18:36; Start 10/09/17 at 17:00; Stop 10/09/17 at 17:01 ; Status DC Penicillin G Potassium [id number] units/Sodium Chloride 100 ml @ 100 mls/hr Q4H IV Last administered on 10/15/17at 08:34; Start 10/10/17 at 20:00 Pharmacy Profile Note 0 ml @ 0 mls/hr UNSCH OTHER ; Start 10/10/17 at 10:30 Potassium Chloride (KCl) 20 meq DAILY PO Last administered on 10/15/17at 08:31; Start 10/10/17 at 09:00 Sodium Chloride (NS Flush) 2 ml UNSCH PRN IV FLUSH FLUSH AFTER USING IV ACCESS Last administered on 10/14/17at 04:20; Start 10/09/17 at 16:15 Warfarin Sodium (Coumadin) 1 mg ONCE ONCE PO Last administered on 10/14/17at 15 :14; Start 10/14/17 at 16:00; Stop 10/14/17 at 16:01; Status DC A/P Problem List: (1) Pneumonia ICD Code: J18.9 - Pneumonia, unspecified organism (2) CHF (congestive heart failure) ICD Code: I50.9 - Heart failure, unspecified Status: Chronic (3) Sepsis ICD Code: A41.9 - Sepsis, unspecified organism (4) Chest pain ICD Code: R07.9 - Chest pain, unspecified Status: Acute (5) Acute on chronic renal failure ICD Code: N17.9 - Acute kidney failure, unspecified; N18.9 - Chronic kidney disease, unspecified Assessment and Plan A/P Pneumonia -Chest x-ray shows persistent and slightly enlarging right lateral lower lobe infiltrate -Antibiotics;Pencillin G- Rocephin/zithromax- per ID. -Supplemental oxygen titrated to maintain oxygen saturation greater than 92% -neb treatment -ID following. Congestive heart failure s/p aortic/mitral valve replacement recent admission because of BC with Enterococcus faecalis, has vegetation in AVR and possibly in ICD leads- was discharged on Penicillin G but he says that he wasn't able to get the antibiotics after discharge. -started back on penicillin G- per ID. -Lasix 20 mg IV push twice daily with supplemental potassium daily- continue with IV lasix for now. -stress test with no evidence of ischemia -cardiology evaluated and signed off. -Continuous cardiac telemetry to monitor for arrhythmia -continue Lovenox and Coumadin till INR is therapeutic. Sepsis - WBC elevated at 14.4 wityh significant neutrophilia - Lactic acid 3.5 on admission and 1.9 on repeat - continue antibiotics - - will continue to monitor CKD -Monitor BMP -Avoid nephrotoxins generalized weakness- will consult PT. DVT prophylaxis -Patient is being given therapeutic Lovenox as well as Coumadin -continue to monitor INR overall poor prognosis- consulted palliative care. Discharge Planning on IV antibiotics- not ready for discharge. Problem Qualifiers (1) CHF (congestive heart failure): (2) Sepsis: Qualified Codes: A40.8 - Other streptococcal sepsis Tulio Aceves MD October 15, 2017 10:00
[2017-10-15] MEDS: ENALAPRIL MALEATE 2.5 MG TAB PO SCH (10:20)
[2017-10-15] MEDS: CARVEDILOL 6.25 MG TAB PO SCH ×2 (10:20→21:42)
[2017-10-15] MEDS: FUROSEMIDE 20 MG/2 ML VIAL IV PUSH SCH ×3 (10:21→19:24)
[2017-10-15] MEDS: AZITHROMYCIN 250 MG TAB PO SCH (12:24)
[2017-10-15] MEDS: cefTRIAXone INJ 2,000 MG in SODIUM CHLORIDE 0.9% INJ 100 ML IV SCH (14:20)
[2017-10-15] MEDS: WARFARIN SOD 7.5 MG TAB PO SCH (16:21)
[2017-10-15] MEDS: RESP: IPRATROPIUM 0.5 MG/2.5 ML NEB NEB PRN (18:23)
[2017-10-16] VITALS (8 sets, daily range): BP systolic 99–137; BP diastolic 54–95; PULSE 69–87; RESP 16–20; TEMP 97.2–99.2; O2SAT 91–100
[2017-10-16] MEDS: PENICILLIN G POTASSIUM INJ 3,000,000 UNITS in SODIUM CHLORIDE 0.9% INJ 100 ML IV SCH ×6 (04:09→23:25)
[2017-10-16] MEDS: LEVOTHYROXINE SODIUM 50 MCG TAB PO SCH (06:17)
[2017-10-16] MEDS: LORazepam 0.5 MG TAB PO PRN ×2 (06:18→22:42)
[2017-10-16 07:42] LABS: AUTOMATED NEUTROPHIL # 4.5 TH/MM3 (1.8-7.7); BASOPHIL # 0.1 TH/MM3 (0-0.2); EOSINOPHIL # 0.2 TH/MM3 (0-0.4); EOSINOPHIL % 3.6 % (0.0-4.0); HEMOGLOBIN 8.8 GM/DL (13.0-17.0); LYMPH % 13.7 % (9.0-44.0); LYMPHOCYTE # 0.8 TH/MM3 (1.0-4.8); MEAN CELL VOLUME 78.1 FL (80.0-100.0); MEAN CORPUSCULAR HEMOGLOBIN 25.5 PG (27.0-34.0); MEAN CORPUSCULAR HGB CONC 32.7 % (32.0-36.0); MONO % 8.4 % (0.0-8.0); MONOCYTE # 0.5 TH/MM3 (0-0.9); NEUT % 73.3 % (16.0-70.0); PLATELET COUNT 108 TH/MM3 (150-450); RED BLOOD COUNT 3.46 MIL/MM3 (4.50-5.90); RED CELL DISTRIBUTION WIDTH 18.6 % (11.6-17.2); WHITE BLOOD COUNT 6.1 TH/MM3 (4.0-11.0)
[2017-10-16 07:52] LABS: PROTHROMBIN TIME - PATIENT 20.1 SEC (9.8-11.6)
[2017-10-16] MEDS: SODIUM CHLORIDE 0.9% FLUSH 10 ML FLUSH IV FLUSH SCH ×2 (08:10→20:58)
[2017-10-16] MEDS: ENALAPRIL MALEATE 2.5 MG TAB PO SCH (08:10)
[2017-10-16] MEDS: ASPIRIN EC 81 MG TABEC PO SCH (08:10)
[2017-10-16] MEDS: CARVEDILOL 6.25 MG TAB PO SCH ×2 (08:10→20:58)
[2017-10-16 08:12] LABS: ALT (GPT) 114 U/L (12-78); AST (GOT) 50 U/L (15-37); BICARBONATE 29.9 MEQ/L (21.0-32.0); BLOOD UREA NITROGEN 24 MG/DL (7-18); CALCIUM 7.9 MG/DL (8.5-10.1); CHLORIDE 100 MEQ/L (98-107); CREATININE 1.44 MG/DL (0.60-1.30); GLOMERULAR FILTRATION RATE 56 ML/MIN (>89); GLUCOSE,RANDOM 107 MG/DL (74-106); SODIUM (NA) 138 MEQ/L (136-145)
[2017-10-16 08:14] LABS: ALKALINE PHOSPHATASE 90 U/L (45-117); TOTAL BILIRUBIN ADULT 0.4 MG/DL (0.2-1.0); TOTAL PROTEIN 6.7 GM/DL (6.4-8.2)
--- NOTE | 2017-10-16 10:28 | HHI.PR ---
Subjective Remarks in no acute distress. sob is improving. remains afebrile. Objective Vitals Vital Signs Date Time Temp Pulse Resp B/P (MAP) Pulse Ox O2 Delivery O2 Flow Rate FiO2 10/16/17 08:48 98.2 75 18 107/64 (78) 99 10/16/17 04:00 70 10/16/17 04:00 98.6 80 16 111/74 (86) 98 10/16/17 04:00 Nasal Cannula 2.00 10/16/17 00:00 98.3 80 17 99/76 (84) 100 10/16/17 00:00 Nasal Cannula 2.00 10/16/17 00:00 72 10/15/17 20:00 103 10/15/17 20:00 Nasal Cannula 2.00 10/15/17 18:43 100 Non-Rebreather 15.00 10/15/17 17:47 98 2.00 10/15/17 16:00 97.6 80 17 97/64 (75) 98 10/15/17 12:00 97.7 72 17 101/71 (81) 98 I/O 10/15/17 10/15/17 10/15/17 10/16/17 10/16/17 10/16/17 07:00 15:00 23:00 07:00 15:00 23:00 Intake Total 1000 ml 1200 ml Balance 1000 ml 1200 ml Intake Oral 1000 ml 1200 ml # Voids 5 5 # Bowel Movements 1 Result Diagram: 10/16/17 0703 10/16/17 0703 Imaging Last Impressions Myocardial Perfusion Scan Nuc Med 10/11/17 0000 Signed Impressions: CONCLUSION: 1. No evidence to suggest ischemic myocardial changes. 2. Prominent global hypokinesis of the entire left ventricle. 3. Significantly diminished cardiac ejection fraction 8%. 4. The left ventricle appears to be dilated. Objective Remarks GENERAL: This is a well-nourished, well-developed patient, in no apparent distress. CARDIOVASCULAR: Regular rate and regular rhythm with clicky sound in LSB. RESPIRATORY: Clear to auscultation. Breath sounds equal bilaterally. No wheezes , rales, or rhonchi. GASTROINTESTINAL: Abdomen soft, non-tender, nondistended. Normal, active bowel sounds MUSCULOSKELETAL: Extremities without clubbing, cyanosis, or edema. NEURO: Alert & Oriented x4 to person, place, time, situation. Moves all ext x4 Medications and IVs Inpatient Medications Albuterol/ Ipratropium (Duoneb Neb) 1 ampule Q4HR NEB NEB ; Start 10/12/17 at 10:00; Stop 10/12/17 at 20:00; Status DC Aspirin (Ecotrin Ec) 81 mg DAILY PO Last administered on 10/16/17 08:10; Start 10/10/17 at 09:00 Azithromycin (Zithromax) 500 mg DAILY@1200 PO Last administered on 10/15/17at 12 :24; Start 10/10/17 at 12:00 Azithromycin 500 mg/Sodium Chloride 250 ml @ 250 mls/hr Q24H IV ; Start at 13:00; Stop 10/10/17 at 13:00; Status DC Carvedilol (Coreg) 6.25 mg BID PO Last administered on 10/16/17at 08:10; Start 10/10/17 at 09:00 Cefepime HCl 2000 mg/Sodium Chloride 100 ml @ 200 mls/hr Q8H IV Last administered on 10/10/17at 05:46; Start 10/09/17 at 21:00; Stop 10/10/17 at 11:08 ; Status DC Ceftriaxone Sodium 2000 mg/ Sodium Chloride 100 ml @ 200 mls/hr Q24H IV Last administered on 10/15/17at 14:20; Start 10/10/17 at 12:00 Enalapril Maleate (Vasotec) 2.5 mg DAILY PO Last administered on 10/16/17at 08: 10; Start 10/10/17 at 09:00 Enoxaparin Sodium (Lovenox Inj) 80 mg Q12H SQ Last administered on 10/15/17 19 :24; Start 10/09/17 at 18:45 Furosemide (Lasix Inj) 20 mg BID@0900,1800 IV PUSH Last administered on at 19:24; Start 10/09/17 at 18:32 Ipratropium [place] (Atrovent Neb) 0.5 mg Q2HR NEB PRN NEB SHORTNESS OF BREATH Last administered on 10/15/17at 18:23; Start 10/12/17 at 09:15 Levothyroxine Sodium (Synthroid) 50 mcg DAILY@0600 PO Last administered on 10/16 06:17; Start 10/10/17 at 06:00 Lorazepam (Ativan Inj) 0.5 mg ONCE ONCE IV PUSH Last administered on 01:25; Start 10/10/17 at 01:15; Stop 10/10/17 at 01:16; Status DC Lorazepam (Ativan) 0.5 mg Q12HR PRN PO ANXIETY Last administered on 10/16/17 06:18; Start 10/14/17 at 19:00 Ondansetron HCl (Zofran Odt) 4 mg Q8HR PRN PO NAUSEA Last administered on 10/14 15:14; Start 10/14/17 at 14:45 Oxycodone HCl (Roxicodone) 10 mg Q4H PRN PO PAIN 8-10 Last administered on 10/16 08:10; Start 10/14/17 at 16:00 Patient Medication Teaching (Coumadin Booklet) 1 ONCE ONCE OTHER Last administered on 10/09/17 18:36; Start 10/09/17 at 17:00; Stop 10/09/17 at 17:01 ; Status DC Penicillin G Potassium 0741283 units/Sodium Chloride 100 ml @ 100 mls/hr Q4H IV Last administered on 10/16/17at 09:50; Start 10/10/17 at 20:00 Pharmacy Profile Note 0 ml @ 0 mls/hr UNSCH OTHER ; Start 10/10/17 at 10:30 Potassium Chloride (KCl) 20 meq DAILY PO Last administered on 10/15/17at 10:20; Start 10/10/17 at 09:00 Sodium Chloride (NS Flush) 2 ml UNSCH PRN IV FLUSH FLUSH AFTER USING IV ACCESS Last administered on 10/14/17at 04:20; Start 10/09/17 at 16:15 Warfarin Sodium (Coumadin) 7.5 mg DAILY@1600 PO Last administered on 10/15/17at 16:21; Start 10/15/17 at 16:00 A/P Problem List: (1) Pneumonia ICD Code: J18.9 - Pneumonia, unspecified organism (2) CHF (congestive heart failure) ICD Code: I50.9 - Heart failure, unspecified Status: Chronic (3) Sepsis ICD Code: A41.9 - Sepsis, unspecified organism (4) Chest pain ICD Code: R07.9 - Chest pain, unspecified Status: Acute (5) Acute on chronic renal failure ICD Code: N17.9 - Acute kidney failure, unspecified; N18.9 - Chronic kidney disease, unspecified Assessment and Plan A/P Pneumonia -Chest x-ray shows persistent and slightly enlarging right lateral lower lobe infiltrate -Antibiotics;Pencillin G- Rocephin/zithromax- per ID. -Supplemental oxygen titrated to maintain oxygen saturation greater than 92% -neb treatment -ID following. Congestive heart failure s/p aortic/mitral valve replacement recent admission because of BC with Enterococcus faecalis, has vegetation in AVR and possibly in ICD leads- was discharged on Penicillin G but he says that he wasn't able to get the antibiotics after discharge. -started back on penicillin G- per ID. -Lasix 20 mg IV push twice daily with supplemental potassium daily- will switch to po from tomorrow. continue BB and CARMINE. -stress test with no evidence of ischemia -cardiology evaluated and signed off. -Continuous cardiac telemetry to monitor for arrhythmia -continue Lovenox and Coumadin till INR is therapeutic; will stop Lovenox tomorrow if INR therapeutic. Sepsis - WBC elevated at 14.4 wityh significant neutrophilia - Lactic acid 3.5 on admission and 1.9 on repeat - continue antibiotics - - will continue to monitor CKD -Monitor BMP -Avoid nephrotoxins generalized weakness- consulted PT. DVT prophylaxis -Patient is being given therapeutic Lovenox as well as Coumadin -continue to monitor INR overall poor prognosis- consulted palliative care. Discharge Planning on IV antibiotics- not ready for discharge. Problem Qualifiers (1) CHF (congestive heart failure): (2) Sepsis: Qualified Codes: A40.8 - Other streptococcal sepsis Tulio Aceves MD October 16, 2017 10:28
[2017-10-16] MEDS: AZITHROMYCIN 250 MG TAB PO SCH (12:49)
[2017-10-16] MEDS: cefTRIAXone INJ 2,000 MG in SODIUM CHLORIDE 0.9% INJ 100 ML IV SCH (12:49)
[2017-10-16] MEDS: ONDANSETRON ODT 4 MG TAB PO PRN (15:17)
[2017-10-16] MEDS: WARFARIN SOD 7.5 MG TAB PO SCH (15:18)
[2017-10-16] MEDS: ENOXAPARIN SODIUM 80 MG/0.8 ML SYRINGE SQ SCH (16:56)
[2017-10-16] MEDS: FUROSEMIDE 20 MG/2 ML VIAL IV PUSH SCH (17:00)
[2017-10-17] VITALS: BP 110/69; PULSE 72; PULSE 73; RESP 16; TEMP 98.6; O2SAT 99
[2017-10-17] MEDS: ENOXAPARIN SODIUM 80 MG/0.8 ML SYRINGE SQ SCH (05:08)
[2017-10-17] MEDS: LEVOTHYROXINE SODIUM 50 MCG TAB PO SCH (05:09)
[2017-10-17] MEDS: PENICILLIN G POTASSIUM INJ 3,000,000 UNITS in SODIUM CHLORIDE 0.9% INJ 100 ML IV SCH ×4 (05:09→16:03)
[2017-10-17 05:28] VITALS: BP 119/71; PULSE 70; RESP 14; TEMP 98.1; O2SAT 100
[2017-10-17 07:32] LABS: INTERNATIONAL NORMALIZED RATIO 2.7 RATIO; PROTHROMBIN TIME - PATIENT 27.2 SEC (9.8-11.6)
[2017-10-17 08:08] VITALS: BP 104/78; PULSE 69; RESP 18; TEMP 97.9; O2SAT 100
[2017-10-17] MEDS: ASPIRIN EC 81 MG TABEC PO SCH (08:36)
[2017-10-17] MEDS: ENALAPRIL MALEATE 2.5 MG TAB PO SCH (08:36)
[2017-10-17] MEDS: CARVEDILOL 6.25 MG TAB PO SCH (08:37)
[2017-10-17] MEDS: POTASSIUM CHLORIDE 20 MEQ CONTROLLED RELEASE TAB PO SCH (08:37)
[2017-10-17] MEDS: SODIUM CHLORIDE 0.9% FLUSH 10 ML FLUSH IV FLUSH SCH (08:37)
[2017-10-17] MEDS ORDERED: FUROSEMIDE 40 MG TAB PO SCH (09:00)
[2017-10-17 09:16] VITALS: O2SAT 99
[2017-10-17] MEDS: ONDANSETRON ODT 4 MG TAB PO PRN (09:21)
--- NOTE | 2017-10-17 09:55 | HHI.PR ---
Subjective Remarks ill-looking- on oxygen via [place] no fever. still with exertional dyspnea and on and off chest pain. says that he's feeling weak. Objective Vitals Vital Signs Date Time Temp Pulse Resp B/P (MAP) Pulse Ox O2 Delivery O2 Flow Rate FiO2 10/17/17 09:16 99 Nasal Cannula 2.00 10/17/17 05:28 70 10/17/17 05:28 Nasal Cannula 2.00 10/17/17 05:28 98.1 70 14 119/71 (87) 100 10/17/17 00:00 98.6 73 16 110/69 (83) 99 10/17/17 00:00 72 10/17/17 00:00 Nasal Cannula 2.00 10/16/17 20:26 Nasal Cannula 2.00 10/16/17 20:00 75 10/16/17 20:00 Nasal Cannula 2.00 10/16/17 20:00 99.0 83 16 111/70 (84) 98 10/16/17 17:21 93 Nasal Cannula 2.00 10/16/17 16:48 99.2 87 18 137/74 (95) 91 10/16/17 15:05 98.3 69 16 126/95 (105) 94 10/16/17 12:00 97.2 69 20 102/54 (70) 94 I/O 10/16/17 10/16/17 10/16/17 10/17/17 10/17/17 10/17/17 07:00 15:00 23:00 07:00 15:00 23:00 Intake Total 1200 ml 720 ml 480 ml Output Total 600 ml 600 ml Balance 1200 ml 120 ml -120 ml Intake Oral 1200 ml 720 ml 480 ml Output Urine Total 600 ml 600 ml # Voids 5 2 Result Diagram: 10/16/17 0703 10/16/17 0703 Imaging Last Impressions Myocardial Perfusion Scan Nuc Med 10/11/17 0000 Signed Impressions: CONCLUSION: 1. No evidence to suggest ischemic myocardial changes. 2. Prominent global hypokinesis of the entire left ventricle. 3. Significantly diminished cardiac ejection fraction 8%. 4. The left ventricle appears to be dilated. Objective Remarks GENERAL: This is a well-nourished, well-developed patient, in no apparent distress. CARDIOVASCULAR: Regular rate and regular rhythm with clicky sound in LSB. RESPIRATORY: Clear to auscultation. Breath sounds equal bilaterally. No wheezes , rales, or rhonchi. GASTROINTESTINAL: Abdomen soft, non-tender, nondistended. Normal, active bowel sounds MUSCULOSKELETAL: Extremities without clubbing, cyanosis, or edema. NEURO: Alert & Oriented x4 to person, place, time, situation. Moves all ext x4 Medications and IVs Inpatient Medications Albuterol/ Ipratropium (Duoneb Neb) 1 ampule Q4HR NEB NEB ; Start 10/12/17 at 10:00; Stop 10/12/17 at 20:00; Status DC Aspirin (Ecotrin Ec) 81 mg DAILY PO Last administered on 10/17/17at 08:36; Start 10/10/17 at 09:00 Azithromycin (Zithromax) 500 mg DAILY@1200 PO Last administered on 10/16/17at 12 :49; Start 10/10/17 at 12:00 Azithromycin 500 mg/Sodium Chloride 250 ml @ 250 mls/hr Q24H IV ; Start at 13:00; Stop 10/10/17 at 13:00; Status DC Carvedilol (Coreg) 6.25 mg BID PO Last administered on 10/17/17at 08:37; Start 10/10/17 at 09:00 Cefepime HCl 2000 mg/Sodium Chloride 100 ml @ 200 mls/hr Q8H IV Last administered on 10/10/17at 05:46; Start 10/09/17 at 21:00; Stop 10/10/17 at 11:08 ; Status DC Ceftriaxone Sodium 2000 mg/ Sodium Chloride 100 ml @ 200 mls/hr Q24H IV Last administered on 10/16/17at 12:49; Start 10/10/17 at 12:00 Enalapril Maleate (Vasotec) 2.5 mg DAILY PO Last administered on 10/17/17at 08: 36; Start 10/10/17 at 09:00 Enoxaparin Sodium (Lovenox Inj) 80 mg Q12H SQ Last administered on 10/17/17at 05 :08; Start 10/09/17 at 18:45 Furosemide (Lasix Inj) 20 mg BID@0900,1800 IV PUSH Last administered on at 17:00; Start 10/09/17 at 18:32; Stop 10/16/17 at 20:00; Status DC Furosemide (Lasix) 40 mg DAILY PO ; Start 10/17/17 at 09:00 Ipratropium [place] (Atrovent Neb) 0.5 mg Q2HR NEB PRN NEB SHORTNESS OF BREATH Last administered on 10/15/17 18:23; Start 10/12/17 at 09:15 Levothyroxine Sodium (Synthroid) 50 mcg DAILY@0600 PO Last administered on 10/17 05:09; Start 10/10/17 at 06:00 Lorazepam (Ativan Inj) 0.5 mg ONCE ONCE IV PUSH Last administered on 01:25; Start 10/10/17 at 01:15; Stop 10/10/17 at 01:16; Status DC Lorazepam (Ativan) 0.5 mg Q12HR PRN PO ANXIETY Last administered on 10/16/17 22:42; Start 10/14/17 at 19:00 Ondansetron HCl (Zofran Odt) 4 mg Q8HR PRN PO NAUSEA Last administered on 10/17 09:21; Start 10/14/17 at 14:45 Oxycodone HCl (Roxicodone) 10 mg Q4H PRN PO PAIN 8-10 Last administered on 10/17 09:27; Start 10/14/17 at 16:00 Patient Medication Teaching (Coumadin Booklet) 1 ONCE ONCE OTHER Last administered on 10/09/17 18:36; Start 10/09/17 at 17:00; Stop 10/09/17 at 17:01 ; Status DC Penicillin G Potassium [id number] units/Sodium Chloride 100 ml @ 100 mls/hr Q4H IV Last administered on 10/17/17 08:36; Start 10/10/17 at 20:00 Pharmacy Profile Note 0 ml @ 0 mls/hr UNSCH OTHER ; Start 10/10/17 at 10:30 Potassium Chloride (KCl) 20 meq DAILY PO Last administered on 10/17/17at 08:37; Start 10/10/17 at 09:00 Sodium Chloride (NS Flush) 2 ml UNSCH PRN IV FLUSH FLUSH AFTER USING IV ACCESS Last administered on 10/14/17at 04:20; Start 10/09/17 at 16:15 Warfarin Sodium (Coumadin) 7.5 mg DAILY@1600 PO Last administered on 10/16/17at 15:18; Start 10/15/17 at 16:00 A/P Problem List: (1) Pneumonia ICD Code: J18.9 - Pneumonia, unspecified organism (2) CHF (congestive heart failure) ICD Code: I50.9 - Heart failure, unspecified Status: Chronic (3) Sepsis ICD Code: A41.9 - Sepsis, unspecified organism (4) Chest pain ICD Code: R07.9 - Chest pain, unspecified Status: Acute (5) Acute on chronic renal failure ICD Code: N17.9 - Acute kidney failure, unspecified; N18.9 - Chronic kidney disease, unspecified Assessment and Plan A/P Pneumonia -Chest x-ray shows persistent and slightly enlarging right lateral lower lobe infiltrate -Antibiotics;Pencillin G- Rocephin- per ID. -Supplemental oxygen titrated to maintain oxygen saturation greater than 92% -neb treatment -ID following. Congestive heart failure s/p aortic/mitral valve replacement recent admission because of BC with Enterococcus faecalis, has vegetation in AVR and possibly in ICD leads- was discharged on Penicillin G but he says that he wasn't able to get the antibiotics after discharge. -started back on penicillin G- per ID. - continue lasix, BB and CARMINE. -stress test with no evidence of ischemia -cardiology evaluated and signed off. -Continuous cardiac telemetry to monitor for arrhythmia -dc Lovenox- continue Coumadin- PT/INR monitoring. Sepsis - WBC elevated at 14.4 wityh significant neutrophilia - Lactic acid 3.5 on admission and 1.9 on repeat - continue antibiotics - - will continue to monitor CKD -Monitor BMP -Avoid nephrotoxins generalized weakness- consulted PT. DVT prophylaxis -Patient is being given therapeutic Lovenox as well as Coumadin -continue to monitor INR poor prognosis- consulted palliative care. had a lengthy d/w the patient; hospice will be consulted per our conversation. Discharge Planning on IV antibiotics- awaiting hospice evaluation. Problem Qualifiers (1) CHF (congestive heart failure): (2) Sepsis: Qualified Codes: A40.8 - Other streptococcal sepsis Tulio Aceves MD October 17, 2017 09:55
[2017-10-17 12:08] VITALS: BP 106/80; PULSE 69; RESP 18; TEMP 97.6; O2SAT 100
[2017-10-17] MEDS: cefTRIAXone INJ 2,000 MG in SODIUM CHLORIDE 0.9% INJ 100 ML IV SCH (12:18)
--- NOTE | 2017-10-17 13:13 | HHI.HCPN ---
Reason for visit a. To assist with evaluation and management of symptoms including: Pain, shortness of breath, generalized weakness, pain and anxiety b. To assist medical decision maker(s) with: better understanding of current medical conditions; weighing benefits/burdens of medical treatment options; making medical treatment decisions. Subjective/Interval History Follow-up medically necessary for symptom management and further clarification of goals of care. Patient seen and examined in his room, sitting at the side of the bed. Patient is lethargic, oriented to self, place and situation. Patient complaining of persistent chest tightness, nausea, feeling anxious and generalized weakness. Patient required 5 prn doses of oxycodone 10mg in the past 24 hrs. Patient was started on lorazepam 0.5 mg for anxiety and last dose was 10/16/17. Patient is on O2 2L NC. Nausea managed with Zofran 4 mg PO. Patient is needed 2 prn doses in the past 24 hours. Patient complaining that he is feeling down today. Patient has had discussions with the medical team and he understands that he has a very poor prognosis. Knowing the extent of his heart disease and that he is a poor candidate for surgery he has decided not to pursue any further aggressive treatment. Patient has decided to enroll in hospice for comfort measures only. His mother under hospice care and patient wants to be kept comfortable until he dies.Patient acknowledges that his health has been progressively deteriorating in the past 3 months. Readdressed code status, patient elected do not resuscitate and do not intubate. Patient mentions that he would not want to leave the burden to his family of withdrawing him from life support. Patient mentioned that if he is resuscitated or intubated he still will have cardiac problems and being resuscitated or intubated will only prolong his suffering. Patient would like to meet up with the etl architect in the presence of his ex- Tejal/ [facility] [phone] and his father Adela, [place]/ Alternate [facility] [phone]. Case discussed with etl architectGail . Family/friend interactions No family at bedside. . Advance Directives Living Will: Never completed Health Care Surrogate: Copy in medical record Durable Power of Leather Whitener: Never completed Advance Directive Specifics Date completed: 10/14/2017 . Health Care Surrogate(s): Ex-- [facility]- Darren Toure- [phone] Father- Alternate [facility]- Mukund Chapmanr - [phone] . Significant change in goals: Patient no longer wants aggressive treatment, he would want to transition to comfort care through hospice services. . Objective Vital Signs Date Time Temp Pulse Resp B/P (MAP) Pulse Ox O2 Delivery O2 Flow Rate FiO2 10/17/17 09:16 99 Nasal Cannula 2.00 10/17/17 08:45 Nasal Cannula 2.00 21 10/17/17 08:08 97.9 69 18 104/78 (87) 100 10/17/17 05:28 70 10/17/17 05:28 Nasal Cannula 2.00 10/17/17 05:28 98.1 70 14 119/71 (87) 100 10/17/17 00:00 98.6 73 16 110/69 (83) 99 10/17/17 00:00 72 10/17/17 00:00 Nasal Cannula 2.00 10/16/17 20:26 Nasal Cannula 2.00 10/16/17 20:00 75 10/16/17 20:00 Nasal Cannula 2.00 10/16/17 20:00 99.0 83 16 111/70 (84) 98 10/16/17 17:21 93 Nasal Cannula 2.00 10/16/17 16:48 99.2 87 18 137/74 (95) 91 10/16/17 15:05 98.3 69 16 126/95 (105) 94 Intake & Output 10/17/17 10/17/17 06:59 18:59 Intake Total 480 ml Output Total 600 ml Balance -120 ml Intake Oral 480 ml Output Urine Total 600 ml Physical Exam CONSTITUTIONAL/GENERAL: This is an adequately nourished patient, in no acute distress, c/o chest discomfort/pain, nausea, generalized weakness. TUBES/LINES/DRAINS:PIV SKIN: No jaundice, rashes, or lesions. Ecchymoses on upper extremities. No wounds seen anteriorly. Skin temperature appropriate. Not diaphoretic. HEAD: Atraumatic. Normocephalic. EYES: Pupils equal and round and reactive. Extraocular motions intact. No scleral icterus. No injection or drainage. Fundi not examined. ENT: Hearing grossly normal. No nasal bleeding or purulent drainage. Moist oral mucosa NECK: Trachea midline. Supple, nontender. CARDIOVASCULAR: Regular rate and rhythm without murmurs, gallops, or rubs. No JVD. Peripheral pulses symmetric. No edema noted RESPIRATORY/CHEST: Symmetric, mildly labored respirations. Clear to auscultation GASTROINTESTINAL: Abdomen soft, non-tender, nondistended.Bowel sounds present. GENITOURINARY: Without palpable bladder distension. MUSCULOSKELETAL: Extremities without clubbing, cyanosis, or edema. No joint tenderness or effusion noted. No calf tenderness. No mottling or clubbing. NEUROLOGICAL: Awake and alert. Motor and sensory grossly within normal limits. Follows commands. Moves all extremities. PSYCHIATRIC: No obvious anxiety/depression. no apparent hallucinations or other psychotic thought process. Diagnostic Tests Laboratory Laboratory Tests Test 10/15/17 04:12 10/16/17 07:03 10/17/17 05:30 Prothrombin Time 16.2 SEC (9.8-11.6) 20.1 SEC (9.8-11.6) 27.2 SEC (9.8-11.6) Prothromb Time International Ratio 1.6 RATIO 2.0 RATIO 2.7 RATIO White Blood Count 6.1 TH/MM3 (4.0-11.0) Red Blood Count 3.46 MIL/MM3 (4.50-5.90) Hemoglobin 8.8 GM/DL (13.0-17.0) Hematocrit 27.0 % (39.0-51.0) Mean Corpuscular Volume 78.1 FL (80.0-100.0) Mean Corpuscular Hemoglobin 25.5 PG (27.0-34.0) Mean Corpuscular Hemoglobin Concent 32.7 % (32.0-36.0) Red Cell Distribution Width 18.6 % (11.6-17.2) Platelet Count 108 TH/MM3 (150-450) Mean Platelet Volume 9.0 FL (7.0-11.0) Neutrophils (%) (Auto) 73.3 % (16.0-70.0) Lymphocytes (%) (Auto) 13.7 % (9.0-44.0) Monocytes (%) (Auto) 8.4 % (0.0-8.0) Eosinophils (%) (Auto) 3.6 % (0.0-4.0) Basophils (%) (Auto) 1.0 % (0.0-2.0) Neutrophils # (Auto) 4.5 TH/MM3 (1.8-7.7) Lymphocytes # (Auto) 0.8 TH/MM3 (1.0-4.8) Monocytes # (Auto) 0.5 TH/MM3 (0-0.9) Eosinophils # (Auto) 0.2 TH/MM3 (0-0.4) Basophils # (Auto) 0.1 TH/MM3 (0-0.2) CBC Comment DIFF FINAL Differential Comment Blood Urea Nitrogen 24 MG/DL (7-18) Creatinine 1.44 MG/DL (0.60-1.30) Random Glucose 107 MG/DL (74-106) Total Protein 6.7 GM/DL (6.4-8.2) Albumin 3.0 GM/DL (3.4-5.0) Calcium Level 7.9 MG/DL (8.5-10.1) Alkaline Phosphatase 90 U/L (45-117) Aspartate Amino Transf (AST/SGOT) 50 U/L (15-37) Alanine Aminotransferase (ALT/SGPT) 114 U/L (12-78) Total Bilirubin 0.4 MG/DL (0.2-1.0) Sodium Level 138 MEQ/L (136-145) Potassium Level 3.9 MEQ/L (3.5-5.1) Chloride Level 100 MEQ/L (98-107) Carbon Dioxide Level 29.9 MEQ/L (21.0-32.0) Anion Gap 8 MEQ/L (5-15) Estimat Glomerular Filtration Rate 56 ML/MIN (>89) Result Diagram: 10/16/17 0703 10/16/17 0703 Assessment and Plan Disease Oriented Problem List: (1) Endocarditis (2) Pneumonia (3) Acute on chronic renal failure (4) CHF (congestive heart failure) Symptom Scale: (1) Pain 0-10 Scale: Unable to quantify Comment: c/o chest discomfort/pain . (2) Shortness of breath 0-10 Scale: Unable to quantify Comment: Hx of CHF, vegetative valvular heart disease. c/o progressive SOB with exertion. . (3) Generalized weakness 0-10 Scale: Unable to quantify Comment: Progressively getting weaker with activity- ambulating short distances . (4) Anxiety 0-10 Scale: Unable to quantify Comment: c/o anxiety. . Pertinent Non-Medical Issues Psychosocial:Patient was born in [place], [place]. Patient was once and . He has 2 minor daughters 10 and 13 years old. He recently relocated to [place] and currently lives with his ex- Tejal Banks. 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 He stopped working about 2-3 years ago due to medical problems. Patient`s mother when he was 23 years old. Spiritual:No christianity affiliation. Legal:Completed and signed HCS form today Ethical issues impacting care: None identified at this time. . Important Contacts Ex-- HCS- Darren Toure- [phone] Father- Alternate HCS- Prudencio Chapman - [phone] . Prognosis Mr. 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 Patient was brought to [facility] emergency room via EMS on 10/09/17 complaining of progressive shortness of breath, fever and coughing for 2 days prior to presenting to the ER. Patient was diagnosed with endocarditis in August 2017 and was supposed to continue with penicillin antibiotic therapy for which he did not comply with. Given prior to open heart surgeries, a low ejection fraction and other ongoing multiple comorbidities, patient remains at very high risk for further complications, deterioration and decline especially if he cannot comply with treatment. . Code Status: No Code Plan PLAN: Legal decision maker:Patient is able to participate in medical decision making. In the event that he is incapacitated , he has designated his ex- Tejal Esquivel as his HCS and his father Prudencio Chapman [phone] as his alternate HCS. Goals: Patient has decided to forgo any further aggressive treatment and wants to transition to comfort care through hospice services. Hospice consult has been placed. CODE STATUS: No Code, DNR/DNI Patient has had discussions with the medical team and he understands that he has a very poor prognosis. Knowing the extent of his heart disease and that he is a poor candidate for surgery he has decided not to pursue any further aggressive treatment. Patient has decided to enroll in hospice for comfort measures only. His mother under hospice care and patient wants to be kept comfortable until he dies. Patient acknowledges that his health has been progressively deteriorating in the past 3 months. Readdressed code status, patient elected do not resuscitate and do not intubate. Patient mentions that he would not want to leave the burden to his family of withdrawing him from life support. Patient mentioned that if he is resuscitated or intubated he still will have cardiac problems and being resuscitated or intubated will only prolong his suffering. Patient would like to meet up with the etl architect in the presence of his ex- Tejal/ [facility] Darren [phone] and his father Adela, Freeman/ Alternate [facility] [phone]. SYMPTOMS: * Pain: Patient complaining of progressive chest discomfort and generalized pain. Patient required 5 prn doses of oxycodone 10mg in the past 24 hrs. * Shortness of breath: Patient has history of CHF. Chest x-ray showed persistent and slightly enlarging right lateral lower lobe infiltrate. On furosemide. Patient c/o progressive SOB. Currently on O2 2L NC.Patient was also started on Lorazepam for anxiety which most likely contributed to SOB. Duo nebs available as needed.No recommendations. * Anxiety: Patient was started on lorazepam 0.5 mg for anxiety and last dose was 10/16/17. No recommendations at this time. * Generalized weakness: Progressive. Patient has history of CHF . Myocardial perfusion scan showed significantly diminished cardia ejection fraction 8%. PT consulted, recommended home with no PT. Patient is limited to how much he can participate due to SOB with exertion. Palliative care will continue to follow the patient during hospital course as condition evolves, to assist patient/decision-maker with understanding of their medical conditions, weighing benefits/burdens of treatment options, for clarification of goals of treatment. Additionally will assist with any symptoms of palliative concern Attestation To help prompt me to consider important information that might be impacting today's encounter and assessment, information from prior notes written by myself or my colleagues may have been "brought forward" into today's note. My signature on this note, however, is an attestation that I personally performed the exam, history, and/or decision-making noted today, and, unless otherwise indicated, the interactions with patient, family, and staff as well as the review of records all occurred today. I also attest that the listed assessment and stated plan reflect my best clinical judgment today based on the combination of historical information, prior notes, and today's exam/ interactions. When time spent is documented, it refers only to time spent today by the signer, or if indicated, combined time spent today by collaborating physician/nurse practitioner. Umang Pedraza October 17, 2017 13:13
[2017-10-17] MEDS ORDERED: MORPHINE SULFATE 15 MG CONTROLLED RELEASE TAB PO SCH (13:15)
[2017-10-17 16:08] VITALS: BP 115/79; PULSE 69; RESP 18; TEMP 97.8; O2SAT 100
--- NOTE | 2017-10-17 17:45 | HHI.DS ---
Discharge Summary Admission Date October 09, 2017 at 18:00 Discharge Date: October 17, 2017 Admitting Diagnosis Right lower lobe pneumonia, CHF . (1) Pneumonia ICD Code: J18.9 - Pneumonia, unspecified organism Diagnosis: Principal (2) CHF (congestive heart failure) ICD Code: I50.9 - Heart failure, unspecified Diagnosis: Principal Status: Chronic (3) Sepsis ICD Code: A41.9 - Sepsis, unspecified organism Diagnosis: Principal (4) Chest pain ICD Code: R07.9 - Chest pain, unspecified Diagnosis: Principal Status: Acute (5) Acute on chronic renal failure ICD Code: N17.9 - Acute kidney failure, unspecified; N18.9 - Chronic kidney disease, unspecified Diagnosis: Principal Procedures none Brief History - From Admission Mr. 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 A chest x-ray done in the emergency department in [place] showed slightly worse right lower lobe infiltrate and the patient had been given Lasix 80 mg by EMS for bilateral crackles as well as Solu-Medrol 125 mg and CPAP. CHF was not noted on chest x- ray but his BNP was noted to be elevated above baseline at 1400. He was transferred to [facility] under the hospitalist service for medical management of pneumonia, congestive heart failure, and sepsis. Admission lactic acid was 3.5. The patient is seen in his hospital room. He reports SOB, cough, fever for the past 2 - 3 days with moderate chest tightness, midsternal, radiating to left neck. He reports chills and nausea over the past few days. His symptoms have not been relieved by anything. He reports feeling anxious and having muscle spasms all over. CBC/BMP: 10/16/17 0703 10/16/17 0703 Significant Findings Laboratory Tests Test 10/15/17 04:12 10/16/17 07:03 10/17/17 05:30 Prothrombin Time 16.2 SEC (9.8-11.6) 20.1 SEC (9.8-11.6) 27.2 SEC (9.8-11.6) Red Blood Count 3.46 MIL/MM3 (4.50-5.90) Hemoglobin 8.8 GM/DL (13.0-17.0) Hematocrit 27.0 % (39.0-51.0) Mean Corpuscular Volume 78.1 FL (80.0-100.0) Mean Corpuscular Hemoglobin 25.5 PG (27.0-34.0) Red Cell Distribution Width 18.6 % (11.6-17.2) Platelet Count 108 TH/MM3 (150-450) Neutrophils (%) (Auto) 73.3 % (16.0-70.0) Monocytes (%) (Auto) 8.4 % (0.0-8.0) Lymphocytes # (Auto) 0.8 TH/MM3 (1.0-4.8) Blood Urea Nitrogen 24 MG/DL (7-18) Creatinine 1.44 MG/DL (0.60-1.30) Random Glucose 107 MG/DL (74-106) Albumin 3.0 GM/DL (3.4-5.0) Calcium Level 7.9 MG/DL (8.5-10.1) Aspartate Amino Transf (AST/SGOT) 50 U/L (15-37) Alanine Aminotransferase (ALT/SGPT) 114 U/L (12-78) Estimat Glomerular Filtration Rate 56 ML/MIN (>89) Imaging Last Impressions Myocardial Perfusion Scan Nuc Med 10/11/17 0000 Signed Impressions: CONCLUSION: 1. No evidence to suggest ischemic myocardial changes. 2. Prominent global hypokinesis of the entire left ventricle. 3. Significantly diminished cardiac ejection fraction 8%. 4. The left ventricle appears to be dilated. PE at Discharge GENERAL: This is a well-nourished, well-developed patient, in no apparent distress. CARDIOVASCULAR: Regular rate and regular rhythm with clicky sound in LSB. RESPIRATORY: Clear to auscultation. Breath sounds equal bilaterally. No wheezes , rales, or rhonchi. GASTROINTESTINAL: Abdomen soft, non-tender, nondistended. Normal, active bowel sounds MUSCULOSKELETAL: Extremities without clubbing, cyanosis, or edema. NEURO: Alert & Oriented x4 to person, place, time, situation. Moves all ext x4 Hospital Course Pneumonia -Chest x-ray shows persistent and slightly enlarging right lateral lower lobe infiltrate -Antibiotics;Pencillin G- Rocephin- per ID. -Supplemental oxygen titrated to maintain oxygen saturation greater than 92% -neb treatment -ID following. Congestive heart failure s/p aortic/mitral valve replacement recent admission because of BC with Enterococcus faecalis, has vegetation in AVR and possibly in ICD leads- was discharged on Penicillin G but he says that he wasn't able to get the antibiotics after discharge. -started back on penicillin G- per ID. - continue lasix, BB and CARMINE. -stress test with no evidence of ischemia -cardiology evaluated and signed off. -Continuous cardiac telemetry to monitor for arrhythmia -dc Lovenox- continue Coumadin- PT/INR monitoring. Sepsis - WBC elevated at 14.4 wityh significant neutrophilia - Lactic acid 3.5 on admission and 1.9 on repeat - continue antibiotics - - will continue to monitor CKD -Monitor BMP -Avoid nephrotoxins generalized weakness- consulted PT. DVT prophylaxis -Patient is being given therapeutic Lovenox as well as Coumadin -continue to monitor INR poor prognosis- consulted palliative care. had a lengthy d/w the patient; hospice will be consulted per our conversation. Pt Condition on Discharge: Guarded Discharge Disposition: Hospice/Med Facility Discharge Time: <= 30 minutes Tulio Aceves MD October 17, 2017 17:45
== END 2017-10-17 19:06 | disposition hospice, inpatient (51) | DRG 871 ==
LOC: NEDDLT 12:38 → N04B 18:00
PROVIDERS: ADMIT Internal Medicine; ATTEND Internal Medicine
DX: A41.9 Sepsis, unspecified organism (principal); J18.9 Pneumonia, unspecified organism; N17.9 Acute kidney failure, unspecified; I38 Endocarditis, valve unspecified; I50.9 Heart failure, unspecified; I42.9 Cardiomyopathy, unspecified; N18.9 Chronic kidney disease, unspecified; F19.10 Other psychoactive substance abuse, uncomplicated; M62.838 Other muscle spasm; E89.0 Postprocedural hypothyroidism; F14.90 Cocaine use, unspecified, uncomplicated; F17.210 Nicotine dependence, cigarettes, uncomplicated; F41.9 Anxiety disorder, unspecified; Z51.5 Encounter for palliative care; Z95.2 Presence of prosthetic heart valve; Z90.49 Acquired absence of other specified parts of digestive tract; Z79.01 Long term (current) use of anticoagulants; Z66 Do not resuscitate
CPT/HCPCS: 71045; 76937; 78452; 80048; 80053; 81001; 82550; 82552; 83605; 83880; 84484; 85025; 85610; 85730; 87040; 93005; 93017; 93306; 94640; 96365; 96366; 96368; A9502; J0456; J0692; J0696; J1650; J1940; J2060; J2540; J2785; J7050; J7644